=== PATIENT | male | born 1940 | race Caucasian/White ===

== ENCOUNTER 2019-06-08 02:15 | Inpatient (IN) | payer OTHER, SELFPAY ==
[2019-06-08] VITALS (19 sets, daily range): BP systolic 103–200; BP diastolic 61–138; PULSE 63–99; RESP 18–32; TEMP 36–36.8; O2SAT 86–100; BMI 26.4
--- NOTE | ~2019-06-08 | XR_ITS ---
XR chest 2V DATE: 06/08/2019 09:50 INDICATION: Cough, shortness of breath TECHNIQUE: PA and lateral views COMPARISON: 06/08/2019 portable upright AP chest FINDINGS: There are bilateral posterior basilar lower lobe infiltrates and/atelectasis and small pleu ral effusions. Normal heart size. Aortic calcification. There is resolution of the pulmonary vascular congestion and pulmonary interstitial edema noted on 06/08/2019 at 0228 hours. There is residual pulmonary vascular redistribution suggesting mild pulmonary venous hypertension as well as mild prominence of the fissur es suggesting possible residual subpleural edema. IMPRESSION: Dramatic improvement of pulmonary edema since earlier today at 0228 hours; pulmonary vasc ular redistribution, subpleural edema and small pleural effusions remain Bilateral posterior basilar lower lobe infiltrate and/atelectasis Reviewed, dictated and finalized at location B. IMPRESSION: Dramatic improvement of pulmonary edema since earlier today at 0228 hours; pulmonary vascular redistribution, subpleural edema and small pleural e ffusions remain Bilateral posterior basilar lower lobe infiltrate and/atelectasis
--- NOTE | ~2019-06-08 | XR_ITS ---
EXAMINATION: XR chest 1V portable EXAM DATE: 06/08/2019 02:28 INDICATION: Shortness of breath. TECHNIQUE: Portable AP frontal chest x-ray was obtained. Comparison is made to prior examination from 09/03/2010. FINDINGS: There is extensive bilateral perihilar distribution airspace disease, likely edema/ARDS and /or pneumonia. Please clinically correlate. Cardiomediastinal silhouette is normal. There is no pneum othorax suspected. There are no pleural effusions. There are bony degenerative changes. IMPRESSION: Extensive bilateral perihilar distribution airspace disease, could be edema/ARDS. Pneumon ia not excludable. Reviewed, dictated and finalized at location A. IMPRESSION: Extensive bilateral perihilar distribution airspace disease, could be edema/ARDS. Pneumonia not excludable.
--- NOTE | 2019-06-08 02:17 | ECG_ITS ---
Measurements Intervals [place] Rate: 96 P: 12 NH: 199 QRS: -4 QRSD: 102 T: 53 QT: 364 QTc: 461 Interpretive Statements SINUS RHYTHM POSSIBLE LEFT ATRIAL ENLARGEMENT BASELINE ARTIFACT- I, II, III, AVL, AVF BORDERLINE ECG Electronically Signed On 06-08-2019 7:09:16 CDT by Josue Colvin D.O.
[2019-06-08] MEDS: NITROGLYCERIN OINTMENT 1 INCH DOSE TRANSDERM (02:20)
--- NOTE | 2019-06-08 02:21 | ED.SOB ---
HPI - SOB/Dyspnea General Chief Complaint: Shortness of Breath/Dyspnea Stated Complaint: diff breathing Time Seen by Provider: 06/08/19 02:16 Source: patient, EMS and RN notes reviewed Mode of arrival: EMS Limitations: clinical condition History of Present Illness HPI Narrative: Pt is a 78 y/o female who presents to the ED with c/o sudden onset of SOB that began yesterday (06/07/19). Per EMS, pt was prescribed an abx for bronchitis. Pt?s PCP recommended the pt to stay at home and self quarantine to take precautions. Pt?s respiratory rate was 28 times per minute. EMS states they heard rhonchi, but denies breath sounds being diminished. Pt had a pulse ox of 84. Pt?s O2 saturation increased from 84% to 98% after being placed on 15 L of O2 via a non rebreather. EMS states the pt felt better after being placed on the non rebreather, but he is still struggling to take a deep breath. EMS states they were in the processes of putting the pt on a CPAP, but the pt was showing positive trends so EMS continued with the non rebreather. EMS states the pt's EKG was normal. EMS denies the pt having a hx of CHF. EMS states the pt's family has flu like sx. Pt states that he cannot lay fully back d/t his back muscles. Pt also reports diaphoresis and nausea, but denies a fever, chest pain, chest pressure, and vomiting. HPI is limited due to pt's clinical condition. Pt requests full code status. MD elicited complaint: shortness of breath Onset (ago): day(s) (1) Context: other (sick contact) Timing: constant Severity: severe Associated symptoms: nausea/vomiting and other (diaphoresis) Treatment prior to arrival: oxygen (15 L via non rebreather) Related Data Home Medications Medication Instructions Recorded Confirmed azithromycin 250 mg PO DAILY 06/08/19 cyclobenzaprine 10 mg PO BID PRN 06/08/19 dimenhydrinate 50 mg PO Q4-6H PRN 06/08/19 diphenhydramine HCl [Allergy 25 mg PO HS 06/08/19 (diphenhydramine)] dutasteride 0.5 mg PO DAILY 06/08/19 fludrocortisone 0.1 mg PO DAILY 03/18/20 latanoprost 1 drp OPHTHALMIC (EYE) HS 06/08/19 lorazepam 1 mg PO HS PRN 06/08/19 melatonin 10 mg PO HS 06/08/19 omeprazole 20 mg PO HS 06/08/19 oxybutynin chloride 15 mg PO DAILY 06/08/19 paroxetine HCl 20 mg PO DAILY 06/08/19 quetiapine 200 mg PO HS 06/08/19 sotalol 80 mg PO BID 06/08/19 triamcinolone acetonide 1 applic TOPICAL DAILY 06/08/19 Allergies Allergy/AdvReac Type Severity Reaction Status Date / Time celecoxib Allergy Mild Hives Verified 06/08/19 02:53 valdecoxib Allergy Mild Hives Verified 06/08/19 02:53 Barbiturates Allergy Unknown Hives Verified 06/08/19 02:53 Review of Systems Review of Systems: ROS unobtainable: other (limited due to pt's clinical condition) Constitutional: Constitutional: Denies fever(s) Cardiovascular: Cardiovascular: Denies chest pain, Reports diaphoresis and Denies other (chest pressure) Respiratory: Respiratory: Reports dyspnea Gastrointestinal: Gastrointestinal: Reports nausea and Denies vomiting [facility] Past Medical History Medical History (Updated 06/08/19 @ 04:15 by Simón Gilbert MD) A-fib Anxiety Arm fracture Arthritis DDD (degenerative disc disease) Depression Dilation of esophagus x3 Gallbladder disease GERD (gastroesophageal reflux disease) GI bleed Glaucoma Headache Mitral valve prolapse Parkinson disease Previous known suicide attempt 07/03/09 Rectal polyp Silverio-Checo syndrome Ulcer Surgical History Surgical History (Updated 06/08/19 @ 02:32 by Sonya Redmond) H/O cardiac radiofrequency ablation History of esophagogastroduodenoscopy (EGD) Hx of appendectomy Hx of cholecystectomy Hx of fusion of cervical spine Status post laparoscopic Austen fundoplication Family History Family History (Updated 06/08/19 @ 02:33 by Sonya Redmond) Father Colon cancer Social History Social History (Updated 06/08/19 @ 02:32 by Sonya Redmond) Smoking packs per day: 0.5 Smok
[2019-06-08] MEDS: ONDANSETRON INJ 4 MG/2 ML VIAL IV PUSH (02:25)
[2019-06-08] MEDS: FUROSEMIDE INJ 40 MG/4 ML VIAL 80 MG (02:27)
[2019-06-08 02:41] LABS: Alveolar/Arterial O2 Gradient 446.6 mmHg; Base Excess ABG -4.7 mEq/l (+/-2.0); Carboxyhemoglobin 0.6 % THb (0-2.0); Fractional Inspired Oxygen 100 %; Methemoglobin ABG 0.1 %THb (0-1.5); Oxygen Content ABG 21.7 %vol (16.0-22.0); Oxygen Saturation ABG 99.4 % (95.0-100.0); Oxyhemoglobin 98.1 % THb (90.0-100.0); PCO2 ABG 46.4 mmHg (35.0-45.0); Reduced Hemoglobin 1.2 %THb (0-5.0); Total Hemoglobin 15.4 g/dL (12.0-18.0); pH ABG 7.294 (7.350-7.450)
[2019-06-08 02:42] LABS: Device NON-INVASIVE VENT; Modified Allen's Test Pass; Site Drawn RIGHT RADIAL
[2019-06-08 02:44] LABS: Non-Invasive Expiratory Pressure 8 CMH2O; Non-Invasive Inspiratory Pressure 14 CMH2O; Non-Invasive Vent Rate 8 /MIN
[2019-06-08 03:21] LABS: Basophils Percent Auto 0.2 % (0.2-1.2); Eosinophils Absolute Auto 0.3 K/mm3 (0-0.3); Eosinophils Percent Auto 3.5 % (0-4.4); Hemoglobin 14.8 g/dL (14.0-18.0); Immature Granulocyte Absolute 0.02 K/mm3 (0.00-0.031); Immature Granulocyte Percent A 0.2 % (0-0.5); Lymphocytes Absolute Auto 1.14 K/mm3 (0.9-3.2); Lymphocytes Percent Auto 13.9 % (18.3-44.2); Mean Corpuscular HGB Conc 32.9 g/dl (32-36); Mean Corpuscular Hemoglobin 30.5 pg (26-34); Mean Corpuscular Volume 92.8 fl (80-100); Mean Platelet Volume 11.3 fl (7.4-10.4); Monocytes Absolute Auto 0.3 K/mm3 (0.1-0.6); Monocytes Percent Auto 3.6 % (2.6-8.5); Neutrophils Absolute Auto 6.5 K/mm3 (1.3-6.7); Neutrophils Percent Auto 78.6 % (45.5-73.1); Platelet Count Result 220 k/mm3 (150-375); Red Blood Count 4.85 M/mm3 (4.6-6.20); Red Cell Distribution Width 14.5 % (11.5-14.5); White Blood Count 8.2 K/mm3 (4.5-10.0)
--- NOTE | 2019-06-08 03:33 | PC.NURSE ---
Patient's blood pressure 103/71, Nitro paste removed from left chest.
[2019-06-08 03:37] LABS: Blood Urea Nitrogen 18 mg/dL (9-20); Calcium 8.6 mg/dL (8.4-10.2); Carbon Dioxide 27 mmol/L (22-30); Chloride 105 mmol/L (98-107); Estimated CRCL calculation 70 ml/min; Estimated Glomerular Filt Rate > 60; Glucose 168 mg/dL (75-110); Lactic Acid Reflex 1.1 mmol/L (0.7-2.1); Sodium 138 mmol/L (137-145)
[2019-06-08 03:49] LABS: NT Pro B Type Natriuretic Pept 2490 PG/ML (5-100)
[2019-06-08] MEDS: OSELTAMIVIR PHOSPHATE 75 MG CAPSULE PO ×2 (04:08→17:11)
--- NOTE | 2019-06-08 04:08 | PC.NURSE ---
Bipap removed from patient. patient placed on O2@4L/NC. SPO2 97%. Will cont to monitor.
--- NOTE | 2019-06-08 04:25 | PM.IMHP ---
H&P: HPI History of Present Illness Chief complaint: CHF EXACERBATION,ACUTE RESPIRATORY FAILURE Narrative: This is a pleasant 78-year-old male with known past medical history of atrial fibrillation status post ablations and mitral valve prolapse who presented to the hospital with a complaint of sudden onset of severe shortness of breath that began yesterday. Associated symptoms included nausea and diaphoresis. On arrival to the emergency room the patient was in acute respiratory failure and was found to be saturating 84% on room air. The patient was placed on BiPAP in the ER. Chest x-ray was obtained which demonstrated diffuse pulmonary edema. The patient himself denies any past medical history of congestive heart failure, COPD, or other forms of chronic lung disease. He denies any fever, chest pain, abdominal pain, sore throat, dysuria, hematuria, diarrhea, rectal bleeding, lower extremity swelling, pain, or redness. The patient was found to be acutely fluid overloaded with acute pulmonary edema and significantly elevated BNP. He also tested positive for influenza a tonight. He reports his has similar respiratory symptoms at home. The patient was treated with IV Lasix in the ER tonight and we been asked to admit him to the hospital for further care. He denies any other symptoms at this time. Review of Systems Review of Systems: All systems reviewed & are unremarkable except as noted in HPI and below PMFSH Past Medical History Medical History A-fib Anxiety Arm fracture Arthritis DDD (degenerative disc disease) Depression Dilation of esophagus x3 Gallbladder disease GERD (gastroesophageal reflux disease) GI bleed Glaucoma Headache Mitral valve prolapse Parkinson disease Previous known suicide attempt 07/03/09 Rectal polyp Silverio-Checo syndrome Ulcer Surgical History Surgical History H/O cardiac radiofrequency ablation History of esophagogastroduodenoscopy (EGD) Hx of appendectomy Hx of cholecystectomy Hx of fusion of cervical spine Status post laparoscopic Austen fundoplication Family History Family History Father Colon cancer Social History Social History Smoking packs per day: 0.5 Smoking cigarettes per day: 10.0 Years smoked: 5 Smoking pack-years: 2.50 Smoking status: Former smoker Tobacco type: cigarettes Second hand tobacco smoke exposure: No Smoking end date: 03/23/71 Alcohol intake: never Substance use: never Gender identity (if verbalized by the patient): Male Spiritual care concerns: No Agree to blood products: Yes Meds Home Medications and Allergies Home Medications Medication Instructions Recorded Confirmed Type azithromycin 250 mg PO DAILY 06/08/19 06/08/19 History cyclobenzaprine 10 mg PO BID PRN 06/08/19 06/08/19 History dimenhydrinate 50 mg PO Q4-6H PRN 06/08/19 06/08/19 History diphenhydramine HCl [Allergy 25 mg PO HS 06/08/19 06/08/19 History (diphenhydramine)] dutasteride 0.5 mg PO DAILY 06/08/19 06/08/19 History fludrocortisone 0.1 mg PO DAILY 06/08/19 06/08/19 History latanoprost 1 drp OPHTHALMIC (EYE) HS 06/08/19 06/08/19 History lorazepam 1 mg PO HS PRN 06/08/19 06/08/19 History melatonin 10 mg PO HS 06/08/19 06/08/19 History omeprazole 20 mg PO HS 06/08/19 06/08/19 History oxybutynin chloride 15 mg PO DAILY 06/08/19 06/08/19 History paroxetine HCl 20 mg PO DAILY 06/08/19 06/08/19 History quetiapine 200 mg PO HS 06/08/19 06/08/19 History sotalol 80 mg PO BID 06/08/19 06/08/19 History Allergies Allergy/AdvReac Type Severity Reaction Status Date / Time celecoxib Allergy Mild Hives Verified 06/08/19 02:53 valdecoxib Allergy Mild Hives Verified 06/08/19 02:53 Barbiturates Allergy Unknown Hives Verified 06/08/19 02:53 Vit
--- NOTE | 2019-06-08 04:31 | PC.NURSE ---
Patient report faxed to ICU, IMCU overflow.
--- NOTE | 2019-06-08 04:42 | ECHO_ITS ---
Patient Info Name: Rico Nelson Age: 78 years : 1940 Gender: Male Ht: 74 in Wt: 210 lbs BSA: 2.24 m2 HR: 67 bpm BP: 119 / 83 mmHg Heart Rhythm: Sinus Rhythm Technical Quality: Good Exam Date: 06/08/2019 7:43 AM Exam Location: [facility] Pulmonary Patient Status: Inpatient Admit Date: 06/08/2019 Staff Ordering Physician: Lauro Agrawal MD Manager Wind: Carter Jade RDCS, RT Attending Provider: Maite David PA-C Referring Physician: Nghia MARAVILLA; Exam Type: CA echo doppler color flow Study Info Indications I50.9 - Heart failure, unspecified Complete two-dimensional, color flow and Doppler transthoracic echocardiogram is performed. Summary 1. Left ventricular chamber dimension is mildly enlarged. 2. Left ventricular systolic function is moderately reduced, estimated at 35-40%. 3. There is mildly increased left ventricular wall thickness. 4. The left ventricular diastolic function is grade I diastolic dysfunction. 5. The anterior wall, anterolateral wall, and inferolateral wall are hypokinetic. 6. All other dupont appear normal. 7. Left atrial chamber dimension is mildly enlarged. 8. There is mild to moderate aortic valve regurgitation. 9. There is mild mitral valve regurgitation. 10. There is mild tricuspid valve regurgitation. 11. There is mild pulmonic regurgitation. 12. Pleural effusion is seen. Left Ventricle Left ventricular chamber dimension is mildly enlarged. Left ventricular systolic function is moderately reduced, estimated at 35-40%. There is mildly increased left ventricular wall thickness. The left ventricular diastolic function is grade I diastolic dysfunction. The anterior wall, anterolateral wall, and inferolateral wall are hypokinetic. All other dupont appear normal. Right Ventricle Right ventricular chamber dimension is normal. Right ventricular systolic function is normal. Left Atria Left atrial chamber dimension is mildly enlarged. Right Atria Right atrial chamber dimension is normal. Atrial Septum Intact interatrial septum visualized by color flow imaging. Aortic Valve The aortic valve is trileaflet. There is mild aortic valve sclerosis. There is no aortic valve stenosis. There is mild to moderate aortic valve regurgitation. Pulmonic Valve The pulmonic valve is normal. There is no pulmonic valve stenosis. There is mild pulmonic regurgitation. Mitral Valve The mitral valve has normal leaflets. There is no mitral valve stenosis. There is mild mitral valve regurgitation. Tricuspid Valve The tricuspid valve leaflets are normal. There is no significant tricuspid valve stenosis. There is mild tricuspid valve regurgitation. Other Findings Pleural effusion is seen. Pericardium/Pleural The pericardium appears normal. There is small pericardial effusion. Inferior Vena Cava Dilated inferior vena cava with >50% collapse upon inspiration consistent with elevated right atrial pressure, 10 mmHg. Aorta The aortic root size at the sinus of Valsalva is dilated. Left Ventricular Outflow Tract Name Value Normal LVOT 2D LVOT Diameter 2.3 cm LVOT Doppler
[2019-06-08 06:02] LABS: Alveolar/Arterial O2 Gradient 90.7 mmHg; Base Excess ABG 1.7 mEq/l (+/-2.0); Fractional Inspired Oxygen 36 %; HCO3 ABG 26.7 mEq/l (22.0-26.0); Oxygen Content ABG 20.2 %vol (16.0-22.0); Oxygen Saturation ABG 98.2 % (95.0-100.0); Oxyhemoglobin 97.1 % THb (90.0-100.0); PCO2 ABG 43.4 mmHg (35.0-45.0); PO2 ABG 115.6 mmHg (80.0-100.0); PO2 FiO2 Ratio Arterial Blood 3.21 %; Total Hemoglobin 14.7 g/dL (12.0-18.0); pH ABG 7.407 (7.350-7.450)
[2019-06-08 06:04] LABS: Device NASAL CANNULA; Modified Allen's Test Pass; Site Drawn RIGHT RADIAL
--- NOTE | 2019-06-08 06:08 | PC.NURSE ---
This patient, Rico Nelson, was admitted to Intensive Care Unit-11. Patient/family oriented to hospital policies and general routines including ID bracelet, bed and alarms, visiting hours, pain management, procedures, bathroom and other care routines, personal items, smoking policy, room service/diet, and visiting hours. Valuables list has been completed. Information on how to activate the Rapid Response Team has been discussed. Patient/Family are encouraged to report perceived risks to care and to ask questions if they do not understand what they are told or what they should do.
[2019-06-08 06:46] LABS: Magnesium 2.3 mg/dL (1.6-2.3)
[2019-06-08 07:01] LABS: INR 0.9; Prothrombin Time 12.1 Seconds (11.1-14.7)
[2019-06-08 07:03] LABS: Partial Thromboplastin Time 31.8 SECONDS (22.3-36.8)
[2019-06-08 07:07] LABS: Troponin I 0.055 ng/mL (0.000-0.034)
[2019-06-08 07:29] LABS: Hemoglobin A1C 5.5 % (<5.7)
[2019-06-08 07:57] LABS: Thyroid Stimulating Hormone Reflex 0.909 uIU/mL (0.465-4.68)
[2019-06-08] MEDS: FUROSEMIDE INJ 40 MG/4 ML VIAL IV PUSH (08:37)
[2019-06-08 10:13] LABS: Troponin I 0.049 ng/mL (0.000-0.034)
--- NOTE | 2019-06-08 11:09 | PM.IMPN ---
Progress Note: A&P Assessment and Plan (1) Acute respiratory failure: Qualifiers: Respiratory failure complication: hypoxia Qualified Code(s): J96.01 - Acute respiratory failure with hypoxia Code(s): J96.00 - Acute respiratory failure, unspecified whether with hypoxia or hypercapnia Status: Acute Assessment and Plan: ------much improved on new chest x-ray today, his lung exam is clear, and he no longer has shortness of breath. Will wean oxygen as tolerated. Okay to move out of IMU. Pulmonary edema likely secondary to influenza. Awaiting echo to assess for heart failure. Troponins trending down with no chest pain. Likely reactionary to acute heart failure/pulmonary edema (2) Acute exacerbation of CHF (congestive heart failure): Qualifiers: Heart failure type: unspecified Qualified Code(s): I50.9 - Heart failure, unspecified Code(s): I50.9 - Heart failure, unspecified Status: Acute Assessment and Plan: ------awaiting echo. Continue fluid restricted diet. Is and Os, Daily weights, Telemetry. Lasix changed to oral. TSH normal. Troponin elevated but trending down. See above (3) Influenza A: Code(s): J10.1 - Influenza due to other identified influenza virus with other respiratory manifestations Status: Acute Assessment and Plan: -----continue Tamiflu and symptomatic treatment. (4) Abnormal glucose: Code(s): R73.09 - Other abnormal glucose Status: Acute Assessment and Plan: -----A1c within normal limits. Likely acute phase reactant (5) Depression: Qualifiers: Depression Type: other depression Qualified Code(s): F32.89 - Other specified depressive episodes Code(s): F32.9 - Major depressive disorder, single episode, unspecified Status: Chronic Assessment and Plan: -----In good spirits today. Continue paxil when home meds verified . (6) GERD (gastroesophageal reflux disease): Qualifiers: Esophagitis presence: esophagitis presence not specified Qualified Code(s): K21.9 - Gastro-esophageal reflux disease without esophagitis Code(s): K21.9 - Gastro-esophageal reflux disease without esophagitis Status: Chronic Assessment and Plan: ------continue PPI therapy when home meds verified. (7) Glaucoma: Qualifiers: Glaucoma type: unspecified Laterality: unspecified laterality Qualified Code(s): H40.9 - Unspecified glaucoma Code(s): H40.9 - Unspecified glaucoma Status: Chronic Assessment and Plan: ------Continue Latanoprost eye drops. (8) A-fib: Qualifiers: Atrial fibrillation type: unspecified Qualified Code(s): I48.91 - Unspecified atrial fibrillation Code(s): I48.91 - Unspecified atrial fibrillation Status: Chronic Assessment and Plan: -----Hx of paroxysmal atrial fibrillation - Rate controlled and currently in sinus rhythm. Continue Sotalol PO when verified. Time Spent With Patient Time with patient: 25 - 35 minutes Subjective Date/time seen: 06/08/19 11:09 Interval history: Pt is a 78-year-old male who is being seen for influenza and flash pulmonary edema. Patient was seen today and states he feels much better. He is no longer short of breath but still is utilizing the oxygen. He says that he has gotten up and walked to the wheelchair without any shortness of breath there either. He does not usually use oxygen at home. He has had a little bit of nausea which is typical for him as well as constipation. He denies fevers, chills, chest pain, diarrhea or vomiting. When asked if he felt like his heart was racing this morning around 830 he said he has not had any heart palpitations or chest pain since being here. He says he can usually feel his heart racing has not since. He denies any activity during this time either. He is able to lay flat and has no
--- NOTE | 2019-06-08 14:00 | PC.NURSE ---
This patient, Rico Nelson, was received from ICU on 06/08/19 at 1400. Personal belongings list checked and signed. Patient/family oriented to unit policies and routines
--- NOTE | 2019-06-08 14:02 | PC.NURSE ---
This patient, Rico Nelson, was transferred to [facility] on 06/08/19 at 1355. Personal belongings sent with patient. Belongings list checked and signed with receiving . Report given to BRIE Elise. Appropriate documentation sent with patient.
[2019-06-08] MEDS: FUROSEMIDE 40 MG TABLET PO (17:11)
[2019-06-08] MEDS: SOTALOL HCL 80 MG TABLET PO (19:49)
[2019-06-08] MEDS: LATANOPROST 0.005% OP SOLN 2.5 ML BTL 1 DROP EACH EYE (19:50)
[2019-06-08] MEDS: PANTOPRAZOLE 40 MG TABLET PO (19:50)
[2019-06-08] MEDS: SENNOSIDES 8.6 MG TABLET PO (19:50)
[2019-06-08] MEDS: MELATONIN 5 MG TABLET 10 MG PO (19:50)
[2019-06-08] MEDS: QUEtiapine FUMARATE 100 MG TABLET 200 MG PO (19:50)
[2019-06-09] VITALS (9 sets, daily range): BP systolic 110–140; BP diastolic 71–81; PULSE 51–77; RESP 16–20; TEMP 36.3–36.6; O2SAT 96–98
[2019-06-09] MEDS: OSELTAMIVIR PHOSPHATE 75 MG CAPSULE PO ×2 (05:41→18:20)
[2019-06-09 06:01] LABS: Basophils Percent Auto 0.5 % (0.2-1.2); Eosinophils Absolute Auto 0.2 K/mm3 (0-0.3); Eosinophils Percent Auto 5.1 % (0-4.4); Hematocrit 38.3 % (42.0-52.0); Hemoglobin 12.5 g/dL (14.0-18.0); Immature Granulocyte Absolute 0.01 K/mm3 (0.00-0.031); Immature Granulocyte Percent A 0.2 % (0-0.5); Lymphocytes Absolute Auto 1.43 K/mm3 (0.9-3.2); Lymphocytes Percent Auto 32.9 % (18.3-44.2); Mean Corpuscular HGB Conc 32.6 g/dl (32-36); Mean Corpuscular Hemoglobin 30.1 pg (26-34); Mean Corpuscular Volume 92.3 fl (80-100); Mean Platelet Volume 11.2 fl (7.4-10.4); Monocytes Absolute Auto 0.5 K/mm3 (0.1-0.6); Monocytes Percent Auto 11.8 % (2.6-8.5); Neutrophils Absolute Auto 2.2 K/mm3 (1.3-6.7); Neutrophils Percent Auto 49.5 % (45.5-73.1); Platelet Count Result 189 k/mm3 (150-375); Red Blood Count 4.15 M/mm3 (4.6-6.20); Red Cell Distribution Width 14.6 % (11.5-14.5); White Blood Count 4.3 K/mm3 (4.5-10.0)
[2019-06-09 06:28] LABS: Blood Urea Nitrogen 32 mg/dL (9-20); Calcium 8.6 mg/dL (8.4-10.2); Carbon Dioxide 36 mmol/L (22-30); Chloride 99 mmol/L (98-107); Estimated CRCL calculation 58 ml/min; Estimated Glomerular Filt Rate > 60; Glucose 104 mg/dL (75-110); Potassium 3.1 mmol/L (3.4-5.0); Sodium 138 mmol/L (137-145)
[2019-06-09] MEDS: SOTALOL HCL 80 MG TABLET PO (08:18)
[2019-06-09] MEDS: FLUDROCORTISONE ACETATE 0.1 MG TABLET PO (08:18)
[2019-06-09] MEDS: FUROSEMIDE 40 MG TABLET PO (08:18)
[2019-06-09] MEDS: DUTASTERIDE 0.5 MG CAPSULE PO (08:18)
[2019-06-09] MEDS: PAROXETINE 20 MG TABLET PO (08:18)
--- NOTE | 2019-06-09 08:42 | ECG_ITS ---
Measurements Intervals [place] Rate: 76 P: 38 PA: 198 QRS: -2 QRSD: 99 T: 56 QT: 425 QTc: 479 Interpretive Statements SINUS RHYTHM ATRIAL PREMATURE COMPLEXES BASELINE ARTIFACT- II, III, AVF BORDERLINE ECG Electronically Signed On 06-09-2019 9:51:31 CDT by Josue Colvin D.O.
--- NOTE | 2019-06-09 14:20 | PM.IMPN ---
Progress Note: A&P Assessment and Plan (1) Acute respiratory failure: Qualifiers: Respiratory failure complication: hypoxia Qualified Code(s): J96.01 - Acute respiratory failure with hypoxia Code(s): J96.00 - Acute respiratory failure, unspecified whether with hypoxia or hypercapnia Status: Acute Assessment and Plan: ------much improved on new chest x-ray yesterday, his lung exam is clear, and he no longer has shortness of breath. Pulmonary edema likely secondary to influenza and CHF. Echo shows systolic dysfunction. Troponins trending down with no chest pain. Likely reactionary to acute heart failure/pulmonary edema (2) Acute exacerbation of CHF (congestive heart failure): Qualifiers: Heart failure type: systolic Qualified Code(s): I50.23 - Acute on chronic systolic (congestive) heart failure Code(s): I50.9 - Heart failure, unspecified Status: Acute Assessment and Plan: -----Echo shows systolic dysfunction. Pt unaware of this. I requested records and last echo showed normal EF. He says he sees [facility] but then today admits he hasn't seen them in awhile. I will consult them due to new onset heart failure and uncontrolled afib. Continue fluid restricted diet. Is and Os, Daily weights, Telemetry. Lasix changed to oral and will likely need some outpt. TSH normal. Troponin elevated but trending down. See above (3) Influenza A: Code(s): J10.1 - Influenza due to other identified influenza virus with other respiratory manifestations Status: Acute Assessment and Plan: -----continue tamiflu and supportive treatments. (4) Abnormal glucose: Code(s): R73.09 - Other abnormal glucose Status: Acute Assessment and Plan: -----A1c within normal limits. Likely acute phase reactant (5) Depression: Qualifiers: Depression Type: other depression Qualified Code(s): F32.89 - Other specified depressive episodes Code(s): F32.9 - Major depressive disorder, single episode, unspecified Status: Chronic Assessment and Plan: -----continue paxil (6) GERD (gastroesophageal reflux disease): Qualifiers: Esophagitis presence: esophagitis presence not specified Qualified Code(s): K21.9 - Gastro-esophageal reflux disease without esophagitis Code(s): K21.9 - Gastro-esophageal reflux disease without esophagitis Status: Chronic Assessment and Plan: ------continue PPI therapy when home meds verified. (7) Glaucoma: Qualifiers: Glaucoma type: unspecified Laterality: unspecified laterality Qualified Code(s): H40.9 - Unspecified glaucoma Code(s): H40.9 - Unspecified glaucoma Status: Chronic Assessment and Plan: ------Continue Latanoprost eye drops. (8) A-fib: Qualifiers: Atrial fibrillation type: unspecified Qualified Code(s): I48.91 - Unspecified atrial fibrillation Code(s): I48.91 - Unspecified atrial fibrillation Status: Chronic Assessment and Plan: -----Hx of paroxysmal atrial fibrillation. He had RVR yesterday morning and today. Currently in NSR. Continue Sotalol and await cardiologys recommendations Subjective Date/time seen: 06/09/19 14:20 Interval history: Pt is a 78-year-old male who is being seen for influenza and flash pulmonary edema. Patient was seen today and says he is no longer SOB. When asked if his heart was racing or had CP he said it always races in the morning like that . He said he had an ablation about 10-15 years ago at [facility] and a cath about 10 years ago. He is unsure if he has been diagnosed with CHF. We discussed daily weights and low sat diet. Pt denies nausea, vomiting, fevers, chills, constipation, diarrhea, chest pain, sob, or abdominal pain. Exam Narrative: Exam Narrative: General: Well developed well nourished patient resting co
[2019-06-09] MEDS: POTASSIUM CHLORIDE 20 MEQ TABLET 40 MEQ PO (14:58)
--- NOTE | 2019-06-09 15:52 | PM.CNCAR ---
Assessment and Plan Assessment and plan (1) Acute exacerbation of CHF (congestive heart failure): Qualifiers: Heart failure type: systolic Qualified Code(s): I50.23 - Acute on chronic systolic (congestive) heart failure Code(s): I50.9 - Heart failure, unspecified Status: Acute Assessment and Plan: this is systolic in etiology. Echocardiogram shows ejection fraction 35-40% with wall motion abnormalities. Certainly may be related to underlying coronary disease. He did have a cardiac catheterization in 2005 showing mild plaquing. At this point, I am going to initiate Entresto therapy 24/26 mg 1 tablet p.o. b.i.d. I am going to stop his sotalol given his heart failure. After some washout, starting him on low-dose carvedilol is prudent. He does have a positive troponin and a repeat troponin will be ordered. Potassium will also be replaced. (2) A-fib: Qualifiers: Atrial fibrillation type: unspecified Qualified Code(s): I48.91 - Unspecified atrial fibrillation Code(s): I48.91 - Unspecified atrial fibrillation Status: Chronic Assessment and Plan: Stop the sotalol. He is having frequent episodes of atrial fibrillation anyway and his QTC is 479 milliseconds at this point. Unfortunately amiodarone is likely a better choice given his presumed coronary disease and heart failure. He has a chads Vasc score of at least 4. Anticoagulation is warranted. Will initiate enoxaparin therapy 1 milligram/kilogram subcu q.12 hours for now Andfurther discussion with the patient regarding long-term anticoagulation. (3) Influenza A: Code(s): J10.1 - Influenza due to other identified influenza virus with other respiratory manifestations Status: Acute Assessment and Plan: supportive care (4) GERD (gastroesophageal reflux disease): Qualifiers: Esophagitis presence: esophagitis presence not specified Qualified Code(s): K21.9 - Gastro-esophageal reflux disease without esophagitis Code(s): K21.9 - Gastro-esophageal reflux disease without esophagitis Status: Chronic (5) Cardiomyopathy: Code(s): I42.9 - Cardiomyopathy, unspecified Status: Acute Assessment and Plan: new diagnosis. Probably ischemic. will need an ischemic evaluation We will decrease his furosemide 40 mg daily History of Present Illness History of Present Illness Consult date/time: 06/09/19 15:52 Requesting physician: Maite David PA-C Consult reason: atrial fibrillation and congestive heart failure Reason For Visit: CHF EXACERBATION,ACUTE RESPIRATORY FAILURE Narrative: Date of service 06/07/2019 History: Patient is a 78-year-old male who has a history of atrial fibrillation and formally saw Dr. Galarza but has not been seen in several years. He has been on sotalol. Reportedly has had ablation in the past. Patient presented yesterday with acute onset of shortness of breath and hypoxia. He was found to be in acute pulmonary edema with an elevated BNP and reportedly also tested positive for influenza a. Cardiology consultation was therefore requested. Patient has also been going in and out of atrial fibrillation with rapid ventricular response. Patient states that prior to this episode he had been doing and feeling okay except for he would have frequent episodes of palpitations. Palpitations would last for several minutes and occur several times per day and then spontaneously resolve. Otherwise he admits that he has not been having any chest pain, significant shortness of breath, syncope, presyncope, paroxysmal nocturnal dyspnea, orthopnea , edema. Review of Systems Review of Systems: All systems reviewed & are unremarkable except as noted in HPI and below Constitutional: Constitutional: Denies chills Eyes: Eyes: Denies blurry vision ENT: Denies tinnitus Cardiovascular: Cardiovascular: Reports palpitations Respiratory: Respiratory: Reports d
[2019-06-09 16:54] LABS: Troponin I 0.013 ng/mL (0.000-0.034)
[2019-06-09] MEDS: LATANOPROST 0.005% OP SOLN 2.5 ML BTL 1 DROP EACH EYE (20:12)
[2019-06-09] MEDS: PANTOPRAZOLE 40 MG TABLET PO (20:12)
[2019-06-09] MEDS: QUEtiapine FUMARATE 100 MG TABLET 200 MG PO (20:12)
[2019-06-09] MEDS: MELATONIN 5 MG TABLET 10 MG PO (20:12)
[2019-06-09] MEDS: ENOXAPARIN 100 MG/ML SYRINGE 95 MG SUB-Q (20:12)
[2019-06-09] MEDS: SACUBITRIL/VALSARTAN 24-26 MG TABLET 1 TAB PO (20:12)
[2019-06-09] MEDS: SENNOSIDES 8.6 MG TABLET PO (20:13)
[2019-06-10] VITALS (11 sets, daily range): BP systolic 109–148; BP diastolic 65–88; PULSE 63–150; RESP 18–20; TEMP 36.2–36.5; O2SAT 97–100
[2019-06-10 05:32] LABS: Blood Urea Nitrogen 27 mg/dL (9-20); Calcium 8.5 mg/dL (8.4-10.2); Carbon Dioxide 37 mmol/L (22-30); Chloride 99 mmol/L (98-107); Estimated CRCL calculation 102 ml/min; Estimated Glomerular Filt Rate > 60; Glucose 94 mg/dL (75-110); Potassium 3.5 mmol/L (3.4-5.0); Sodium 137 mmol/L (137-145)
[2019-06-10] MEDS: OSELTAMIVIR PHOSPHATE 75 MG CAPSULE PO ×2 (06:12→17:15)
[2019-06-10] MEDS: METOPROLOL TARTRATE INJ 5 MG/5 ML VIAL IV PUSH (06:14)
[2019-06-10] MEDS: DUTASTERIDE 0.5 MG CAPSULE PO (09:01)
[2019-06-10] MEDS: FLUDROCORTISONE ACETATE 0.1 MG TABLET PO (09:01)
[2019-06-10] MEDS: SACUBITRIL/VALSARTAN 24-26 MG TABLET 1 TAB PO ×2 (09:01→19:56)
[2019-06-10] MEDS: FUROSEMIDE 40 MG TABLET PO (09:01)
[2019-06-10] MEDS: PAROXETINE 20 MG TABLET PO (09:01)
[2019-06-10] MEDS: METOPROLOL TARTRATE 25 MG TABLET PO ×2 (09:02→19:56)
[2019-06-10] MEDS: ENOXAPARIN 100 MG/ML SYRINGE 95 MG SUB-Q ×2 (09:02→19:56)
--- NOTE | 2019-06-10 10:46 | PM.IMPN ---
Progress Note: A&P Assessment and Plan (1) A-fib: Qualifiers: Atrial fibrillation type: unspecified Qualified Code(s): I48.91 - Unspecified atrial fibrillation Code(s): I48.91 - Unspecified atrial fibrillation Status: Chronic Assessment and Plan: -----Hx of paroxysmal atrial fibrillation.He has been having intermittent RVR and cardiology is working on medication changes. According to the note, Dr. Calero is waiting wash out for carvidolol. They also mention starting amiodarone but unsure when that will be started. Await cardiologys recommendation. I am having CC roberts Yoon. (2) Acute respiratory failure: Qualifiers: Respiratory failure complication: hypoxia Qualified Code(s): J96.01 - Acute respiratory failure with hypoxia Code(s): J96.00 - Acute respiratory failure, unspecified whether with hypoxia or hypercapnia Status: Acute Assessment and Plan: ------resolved. Much improved on new chest x-ray yesterday, his lung exam is clear, and he no longer has shortness of breath. Pulmonary edema likely secondary to influenza and CHF. Echo shows systolic dysfunction. Troponins trending down with no chest pain. Likely reactionary to acute heart failure/pulmonary edema (3) Acute exacerbation of CHF (congestive heart failure): Qualifiers: Heart failure type: systolic Qualified Code(s): I50.23 - Acute on chronic systolic (congestive) heart failure Code(s): I50.9 - Heart failure, unspecified Status: Acute Assessment and Plan: -----Echo shows systolic dysfunction. Pt unaware of this. I requested records and last echo showed normal EF. Heart care group saw the patient and is adjusting his meds. He is being transition to amiodarone. Continue fluid restricted diet. Is and Os, Daily weights, Telemetry. Lasix changed to oral and will likely need some outpt. TSH normal. Last troponin normal. Ischemia workup planned for outpatient. See above (4) Influenza A: Code(s): J10.1 - Influenza due to other identified influenza virus with other respiratory manifestations Status: Acute Assessment and Plan: -----continue tamiflu and supportive treatments. (5) Abnormal glucose: Code(s): R73.09 - Other abnormal glucose Status: Acute Assessment and Plan: -----A1c within normal limits. Likely acute phase reactant (6) Depression: Qualifiers: Depression Type: other depression Qualified Code(s): F32.89 - Other specified depressive episodes Code(s): F32.9 - Major depressive disorder, single episode, unspecified Status: Chronic Assessment and Plan: -----continue paxil (7) GERD (gastroesophageal reflux disease): Qualifiers: Esophagitis presence: esophagitis presence not specified Qualified Code(s): K21.9 - Gastro-esophageal reflux disease without esophagitis Code(s): K21.9 - Gastro-esophageal reflux disease without esophagitis Status: Chronic Assessment and Plan: ------continue PPI therapy (8) Glaucoma: Qualifiers: Glaucoma type: unspecified Laterality: unspecified laterality Qualified Code(s): H40.9 - Unspecified glaucoma Code(s): H40.9 - Unspecified glaucoma Status: Chronic Assessment and Plan: ------Continue Latanoprost eye drops. Additional Plan Subjective Date/time seen: 06/10/19 10:46 Interval history: Pt is a 78-year-old male who is being seen for influenza and flash pulmonary edema. Patient was seen today and states he is doing just fine. He is not short of breath and feels okay. He does mention that when he woke up this morning he felt his heart racing but had no chest pain associated with this. He says this did not wake him up he just woke up on her own. Pt denies nausea, vomiting, fevers, chills, constipation, diarrhea, chest pain, sob, or abdominal pain.
--- NOTE | 2019-06-10 11:44 | PM.PNCARD ---
Progress Note: A&P Additional Plan Because of the decline in left ventricular systolic function as well as the recurrence of atrial fibrillation which was significantly symptomatic on sotalol we intend to start amiodarone at this time. Entresto and metoprolol have been started in last 24 hours as well. Anticipate at least another 24 or 48 hours in the hospital to ensure that we do not have a early recurrence of atrial fib before discharge. Time Spent With Patient Time with patient: 15 - 25 minutes Subjective Date/time seen: Date of service: 06/10/19 11:44 Interval history: Follow-up visit for 78-year-old gentleman with recurrence of atrial fibrillation, dyspnea, congestive heart failure. Currently in sinus rhythm Patient is comfortable at this time appears to be in no distress of any sort Long discussion with the patient about management options of his recurrence of atrial fibrillation. He has had ablated treatment in the past at [facility] and has been maintained on sotalol by his PCP. I have not seen this gentleman in quite a few years prior to this hospitalization. Exam Const: General: no acute distress Other: Tall thin white male no apparent distress HENMT: Mouth: Yes dry mucous membranes Eyes: Sclera: sclerae normal Pupils: Equal, round and reactive pupils present Neck: Neck: supple and no JVD Thyroid: thyroid normal Resp: Effort & Inspection: normal respiratory effort Auscultation: clear to auscultation bilaterally Cardio: Rate: regular rate Rhythm: regular rhythm GI: Auscultation: normal bowel sounds Skin: General skin exam: normal color Neuro: Cognition (Neuro): normal cognition Extrem: General: normal to inspection Objective Data Vital Signs Vital Signs: Vital Signs - 24 hr 06/09/19 12:00 06/09/19 14:00 06/09/19 16:00 Temperature 36.3 C L Pulse Rate 66 67 77 Respiratory Rate 16 Blood Pressure 128/73 Pulse Oximetry 98 06/09/19 20:00 06/09/19 22:00 06/10/19 00:00 Temperature 36.6 C Pulse Rate 70 70 70 Respiratory Rate 20 Blood Pressure 140/81 Pulse Oximetry 96 06/10/19 04:00 06/10/19 05:41 06/10/19 06:14 Temperature 36.2 C L Pulse Rate 63 71 150 H Respiratory Rate 20 Blood Pressure 148/80 H Pulse Oximetry 97 06/10/19 09:00 Temperature Pulse Rate 80 Respiratory Rate Blood Pressure 109/65 Pulse Oximetry Intake/Output Intake/Output: Intake & Output 06/07/19 06/08/19 06/09/19 06/10/19 23:59 23:59 23:59 23:59 Intake Total 930 1350 240 Output Total 2024 1649 350 Balance -1095 -300 -110 Meds/Results Medications: Active Medications Generic Name Dose Route Start Last Admin Trade Name Freq PRN Reason Stop Dose Admin Acetaminophen 650 mg 06/08/19 11:06 Tylenol Tablet PO Q4H PRN Mild Pain (1-5) Or Fever Hydrocodone Bitart/Acetaminophen 1 tab 06/08/19 11:06 [place] 5-325 Mg PO Q4H PRN Pain Rated 6-10 Calcium Carbonate 200 mg 06/09/19 16:34 Tums PO Q6H PRN Indigestion Dutasteride 0.5 mg 06/09/19 09:00 06/10/19 09:01 Avodart PO 0.5 mg DAILY ZHEN Administration Enoxaparin Sodium 95 mg 06/09/19 21:00 06/10/19 09:02 Lovenox SUB-Q 95 mg Q12HR ZHEN Administration Fludrocortisone Acetate 0.1 mg 06/09/19 09:00 06/10/19 09:01 Florinef PO 0.1 mg DAILY ZHEN Administration Furosemide 40 mg 06/10/19 09:00 06/10/19 09:01 Lasix Tablet PO 40 mg DAILY ZHEN Administration Latanoprost 1 drop 06/08/19 21:00 06/09/19 20:12 Xalatan EACH EYE 1 drop HS ZHEN Administration Lorazepam 1 mg 06/08/19 11:56 Ativan Tab PO HS PRN Anxiety Melatonin 10 mg 06/08/19 21:00 06/09/19 20:12 Melatonin PO 10 mg HS ZHEN Administration Metoprolol Tartrate 25 mg 06/10/19 08:00 06/10/19 09:02 Lopressor PO 25 mg Q12H ZHEN Administration Ondansetron HCl 4 mg 06/08/19 04:03 Zofran Inj IV PUSH Q4H PRN Nausea Os
[2019-06-10] MEDS: AMIODARONE HCL 200 MG TABLET 400 MG PO ×2 (14:38→19:55)
[2019-06-10] MEDS: LATANOPROST 0.005% OP SOLN 2.5 ML BTL 1 DROP EACH EYE (19:55)
[2019-06-10] MEDS: SENNOSIDES 8.6 MG TABLET PO (19:56)
[2019-06-10] MEDS: QUEtiapine FUMARATE 100 MG TABLET 200 MG PO (19:56)
[2019-06-10] MEDS: MELATONIN 5 MG TABLET 10 MG PO (19:56)
[2019-06-10] MEDS: PANTOPRAZOLE 40 MG TABLET PO (19:56)
[2019-06-11] VITALS (7 sets, daily range): BP systolic 110–117; BP diastolic 66–70; PULSE 61–73; RESP 19; TEMP 36.5; O2SAT 98
[2019-06-11 05:52] LABS: Hematocrit 41.8 % (42.0-52.0); Hemoglobin 13.8 g/dL (14.0-18.0); Mean Corpuscular Hemoglobin 29.9 pg (26-34); Mean Corpuscular Volume 90.5 fl (80-100); Mean Platelet Volume 10.4 fl (7.4-10.4); Platelet Count Result 217 k/mm3 (150-375); Red Blood Count 4.62 M/mm3 (4.6-6.20); White Blood Count 4.4 K/mm3 (4.5-10.0)
[2019-06-11 06:16] LABS: Blood Urea Nitrogen 23 mg/dL (9-20); Carbon Dioxide > 40 mmol/L (22-30); Chloride 95 mmol/L (98-107); Estimated CRCL calculation 78 ml/min; Estimated Glomerular Filt Rate > 60; Glucose 94 mg/dL (75-110); Potassium 3.7 mmol/L (3.4-5.0); Sodium 138 mmol/L (137-145)
[2019-06-11] MEDS: OSELTAMIVIR PHOSPHATE 75 MG CAPSULE PO (06:21)
--- NOTE | 2019-06-11 08:21 | PM.PNCARD ---
Progress Note: A&P Additional Plan 78-year-old gentleman with recurrent atrial fib/flutter status post flutter ablation in the remote past. 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 Patient is stable on the current regimen of amiodarone, Entresto and metoprolol. Also takes a moderate dose of metoprolol. today will switch the patient from Lovenox to Xarelto From the cardiac standpoint he is stable for discharge at this time I will see the patient in the office for follow-up in 1 month and the plan will be to gradually down titrate the amiodarone dosage to 200 mg daily(currently at 800 mg) Rico Galarza MD [facility] Subjective Date/time seen: Date of service: 06/11/19 08:21 Interval history: Follow-up visit for paroxysmal atrial flutter and left ventricular systolic dysfunction Patient feels well looks well and is asymptomatic this morning Exam Const: General: comfortable and no acute distress HENMT: Mouth: Yes moist mucous membranes Eyes: Sclera: sclerae normal Pupils: Equal, round and reactive pupils present Neck: Neck: supple and no JVD Thyroid: thyroid normal Resp: Effort & Inspection: normal respiratory effort Auscultation: clear to auscultation bilaterally Cardio: Rate: regular rate Rhythm: regular rhythm GI: Auscultation: normal bowel sounds Skin: General skin exam: normal color Neuro: Cognition (Neuro): normal cognition Extrem: General: normal to inspection Objective Data Vital Signs Vital Signs: Vital Signs - 24 hr 06/10/19 09:00 06/10/19 12:00 06/10/19 14:00 Temperature 36.5 C Pulse Rate 80 79 72 Respiratory Rate 18 Blood Pressure 109/65 144/83 H Pulse Oximetry 98 06/10/19 16:00 06/10/19 20:00 06/10/19 22:00 Temperature 36.2 C L Pulse Rate 72 76 75 Respiratory Rate 20 Blood Pressure 142/88 H Pulse Oximetry 100 06/11/19 00:00 06/11/19 04:00 06/11/19 06:00 Temperature 36.5 C Pulse Rate 73 65 61 Respiratory Rate 19 Blood Pressure 117/66 Pulse Oximetry 98 Intake/Output Intake/Output: Intake & Output 03/18/20 03/19/20 03/20/20 03/21/20 23:59 23:59 23:59 23:59 Intake Total 930 1350 480 50 Output Total 2024 1649 9586 393 Balance -8974 -863 -1123 -500 Meds/Results Medications: Active Medications Generic Name Dose Route Start Last Admin Trade Name Freq PRN Reason Stop Dose Admin Acetaminophen 650 mg 06/08/19 11:06 Tylenol Tablet PO Q4H PRN Mild Pain (1-5) Or Fever Hydrocodone Bitart/Acetaminophen 1 tab 06/08/19 11:06 [place] 5-325 Mg PO Q4H PRN Pain Rated 6-10 Amiodarone HCl 400 mg 06/10/19 14:10 06/10/19 19:55 Pacerone PO 400 mg Q12HR ZHEN Administration Calcium Carbonate 200 mg 06/09/19 16:34 Tums PO Q6H PRN Indigestion Dutasteride 0.5 mg 06/09/19 09:00 06/10/19 09:01 Avodart PO 0.5 mg DAILY ZHEN Administration Fludrocortisone Acetate 0.1 mg 06/09/19 09:00 06/10/19 09:01 Florinef PO 0.1 mg DAILY ZHEN Administration Furosemide 40 mg 06/10/19 09:00 06/10/19 09:01 Lasix Tablet PO 40 mg DAILY ZHEN Administration Latanoprost 1 drop 06/08/19 21:00 06/10/19 19:55 Xalatan EACH EYE 1 drop HS ZHEN Administration Lorazepam 1 mg 06/08/19 11:56 Ativan Tab PO HS PRN Anxiety Melatonin 10 mg 06/08/19 21:00 06/10/19 19:56 Melatonin PO 10 mg HS ZHEN Administration Metoprolol Tartrate 25 mg 06/10/19 08:00 06/10/19 19:56 Lopressor PO 25 mg Q12H ZHEN Administration Ondansetron HCl 4 mg 06/08/19 04:03 Zofran Inj IV PUSH Q4H PRN Nausea Oseltamivir Phosphate 75 mg 06/08/19 18:00 06/11/19 06:21 Tamiflu Capsule PO 06/12/19 18:01 75 mg Q12H ZHEN Administration Oxybutynin Chloride 15 mg 06/09/19 09:00 06/10/19 09:01 Ditropan Xl PO 15 mg DAILY ZHEN Administration Pantoprazole Sodium 40 mg 06/08/19 21:00 06/10/19 19:56 Protoni
[2019-06-11] MEDS: FUROSEMIDE 40 MG TABLET PO (08:58)
[2019-06-11] MEDS: AMIODARONE HCL 200 MG TABLET 400 MG PO (08:58)
[2019-06-11] MEDS: DUTASTERIDE 0.5 MG CAPSULE PO (08:58)
[2019-06-11] MEDS: SACUBITRIL/VALSARTAN 24-26 MG TABLET 1 TAB PO (08:58)
[2019-06-11] MEDS: FLUDROCORTISONE ACETATE 0.1 MG TABLET PO (08:59)
[2019-06-11] MEDS: PAROXETINE 20 MG TABLET PO (08:59)
[2019-06-11] MEDS: METOPROLOL TARTRATE 25 MG TABLET PO (08:59)
--- NOTE | 2019-06-11 08:59 | PM.DS ---
DS: Diagnosis Admitting Diagnosis Admitting Diagnosis: Acute respiratory failure with hypoxia Discharge Diagnosis (1) A-fib: Qualifiers: Atrial fibrillation type: unspecified Qualified Code(s): I48.91 - Unspecified atrial fibrillation Code(s): I48.91 - Unspecified atrial fibrillation Status: Chronic (2) Acute respiratory failure: Qualifiers: Respiratory failure complication: hypoxia Qualified Code(s): J96.01 - Acute respiratory failure with hypoxia Code(s): J96.00 - Acute respiratory failure, unspecified whether with hypoxia or hypercapnia Status: Acute (3) Acute exacerbation of CHF (congestive heart failure): Qualifiers: Heart failure type: systolic Qualified Code(s): I50.23 - Acute on chronic systolic (congestive) heart failure Code(s): I50.9 - Heart failure, unspecified Status: Acute (4) Influenza A: Code(s): J10.1 - Influenza due to other identified influenza virus with other respiratory manifestations Status: Acute (5) Abnormal glucose: Code(s): R73.09 - Other abnormal glucose Status: Acute (6) Depression: Qualifiers: Depression Type: other depression Qualified Code(s): F32.89 - Other specified depressive episodes Code(s): F32.9 - Major depressive disorder, single episode, unspecified Status: Chronic (7) GERD (gastroesophageal reflux disease): Qualifiers: Esophagitis presence: esophagitis presence not specified Qualified Code(s): K21.9 - Gastro-esophageal reflux disease without esophagitis Code(s): K21.9 - Gastro-esophageal reflux disease without esophagitis Status: Chronic (8) Glaucoma: Qualifiers: Glaucoma type: unspecified Laterality: unspecified laterality Qualified Code(s): H40.9 - Unspecified glaucoma Code(s): H40.9 - Unspecified glaucoma Status: Chronic DS: Summary Hospital Course Reason for hospitalization: Influenza, respiratory failure Hospital Course: Patient is a 78-year-old male who presented emergency room for flu-like symptoms and shortness of breath/hypoxia. Patient's vitals were temperature 97.9?, pulse 99, respiratory rate 28, blood pressure 200/138, pulse ox 86 on room air. Initial white blood cell count 8.2, hemoglobin 14.8, hematocrit 45.0, platelets 220. BMP within normal limits with exception of random glucose 168. EKG showed sinus rhythm and no ST change. Patient was positive for influenza A. Chest x-ray revealed significant pulmonary edema and possibly ARDS. His blood gas showed acidemia with a pH of 7 point 294, CO2 elevated and PO2 elevated as well. Bicarb normal. The patient was placed on BiPAP and improved significantly. He was admitted to hospitalist service and started on Tamiflu and diuretic therapy. The patient improved immensely with this treatment and was able to be off the BiPAP after the 1st day. He was then placed on oxygen which was able to be weaned down. He underwent an echocardiogram which showed systolic dysfunction EF 35-40%. This was reportedly new for the patient. The patient also had chronic atrial fibrillation and had episodes of AFib RVR throughout his stay. He states that that was pretty normal for him and that he usually feels his heart racing on a daily basis. Cardiology was consulted and the patient was educated about the importance of maintaining a normal rate. Cardiology adjusted his medications as shown below. The day of discharge the patient had no episodes of RVR and had no shortness of breath. He is to follow up with the [facility] in 1 month. He also needs a BMP Dr. Vu on Thursday to assess his renal and potassium levels. The patient was educated about the worrisome signs and symptoms come back to emergency room for and was discharged in stable condition. Status at Discharge Functional status at discharge: independent ambulation Overall status at discharge: [place]
== END 2019-06-11 11:39 | disposition home or self-care (01) | DRG 291 ==
LOC: ANHED 04:23 → ANHICU 04:28 → ANH2MED 06-09 09:31 → ANHICU 06-14 14:30 → ANH2MED 06-14 14:30
PROVIDERS: Internal Medicine Cardiovascular Disease; Physician Assistant; Admitting Provider Family Medicine; Emergency Provider Emergency Medicine; PCP Family Medicine Adolescent Medicine; Visit Provider Hospitalist
DX: I50.23 Acute on chronic systolic (congestive) heart failure (principal); J96.01 Acute respiratory failure with hypoxia; I42.9 Cardiomyopathy, unspecified; I48.20 Chronic atrial fibrillation, unspecified; G20 Parkinson's disease; J10.1 Influenza due to other identified influenza virus with other respiratory manifestations; I34.1 Nonrheumatic mitral (valve) prolapse; R73.09 Other abnormal glucose; F41.9 Anxiety disorder, unspecified; F32.89 Other specified depressive episodes; K21.9 Gastro-esophageal reflux disease without esophagitis; M19.90 Unspecified osteoarthritis, unspecified site; H40.9 Unspecified glaucoma; Z79.899 Other long term (current) drug therapy; Z87.891 Personal history of nicotine dependence; Z98.1 Arthrodesis status
CPT/HCPCS: 36415; 36600; 71045; 71046; 80048; 82375; 82805; 83036; 83050; 83605; 83735; 83880; 84443; 84484; 85025; 85027; 85610; 85730; 87804; 93005; 93306; 96374; 96375; 99285; A9270; J1650; J1940; J2405

== ENCOUNTER 2019-12-10 10:53 | Emergency (ER) | payer OTHER, SELFPAY ==
[2019-12-10 11:00] VITALS: BP 140/70; PULSE 80; RESP 18; TEMP 36.9; O2SAT 99
--- NOTE | 2019-12-10 11:26 | ED.LOWEXIN ---
HPI - Extremity Injury (Lower) General Chief Complaint: Extremity Injury, Lower Stated Complaint: toe pain Time Seen by Provider: 12/10/19 11:02 Source: patient Mode of arrival: ambulatory Limitations: no limitations History of Present Illness HPI Narrative: Patient is a 79-year-old male who presents to emergency department for evaluation of avulsing his right great toe toenail last night patient has history of fungus of the toenail toenail is avulsed notes minimal pain has a mental health social worker that he will follow-up with but would like the nail removed patient denies other complaints or concerns and is resting comfortably in the room upon arrival in no distress Related Data Home Medications Medication Instructions Recorded Confirmed cyclobenzaprine 10 mg PO BID PRN 06/08/19 06/08/19 dimenhydrinate 50 mg PO Q4-6H PRN 06/08/19 06/08/19 diphenhydramine HCl [Allergy 25 mg PO HS 06/08/19 06/08/19 (diphenhydramine)] dutasteride 0.5 mg PO DAILY 06/08/19 06/08/19 fludrocortisone 0.1 mg PO DAILY 06/08/19 06/08/19 latanoprost 1 drp OPHTHALMIC (EYE) HS 06/08/19 06/08/19 lorazepam 1 mg PO HS PRN 06/08/19 06/08/19 melatonin 10 mg PO HS 06/08/19 06/08/19 omeprazole 20 mg PO HS 06/08/19 06/08/19 oxybutynin chloride 15 mg PO DAILY 06/08/19 06/08/19 paroxetine HCl 20 mg PO DAILY 06/08/19 06/08/19 quetiapine 200 mg PO HS 06/08/19 06/08/19 Allergies Allergy/AdvReac Type Severity Reaction Status Date / Time celecoxib Allergy Mild Hives Verified 12/10/19 11:10 valdecoxib Allergy Mild Hives Verified 12/10/19 11:10 Barbiturates Allergy Unknown Hives Verified 12/10/19 11:10 Review of Systems Review of Systems: All systems reviewed & are unremarkable except as noted in HPI and below PMFSH Past Medical History Medical History A-fib Anxiety Arm fracture Arthritis Cardiomyopathy DDD (degenerative disc disease) Depression Dilation of esophagus x3 Gallbladder disease GERD (gastroesophageal reflux disease) GI bleed Glaucoma Headache Mitral valve prolapse Parkinson disease Previous known suicide attempt 07/03/09 Rectal polyp Silverio-Checo syndrome Ulcer Surgical History Surgical History H/O cardiac radiofrequency ablation History of esophagogastroduodenoscopy (EGD) Hx of appendectomy Hx of cholecystectomy Hx of fusion of cervical spine Status post laparoscopic [place] fundoplication Social History Social History Smoking packs per day: 0.5 Smoking cigarettes per day: 10.0 Years smoked: 5 Smoking pack-years: 2.50 Smoking status: Former smoker Tobacco type: cigarettes Second hand tobacco smoke exposure: No Smoking end date: 03/23/71 Alcohol intake: never Substance use: never Gender identity (if verbalized by the patient): Male Spiritual care concerns: No Agree to blood products: Yes Exam Narrative: Exam Narrative: GENERAL: Well-appearing, well-nourished, and in no acute distress. HEAD: Normocephalic, atraumatic. EYES: PERRLA and EOMI. ENT: Nares clear, no rhinorrhea or epistaxis. Mucous membranes moist. EXTREMITIES: Normal range of motion. No edema. SKIN: Warm, dry, no rash. Avulsed nail right great toe no erythema bruising or other deformities NEURO: No focal deficits. Alert and oriented x3. Neurovascularly intact PSYCH: Normal mood and affect. Course Course Emergency Course: Patient in the room in no distress aware of case findings treatment plan diagnosis Vital Signs Vital signs: Vital Signs Temperature 98.5 F 12/10/19 11:00 Pulse Rate 80 12/10/19 11:00 Respiratory Rate 18 12/10/19 11:00 Blood Pressure 140/70 12/10/19 11:00 Pulse Oximetry 99 12/10/19 11:00 Temperature 98.5 F 12/10/19 11:00 Pulse Rate 80 12/10/19 11:00 Respiratory Rate 18 12/10/19 11:00 Blood Pressure 140/70 12/10/19 11:00
== END 2019-12-10 11:40 | disposition home or self-care (01) ==
PROVIDERS: Emergency Provider Emergency Medicine; PCP Family Medicine Adolescent Medicine
DX: S91.201A Unspecified open wound of right great toe with damage to nail, initial encounter (principal); I48.91 Unspecified atrial fibrillation; M19.90 Unspecified osteoarthritis, unspecified site; F41.9 Anxiety disorder, unspecified; F32.9 Major depressive disorder, single episode, unspecified; K21.9 Gastro-esophageal reflux disease without esophagitis; H40.9 Unspecified glaucoma; I34.1 Nonrheumatic mitral (valve) prolapse; G20 Parkinson's disease; Z87.19 Personal history of other diseases of the digestive system; L51.1 Stevens-Johnson syndrome; Z87.891 Personal history of nicotine dependence
CPT/HCPCS: 11730; 99282

== ENCOUNTER 2020-04-05 10:44 | Observation (INO) | payer OTHER, SELFPAY ==
[2020-04-05] VITALS (21 sets, daily range): BP systolic 91–137; BP diastolic 68–98; PULSE 104–141; RESP 16–20; TEMP 36.1–36.8; O2SAT 95–98; BMI 28.5; BMI 28.6
--- NOTE | ~2020-04-05 | CT_ITS ---
EXAMINATION: CT chest wo con EXAM DATE: 04/05/2020 11:39 INDICATION: Abnormal chest x-ray. Lung nodule. TECHNIQUE: Spiral CT of the chest without contrast. Axial, coronal and sagittal images were reviewe d. Coronal maximum intensity pixel images of chest reviewed. The dose-length product (DLP) for this examination was 308.07 mGy-cm. The exposure was tailored according to patient size (auto mA exposur e control), and iterative reconstruction (ASIR) was used as additional dose reduction technique. The re is no prior study for comparison. FINDINGS: Moderate right-sided and small left-sided pleural effusions. There is a left-sided Bochdal ek hernia containing fat. Heart is normal in size. Scattered reticulonodular opacities which could be infectious or postinfectious. Bronchial wall thickening consistent with bronchitis. There is small s liding gastroesophageal hiatal hernia. There are no pleural or pericardial effusions. Tracheobronc hial tree is patent. There is trace pericardial effusion. There is no pneumothorax. Heart normal in size. There is mild coronary arterial calcification, arterial sclerosis. Upper abdomen is unre markable. There is thoracic spondylosis without osteoblastic or osteolytic lesions identified. Mi ld to moderate chronic appearing T12 compression fracture. There are cholecystectomy clips. IMPRESSION: 1. Basilar intralobular septal thickening, moderate right and small left pleural effusions. Consider CHF exacerbation. 2. Scattered reticulonodular opacities most likely infectious or postinfectious; consider 1-3 month follow-up CT. 3. Bronchial wall thickening, consistent with bronchitis. Reviewed, dictated and finalized at location B. [employer]ISTRIES DIRECTOR IMPRESSION: 1. Basilar intralobular septal thickening, moderate right and small left pleur al effusions. Consider CHF exacerbation. 2. Scattered reticulonodular opacities most likely infectious or postinfectiou s; consider 1-3 month follow-up CT. 3. Bronchial wall thickening, consistent with bronchitis.
--- NOTE | ~2020-04-05 | XR_ITS ---
EXAMINATION: XR chest 2V DATE: 04/05/2020 11:20 INDICATION: Shortness of breath. TECHNIQUE: Frontal and lateral views of the chest were obtained. COMPARISON: Chest 2 views 06/08/2019 FINDINGS: There is a diffuse interstitial pattern in the lungs, consistent with mild pulmonary edema. There is a 1 cm nodule at the junction of right mid and upper lung zones. No pleural effusion or pne umothorax. The heart size is normal. IMPRESSION: 1. 1 cm nodule at the junction of right mid and upper lung zones, which may be malignancy or granulom atous disease. Noncontrast chest CT is recommended. I called this result to Dr. Horton. 2. Mild pulmonary edema. Reviewed, dictated and finalized at location A. MS ADJUSTER SUPERVISOR IMPRESSION: 1. 1 cm nodule at the junction of right mid and upper lung zones, which may be malignancy or granulomatous disease. Noncontrast chest CT is recommended. I nathan led this result to Dr. Horton. 2. Mild pulmonary edema.
--- NOTE | ~2020-04-05 | XR_ITS ---
EXAMINATION: XR chest 1V portable DATE: 04/06/2020 12:29 INDICATION: Shortness of breath. TECHNIQUE: A single frontal view of the chest was obtained on 2 radiographs. COMPARISON: Chest 2 views 04/05/2020, chest CT 04/05/2020 FINDINGS: There is a diffuse interstitial pattern, consistent with mild pulmonary edema. No pleural e ffusion or pneumothorax. The heart size is normal. There is a prominent right paracardial fat pad. Li rgical clips in the right upper quadrant are likely from cholecystectomy. IMPRESSION: 1. Mild pulmonary edema. Reviewed, dictated and finalized at location A. ENGINEER IMPRESSION: 1. Mild pulmonary edema.
--- NOTE | 2020-04-05 11:02 | ECG_ITS ---
Measurements Intervals [place] Rate: 138 P: MT: 0 QRS: 9 QRSD: 119 T: 48 QT: 288 QTc: 438 Interpretive Statements ATRIAL FLUTTER/TACHYCARDIA WITH RAPID VENTRICULAR RESPONSE INTRAVENTRICULAR CONDUCTION DELAY ABNORMAL ECG Electronically Signed On 04-05-2020 11:17:48 SENIOR ACCOUNTING ASSOCIATE by Josue Colvin D.O.
[2020-04-05 12:16] LABS: Anion Gap 4 mmol/L (8-16); Blood Urea Nitrogen 27 mg/dL (9-20); Calcium 8.8 mg/dL (8.4-10.2); Carbon Dioxide 28 mmol/L (22-30); Chloride 106 mmol/L (98-107); Estimated CRCL calculation 66 ml/min; Estimated Glomerular Filt Rate > 60; Glucose 114 mg/dL (75-110); Potassium 4.4 mmol/L (3.4-5.0); Sodium 138 mmol/L (137-145)
[2020-04-05 12:19] LABS: Basophils Percent Auto 0.4 % (0.2-1.2); Eosinophils Absolute Auto 0.1 K/mm3 (0-0.3); Eosinophils Percent Auto 2.2 % (0-4.4); Hemoglobin 12.3 g/dL (14.0-18.0); Immature Granulocyte Absolute 0.01 K/mm3 (0.00-0.031); Immature Granulocyte Percent A 0.2 % (0-0.5); Lymphocytes Absolute Auto 0.86 K/mm3 (0.9-3.2); Lymphocytes Percent Auto 18.5 % (18.3-44.2); Mean Corpuscular HGB Conc 32.4 g/dl (32-36); Mean Corpuscular Hemoglobin 28.1 pg (26-34); Mean Corpuscular Volume 86.8 fl (80-100); Mean Platelet Volume 10.7 fl (7.4-10.4); Monocytes Absolute Auto 0.4 K/mm3 (0.1-0.6); Monocytes Percent Auto 7.7 % (2.6-8.5); Neutrophils Absolute Auto 3.3 K/mm3 (1.3-6.7); Platelet Count Result 264 k/mm3 (150-375); Red Blood Count 4.38 M/mm3 (4.6-6.20); Red Cell Distribution Width 15.6 % (11.5-14.5); White Blood Count 4.7 K/mm3 (4.5-10.0)
[2020-04-05 12:29] LABS: NT Pro B Type Natriuretic Pept 4410 PG/ML (5-100); Troponin I < 0.012 ng/mL (0.000-0.034)
--- NOTE | 2020-04-05 12:43 | ED.GENADULT ---
HPI - General Adult General Chief complaint: Shortness of Breath/Dyspnea Stated complaint: SOB, rapid HR Time Seen by Provider: 04/05/20 11:25 Source: patient Mode of arrival: ambulatory Limitations: no limitations History of Present Illness HPI narrative: 79 years old white male presented to the ED because of fast heartbeat for the last 7 days. Got worse last night associated with shortness of breath. Patient denies any fever, chills, nausea, vomiting, coughing, chest pain, COVID-19 infection or exposure to anybody known having COVID-19. Related Data Home Medications Medication Instructions Recorded Confirmed cyclobenzaprine 10 mg PO BID PRN 06/08/19 06/08/19 dimenhydrinate 50 mg PO Q4-6H PRN 06/08/19 06/08/19 diphenhydramine HCl [Allergy 25 mg PO HS 06/08/19 06/08/19 (diphenhydramine)] dutasteride 0.5 mg PO DAILY 06/08/19 06/08/19 fludrocortisone 0.1 mg PO DAILY 06/08/19 06/08/19 latanoprost 1 drp OPHTHALMIC (EYE) HS 06/08/19 06/08/19 lorazepam 1 mg PO HS PRN 06/08/19 06/08/19 melatonin 10 mg PO HS 06/08/19 06/08/19 omeprazole 20 mg PO HS 06/08/19 06/08/19 oxybutynin chloride 15 mg PO DAILY 06/08/19 06/08/19 paroxetine HCl 20 mg PO DAILY 06/08/19 06/08/19 quetiapine 200 mg PO HS 06/08/19 06/08/19 Allergies Allergy/AdvReac Type Severity Reaction Status Date / Time celecoxib Allergy Mild Hives Verified 04/05/20 11:49 valdecoxib Allergy Mild Hives Verified 04/05/20 11:49 Barbiturates Allergy Unknown Hives Verified 04/05/20 11:49 Review of Systems Review of Systems: Narrative: CONSTITUTIONAL: Denies fever, chills, or sweats. EYES: Denies visual changes, redness, or discharge. ENT: Denies rhinorrhea, congestion, sore throat, or otalgia. CARDIOVASCULAR: Denies chest pain, palpitations, or edema. RESPIRATORY: Denies cough or dyspnea. GASTROINTESTINAL: Denies abdominal pain, nausea, vomiting, or diarrhea. GENITOURINARY: Denies dysuria or hematuria. SKIN: Denies rash or itching. MUSCULOSKELETAL: Denies back pain, joint pain, or myalgia. NEUROLOGIC: Denies headache, numbness, or weakness. PSYCHIATRIC: Denies anxiety or depression. [facility] Past Medical History Medical History (Updated 04/05/20 @ 12:48 by Dl Horton MD) A-fib Anxiety Arm fracture Arthritis Cardiomyopathy DDD (degenerative disc disease) Depression Dilation of esophagus x3 Gallbladder disease GERD (gastroesophageal reflux disease) GI bleed Glaucoma Headache Mitral valve prolapse Parkinson disease Previous known suicide attempt 07/03/09 Rectal polyp Silverio-Checo syndrome Ulcer Surgical History Surgical History H/O cardiac radiofrequency ablation History of esophagogastroduodenoscopy (EGD) Hx of appendectomy Hx of cholecystectomy Hx of fusion of cervical spine Status post laparoscopic Austen fundoplication Family History Family History Father Colon cancer Social History Social History Smoking packs per day: 0.5 Smoking cigarettes per day: 10.0 Years smoked: 5 Smoking pack-years: 2.50 Smoking status: Former smoker Tobacco type: cigarettes Second hand tobacco smoke exposure: No Smoking end date: 03/23/71 Alcohol intake: never Substance use: never Gender identity (if verbalized by the patient): Male Spiritual care concerns: No Agree to blood products: Yes Exam Narrative: Exam Narrative: General appearance: Well-developed, well-nourished Skin: Normal color Head: Normocephalic, nontraumatic Eyes: Clear conjunctiva ENT: Oropharynx normal, ears normal, nose normal Neck: Supple, nontender Chest and respiratory: Airway patent, no respiratory distress, no accessory muscle use Heart: Tachycardia, irregular irregularity Abdomen: Soft, nontender, no organomegaly, quiet bowel sounds Vascular: Normal peripheral pulses, normal capillary refill. Musculoskele
[2020-04-05 12:47] LABS: Prothrombin Time 13.6 Seconds (11.1-14.7)
[2020-04-05] MEDS: dilTIAZem HCl INJ 25 MG/5 ML VIAL 10 MG IV PUSH (13:01)
--- NOTE | 2020-04-05 14:36 | ADMGEN ---
This patient, Rico Nelson Sr., was admitted to IMU Room 202-01. Patient/family oriented to hospital policies and general routines including ID bracelet, bed and alarms, visiting hours, pain management, procedures, bathroom and other care routines, personal items, smoking policy, room service/diet, and visiting hours. Information on how to activate the Rapid Response Team has been discussed. Patient/Family are encouraged to report perceived risks to care and to ask questions if they do not understand what they are told or what they should do.
--- NOTE | 2020-04-05 15:42 | PM.CNCAR ---
Assessment and Plan Assessment and plan (1) Atrial flutter with rapid ventricular response: Code(s): I48.92 - Unspecified atrial flutter Status: Acute Assessment and Plan: Symptomatic atrial flutter with rapid ventricular response. Patient was off all medications as he was in a donut hole and could not afford. However, approximately 7 days ago immediately became aware of a rapid heart rate with palpitations and began taking residual Eliquis 5 mg twice daily samples without missing a dose subsequently. Therefore, we may utilize antiarrhythmic therapy restarting amiodarone with IV bolus 150 mg x 1 over 10 minutes with protocol to follow. We discussed embolic stroke risk however patient had awareness of what was going on so he immediately began anticoagulation once his tachyarrhythmia recurred. -not surprisingly his tachyarrhythmia recurred approximately 2-3 months after discontinuation of amiodarone. -Continue Eliquis 5 mg twice daily. Plan to transition to oral amiodarone once heart rate controlled and or resumption of sinus rhythm. Resume Toprol XL 25 mg daily. Discontinue diltiazem drip infusion which we would prefer to avoid given history of cardiomyopathy. 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 EF 35-40% by echo May 2019. (3) Noncompliance with medication regimen: Code(s): Z91.14 - Patient's other noncompliance with medication regimen Status: Acute Assessment and Plan: Secondary to financial constraints only as the patient states. (4) CHF (congestive heart failure): Code(s): I50.9 - Heart failure, unspecified Status: Acute Assessment and Plan: Stable, fairly euvolemic at this time. Resume oral Lasix 40 mg daily and Entresto 24/26 mg q.12 hours. (5) Chronic anticoagulation: Code(s): Z79.01 - emt intermediate (current) use of anticoagulants Status: Acute Assessment and Plan: As above, patient resumed Eliquis 5 mg twice daily with samples at home as soon as tachyarrhythmia recurred. History of Present Illness History of Present Illness Consult date/time: Date of service: 04/05/20 15:42 Cardiology consultation at the request of Deborah Daly of the [facility] service for opinion regarding atrial flutter with rapid ventricular response. 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 He states he was unable to afford his medications as he found himself in very difficult financial position. He adds that he had been doing very well with no concerns, palpitation, shortness of breath or chest pain of any kind until approximately 7 days ago when he immediately became aware of rapid heart rate with palpitations. As he knew what was going on he had Eliquis 5 mg samples which he began to take twice daily immediately upon tachyarrhythmia initiation. He has been compliant with this without missing any doses since that time. At presentation he was noted be in atrial flutter with rapid ventricular response heart rate proximally 137-140bpm. 2-3 days ago he began to feel more short of breath denies abdominal fullness minimal edema noted. Denies significant change in his weight. Denies chest pain, dizziness, falls, bright red blood per rectum, melena, fevers, c
--- NOTE | 2020-04-05 15:43 | PM.IMHP ---
H&P: HPI History of Present Illness Date/Time: 04/05/20 15:43 Chief Complaint: Shortness of breath and palpitation Narrative: Rico Nelson Sr. is a 79 year old male Who has a history of atrial fibrillation /Atrial flutter and has had an ablation in the past. The patient tells me that he was in the donut hole with his insurance and stop taking his medications for last couple months. However the patient stated that her to have palpitations 7-10 days ago and started taking his Eliquis and metoprolol. He stated there were 3 medications that he was getting samples were from his physician. The patient stated that he is afebrile is not had any nausea vomiting or diarrhea. He has not had any exposure to covid 19 that he is aware of. The patient was also short of breath but feels better now. No complaints of chest pain. The patient stated the just felt a rapid heart rate. Patient's last admission here was June 08, 2019 when he was treated for exacerbation of congestive heart failure. Patient was here for approximately 4 days and discharge. it was noted by Cardiology to follow-up in 1 month. Patient was to gradually wean down her titrate the amiodarone dosage. Today the patient was noted to be in atrial flutter with rapid ventricular response. Initially the patient was started on Cardizem drip. However the patient also has congestive heart failure systolic As well as diastolic. Last May was his last echo and was noted that his EF was 35-40%. Cardiology has been consulted and has already seen the patient. Chest CT today was read as basilar interlobular septal thickening, moderate right and small left pleural effusions. Consider congestive heart failure exacerbation. Scattered reticular nodule opacities most likely infectious or post infectious consider 1-3 month follow-up CT bronchial wall thickening Consistent with bronchitis. H&H is 12.3 and 32.0. BNP 4410. Patient is being admitted at as observation on the date of service of 04/05/2020 Review of Systems Review of Systems: All systems reviewed & are unremarkable except as noted in HPI and below Constitutional: Constitutional: Reports as per HPI and Reports no additional constitutional complaints Eyes: Eyes: Reports as per HPI and Reports no additional eye complaints ENT: Reports system reviewed and no additional complaints, except as documented and Reports Normal hearing present Cardiovascular: Cardiovascular: Reports no additional cardiovascular complaints Respiratory: Respiratory: Reports no additional respiratory complaints and Reports no additional respiratory complaints Gastrointestinal: Gastrointestinal: Reports as per HPI and Reports no additional gastrointestinal complaints Musculoskeletal: Musculoskeletal: Reports no additional musculoskeletal complaints Integumentary/Breasts: Skin/Breast: Reports system reviewed and no additional complaints, except as docu and Reports as per HPI Neurologic: Reports system reviewed and no additional complaints, except as documented, Reports as per HPI and Reports Normal hearing present Psychiatric: Psychiatric: Reports no additional psychiatric complaints and Reports as per HPI Endocrine: Endocrine: Reports no additional endocrine complaints Hematologic/Lymphatic: Hematologic/Lymphatic: Reports no additional hematologic/lymphatic complaints Allergic/Immunologic: Allergic/Immunologic: Reports no additional allergic/immunologic complaints [facility] Past Medical History Medical History (Updated 04/05/20 @ 15:56 by Vj John MD) A-fib Anxiety Arm fracture Arthritis Cardiomyopathy DDD (degenerative disc disease) Depression Dilation of esophagus x3 Gallbladder disease GERD (gastroesophageal reflux disease) GI bleed Glaucoma Headache Mitral valve prolapse Parkinson disease Previous known suicide attempt 07/03/09 Rectal polyp Silverio-Checo syndrome Ulcer Surgical History Surgical History (Updated
[2020-04-05] MEDS: AMIODARONE 150 MG/D5W 100 ML 150 MG/100 ML BAG 600 MG IV CONT (16:46)
[2020-04-05] MEDS: AMIODARONE 360 MG/D5W 200 ML 360 MG/200 ML BAG 33.33 MG IV CONT (16:49)
[2020-04-05] MEDS: APIXABAN 5 MG TABLET PO (17:35)
[2020-04-05] MEDS: MELATONIN 5 MG TABLET 10 MG PO (21:06)
[2020-04-05] MEDS: LATANOPROST 0.005% OP SOLN 2.5 ML BTL 1 DROP EACH EYE (21:07)
[2020-04-05] MEDS: METOPROLOL TARTRATE 25 MG TABLET PO (21:07)
[2020-04-05] MEDS: diphenhydrAMINE HCl CAP 25 MG CAPSULE 50 MG PO (21:07)
[2020-04-05] MEDS: SACUBITRIL/VALSARTAN 24-26 MG TABLET 1 TAB PO (21:08)
[2020-04-05] MEDS: AMIODARONE 360 MG/D5W 200 ML 360 MG/200 ML BAG 16.67 MG IV CONT (22:27)
[2020-04-06] VITALS (21 sets, daily range): BP systolic 118–147; BP diastolic 83–100; PULSE 104–134; RESP 18–22; TEMP 36.3–37.4; O2SAT 90–98
[2020-04-06] MEDS: AMIODARONE 360 MG/D5W 200 ML 360 MG/200 ML BAG 16.67 MG IV CONT (03:41)
[2020-04-06 05:12] LABS: Basophils Percent Auto 0.5 % (0.2-1.2); Eosinophils Absolute Auto 0.2 K/mm3 (0-0.3); Eosinophils Percent Auto 2.6 % (0-4.4); Hematocrit 36.3 % (42.0-52.0); Hemoglobin 11.7 g/dL (14.0-18.0); Immature Granulocyte Absolute 0.01 K/mm3 (0.00-0.031); Immature Granulocyte Percent A 0.2 % (0-0.5); Lymphocytes Absolute Auto 1.15 K/mm3 (0.9-3.2); Lymphocytes Percent Auto 20.2 % (18.3-44.2); Mean Corpuscular HGB Conc 32.2 g/dl (32-36); Mean Corpuscular Hemoglobin 27.6 pg (26-34); Mean Corpuscular Volume 85.6 fl (80-100); Mean Platelet Volume 11.2 fl (7.4-10.4); Monocytes Absolute Auto 0.4 K/mm3 (0.1-0.6); Monocytes Percent Auto 7.7 % (2.6-8.5); Neutrophils Absolute Auto 3.9 K/mm3 (1.3-6.7); Neutrophils Percent Auto 68.8 % (45.5-73.1); Platelet Count Result 266 k/mm3 (150-375); Red Blood Count 4.24 M/mm3 (4.6-6.20); Red Cell Distribution Width 15.8 % (11.5-14.5); White Blood Count 5.7 K/mm3 (4.5-10.0)
[2020-04-06 05:34] LABS: Alanine Aminotransferase 89 U/L (4-50); Albumin Level 3.5 g/dL (3.5-5.1); Alkaline Phosphatase 126 U/L (38-126); Anion Gap 3 mmol/L (8-16); Aspartate Amino Transferase 42 U/L (17-59); Bilirubin,Total 0.5 mg/dL (0.2-1.3); Blood Urea Nitrogen 23 mg/dL (9-20); Calcium 8.5 mg/dL (8.4-10.2); Carbon Dioxide 28 mmol/L (22-30); Chloride 104 mmol/L (98-107); Estimated CRCL calculation 57 ml/min; Estimated Glomerular Filt Rate > 60; Glucose 105 mg/dL (75-110); Magnesium 2.2 mg/dL (1.6-2.3); Potassium 4.1 mmol/L (3.4-5.0); Sodium 135 mmol/L (137-145)
--- NOTE | 2020-04-06 07:24 | PC.NURSE ---
Late entry 04/06/20 0400: Per Ladin increased Amiodarone Drip to 1mg, pt in A-flutter with rate in 130s.
[2020-04-06] MEDS: FUROSEMIDE 40 MG TABLET PO (08:21)
[2020-04-06] MEDS: APIXABAN 5 MG TABLET PO ×2 (08:21→17:36)
[2020-04-06] MEDS: METOPROLOL TARTRATE 25 MG TABLET PO ×2 (08:21→21:26)
[2020-04-06] MEDS: SACUBITRIL/VALSARTAN 24-26 MG TABLET 1 TAB PO ×2 (08:21→21:25)
[2020-04-06] MEDS: DUTASTERIDE 0.5 MG CAPSULE PO (08:21)
--- NOTE | 2020-04-06 10:17 | PM.PNCARD ---
Progress Note: A&P Additional Plan 79-year-old man with: Established diagnosis of nonischemic cardiomyopathy. Patient unfortunately for financial reasons was off of his medication for couple of months and has lapsed back into AF and decompensated heart failure. He is now receiving amiodarone intravenously and interestingly for a few minutes in the middle in night he was back in sinus rhythm. This would seem to be a hopeful sign that as he we give him amiodarone he will stabilize and restoring to sinus rhythm. The remainder of his medical regimen has been resumed at this time as well. Since he did provide a reliable history of initiating anticoagulation as soon as he noticed he was tachycardic we felt comfortable and trying to provide rhythm control once again. We will continue the intravenous amiodarone for now and see him daily. Once again I would hope that the longer he is back on medication he will stabilize and restore sinus rhythm since there was several minutes of sinus rhythm in the middle of the night. Rico Galarza MD [facility] Subjective Date/time seen: Date of service: 04/06/20 10:17 Interval history: Follow-up visit in this 79-year-old man with: Nonischemic cardiomyopathy and history of atrial fibrillation/flutter who presented to the hospital with symptomatic shortness of breath some decompensated heart failure in the setting of self discontinuance of his medications for something like 2-3 months. This morning he feels better he is no longer significantly short of breath. Exam Const: General: comfortable and no acute distress HENMT: Mouth: Yes moist mucous membranes Eyes: Sclera: sclerae normal Pupils: Equal, round and reactive pupils present Neck: Neck: supple and no JVD Thyroid: thyroid normal Resp: Effort & Inspection: normal respiratory effort Other: Scant basilar crackles Cardio: Rate: tachycardic Rhythm: abnormal rhythm irregularly irregular GI: GI Palp: Yes Soft to palpation Auscultation: normal bowel sounds Skin: General skin exam: normal color Neuro: Cognition (Neuro): normal cognition Extrem: Other: No lower extremity edema Objective Data Vital Signs Vital Signs: Vital Signs - 24 hr 04/05/20 11:43 04/05/20 11:49 04/05/20 12:21 Temperature 36.3 C L Pulse Rate 137 H 138 H 138 H Respiratory Rate 18 17 Blood Pressure 137/98 H 136/98 H Pulse Oximetry 98 95 04/05/20 13:03 04/05/20 13:05 04/05/20 13:44 Temperature Pulse Rate 126 H 137 H 104 H Respiratory Rate 18 18 Blood Pressure 127/93 H 127/93 H 101/87 Pulse Oximetry 97 96 04/05/20 14:00 04/05/20 14:05 04/05/20 15:00 Temperature 36.4 C Pulse Rate 135 H 136 H Respiratory Rate 18 Blood Pressure 133/90 Pulse Oximetry 97 97 04/05/20 15:30 04/05/20 16:00 04/05/20 16:46 Temperature 36.8 C Pulse Rate 130 H 141 H 138 H Respiratory Rate 16 Blood Pressure 130/84 130/84 Pulse Oximetry 96 04/05/20 16:49 04/05/20 18:00 04/05/20 19:59 Temperature 36.8 C Pulse Rate 138 H 137 H 135 H Respiratory Rate 20 Blood Pressure 130/84 128/89 Pulse Oximetry 97 04/05/20 20:00 04/05/20 21:07 04/05/20 22:00 Temperature Pulse Rate 125 H 138 H 131 H Respiratory Rate Blood Pressure Pulse Oximetry 97 04/05/20 22:27 04/05/20 23:55 04/06/20 00:00 Temperature 36.1 C L Pulse Rate 131 H 130 H 129 H Respiratory Rate 18 Blood Pressure 128/90 91/68 L Pulse Oximetry 97 97 04/06/20 02:00 04/06/20 03:41 04/06/20 04:00 Temperature 36.3 C L Pulse Rate 127 H 126 H 120 H Respiratory Rate 18 Blood Pressure 131/89 131/89 Pulse Oximetry 98 04/06/20 06:00 04/06/20 08:00 04/06/20 08:21 Temperature 36.6 C Pulse Rate 120 H 117 H 113 H Respiratory Rate 22 H Blood Pressure 147/100 H Pulse Oximetry 98 Intake/Output Intake/Output: Intake & Output 04/03/20 04/04/20 04/05/20 04/06/20 23:59 23:59 23:59 23:59 Intake Total 1700 1340 Output Total 2350
[2020-04-06] MEDS: AMIODARONE 360 MG/D5W 200 ML 360 MG/200 ML BAG 33.33 MG IV CONT ×3 (10:55→23:44)
--- NOTE | 2020-04-06 12:00 | PM.IMPN ---
Progress Note: A&P Assessment and Plan (1) Atrial flutter with rapid ventricular response: Code(s): I48.92 - Unspecified atrial flutter Status: Acute Assessment and Plan: Cardiology was consulted Current an amiodarone drip uncontrolled Patient is noncompliant Continue anticoagulation (2) CHF (congestive heart failure): Code(s): I50.9 - Heart failure, unspecified Status: Acute Assessment and Plan: Acute on top of chronic most likely diastolic CHF exacerbation IV diuresis (3) Depression: Qualifiers: Depression Type: other depression Qualified Code(s): F32.89 - Other specified depressive episodes Code(s): F32.9 - Major depressive disorder, single episode, unspecified Status: Chronic Assessment and Plan: Monitor (4) Acute anemia: Code(s): D64.9 - Anemia, unspecified Status: Acute Assessment and Plan: H&H occult blood monitor no evidence of acute bleeding but patient on oral anticoagulation Transfuse if patient hemodynamically unstable or hemoglobin below 7 (5) Abnormal CT scan, chest: Code(s): R93.89 - Abnormal findings on diagnostic imaging of other specified body structures Status: Acute Assessment and Plan: Shows reticular nodular pattern concerning for infectious process versus pulmonary edema Also patient has lung nodule recommend follow-up CT scan in 3 months Start empiric antibiotics check for COVID-19 Subjective Date/time seen: 04/06/20 12:00 Interval history: Patient seen and examined Patient feels weak short of breath CT scan shows reticulonodular pattern Chest x-ray concerning for lung nodule Patient denies fever headache chest pain I am seeing the patient for shortness of breath Exam Const: Other: Alert Chest positive crackles Abdomen nontender nondistended CVS S1 + S2 Positive Lower extremity edema Objective Data Vital Signs Vital Signs: Vital Signs - 24 hr 04/05/20 12:21 04/05/20 13:03 04/05/20 13:05 Temperature Pulse Rate 138 H 126 H 137 H Respiratory Rate 17 18 Blood Pressure 136/98 H 127/93 H 127/93 H Pulse Oximetry 95 97 04/05/20 13:44 04/05/20 14:00 04/05/20 14:05 Temperature 97.6 F Pulse Rate 104 H 135 H 136 H Respiratory Rate 18 18 Blood Pressure 101/87 133/90 Pulse Oximetry 96 97 04/05/20 15:00 04/05/20 15:30 04/05/20 16:00 Temperature 98.2 F Pulse Rate 130 H 141 H Respiratory Rate 16 Blood Pressure 130/84 Pulse Oximetry 97 96 04/05/20 16:46 04/05/20 16:49 04/05/20 17:00 Temperature Pulse Rate 138 H 138 H 125 H Respiratory Rate Blood Pressure 130/84 130/84 Pulse Oximetry 04/05/20 18:00 04/05/20 19:59 04/05/20 20:00 Temperature 98.2 F Pulse Rate 137 H 135 H 125 H Respiratory Rate 20 Blood Pressure 128/89 Pulse Oximetry 97 97 04/05/20 21:07 04/05/20 22:00 04/05/20 22:27 Temperature Pulse Rate 138 H 131 H 131 H Respiratory Rate Blood Pressure 128/90 Pulse Oximetry 04/05/20 23:55 04/06/20 00:00 04/06/20 02:00 Temperature 97.0 F L Pulse Rate 130 H 129 H 127 H Respiratory Rate 18 Blood Pressure 91/68 L Pulse Oximetry 97 97 04/06/20 03:41 04/06/20 04:00 04/06/20 06:00 Temperature 97.4 F L Pulse Rate 126 H 120 H 120 H Respiratory Rate 18 Blood Pressure 131/89 131/89 Pulse Oximetry 98 04/06/20 08:00 04/06/20 08:21 04/06/20 09:51 Temperature 98 F Pulse Rate 117 H 113 H 113 H Respiratory Rate 22 H Blood Pressure 147/100 H Pulse Oximetry 98 04/06/20 10:00 04/06/20 10:55 Temperature Pulse Rate 110 H 113 H Respiratory Rate Blood Pressure Pulse Oximetry Intake/Output Intake/Output: Intake & Output 04/03/20 04/04/20 04/05/20 04/06/20 23:59 23:59 23:59 23:59 Intake Total 1800 1540 Output Total 2350 1725 Balance -550 -185 Meds/Results Medications: Active Medications Generic Name Dose Route Start Last Admin Trade Name F
[2020-04-06 12:44] LABS: Hematocrit 38.6 % (42.0-52.0); Hemoglobin 12.7 g/dL (14.0-18.0)
[2020-04-06 13:03] LABS: CRP 0.7 mg/dL (<1.0)
[2020-04-06] MEDS: FUROSEMIDE INJ 40 MG/4 ML VIAL IV PUSH (17:36)
[2020-04-06] MEDS: LATANOPROST 0.005% OP SOLN 2.5 ML BTL 1 DROP EACH EYE (21:25)
[2020-04-06] MEDS: diphenhydrAMINE HCl CAP 25 MG CAPSULE 50 MG PO (21:26)
[2020-04-06] MEDS: PANTOPRAZOLE 40 MG TABLET PO (21:26)
[2020-04-06] MEDS: MELATONIN 5 MG TABLET 10 MG PO (21:26)
[2020-04-06 22:42] LABS: SARS-CoV-2 RNA PCR Negative
[2020-04-06] MEDS: ONDANSETRON INJ 4 MG/2 ML VIAL IV PUSH (23:44)
[2020-04-07] VITALS (25 sets, daily range): BP systolic 100–118; BP diastolic 62–98; PULSE 60–130; RESP 16–20; TEMP 36.1–36.9; O2SAT 93–100
[2020-04-07] MEDS: AMIODARONE 360 MG/D5W 200 ML 360 MG/200 ML BAG 33.33 MG IV CONT ×2 (04:51→11:07)
[2020-04-07] MEDS: APIXABAN 5 MG TABLET PO ×2 (09:06→17:11)
[2020-04-07] MEDS: METOPROLOL TARTRATE 25 MG TABLET PO ×2 (09:07→20:09)
[2020-04-07] MEDS: DUTASTERIDE 0.5 MG CAPSULE PO (09:07)
[2020-04-07] MEDS: SACUBITRIL/VALSARTAN 24-26 MG TABLET 1 TAB PO ×2 (09:08→20:09)
[2020-04-07] MEDS: FUROSEMIDE INJ 40 MG/4 ML VIAL IV PUSH (09:13)
--- NOTE | 2020-04-07 11:53 | PM.PNCARD ---
Progress Note: A&P Assessment and Plan (1) Atrial flutter with rapid ventricular response: Code(s): I48.92 - Unspecified atrial flutter Status: Acute Assessment and Plan: Symptomatic atrial flutter with rapid ventricular response. Patient was off all medications as he was in a donut hole and could not afford. However, approximately 7 days ago immediately became aware of a rapid heart rate with palpitations and began taking residual Eliquis 5 mg twice daily samples without missing a dose subsequently. Therefore, we may utilize antiarrhythmic therapy restarting amiodarone with IV bolus 150 mg x 1 over 10 minutes with protocol to follow. We discussed embolic stroke risk however patient had awareness of what was going on so he immediately began anticoagulation once his tachyarrhythmia recurred. 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 EF 35-40% by echo May 2019. (3) Noncompliance with medication regimen: Code(s): Z91.14 - Patient's other noncompliance with medication regimen Status: Acute Assessment and Plan: Secondary to financial constraints only as the patient states. (4) CHF (congestive heart failure): Code(s): I50.9 - Heart failure, unspecified Status: Acute Assessment and Plan: Stable, fairly euvolemic at this time. Decrease IV furosemide to 40 mg once daily and Entresto 24/26 mg q.12 hours. (5) Chronic anticoagulation: Code(s): Z79.01 - longterm (current) use of anticoagulants Status: Acute Assessment and Plan: As above, patient resumed Eliquis 5 mg twice daily with samples at home as soon as tachyarrhythmia recurred. Subjective Date/time seen: 04/07/20 11:53 Interval history: Follow-up visit in this 79-year-old man with: Nonischemic cardiomyopathy and history of atrial fibrillation/flutter who presented to the hospital with symptomatic shortness of breath some decompensated heart failure in the setting of self discontinuance of his medications for something like 2-3 months. Date of service 04/07/2020: Recently converted back to sinus rhythm on amiodarone drip. No chest pain or shortness of breath. Review of Systems Review of Systems: All systems reviewed & are unremarkable except as noted in HPI and below Constitutional: Constitutional: Reports as per HPI, Reports no additional constitutional complaints and Reports fatigue Eyes: Eyes: Reports as per HPI and Reports no additional eye complaints ENT: Reports system reviewed and no additional complaints, except as documented and Reports as per HPI Cardiovascular: Cardiovascular: Reports as per HPI, Reports no additional cardiovascular complaints, Denies chest pain, Denies diaphoresis, Reports leg edema, Denies lightheadedness, Reports palpitations and Reports dyspnea on exertion Respiratory: Respiratory: Reports as per HPI, Reports no additional respiratory complaints, Denies cough, Denies hemoptysis, Reports dyspnea on exertion and Denies wheezing Gastrointestinal: Gastrointestinal: Reports as per HPI, Reports no additional gastrointestinal complaints, Denies abdominal pain, Denies melena, Denies bloating, Denies hematochezia, Denies nausea and Denies vomiting Genitourinary: Genitourinary: Reports no additional male genitourinary complaints, Reports as per HPI and Denies hematuria Musculoskeletal: Musculoskeletal: Reports no additional musculoskeletal complaints and Reports as per HPI Integumentary/Breasts: Skin/Breast: Reports system reviewed and no additional complaints, except as docu and Reports as per HPI Neurologic: Reports system reviewed and no additional complaints, except as documented and Reports as per HPI Psychiatric: Psychiatric: Reports no
--- NOTE | 2020-04-07 13:02 | PM.IMPN ---
Progress Note: A&P Assessment and Plan (1) Atrial flutter with rapid ventricular response: Code(s): I48.92 - Unspecified atrial flutter Status: Acute Assessment and Plan: Cardiology was consulted Current an amiodarone drip uncontrolled Patient is noncompliant Continue anticoagulation (2) CHF (congestive heart failure): Code(s): I50.9 - Heart failure, unspecified Status: Acute Assessment and Plan: Acute on top of chronic most likely systolic CHF exacerbation IV diuresis Ejection fraction 35% Most likely tachyarrhythmia induced cardiomyopathy per Cardiology Cardiology to evaluate regarding LifeVest (3) Depression: Qualifiers: Depression Type: other depression Qualified Code(s): F32.89 - Other specified depressive episodes Code(s): F32.9 - Major depressive disorder, single episode, unspecified Status: Chronic Assessment and Plan: Monitor (4) Acute anemia: Code(s): D64.9 - Anemia, unspecified Status: Acute Assessment and Plan: H&H occult blood monitor no evidence of acute bleeding but patient on oral anticoagulation Transfuse if patient hemodynamically unstable or hemoglobin below 7 (5) Abnormal CT scan, chest: Code(s): R93.89 - Abnormal findings on diagnostic imaging of other specified body structures Status: Acute Assessment and Plan: Probable pneumonia as CT scan Shows reticular nodular pattern concerning for infectious process versus pulmonary edema Also patient has lung nodule recommend follow-up CT scan in 3 months Start empiric antibiotics Subjective Date/time seen: 04/07/20 13:02 Interval history: Patient seen and examined Patient feels weak short of breath CT scan shows reticulonodular pattern Chest x-ray concerning for lung nodule AFib still uncontrolled patient is still on amiodarone drip Plan to transition to oral amiodarone by a.m. per cardiology Patient denies fever headache chest pain I am seeing the patient for shortness of breath Exam Const: Other: Alert Chest positive crackles Abdomen nontender nondistended CVS S1 + S2 Positive Lower extremity edema Objective Data Vital Signs Vital Signs: Vital Signs - 24 hr 04/06/20 14:00 04/06/20 16:00 04/06/20 16:56 Temperature 98.5 F Pulse Rate 123 H 120 H 118 H Respiratory Rate 20 Blood Pressure 136/95 H Pulse Oximetry 90 04/06/20 18:00 04/06/20 18:29 04/06/20 19:28 Temperature 98.4 F Pulse Rate 123 H 118 H 116 H Respiratory Rate 22 H Blood Pressure 118/83 Pulse Oximetry 94 04/06/20 20:00 04/06/20 21:26 04/06/20 22:00 Temperature Pulse Rate 116 H 134 H 128 H Respiratory Rate Blood Pressure Pulse Oximetry 94 04/06/20 23:44 04/07/20 00:00 04/07/20 02:00 Temperature 96.9 F L Pulse Rate 126 H 126 H 128 H Respiratory Rate 20 Blood Pressure 107/74 Pulse Oximetry 93 04/07/20 04:00 04/07/20 04:51 04/07/20 06:00 Temperature 97.3 F L Pulse Rate 118 H 130 H 125 H Respiratory Rate 20 Blood Pressure 118/82 Pulse Oximetry 95 04/07/20 08:00 04/07/20 08:18 04/07/20 09:07 Temperature 98.4 F Pulse Rate 117 H 105 H 115 H Respiratory Rate 20 Blood Pressure 107/80 Pulse Oximetry 95 95 04/07/20 10:00 04/07/20 11:06 04/07/20 11:07 Temperature Pulse Rate 64 62 62 Respiratory Rate Blood Pressure Pulse Oximetry 04/07/20 11:35 04/07/20 12:00 Temperature 97.3 F L Pulse Rate 60 60 Respiratory Rate 16 Blood Pressure 100/64 Pulse Oximetry 95 Intake/Output Intake/Output: Intake & Output 04/04/20 04/05/20 04/06/20 04/07/20 23:59 23:59 23:59 23:59 Intake Total 1800 2280 3260 Output Total 4894 8509 7159 [facility] [phone] Meds/Results Medications: Active Medications Generic Name Dose Route Start Last Admin Trade Name Freq PRN Reason Stop Dose Admin Acetaminophen 500 mg 04/06/20 17:17 Acetaminophen 500 Mg Tablet PO
[2020-04-07 13:25] LABS: Basophils Percent Auto 0.3 % (0.2-1.2); Eosinophils Absolute Auto 0.1 K/mm3 (0-0.3); Eosinophils Percent Auto 0.8 % (0-4.4); Hematocrit 39.8 % (42.0-52.0); Hemoglobin 12.9 g/dL (14.0-18.0); Immature Granulocyte Absolute 0.02 K/mm3 (0.00-0.031); Immature Granulocyte Percent A 0.3 % (0-0.5); Lymphocytes Absolute Auto 0.84 K/mm3 (0.9-3.2); Lymphocytes Percent Auto 13.5 % (18.3-44.2); Mean Corpuscular HGB Conc 32.4 g/dl (32-36); Mean Corpuscular Volume 86.5 fl (80-100); Mean Platelet Volume 10.6 fl (7.4-10.4); Monocytes Absolute Auto 0.4 K/mm3 (0.1-0.6); Monocytes Percent Auto 5.9 % (2.6-8.5); Neutrophils Absolute Auto 4.9 K/mm3 (1.3-6.7); Neutrophils Percent Auto 79.2 % (45.5-73.1); Platelet Count Result 280 k/mm3 (150-375); Red Cell Distribution Width 15.8 % (11.5-14.5); White Blood Count 6.2 K/mm3 (4.5-10.0)
[2020-04-07 13:44] LABS: Alanine Aminotransferase 64 U/L (4-50); Albumin Level 3.8 g/dL (3.5-5.1); Alkaline Phosphatase 116 U/L (38-126); Anion Gap 6 mmol/L (8-16); Aspartate Amino Transferase 26 U/L (17-59); Bilirubin,Total 0.6 mg/dL (0.2-1.3); Blood Urea Nitrogen 21 mg/dL (9-20); Calcium 8.8 mg/dL (8.4-10.2); Carbon Dioxide 33 mmol/L (22-30); Chloride 96 mmol/L (98-107); Estimated CRCL calculation 45 ml/min; Estimated Glomerular Filt Rate 49; Glucose 145 mg/dL (75-110); Magnesium 2.1 mg/dL (1.6-2.3); Potassium 3.6 mmol/L (3.4-5.0); Sodium 135 mmol/L (137-145)
[2020-04-07] MEDS: AMIODARONE 360 MG/D5W 200 ML 360 MG/200 ML BAG 16.67 MG IV CONT (19:29)
[2020-04-07] MEDS: PANTOPRAZOLE 40 MG TABLET PO (20:09)
[2020-04-07] MEDS: LATANOPROST 0.005% OP SOLN 2.5 ML BTL 1 DROP EACH EYE (20:09)
[2020-04-08] VITALS (20 sets, daily range): BP systolic 102–119; BP diastolic 58–74; PULSE 58–126; RESP 16–18; TEMP 35.8–36.4; O2SAT 94–97
[2020-04-08] MEDS: MELATONIN 5 MG TABLET 10 MG PO ×2 (00:28→20:53)
[2020-04-08] MEDS: diphenhydrAMINE HCl CAP 25 MG CAPSULE 50 MG PO ×2 (00:28→20:53)
[2020-04-08] MEDS: AMIODARONE 360 MG/D5W 200 ML 360 MG/200 ML BAG 16.67 MG IV CONT (06:41)
[2020-04-08] MEDS: METOPROLOL TARTRATE 25 MG TABLET PO ×2 (08:18→20:54)
[2020-04-08] MEDS: APIXABAN 5 MG TABLET PO ×2 (08:18→16:27)
[2020-04-08] MEDS: DUTASTERIDE 0.5 MG CAPSULE PO (08:18)
[2020-04-08] MEDS: SACUBITRIL/VALSARTAN 24-26 MG TABLET 1 TAB PO ×2 (08:19→20:53)
[2020-04-08] MEDS: FUROSEMIDE INJ 40 MG/4 ML VIAL IV PUSH (08:27)
--- NOTE | 2020-04-08 10:44 | PM.PNCARD ---
Progress Note: A&P Assessment and Plan (1) Atrial flutter with rapid ventricular response: Code(s): I48.92 - Unspecified atrial flutter Status: Acute Assessment and Plan: Symptomatic atrial flutter with rapid ventricular response. Patient was off all medications as he was in a donut hole and could not afford. However, approximately 7 days ago immediately became aware of a rapid heart rate with palpitations and began taking residual Eliquis 5 mg twice daily samples without missing a dose subsequently. Therefore, we may utilize antiarrhythmic therapy restarting amiodarone with IV bolus 150 mg x 1 over 10 minutes with protocol to follow. We discussed embolic stroke risk however patient had awareness of what was going on so he immediately began anticoagulation once his tachyarrhythmia recurred. DC IV amiodarone. Oral amiodarone 200 mg p.o. b.i.d. for now. 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 EF 35-40% by echo May 2019. (3) Noncompliance with medication regimen: Code(s): Z91.14 - Patient's other noncompliance with medication regimen Status: Acute Assessment and Plan: Secondary to financial constraints only as the patient states. (4) CHF (congestive heart failure): Code(s): I50.9 - Heart failure, unspecified Status: Acute Assessment and Plan: Stable, fairly euvolemic at this time. Agree with stopping IV furosemide. Resume oral furosemide 40 mg daily. And Entresto 24/26 mg q.12 hours. 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 Subjective Date/time seen: 04/08/20 10:44 Interval history: Follow-up visit in this 79-year-old man with: Nonischemic cardiomyopathy and history of atrial fibrillation/flutter who presented to the hospital with symptomatic shortness of breath some decompensated heart failure in the setting of self discontinuance of his medications for something like 2-3 months. Date of service 04/08/2020: In and out of flutter. Had been in sinus rhythm until early this morning and now has an flutter with variable conduction. Feels fine though in denies any chest pain or shortness of breath Review of Systems Review of Systems: All systems reviewed & are unremarkable except as noted in HPI and below Constitutional: Constitutional: Reports as per HPI, Reports no additional constitutional complaints and Reports fatigue Eyes: Eyes: Reports as per HPI and Reports no additional eye complaints ENT: Reports system reviewed and no additional complaints, except as documented and Reports as per HPI Cardiovascular: Cardiovascular: Reports as per HPI, Reports no additional cardiovascular complaints, Denies chest pain, Denies diaphoresis, Reports leg edema, Denies lightheadedness, Reports palpitations and Reports dyspnea on exertion Respiratory: Respiratory: Reports as per HPI, Reports no additional respiratory complaints, Denies cough, Denies hemoptysis, Reports dyspnea on exertion and Denies wheezing Gastrointestinal: Gastrointestinal: Reports as per HPI, Reports no additional gastrointestinal complaints, Denies abdominal pain, Denies melena, Denies bloating, Denies hematochezia, Denies nausea and Denies vomiting Genitourinary: Genitourinary: Reports no additional male genitourinary complaints, Reports as per HPI and Denies hematuria Musculoskeletal: Musculoskeletal: Reports no additional musculoskeletal complaints and Reports as per HPI Integumentary/Breasts: Skin/Breast: Reports system reviewed and no additional complaints, except as docu and Reports as pe
[2020-04-08] MEDS: AMIODARONE HCL 200 MG TABLET PO ×2 (11:29→16:24)
--- NOTE | 2020-04-08 13:05 | PC.NURSE ---
Received from [facility] at 1305.
--- NOTE | 2020-04-08 13:05 | PM.IMPN ---
Progress Note: A&P Assessment and Plan (1) Atrial flutter with rapid ventricular response: Code(s): I48.92 - Unspecified atrial flutter Status: Acute Assessment and Plan: Transition from IV to PO amio 04/08 To med tele 04/08 Continue anticoagulation with Eliquis Home when amio loading complete and creatinine improves near baseline (2) CHF (congestive heart failure): Code(s): I50.9 - Heart failure, unspecified Status: Acute Assessment and Plan: Stop IV furosemide due to increased creatinine (3) Depression: Qualifiers: Depression Type: other depression Qualified Code(s): F32.89 - Other specified depressive episodes Code(s): F32.9 - Major depressive disorder, single episode, unspecified Status: Chronic Assessment and Plan: Seems euthymic, but a bit anxious today (4) Acute anemia: Code(s): D64.9 - Anemia, unspecified Status: Acute Assessment and Plan: H&H occult blood monitor no evidence of acute bleeding with patient on oral anticoagulation (5) Abnormal CT scan, chest: Code(s): R93.89 - Abnormal findings on diagnostic imaging of other specified body structures Status: Acute Assessment and Plan: Shows reticular nodular pattern concerning for infectious process versus pulmonary edema Also patient has lung nodule recommend follow-up CT scan in 3 months COVID-19 negative D/c empiric ceftriaxone (Day 3) Subjective Date/time seen: 04/08/20 13:05 Interval history: Hx nonischemic cardiomyopathy and history of atrial fibrillation/flutter who presented to the hospital with symptomatic shortness of breath some decompensated heart failure in the setting of discontinued medications due to financial reasons 12/2019. 04/08: Feels good. [place] to take his meds regularly after discharge. Review of Systems Review of Systems: All systems reviewed & are unremarkable except as noted in HPI and below Exam Narrative: Exam Narrative: HEENT: PERRL, sclerae nonicteric, pharyngeal mucosa pink and intact NECK: No JVD CHEST: Clear to auscultation. Normal effort. HEART: NL S1/S2, irregular, 2/6 SOFT APICAL SYSTOLIC MURMUR ABDOMEN: BS+, soft, nontender, no mass, no bruits EXTREMITIES: No cyanosis, edema, or clubbing NEUROLOGIC: CN intact and symmetric to inspection. MUSCULOSKELETAL: Tone and strength symmetric. PSYCH: Alert. Oriented to person, place, and time. Objective Data Vital Signs Vital Signs: Vital Signs - 24 hr 04/07/20 14:00 04/07/20 15:11 04/07/20 16:00 Temperature Pulse Rate 60 60 66 Respiratory Rate Blood Pressure Pulse Oximetry 04/07/20 16:22 04/07/20 18:00 04/07/20 19:04 Temperature 97.8 F Pulse Rate 66 70 66 Respiratory Rate 20 Blood Pressure 114/98 H Pulse Oximetry 100 04/07/20 19:29 04/07/20 19:36 04/07/20 20:00 Temperature 97.2 F L Pulse Rate 66 65 119 H Respiratory Rate 16 Blood Pressure 100/62 Pulse Oximetry 94 04/07/20 20:09 04/07/20 22:00 04/07/20 23:38 Temperature 97.4 F L Pulse Rate 105 H 105 H 102 H Respiratory Rate 18 Blood Pressure 107/72 Pulse Oximetry 95 04/08/20 00:04 04/08/20 02:00 04/08/20 03:50 Temperature 96.9 F L Pulse Rate 74 58 L 112 H Respiratory Rate 16 Blood Pressure 102/58 L Pulse Oximetry 94 04/08/20 04:00 04/08/20 05:50 04/08/20 06:00 Temperature Pulse Rate 105 H 75 116 H Respiratory Rate Blood Pressure Pulse Oximetry 04/08/20 06:41 04/08/20 08:00 04/08/20 08:18 Temperature 96.5 F L Pulse Rate 103 H 116 H 71 Respiratory Rate 16 Blood Pressure 109/74 Pulse Oximetry 97 04/08/20 10:00 04/08/20 11:29 04/08/20 11:32 Temperature 97.6 F Pulse Rate 103 H 104 H 108 H Respiratory Rate 18 Blood Pressure 107/73 Pulse Oximetry 95 04/08/20 12:00 Temperature Pulse Rate 116 H Respiratory Rate Blood Pressure Pulse Oximetry Intake/Output Intake/Outp
--- NOTE | 2020-04-08 13:06 | PC.NURSE ---
This patient, Rico Nelson ., was transferred to [[id number] ] on 04/08/20 at 1300. Personal belongings sent with patient. Report given to [Katy ]. Appropriate documentation sent with patient.
[2020-04-08 13:37] LABS: Basophils Percent Auto 0.6 % (0.2-1.2); Eosinophils Absolute Auto 0.1 K/mm3 (0-0.3); Eosinophils Percent Auto 1.9 % (0-4.4); Hemoglobin 13.1 g/dL (14.0-18.0); Immature Granulocyte Absolute 0.02 K/mm3 (0.00-0.031); Immature Granulocyte Percent A 0.3 % (0-0.5); Lymphocytes Percent Auto 13.8 % (18.3-44.2); Mean Corpuscular HGB Conc 32.8 g/dl (32-36); Mean Corpuscular Hemoglobin 28.2 pg (26-34); Mean Corpuscular Volume 86.2 fl (80-100); Mean Platelet Volume 10.3 fl (7.4-10.4); Monocytes Absolute Auto 0.4 K/mm3 (0.1-0.6); Monocytes Percent Auto 5.6 % (2.6-8.5); Neutrophils Absolute Auto 5.7 K/mm3 (1.3-6.7); Neutrophils Percent Auto 77.8 % (45.5-73.1); Platelet Count Result 273 k/mm3 (150-375); Red Blood Count 4.64 M/mm3 (4.6-6.20); Red Cell Distribution Width 15.6 % (11.5-14.5); White Blood Count 7.3 K/mm3 (4.5-10.0)
[2020-04-08 13:50] LABS: Alanine Aminotransferase 51 U/L (4-50); Albumin Level 3.8 g/dL (3.5-5.1); Alkaline Phosphatase 111 U/L (38-126); Anion Gap 6 mmol/L (8-16); Aspartate Amino Transferase 23 U/L (17-59); Bilirubin,Total 0.5 mg/dL (0.2-1.3); Blood Urea Nitrogen 21 mg/dL (9-20); Calcium 8.8 mg/dL (8.4-10.2); Carbon Dioxide 34 mmol/L (22-30); Chloride 97 mmol/L (98-107); Estimated CRCL calculation 49 ml/min; Estimated Glomerular Filt Rate 53; Glucose 157 mg/dL (75-110); Potassium 3.2 mmol/L (3.4-5.0); Sodium 137 mmol/L (137-145)
[2020-04-08] MEDS: POTASSIUM CHLORIDE 20 MEQ TABLET 40 MEQ PO (16:23)
[2020-04-08] MEDS: PANTOPRAZOLE 40 MG TABLET PO (20:53)
[2020-04-08] MEDS: SENNOSIDES 8.6 MG TABLET PO (20:53)
[2020-04-08] MEDS: LATANOPROST 0.005% OP SOLN 2.5 ML BTL 1 DROP EACH EYE (20:54)
[2020-04-08] MEDS: ACETAMINOPHEN 500 MG TABLET PO (22:34)
[2020-04-09] VITALS (7 sets, daily range): BP systolic 109–124; BP diastolic 61–68; PULSE 88–115; RESP 16–18; TEMP 36.4–36.9; O2SAT 96–98
[2020-04-09 07:36] LABS: Basophils Percent Auto 0.8 % (0.2-1.2); Eosinophils Absolute Auto 0.2 K/mm3 (0-0.3); Eosinophils Percent Auto 4.6 % (0-4.4); Hematocrit 39.6 % (42.0-52.0); Hemoglobin 12.8 g/dL (14.0-18.0); Immature Granulocyte Absolute 0.01 K/mm3 (0.00-0.031); Immature Granulocyte Percent A 0.2 % (0-0.5); Lymphocytes Absolute Auto 1.11 K/mm3 (0.9-3.2); Lymphocytes Percent Auto 21.1 % (18.3-44.2); Mean Corpuscular HGB Conc 32.3 g/dl (32-36); Mean Corpuscular Hemoglobin 27.5 pg (26-34); Mean Corpuscular Volume 85.2 fl (80-100); Mean Platelet Volume 10.2 fl (7.4-10.4); Monocytes Absolute Auto 0.4 K/mm3 (0.1-0.6); Monocytes Percent Auto 8.2 % (2.6-8.5); Neutrophils Absolute Auto 3.4 K/mm3 (1.3-6.7); Neutrophils Percent Auto 65.1 % (45.5-73.1); Platelet Count Result 270 k/mm3 (150-375); Red Blood Count 4.65 M/mm3 (4.6-6.20); Red Cell Distribution Width 15.5 % (11.5-14.5); White Blood Count 5.3 K/mm3 (4.5-10.0)
[2020-04-09 07:49] LABS: Alanine Aminotransferase 43 U/L (4-50); Albumin Level 3.6 g/dL (3.5-5.1); Alkaline Phosphatase 104 U/L (38-126); Anion Gap 3 mmol/L (8-16); Aspartate Amino Transferase 20 U/L (17-59); Blood Urea Nitrogen 19 mg/dL (9-20); Calcium 8.7 mg/dL (8.4-10.2); Carbon Dioxide 33 mmol/L (22-30); Chloride 100 mmol/L (98-107); Estimated CRCL calculation 53 ml/min; Estimated Glomerular Filt Rate 59; Glucose 129 mg/dL (75-110); Sodium 136 mmol/L (137-145)
[2020-04-09] MEDS: ACETAMINOPHEN 500 MG TABLET PO (07:53)
[2020-04-09] MEDS: SACUBITRIL/VALSARTAN 24-26 MG TABLET 1 TAB PO (07:58)
[2020-04-09] MEDS: AMIODARONE HCL 200 MG TABLET PO (07:58)
[2020-04-09] MEDS: METOPROLOL TARTRATE 25 MG TABLET PO (07:58)
[2020-04-09] MEDS: APIXABAN 5 MG TABLET PO (07:58)
[2020-04-09] MEDS: DUTASTERIDE 0.5 MG CAPSULE PO (07:59)
--- NOTE | 2020-04-09 10:42 | PM.PNCARD ---
Progress Note: A&P Additional Plan This is a 79-year-old man with: Nonischemic cardiomyopathy presenting with decompensated heart failure doing much better after re-initiation of his medical regimen. The patient appears to be clinically stable enough for discharge at this time. He still alternating between sinus rhythm and atrial flutter. It is hoped that as he continues to reload with amiodarone the propensity for atrial flutter will diminish over time. He should be discharged on 400 mg per day which is his current dosage with an eye towards reducing him back to 200 mg per day as I see him in the outpatient setting for follow-up. He needs to be compliant with his medication and he also needs to be compliant with follow-up visits as it had been over 2 years since of seeing this man in the office in follow-up. I will have my office contact him for appropriate follow-up after discharge. Rico Galarza MD [facility] Subjective Date/time seen: Date of service: 04/09/20 10:42 Interval history: 79-year-old gentleman with a history of nonischemic cardiomyopathy and atrial flutter came in with decompensated heart failure because of self discontinuance of all of his heart failure medical regimen for financial reasons. Today the patient feels well he is asymptomatic and has no complaints to report. Exam Const: General: comfortable and no acute distress HENMT: Mouth: Yes moist mucous membranes Eyes: Sclera: sclerae normal Pupils: Equal, round and reactive pupils present Neck: Neck: supple and no JVD Other: No carotid bruits are evident Resp: Effort & Inspection: normal respiratory effort Auscultation: clear to auscultation bilaterally Cardio: Rhythm: abnormal rhythm irregularly irregular GI: GI Palp: Yes Soft to palpation Auscultation: normal bowel sounds Skin: General skin exam: normal color Neuro: Cognition (Neuro): normal cognition Extrem: General: normal to inspection Objective Data Vital Signs Vital Signs: Vital Signs - 24 hr 04/08/20 11:29 04/08/20 11:32 04/08/20 12:00 Temperature 36.4 C Pulse Rate 104 H 108 H 116 H Respiratory Rate 18 Blood Pressure 107/73 Pulse Oximetry 95 04/08/20 13:20 04/08/20 13:40 04/08/20 14:00 Temperature 36.4 C L Pulse Rate 116 H 109 H Respiratory Rate 18 18 Blood Pressure 103/69 Pulse Oximetry 96 97 04/08/20 16:24 04/08/20 20:00 04/08/20 20:54 Temperature Pulse Rate 117 H 111 H 126 H Respiratory Rate Blood Pressure Pulse Oximetry 04/08/20 22:14 04/09/20 00:00 04/09/20 04:00 Temperature 36.4 C Pulse Rate 92 99 115 H Respiratory Rate 18 Blood Pressure 119/66 Pulse Oximetry 95 04/09/20 06:39 04/09/20 07:58 Temperature 36.4 C L Pulse Rate 88 88 Respiratory Rate 16 Blood Pressure 124/68 Pulse Oximetry 96 Intake/Output Intake/Output: Intake & Output 04/06/20 04/07/20 04/08/20 04/09/20 23:59 23:59 23:59 23:59 Intake Total 2280 5026 2951 540 Output Total 5575 5375 5750 Balance -3295 -349 -2799 540 Meds/Results Medications: Active Medications Generic Name Dose Route Start Last Admin Trade Name Ronalq PRN Reason Stop Dose Admin Acetaminophen 500 mg 04/06/20 17:17 04/09/20 07:53 Acetaminophen 500 Mg Tablet PO 500 mg Q6H PRN Administration Mild Pain (1-3) or Fever Amiodarone HCl 200 mg 04/08/20 10:56 04/09/20 07:58 Amiodarone Hcl 200 Mg Tablet PO 200 mg BID ZHEN Administration Apixaban 5 mg 04/05/20 17:00 04/09/20 07:58 Apixaban 5 Mg Tablet PO 5 mg BID ZHEN Administration Cyclobenzaprine HCl 10 mg 04/05/20 16:24 Cyclobenzaprine Hcl 10 Mg Tablet PO BID PRN Muscle Pain Diphenhydramine HCl 50 mg 04/05/20 21:00 04/08/20 20:53 Diphenhydramine Hcl Cap 25 Mg Capsule PO 50 mg HS ZHEN Administration Dutasteride 0.5 mg 04/06/20 09:00 04/09/20 07:59 Dutasteride 0.5 Mg Capsule PO 0.5 mg DAILY ZHEN Administration Latanoprost
--- NOTE | 2020-04-09 12:42 | PM.DS ---
DS: Admitting Diagnosis Admitting Diagnosis Admitting Diagnosis: Short of breath DS: Discharge Diagnosis Discharge Diagnosis (1) Atrial flutter with rapid ventricular response: Code(s): I48.92 - Unspecified atrial flutter Status: Acute (2) CHF (congestive heart failure): Code(s): I50.9 - Heart failure, unspecified Status: Acute (3) Depression: Qualifiers: Depression Type: other depression Qualified Code(s): F32.89 - Other specified depressive episodes Code(s): F32.9 - Major depressive disorder, single episode, unspecified Status: Chronic (4) Acute anemia: Code(s): D64.9 - Anemia, unspecified Status: Acute (5) Abnormal CT scan, chest: Code(s): R93.89 - Abnormal findings on diagnostic imaging of other specified body structures Status: Acute DS: Summary Hospital Course Reason for hospitalization: 79 year old male with a history of atrial fibrillation and CHF here for SOB. He was in the [facility] with his insurance and stopped taking his medications for last couple months for this reason. The patient started that have palpitations 7-10 days prior to admission and resumed taking his Eliquis and metoprolol. Hospital Course: Patient was tachycardic on admission. EKG showing atrial fibrillation with RVR. Chest x-ray showed pulmonary edema with possible pulmonary nodule. BNP 4400, Trop negative. TSH normal. CTA of the chest showing basilar intralobular septal thickening, moderate right and small left pleural effusions consistent with CHF. He also had scattered reticulonodular opacities most likely infectious or postinfectious - repeat CT recommended in 1-3 months. Bronchial wall thickening noted as well. COVID-19 negative. CRP normal. WBC normal. He was treated with emperic Rocephin for 3 days. Cardiology was consulted. After discussion with the patient, amiodarone was started. Patient was transitioned to oral amiodarone. He was continued on Eliquis. He is to IV Lasix. His creatinine climbed to slightly so this was stopped. He has mild anemia noted but no evidence of acute blood loss. Creatinine improved. HR improved and he is in/out AFib Patient feels well today. He has been up walking to the bathroom. No dyspnea exertion. Patient is clear for discharge. Status at Discharge Cognitive/behavioral status at discharge: Patient is stable for discharge Time Spent with Patient Time attestation: Total time spent providing and/or coordinating discharge services:35 minutes Time spent: Greater than 30 minutes Exam Narrative: Exam Narrative: AF 97.5 124/68 114 16 96% ra Gen - NARD Chest - CTA bilaterally, nml RR CV -irregularly irregular. S1-S2. Telemetry showing atrial fibrillation Abd - Soft, NT/ND, Positive BS Ext - No pedal edema Neuro - Alert and oriented. Nonfocal exam. Psych - Nml mood and affect Skin - Warm and dry DS: Data Data Completed and Pending Labs on day of discharge: Labs from last 24 hours 04/09/20 04/09/20 04/08/20 07:31 07:31 13:28 WBC 5.3 RBC 4.65 Hgb 12.8 L Hct 39.6 L MCV 85.2 MCH 27.5 MCHC 32.3 RDW 15.5 H Plt Count 270 MPV 10.2 Immature Gran % (Auto) 0.2 Neut % (Auto) 65.1 Lymph % (Auto) 21.1 [place] % (Auto) 8.2 Eos % (Auto) 4.6 H Baso % (Auto) 0.8 Lymph # (Auto) 1.11 [place] # (Auto) 0.4 Eos # (Auto) 0.2 Baso # (Auto) 0.0 Abs Immat Gran (auto) 0.01 Absolute Neuts (auto) 3.4 Absolute Nucleated RBC 0.0 Nucleated RBC % 0.0 Sodium 136 L 137 Potassium 4.0 3.2 L Chloride 100 97 L Carbon Dioxide 33 H 34 H Anion Gap 3 L 6 L BUN 19 21 H Creatinine 1.20 1.30 Estim Creat Clear Calc 53 49 Estimated GFR 59 53 L Glucose 129 H 157 H Calcium 8.7 8.8 Total Bilirubin 1.0 0.5 AST 20 23 ALT 43 51 H Alkaline Phosphatase 104 111 Total Protein 7.0 7.0 Albumin 3.6 3.8 04/08/20
== END 2020-04-09 15:02 | disposition home or self-care (01) ==
LOC: ANHED 12:00 → ANHIMU 14:00 → ANH2MED 04-08 13:18
PROVIDERS: Internal Medicine; Nurse Practitioner; Admitting Provider Internal Medicine; Emergency Provider Emergency Medicine; PCP Family Medicine Adolescent Medicine; Visit Provider Internal Medicine
DX: I48.92 Unspecified atrial flutter (principal); I42.9 Cardiomyopathy, unspecified; I50.9 Heart failure, unspecified; R06.02 Shortness of breath; Z91.120 Patient's intentional underdosing of medication regimen due to financial hardship; I08.3 Combined rheumatic disorders of mitral, aortic and tricuspid valves; D64.9 Anemia, unspecified; F41.8 Other specified anxiety disorders; K21.9 Gastro-esophageal reflux disease without esophagitis; R91.1 Solitary pulmonary nodule; R91.8 Other nonspecific abnormal finding of lung field; G20 Parkinson's disease; H40.9 Unspecified glaucoma; Z98.1 Arthrodesis status; Z87.891 Personal history of nicotine dependence; Z79.01 Long term (current) use of anticoagulants; Z91.5 Personal history of self-harm
CPT/HCPCS: 36415; 71045; 71046; 71250; 80048; 80053; 83735; 83880; 84443; 84484; 85014; 85018; 85025; 85610; 85730; 86140; 87040; 93005; 96365; 96366; 96367; 96368; 96375; 96376; 99285; A9270; C9803; G0378; J0282; J0696; J1940; J2405; U0003; U0005

== ENCOUNTER → 2020-05-12 06:03 | Outpatient (CLI) | payer OTHER, SELFPAY ==
[2020-05-12 19:10] LABS: SARS-CoV-2 RNA PCR Negative
== END ==
PROVIDERS: PCP Family Medicine Adolescent Medicine; Visit Provider Specialist
DX: Z01.812 Encounter for preprocedural laboratory examination (principal); Z20.822 Contact with and (suspected) exposure to COVID-19
CPT/HCPCS: C9803; U0003; U0005

== ENCOUNTER 2020-05-16 00:58 | Day surgery (SDC) | payer OTHER, SELFPAY ==
[2020-05-15 17:14] VITALS: BMI 27.5
[2020-05-16] VITALS (7 sets, daily range): BP systolic 103–123; BP diastolic 71–83; PULSE 62–109; RESP 14–19; TEMP 36.6; O2SAT 97–100
--- NOTE | 2020-05-16 08:12 | ECG_ITS ---
Measurements Intervals [place] Rate: 106 P: NV: 0 QRS: -7 QRSD: 106 T: 73 QT: 393 QTc: 523 Interpretive Statements ATRIAL FLUTTER/TACHYCARDIA WITH RAPID VENTRICULAR RESPONSE BORDERLINE ST-T WAVE ABNORMALITY- LAT/HIGH LAT LEADS BASELINE ARTIFACT- II, III, AVF ABNORMAL ECG Electronically Signed On 05-16-2020 8:19:20 VIRTUAL REALITY SPECIALIST by Josue Colvin D.O.
[2020-05-16 08:45] LABS: Anion Gap 7 mmol/L (8-16); Blood Urea Nitrogen 38 mg/dL (9-20); Calcium 8.2 mg/dL (8.4-10.2); Carbon Dioxide 33 mmol/L (22-30); Chloride 99 mmol/L (98-107); Estimated CRCL calculation 40 ml/min; Estimated Glomerular Filt Rate 42; Glucose 100 mg/dL (75-110); Magnesium 2.1 mg/dL (1.6-2.3); Potassium 3.2 mmol/L (3.4-5.0); Sodium 139 mmol/L (137-145)
--- NOTE | 2020-05-16 10:23 | ECG_ITS ---
Measurements Intervals [place] Rate: 61 P: 81 SD: 250 QRS: -19 QRSD: 102 T: 43 QT: 471 QTc: 476 Interpretive Statements SINUS RHYTHM WITH FIRST DEGREE AV BLOCK VOLTAGE CRITERIA FOR LVH INFERIOR INFARCT, AGE INDETERMINATE BASELINE ARTIFACT- II, III, AVF ABNORMAL ECG Electronically Signed On 05-16-2020 11:33:46 TIMBER MANAGEMENT SPECIALIST by Josue Colvin D.O.
--- NOTE | 2020-05-16 15:41 | SUR.PHASEII ---
1200-PT GIVEN D/C ORDERS AND INSTRUCTIONS. QUESTIONS ANSWERED AND VERBALIZED UNDERSTANDING. AOX4. PIV REMOVED INTACT. TAKEN VIA WHEELCHAIR TO WAITING VEHICLE. NO DISTRESS NOTED OR VERBALIZED AT TIME OF DEPARTURE.
--- NOTE | 2020-06-07 16:47 | WPDCARDPROC ---
Cardiac Cath Procedure Note Date of procedure:: 05/16/20 Performing physician:: Rico Galarza MD Indication:: Persistent atrial flutter Brief clinical history:: this 79-year-old man with a history of atrial arrhythmias and cardiomyopathy with congestive heart failure. He was recently seen in the hospital with a decompensation of CHF and had not been compliant with medication for a long time. His heart failure was compensated medically but he persists in atrial flutter. An attempt to restore sinus rhythm has been recommended. He has been systemically anticoagulated with apixaban. Procedure Procedure performed:: DC cardioversion Sedation/Medication given:: IV propofol Estimated blood loss:: no blood loss Procedure note:: patient was brought to the cardiac catheterization lab holding area in the postabsorptive state IV access was placed and defibrillator patches were placed in the AP position. He was sedated with propofol after which she was cardioverted with 200 joules x1 attempt restoring normal sinus rhythm. Findings:: As above Conclusion:: successful uncomplicated DC cardioversion terminating atrial flutter at restoring sinus rhythm using 200 joules x1 shock. Rico Galarza MD [facility]
== END 2020-05-16 11:28 | disposition home or self-care (01) ==
PROVIDERS: PCP Family Medicine Adolescent Medicine; Visit Provider Specialist
PROC: 5A2204Z Restoration of Cardiac Rhythm, Single (ICD-10-PCS; principal; 2020-05-16 10:00)
DX: I48.0 Paroxysmal atrial fibrillation (principal); I48.92 Unspecified atrial flutter; I42.0 Dilated cardiomyopathy; Z79.01 Long term (current) use of anticoagulants; M79.621 Pain in right upper arm
CPT/HCPCS: 36415; 80048; 83735; 92960; 93005; C9803; J2704; J3480; J7040; U0003; U0005

== ENCOUNTER → 2020-05-17 08:03 | Outpatient (CLI) | payer OTHER, SELFPAY ==
[2020-05-17 20:38] LABS: SARS-CoV-2 RNA PCR Positive
== END ==
PROVIDERS: PCP Family Medicine Adolescent Medicine; Visit Provider Family Medicine Adolescent Medicine
DX: U07.1 COVID-19 (principal)
CPT/HCPCS: C9803; U0003; U0005

== ENCOUNTER 2020-07-30 19:41 | Inpatient (IN) | payer OTHER, SELFPAY ==
[2020-07-30] VITALS (9 sets, daily range): BP systolic 106–134; BP diastolic 87–105; PULSE 132–135; RESP 20–22; TEMP 36.4; O2SAT 96–100
--- NOTE | ~2020-07-30 | US_ITS ---
EXAMINATION: US abdomen limited DATE: 07/31/2020 09:39 INDICATION: Elevated liver enzymes TECHNIQUE: Multiple grayscale and Doppler ultrasound images of the abdomen were obtained. COMPARISON: None FINDINGS: The visualized portion of the pancreatic body appears normal. The pancreatic head and tail are obscur ed. The visualized proximal inferior vena cava is normal. Liver has normal echogenicity and contour, with a smooth surface. No liver lesion identified. No intrahepatic biliary duct dilation suspected. P ortal venous flow was seen in the hepatopetal, normal direction and has normal Doppler waveform. Smal l right pleural effusion at the posterior sulcus. Visualized portion of the right kidney appears norm al with normal contour and echogenicity and no hydronephrosis. Gallbladder is not visualized consiste nt with reported cholecystectomy. Common bile duct measures 5 mm in maximal diameter which is normal. IMPRESSION: 1. Status post cholecystectomy. Normal liver with no intra or extrahepatic biliary ductal dilation. 2. Small right pleural effusion. Reviewed, dictated and finalized at location A. IMPRESSION: 1. Status post cholecystectomy. Normal liver with no intra or extrahepatic bili kathleen ductal dilation. 2. Small right pleural effusion.
--- NOTE | ~2020-07-30 | XR_ITS ---
EXAMINATION: XR chest 2V EXAM DATE: 07/30/2020 20:28 INDICATION: Shortness of breath. TECHNIQUE: Frontal and lateral projections of the chest obtained and reviewed. Comparison is made to prior examination from 04/06/2020. FINDINGS: The lungs are hyperinflated which can be seen with chronic obstructive pulmonary disease (a clinical diagnosis of functional impairment), but is not diagnostic of it. Mild cardiomegaly. No con fluent consolidation, pneumothorax or pleural effusion suspected. There are mild bony degenerative ch anges. IMPRESSION: 1. Hyperinflation. 2. Mild cardiomegaly. Reviewed, dictated and finalized at location A.
--- NOTE | 2020-07-30 20:17 | ECG_ITS ---
Measurements Intervals [place] Rate: 133 P: 98 VT: 192 QRS: -1 QRSD: 96 T: 70 QT: 367 QTc: 547 Interpretive Statements SINUS FLUTTER/TACHYCARDIA WITH RAPID VENTRICULAR RESPONSE CONSIDER INFERIOR INFARCT, AGE INDETERMINATE BORDERLINE ST-T WAVE ABNORMALITY- HIGH LATERAL LEADS BASELINE ARTIFACT- I, II, AVR, AVF, V1 ABNORMAL ECG Electronically Signed On 07-31-2020 7:01:32 CDT by Josue Colvin D.O.
[2020-07-30 21:05] LABS: Basophils Percent Auto 0.6 % (0.2-1.2); Eosinophils Percent Auto 0.6 % (0-4.4); Hematocrit 39.3 % (42.0-52.0); Hemoglobin 12.5 g/dL (14.0-18.0); Immature Granulocyte Absolute 0.02 K/mm3 (0.00-0.031); Immature Granulocyte Percent A 0.3 % (0-0.5); Lymphocytes Absolute Auto 1.07 K/mm3 (0.9-3.2); Lymphocytes Percent Auto 16.5 % (18.3-44.2); Mean Corpuscular HGB Conc 31.8 g/dl (32-36); Mean Corpuscular Hemoglobin 27.8 pg (26-34); Mean Corpuscular Volume 87.3 fl (80-100); Mean Platelet Volume 10.7 fl (7.4-10.4); Monocytes Absolute Auto 0.5 K/mm3 (0.1-0.6); Neutrophils Absolute Auto 4.8 K/mm3 (1.3-6.7); Platelet Count Result 292 k/mm3 (150-375); Red Cell Distribution Width 20.6 % (11.5-14.5); White Blood Count 6.5 K/mm3 (4.5-10.0)
--- NOTE | 2020-07-30 21:11 | ED.SOB ---
HPI - SOB/Dyspnea General Chief Complaint: Shortness of Breath/Dyspnea Stated Complaint: shortness of breath Time Seen by Provider: 07/30/20 21:11 Source: patient Mode of arrival: ambulatory Limitations: no limitations History of Present Illness HPI Narrative: Patient is a 79-year-old male with history of paroxysmal tachydysrhythmia, history of atrial flutter, anticoagulated on apixaban, congestive heart failure, who presents for evaluation of shortness of breath. Patient states he had been generally weak, dizzy with shortness of breath over the past 6 days while he was without some of his medications. Patient states he currently feels much improved laying in the hospital bed. He is denying current shortness of breath, chest pain. He reports mild, dry cough. He denies sore throat, rhinorrhea, loss of sense of taste or smell. He states he had Covid 2 to 3 months ago, and has been vaccinated since that time. He denies any leg swelling or calf pain. He denies fever or chills. Patient's heart rate is noted to be in the 130s, patient states this is quite typical for him. Patient was recently admitted for acute decompensated congestive heart failure due to medication non compliance. Related Data Home Medications Medication Instructions Recorded Confirmed cyclobenzaprine 10 mg PO BID PRN 06/08/19 05/15/20 diphenhydramine HCl [Allergy 50 mg PO HS 06/08/19 05/15/20 (diphenhydramine)] dutasteride 0.5 mg PO DAILY 06/08/19 04/05/20 fludrocortisone 0.1 mg PO DAILY 06/08/19 05/15/20 latanoprost 1 drp OPHTHALMIC (EYE) HS 06/08/19 05/15/20 omeprazole 20 mg PO HS 06/08/19 05/15/20 Allergies Allergy/AdvReac Type Severity Reaction Status Date / Time celecoxib Allergy Mild Hives Verified 04/05/20 11:49 valdecoxib Allergy Mild Hives Verified 04/05/20 11:49 Barbiturates Allergy Unknown Hives Verified 04/05/20 11:49 Review of Systems Review of Systems: Narrative: CONSTITUTIONAL: Denies fever, chills, or sweats. EYES: Denies visual changes, redness, or discharge. ENT: Denies rhinorrhea, congestion, sore throat, or otalgia. CARDIOVASCULAR: Denies chest pain, denies palpitations, or edema. RESPIRATORY: Reports cough and dyspnea GASTROINTESTINAL: Denies abdominal pain, nausea, vomiting, or diarrhea. GENITOURINARY: Denies dysuria or hematuria. SKIN: Denies rash or itching. MUSCULOSKELETAL: Denies back pain, joint pain, or myalgia. NEUROLOGIC: Denies headache, numbness, reports earlier weakness, denies focal weakness or numbness PMFSH Past Medical History Medical History A-fib Anxiety Arm fracture Arthritis Cardiomyopathy DDD (degenerative disc disease) Depression Dilation of esophagus x3 Gallbladder disease GERD (gastroesophageal reflux disease) GI bleed Glaucoma Headache Mitral valve prolapse Parkinson disease Previous known suicide attempt 07/03/09 Rectal polyp Silverio-Checo syndrome Ulcer Surgical History Surgical History H/O cardiac radiofrequency ablation History of esophagogastroduodenoscopy (EGD) History of rectal polypectomy Hx of appendectomy Hx of cholecystectomy Hx of fusion of cervical spine x2 Status post laparoscopic Austen fundoplication Family History Family History Father Colon cancer Mother Mental disorder Social History Social History Social History: the patient lives with his in his sister. The nephew was living with them but is now on alcohol rehab. The patient desires to have his is the durable power claim attorney for healthcare. The patient desires to be a full code. The patient has 3 children. Denies any alcohol or illicit drug use. The patient used to work for the [employer] but is now retired. Patient smoked briefly for approximately 5 years. At least a obrien
[2020-07-30 21:17] LABS: Anion Gap 9 mmol/L (8-16); Blood Urea Nitrogen 34 mg/dL (9-20); Calcium 8.7 mg/dL (8.4-10.2); Carbon Dioxide 27 mmol/L (22-30); Chloride 104 mmol/L (98-107); Estimated CRCL calculation 38 ml/min; Estimated Glomerular Filt Rate 39; Glucose 94 mg/dL (75-110); Potassium 4.2 mmol/L (3.4-5.0); Sodium 140 mmol/L (137-145)
[2020-07-30] MEDS: SODIUM CHLORIDE 0.9% IV 500 ML 999 ML IV CONT (21:35)
[2020-07-30 21:38] LABS: Alveolar/Arterial O2 Gradient 23.8 mmHg; Base Excess ABG -3.7 mEq/l (+/-2.0); Carboxyhemoglobin 0.5 % THb (0-2.0); Fractional Inspired Oxygen 21 %; Methemoglobin ABG 0.3 %THb (0-1.5); Oxygen Content ABG 16.7 %vol (16.0-22.0); Oxygen Saturation ABG 97.5 % (95.0-100.0); Oxyhemoglobin 95.7 % THb (90.0-100.0); PCO2 ABG 27.7 mmHg (35.0-45.0); PO2 ABG 92.8 mmHg (80.0-100.0); PO2 FiO2 Ratio Arterial Blood 4.42 %; Reduced Hemoglobin 3.5 %THb (0-5.0); Total Hemoglobin 12.3 g/dL (12.0-18.0); pH ABG 7.454 (7.350-7.450)
[2020-07-30 21:39] LABS: Device ROOM AIR; Modified Allen's Test Pass; Site Drawn RIGHT RADIAL
[2020-07-30 21:40] LABS: Basophils Percent Auto 0.5 % (0.2-1.2); Eosinophils Percent Auto 0.5 % (0-4.4); Hematocrit 40.1 % (42.0-52.0); Hemoglobin 12.8 g/dL (14.0-18.0); Immature Granulocyte Absolute 0.03 K/mm3 (0.00-0.031); Immature Granulocyte Percent A 0.5 % (0-0.5); Lymphocytes Absolute Auto 1.07 K/mm3 (0.9-3.2); Lymphocytes Percent Auto 16.9 % (18.3-44.2); Mean Corpuscular HGB Conc 31.9 g/dl (32-36); Mean Corpuscular Hemoglobin 27.7 pg (26-34); Mean Corpuscular Volume 86.8 fl (80-100); Mean Platelet Volume 10.6 fl (7.4-10.4); Monocytes Absolute Auto 0.5 K/mm3 (0.1-0.6); Monocytes Percent Auto 7.9 % (2.6-8.5); Neutrophils Absolute Auto 4.7 K/mm3 (1.3-6.7); Neutrophils Percent Auto 73.7 % (45.5-73.1); Platelet Count Result 313 k/mm3 (150-375); Red Blood Count 4.62 M/mm3 (4.6-6.20); Red Cell Distribution Width 20.6 % (11.5-14.5); White Blood Count 6.3 K/mm3 (4.5-10.0)
[2020-07-30 21:50] LABS: INR 1.6; Lactic Acid Reflex 1.3 mmol/L (0.7-2.1); Prothrombin Time 19.3 Seconds (11.1-14.7)
[2020-07-30 21:51] LABS: Alanine Aminotransferase 112 U/L (4-50); Albumin Level 4.5 g/dL (3.5-5.1); Alkaline Phosphatase 213 U/L (38-126); Anion Gap 12 mmol/L (8-16); Aspartate Amino Transferase 107 U/L (17-59); Bilirubin,Total 0.9 mg/dL (0.2-1.3); Blood Urea Nitrogen 33 mg/dL (9-20); Calcium 9.3 mg/dL (8.4-10.2); Carbon Dioxide 25 mmol/L (22-30); Chloride 104 mmol/L (98-107); Estimated CRCL calculation 36 ml/min; Estimated Glomerular Filt Rate 37; Glucose 98 mg/dL (75-110); Partial Thromboplastin Time 43.2 SECONDS (22.3-36.8); Potassium 4.2 mmol/L (3.4-5.0); Sodium 141 mmol/L (137-145)
[2020-07-30 22:03] LABS: NT Pro B Type Natriuretic Pept 20300 pg/mL (5-100); Troponin I < 0.012 ng/mL (0.000-0.034)
[2020-07-30] MEDS: ADENOSINE IV SOLN 6 MG/2 ML VIAL IV PUSH (23:42)
[2020-07-30] MEDS: SODIUM CHLORIDE 0.9% IV 250 ML 200 ML (23:42)
[2020-07-31] VITALS (20 sets, daily range): BP systolic 107–124; BP diastolic 83–103; PULSE 60–135; RESP 18–20; TEMP 36.1–37; O2SAT 96–100; BMI 27.6
[2020-07-31] MEDS: AMIODARONE 150 MG/D5W 100 ML 150 MG/100 ML BAG 600 MG IV CONT (00:10)
[2020-07-31] MEDS: AMIODARONE 360 MG/D5W 200 ML 360 MG/200 ML BAG 33.33 MG IV CONT (00:22)
--- NOTE | 2020-07-31 01:20 | PC.NURSE ---
This patient, Rico Nelson Sr., was admitted to IMU Room 204-01 on 07/31/20 at 0120. Patient/family oriented to hospital policies and general routines including ID bracelet, bed and alarms, visiting hours, pain management, procedures, bathroom and other care routines, personal items, smoking policy, room service/diet, and visiting hours. Information on how to activate the Rapid Response Team has been discussed. Patient/Family are encouraged to report perceived risks to care and to ask questions if they do not understand what they are told or what they should do.
--- NOTE | 2020-07-31 03:02 | PM.IMHP ---
H&P: HPI History of Present Illness Date/Time: 07/31/20 03:02 Chief Complaint: shortness of breath Narrative: Patient is a 79-year-old male with history of paroxysmal tachydysrhythmia, history of atrial flutter, anticoagulated on apixaban, congestive heart failure, who presents for evaluation of shortness of breath. Patient states he had been generally weak, dizzy with shortness of breath over the past 6 days. he reports he has been out of some of his medications. He denies any leg swelling or calf pain. He denies fever or chills. In the ED, he was noted to be in 130s sinus tachycardia. Upon consultation with cardiology, adenosine was given and noted to have some flutter waves. he was then started on amiodarone gtt. he is gettign admitted for further treatment. Review of Systems Review of Systems: Narrative: - CONSTITUTIONAL: Denies weight loss, fever and chills. - HEENT: Denies changes in vision and hearing - RESPIRATORY: rpeorts sob but no cough. - CV: Denies palpitations and CP. - GI: Denies abdominal pain, nausea, vomiting and diarrhea. - : Denies dysuria and urinary frequency. - MSK: Denies myalgia and joint pain. - SKIN: Denies rash and pruritus. - NEUROLOGICAL: Denies headache and syncope. - PSYCHIATRIC: Denies recent changes in mood. Denies anxiety and depression. All systems reviewed & are unremarkable except as noted in HPI and below Constitutional: Constitutional: Reports fatigue and Reports weakness Neurologic: Reports weakness Endocrine: Endocrine: Reports fatigue [facility] Past Medical History Medical History A-fib Anxiety Arm fracture Arthritis Cardiomyopathy DDD (degenerative disc disease) Depression Dilation of esophagus x3 Gallbladder disease GERD (gastroesophageal reflux disease) GI bleed Glaucoma Headache Mitral valve prolapse Parkinson disease Previous known suicide attempt 07/03/09 Rectal polyp Silverio-Checo syndrome Ulcer Surgical History Surgical History H/O cardiac radiofrequency ablation History of esophagogastroduodenoscopy (EGD) History of rectal polypectomy Hx of appendectomy Hx of cholecystectomy Hx of fusion of cervical spine x2 Status post laparoscopic Austen fundoplication Family History Family History Father Colon cancer Mother Mental disorder Social History Social History Social History: the patient lives with his in his sister. The nephew was living with them but is now on alcohol rehab. The patient desires to have his is the durable power military source operations specialist for healthcare. The patient desires to be a full code. The patient has 3 children. Denies any alcohol or illicit drug use. The patient used to work for the [employer] but is now retired. Patient smoked briefly for approximately 5 years. At least a half pack a cigarettes a day. He quit smoking in 1971. Smoking packs per day: 0.5 Smoking cigarettes per day: 10.0 Years smoked: 5 Smoking pack-years: 2.50 Smoking status: Former smoker Tobacco type: cigarettes Second hand tobacco smoke exposure: No Smoking end date: 03/23/71 Alcohol intake: never Substance use: never Gender identity (if verbalized by the patient): Male Spiritual care concerns: No Agree to blood products: Yes Meds Home Medications and Allergies Home Medications Medication Instructions Recorded Confirmed Type cyclobenzaprine 10 mg PO BID PRN 06/08/19 07/31/20 History diphenhydramine HCl [Allergy 50 mg PO HS 06/08/19 07/31/20 History (diphenhydramine)] fludrocortisone 0.1 mg PO DAILY 06/08/19 07/31/20 History omeprazole 20 mg PO HS 06/08/19 07/31/20 History metoprolol tartrate 25 mg PO Q12H #30 tablet 06/11/19 07/31/20 Rx Eliquis 5 mg PO BID #60 tablet 04/09/20
--- NOTE | 2020-07-31 04:14 | PC.NURSE ---
This patient, Rico Nelson , was transferred to [ ICU room 10] on 07/31/20 at 0410 for suicide precautions. Personal belongings sent with patient. Report given to [Joaquina Steinberg]. Appropriate documentation sent with patient.
--- NOTE | 2020-07-31 04:22 | PC.NURSE ---
Report faxed to this nurse from the IMU department at 0340 a.m.
--- NOTE | 2020-07-31 04:23 | PC.NURSE ---
CHITRA Lui called at 0349 to initiate report to this nurse. Report was given and all patient care questions answered. Patient to transfer to ICU bed 6.
--- NOTE | 2020-07-31 04:24 | PC.NURSE ---
Addendum entered by Joaquina Morse RN 07/31/20 04:28: This patient arrived to the ICU department at 0421 a.m., from IMU room 204. Patient was transported by wheelchair. Patient admitted into ICU room, 6. All belonging brought with patient and secured in locked cabinets. Safety precautions initiated and review of room and policies discussed. This nurse to resume further care of patient Original Note: This patient arrived to the ICU department at 0421 a.m., from IMU room 204. Patient was transported by wheelchair. Patient admitted into ICU room, 7. All belonging brought with patient and secured in locked cabinets. Safety precautions initiated and review of room and policies discussed. This nurse to resume further care of patient.
--- NOTE | 2020-07-31 04:29 | PC.NURSE ---
This patient arrived to the ICU department at 0421 a.m., from IMU room 204. Patient was transported by wheelchair. Patient admitted into ICU room, 6. All belonging brought with patient and secured in locked cabinets. Safety precautions initiated and review of room and policies discussed. This nurse to resume further care of patient
[2020-07-31] MEDS: AMIODARONE 360 MG/D5W 200 ML 360 MG/200 ML BAG 16.67 MG IV CONT ×2 (05:25→15:50)
[2020-07-31] MEDS: APIXABAN 5 MG TABLET PO ×2 (08:24→15:50)
[2020-07-31] MEDS: FUROSEMIDE 40 MG TABLET PO (08:24)
[2020-07-31] MEDS: FLUDROCORTISONE ACETATE 0.1 MG TABLET PO (08:24)
[2020-07-31] MEDS: METOPROLOL TARTRATE 25 MG TABLET PO ×2 (08:24→20:16)
[2020-07-31] MEDS: SACUBITRIL/VALSARTAN 24-26 MG TABLET 1 TAB PO ×2 (08:24→20:17)
--- NOTE | 2020-07-31 10:56 | PM.CNCAR ---
Assessment and Plan Assessment and plan (1) Atrial flutter with rapid ventricular response: Code(s): I48.92 - Unspecified atrial flutter Status: Acute Assessment and Plan: 79-year-old male with CHF with reduced ejection fraction, cardiomyopathy ? nonischemic ( LVEF 35-40% from 06/08/2019 echo); history of atrial flutter /atrial fibrillation (status post DC cardioversion on 05/16/2020), CKD, depression and suicidal attempt. patient admitted to the hospital with shortness of breath, found to be in atrial flutter with RVR. He has been noncompliant with medications lately. - Continue IV amiodarone for now. - Resume metoprolol tartrate. - Anticoagulation with apixaban - Outpatient evaluation and consider referral to electrophysiology to check patient's candidacy for radiofrequency ablation for atrial flutter. (2) CHF (congestive heart failure): Code(s): I50.9 - Heart failure, unspecified Status: Acute Assessment and Plan: acute on chronic CHF with reduced ejection fraction, precipitated by atrial flutter with RVR. Diuresis with oral furosemide; resume metoprolol, and low-dose sacubitril /valsartan. If patient's blood pressure is low, may hold Entresto. (3) Noncompliance with medication regimen: Code(s): Z91.14 - Patient's other noncompliance with medication regimen Status: Acute Assessment and Plan: Spoke with patient about importance of medication compliance and outpatient follow-up. Need to address his underlying psychological state. Recommend psychiatric evaluation. (4) Depression: Qualifiers: Depression Type: other depression Qualified Code(s): F32.89 - Other specified depressive episodes Code(s): F32.9 - Major depressive disorder, single episode, unspecified Status: Chronic Assessment and Plan: Patient has depression with apparent suicidal ideation/thoughts. Management as per primary team. Consider psychiatric evaluation. History of Present Illness History of Present Illness Consult date/time: 07/31/20 10:56 Date of consult: 07/31/2020 Reason for consult: CHF, atrial flutter Requesting physician:MD Charles Chief complaint: Shortness of breath HPI: 79-year-old male with CHF with reduced ejection fraction, cardiomyopathy ? nonischemic ( LVEF 35-40% from 06/08/2019 echo); history of atrial flutter /atrial fibrillation (status post DC cardioversion on 05/16/2020), CKD, depression and suicidal attempt. Patient presented to [facility] on 07/30/2020 with complaints of shortness of breath. He was cardioverted earlier this year for recurrent atrial flutter, and was supposed to be on amiodarone for rhythm control, and on apixaban for anticoagulation. Patient states that he has not been compliant with his medications for last few days. He states that he left his house due to some argument with his sister. Started getting short of breath 3-4 days ago, associated with generalized weakness. Apparently, patient also had suicidal attempt recently, although he denied during the evaluation today. He denies chest pain, has occasional palpitations, denies dizziness or loss of consciousness. In the emergency room, he was found to be in atrial flutter with RVR. He was initiated on IV amiodarone , and admitted to ICU with suicide watch. On telemetry, at the time of evaluation, his heart rate was in 130s. EKG on my personal evaluation showed atrial flutter with RVR, ventricular rate 133 beats per minute, Old inferior infarct. Chest x-ray showed hyperinflation with mild cardiomegaly. Reason For Visit: CHF exacerbation, a flutter with rvr Review of Systems Review of Systems: Narrative: General: positive for fatigue Psychological: Positive for depression Ophthalmic: negative for loss of vision ENT: Negative for epistaxis, headaches Allergy and immunology: Negative for hives, nasal congestion Hematologic and lymphatic: Negative for overt bl
--- NOTE | 2020-07-31 17:04 | PM.IMPN ---
Progress Note: A&P Assessment and Plan (1) Atrial flutter with rapid ventricular response: Code(s): I48.92 - Unspecified atrial flutter Status: Acute Assessment and Plan: 07/31/20 17:04Patient is 79-year-old male with history of nonischemic cardiomyopathy with ejection fraction of 35-40%, chronic kidney disease, atrial fibrillation, psychiatric history and suicidal ideation patient presented emergency depart with complaint of shortness of breath he was found to have atrial flutter with RVR patient is noncompliant with his oral medication, was placed on amiodarone 0.5mg drip, and patient is anticoagulated with Eliquis, patient seen by his olive brine tester patient remains RVR plan is to start the patient on metoprolol once clinically stable olive brine tester recommending patient will benefit seening bus and trolley inspecting dispatcher for ablation, currently patient states is feeling much better compared to when he arrived he denies any chest pain shortness of breath palpitation fever or chills., patient with nonischemic cardiomyopathy patient is on Entersto will continue as tolerated, once clinically stable will have a PT OT evaluate the patient and further recommendation to follow. (2) Acute dyspnea: Code(s): R06.00 - Dyspnea, unspecified Status: Acute Assessment and Plan: Most likely secondary to acute on chronic systolic congestive heart failure patient is being diuresed will continue to monitor (3) Elevated brain natriuretic peptide (BNP) level: Code(s): R79.89 - Other specified abnormal findings of blood chemistry Status: Acute (4) Abnormal CT scan, chest: Code(s): R93.89 - Abnormal findings on diagnostic imaging of other specified body structures Status: Acute Assessment and Plan: Scattered reticulonodular opacities most likely infectious or postinfectious; consider 1-3 month follow-up CT. (5) Chronic anticoagulation: Code(s): Z79.01 - residential (current) use of anticoagulants Status: Acute Assessment and Plan: Patient on anticoagulation with Eliquis for atrial fibrillation (6) CHF (congestive heart failure): Code(s): I50.9 - Heart failure, unspecified Status: Acute Assessment and Plan: Most likely secondary to acute on chronic systolic congestive heart failure patient is being diuresed will continue to monitor (7) Noncompliance with medication regimen: Code(s): Z91.14 - Patient's other noncompliance with medication regimen Status: Acute Assessment and Plan: Sustainability Communicator a consuld patient to be compliant with his regimen (8) Cardiomyopathy: Code(s): I42.9 - Cardiomyopathy, unspecified Status: Acute Assessment and Plan: Patient with a nonischemic cardiomyopathy (9) A-fib: Qualifiers: Atrial fibrillation type: unspecified Qualified Code(s): I48.91 - Unspecified atrial fibrillation Code(s): I48.91 - Unspecified atrial fibrillation Status: Chronic Assessment and Plan: Plan is above (10) Depression: Qualifiers: Depression Type: other depression Qualified Code(s): F32.89 - Other specified depressive episodes Code(s): F32.9 - Major depressive disorder, single episode, unspecified Status: Chronic Assessment and Plan: Will continue home regimen (11) GERD (gastroesophageal reflux disease): Qualifiers: Esophagitis presence: esophagitis presence not specified Qualified Code(s): K21.9 - Gastro-esophageal reflux disease without esophagitis Code(s): K21.9 - Gastro-esophageal reflux disease without esophagitis Status: Chronic Assessment and Plan: Will continue PPI Additional Plan # Atrial fibrillation/flutter with RVR: inital presentation with svt, with adnosine noted he is back on afib/flutter with rvr. upon consultation with cardiology,s tarted on amiodarone gtt. alrady on apixaban fully anticoagulated. he has very sym
[2020-07-31] MEDS: diphenhydrAMINE HCl CAP 25 MG CAPSULE 50 MG PO (20:15)
[2020-07-31] MEDS: MELATONIN 5 MG TABLET 10 MG PO (20:16)
[2020-07-31] MEDS: PANTOPRAZOLE SOD SESQUIHYDRATE 20 MG TAB PO (20:17)
[2020-08-01] VITALS (16 sets, daily range): BP systolic 103–126; BP diastolic 71–99; PULSE 128–134; RESP 17–19; TEMP 36.4–36.8; O2SAT 93–100
[2020-08-01] MEDS: AMIODARONE 360 MG/D5W 200 ML 360 MG/200 ML BAG 16.67 MG IV CONT ×2 (02:22→14:28)
[2020-08-01 05:13] LABS: Alanine Aminotransferase 99 U/L (4-50); Albumin Level 3.5 g/dL (3.5-5.1); Alkaline Phosphatase 155 U/L (38-126); Anion Gap 3 mmol/L (8-16); Aspartate Amino Transferase 66 U/L (17-59); Bilirubin,Total 0.7 mg/dL (0.2-1.3); Blood Urea Nitrogen 33 mg/dL (9-20); Calcium 8.5 mg/dL (8.4-10.2); Carbon Dioxide 31 mmol/L (22-30); Chloride 104 mmol/L (98-107); Estimated CRCL calculation 40 ml/min; Estimated Glomerular Filt Rate 42; Glucose 87 mg/dL (75-110); Potassium 3.8 mmol/L (3.4-5.0); Sodium 138 mmol/L (137-145)
[2020-08-01] MEDS: FLUDROCORTISONE ACETATE 0.1 MG TABLET PO (08:21)
[2020-08-01] MEDS: METOPROLOL TARTRATE 25 MG TABLET PO ×2 (08:21→20:34)
[2020-08-01] MEDS: FUROSEMIDE 40 MG TABLET PO (08:21)
[2020-08-01] MEDS: SACUBITRIL/VALSARTAN 24-26 MG TABLET 1 TAB PO ×2 (08:21→20:33)
[2020-08-01] MEDS: APIXABAN 5 MG TABLET PO ×2 (08:21→16:43)
--- NOTE | 2020-08-01 11:53 | PM.PNCARD ---
Progress Note: A&P Additional Plan Significant nonischemic cardiomyopathy patient is on affective medical treatment unfortunately is back in the hospital with a recurrence of his atrial flutter a short time after being cardioverted. Ideally he would be seen by electrophysiology at this time consider ablating his atrial flutter obviously this is not available here at [facility]. I would recommend therefore attempting another electrical cardioversion tomorrow in hopes of restoring sinus rhythm. Because of this early recurrence I would recommend having him see an rn otolaryngology as soon as possible after discharge to consider ablation of this arrhythmia. This might also avoid the need for chronic amiodarone exposure. IV amiodarone will be continued today as well as systemic anticoagulation with apixaban. Rico Galarza MD [facility] Subjective Date/time seen: Date of service:08/01/20 11:53 Interval history: Follow-up visit in this 79-year-old man with: Nonischemic cardiomyopathy and atrial flutter with RVR. Patient was admitted to hospital yesterday experiencing some increasing shortness of breath. There was some question about whether he was taking his medication compliantly. Because of family reasons he left the home where his medication was located so it sounds like for at least 2 or 3 days he was without his medication. He feels better today than he did on admission he does not appear to be significantly short of breath and is eating his lunch in watching television. Patient was cardioverted out of atrial flutter back in May and obviously this early recurrence is disappointing. It may or may not have anything to do with being off of amiodarone for a short amount of time. He is now receiving amiodarone intravenously. No other complaints Exam Const: General: comfortable and no acute distress Other: Tall white male no distress HENMT: Mouth: Yes moist mucous membranes Eyes: Sclera: sclerae normal Pupils: Equal, round and reactive pupils present Neck: Neck: supple and no JVD Thyroid: thyroid normal Resp: Effort & Inspection: normal respiratory effort Auscultation: clear to auscultation bilaterally Cardio: Rate: tachycardic Other: Regular tachycardic rhythm heart rate 130 GI: GI Palp: Yes Soft to palpation Auscultation: normal bowel sounds Skin: General skin exam: normal color Neuro: Cognition (Neuro): normal cognition Extrem: General: normal to inspection Objective Data Vital Signs Vital Signs: Vital Signs - 24 hr 07/31/20 12:00 07/31/20 13:55 07/31/20 15:50 Temperature 36.9 C Pulse Rate 129 H 131 H 132 H Respiratory Rate 18 Blood Pressure 108/94 H 107/88 Pulse Oximetry 96 07/31/20 16:00 07/31/20 18:00 07/31/20 20:00 Temperature 36.9 C 36.1 C L Pulse Rate 132 H 131 H 127 H Respiratory Rate 18 19 Blood Pressure 120/83 115/87 Pulse Oximetry 96 98 07/31/20 20:16 07/31/20 22:00 08/01/20 00:00 Temperature 36.6 C Pulse Rate 133 H 134 H 131 H Respiratory Rate 17 Blood Pressure 126/88 Pulse Oximetry 100 08/01/20 02:00 08/01/20 02:22 08/01/20 04:00 Temperature 36.8 C Pulse Rate 129 H 130 H 129 H Respiratory Rate 19 Blood Pressure 117/94 H 124/99 H Pulse Oximetry 97 08/01/20 06:00 08/01/20 07:59 08/01/20 08:00 Temperature 36.4 C L Pulse Rate 128 H 129 H Respiratory Rate 18 Blood Pressure 115/92 H Pulse Oximetry 97 98 08/01/20 10:00 Temperature Pulse Rate 128 H Respiratory Rate Blood Pressure Pulse Oximetry Intake/Output Intake/Output: Intake & Output 07/29/20 07/30/20 07/31/20 08/01/20 23:59 23:59 23:59 23:59 Intake Total 600 2050 897 Output Total 1400 525 Balance 600 650 372 Meds/Results Medications: Active Medications Generic Name Dose Route Start Last Admin Trade Name Freq PRN Reason Stop Dose Admin Apixaban 5 mg 07/31/20 09:00 08/01/20 08:21 Apixaban 5 Mg Tablet PO 5 mg BID ZHEN Admin
--- NOTE | 2020-08-01 14:15 | PM.IMPN ---
Progress Note: A&P Assessment and Plan (1) Atrial flutter with rapid ventricular response: Code(s): I48.92 - Unspecified atrial flutter Status: Acute Assessment and Plan: 08/01/20 14:15 07/31Patient is 79-year-old male with history of nonischemic cardiomyopathy with ejection fraction of 35-40%, chronic kidney disease, atrial fibrillation, psychiatric history and suicidal ideation patient presented emergency depart with complaint of shortness of breath he was found to have atrial flutter with RVR patient is noncompliant with his oral medication, was placed on amiodarone 0.5mg drip, and patient is anticoagulated with Eliquis, patient seen by his roof assembler patient remains RVR plan is to start the patient on metoprolol once clinically stable roof assembler recommending patient will benefit seening collision center manager for ablation, currently patient states is feeling much better compared to when he arrived he denies any chest pain shortness of breath palpitation fever or chills., patient with nonischemic cardiomyopathy patient is on Entersto will continue as tolerated, once clinically stable will have a PT OT evaluate the patient and further recommendation to follow. 08/01 Patient with significant cardiomyopathy still remains in atrial fibrillation while on amiodarone drip he was recently cardioverted is seen by Packing House Supervisor recommending the patient will benefit with a cardioversion again and soon after that patient should see collision center manager for abalation. Cardioversion is scheduled for tomorrow will continue to monitor the patient, patient states is feeling much better compared to when he arrived, he denies any chest shortness of breath palpitation fever or chills. (2) Acute dyspnea: Code(s): R06.00 - Dyspnea, unspecified Status: Acute Assessment and Plan: Most likely secondary to acute on chronic systolic congestive heart failure patient is being diuresed will continue to monitor (3) Elevated brain natriuretic peptide (BNP) level: Code(s): R79.89 - Other specified abnormal findings of blood chemistry Status: Acute (4) Abnormal CT scan, chest: Code(s): R93.89 - Abnormal findings on diagnostic imaging of other specified body structures Status: Acute Assessment and Plan: Scattered reticulonodular opacities most likely infectious or postinfectious; consider 1-3 month follow-up CT. (5) Chronic anticoagulation: Code(s): Z79.01 - ferry terminal agent (current) use of anticoagulants Status: Acute Assessment and Plan: Patient on anticoagulation with Eliquis for atrial fibrillation (6) CHF (congestive heart failure): Code(s): I50.9 - Heart failure, unspecified Status: Acute Assessment and Plan: Most likely secondary to acute on chronic systolic congestive heart failure patient is being diuresed will continue to monitor (7) Noncompliance with medication regimen: Code(s): Z91.14 - Patient's other noncompliance with medication regimen Status: Acute Assessment and Plan: Packing House Supervisor a consuld patient to be compliant with his regimen (8) Cardiomyopathy: Code(s): I42.9 - Cardiomyopathy, unspecified Status: Acute Assessment and Plan: Patient with a nonischemic cardiomyopathy (9) A-fib: Qualifiers: Atrial fibrillation type: unspecified Qualified Code(s): I48.91 - Unspecified atrial fibrillation Code(s): I48.91 - Unspecified atrial fibrillation Status: Chronic Assessment and Plan: Plan is above (10) Depression: Qualifiers: Depression Type: other depression Qualified Code(s): F32.89 - Other specified depressive episodes Code(s): F32.9 - Major depressive disorder, single episode, unspecified Status: Chronic Assessment and Plan: Will continue home regimen (11) GERD (gastroesophageal reflux disease): Qualifiers: Esophagitis presence
[2020-08-01] MEDS: polyethylene glycoL 3350 17 GM POWD.PACK PO (16:43)
[2020-08-01] MEDS: PANTOPRAZOLE SOD SESQUIHYDRATE 20 MG TAB PO (20:33)
[2020-08-01] MEDS: MELATONIN 5 MG TABLET 10 MG PO (20:33)
[2020-08-01] MEDS: diphenhydrAMINE HCl CAP 25 MG CAPSULE 50 MG PO (20:34)
[2020-08-01] MEDS: DOCUSATE SODIUM 100 MG CAPSULE PO (20:34)
[2020-08-02] VITALS (18 sets, daily range): BP systolic 96–123; BP diastolic 72–98; PULSE 76–133; RESP 13–24; TEMP 36.1–36.8; O2SAT 91–99
[2020-08-02] MEDS: AMIODARONE 360 MG/D5W 200 ML 360 MG/200 ML BAG 16.67 MG IV CONT (02:28)
[2020-08-02 05:16] LABS: Alanine Aminotransferase 88 U/L (4-50); Albumin Level 3.5 g/dL (3.5-5.1); Alkaline Phosphatase 134 U/L (38-126); Anion Gap 4 mmol/L (8-16); Aspartate Amino Transferase 49 U/L (17-59); Bilirubin,Total 0.5 mg/dL (0.2-1.3); Blood Urea Nitrogen 33 mg/dL (9-20); Calcium 8.4 mg/dL (8.4-10.2); Carbon Dioxide 33 mmol/L (22-30); Chloride 102 mmol/L (98-107); Estimated CRCL calculation 53 ml/min; Estimated Glomerular Filt Rate 59; Glucose 98 mg/dL (75-110); Potassium 3.5 mmol/L (3.4-5.0); Sodium 139 mmol/L (137-145)
[2020-08-02] MEDS: POTASSIUM CHLORIDE 20 MEQ TABLET 40 MEQ PO (08:05)
[2020-08-02] MEDS: FLUDROCORTISONE ACETATE 0.1 MG TABLET PO (08:06)
[2020-08-02] MEDS: APIXABAN 5 MG TABLET PO ×2 (08:06→19:09)
[2020-08-02] MEDS: FUROSEMIDE 40 MG TABLET PO (08:06)
[2020-08-02] MEDS: SACUBITRIL/VALSARTAN 24-26 MG TABLET 1 TAB PO ×2 (08:06→20:31)
[2020-08-02] MEDS: DOCUSATE SODIUM 100 MG CAPSULE PO ×2 (08:06→20:31)
[2020-08-02] MEDS: METOPROLOL TARTRATE 25 MG TABLET PO ×2 (08:06→20:31)
[2020-08-02 09:06] LABS: Magnesium 2.4 mg/dL (1.6-2.3)
--- NOTE | 2020-08-02 09:24 | WPDMODSED ---
Moderate Sedation Note-Pt Data Patient Data Diagnosis: Atrial flutter Present Complaint: Atrial flutter Procedure to be performed/Plan: Electrical cardioversion, moderate sedation Allergies Allergy/AdvReac Type Severity Reaction Status Date / Time celecoxib Allergy Mild Hives Verified 04/05/20 11:49 valdecoxib Allergy Mild Hives Verified 04/05/20 11:49 Barbiturates Allergy Unknown Hives Verified 04/05/20 11:49 Home Medications Medication Instructions Recorded Confirmed Type cyclobenzaprine 10 mg PO BID PRN 06/08/19 07/31/20 History diphenhydramine HCl [Allergy 50 mg PO HS 06/08/19 07/31/20 History (diphenhydramine)] fludrocortisone 0.1 mg PO DAILY 06/08/19 07/31/20 History omeprazole 20 mg PO HS 06/08/19 07/31/20 History metoprolol tartrate 25 mg PO Q12H #30 tablet 06/11/19 07/31/20 Rx Eliquis 5 mg PO BID #60 tablet 04/09/20 07/31/20 Rx Entresto 1 tab PO Q12HR #60 tablet 04/09/20 07/31/20 Rx amiodarone [Pacerone] 200 mg PO BID #60 tablet 04/09/20 07/31/20 Rx furosemide 40 mg PO DAILY #30 tablet 04/09/20 07/31/20 Rx lorazepam 2 mg PO Q8H PRN #20 tablet 04/09/20 07/31/20 Rx melatonin 10 mg PO HS #60 tablet 04/09/20 07/31/20 Rx Current Medications: Active Medications Apixaban (Apixaban 5 Mg Tablet) 5 mg PO BID [facility] Last Admin: 08/02/20 08:06 Dose: 5 mg Documented by: Cyclobenzaprine HCl (Cyclobenzaprine Hcl 10 Mg Tablet) 10 mg PO BID PRN PRN Reason: Muscle Pain Diphenhydramine HCl (Diphenhydramine Hcl Cap 25 Mg Capsule) 50 mg PO HS [facility] Last Admin: 08/01/20 20:34 Dose: 50 mg Documented by: Docusate Sodium (Docusate Sodium 100 Mg Capsule) 100 mg PO Q12HR [facility] Last Admin: 08/02/20 08:06 Dose: 100 mg Documented by: Fludrocortisone Acetate (Fludrocortisone Acetate 0.1 Mg Tablet) 0.1 mg PO DAILY@0800 [facility] Last Admin: 08/02/20 08:06 Dose: 0.1 mg Documented by: Furosemide (Furosemide 40 Mg Tablet) 40 mg PO DAILY [facility] Last Admin: 08/02/20 08:06 Dose: 40 mg Documented by: Amiodarone HCl/Dextrose (Nexterone 360 Mg/D5w 200 Ml) 360 mg in 200 mls @ 16.667 mls/hr IV CONT .Q12H [facility] Last Infusion: 08/02/20 05:49 Dose: 0.5 mg/min, 16.67 mls/hr Documented by: Lorazepam (Lorazepam (*Crx) 1 Mg Tablet) 1 - 2 mg PO Q8H PRN PRN Reason: Anxiety Melatonin (Melatonin 5 Mg Tablet) 10 mg PO [facility] Last Admin: 08/01/20 20:33 Dose: 10 mg Documented by: Metoprolol Tartrate (Metoprolol Tartrate 25 Mg Tablet) 25 mg PO Q12HR [facility] Last Admin: 08/02/20 08:06 Dose: 25 mg Documented by: Pantoprazole Sodium (Pantoprazole Sod Sesquihydrate 20 Mg Tab) 20 mg PO [facility] Stop: 08/30/20 21:01 Last Admin: 08/01/20 20:33 Dose: 20 mg Documented by: Potassium Chloride (Potassium Chloride 20 Meq Tablet) 40 meq PO ONCE ONE Stop: 08/02/20 09:24 Sacubitril/Valsartan (Sacubitril/Valsartan 24-26 Mg Tablet) 1 tab PO Q12HR [facility] Last Admin: 08/02/20 08:06 Dose: 1 tab Documented by: Sedation/Anesthesia: No previous sedation/anesthesia problems (including family history). [facility] Past Medical History Medical History A-fib Anxiety Arm fracture Arthritis Cardiomyopathy DDD (degenerative disc disease) Depression Dilation of esophagus x3 Gallbladder disease GERD (gastroesophageal reflux disease) GI bleed Glaucoma Headache Mitral valve prolapse Parkinson disease Previous known suicide attempt 07/03/09 Rectal polyp Silverio-Checo syndrome Ulcer Surgical History Surgical History H/O cardiac radiofrequency ablation History of esophagogastroduodenoscopy (EGD) History of rectal polypectomy Hx of appendectomy Hx of cholecystectomy Hx of fusion of cervical spine x2 Status post laparoscopic [place] fundoplication Family History Family History Father Colon cancer Mother Mental disorder Social History Social History (Reviewed 08/02/20 @ 09:24 by Jordin
[2020-08-02] MEDS: MIDAZOLAM HCL (*CRX) 2 MG/2 ML VIAL 4 MG (09:38)
[2020-08-02] MEDS: fentaNYL CITRATE INJ (*CRX) 100 MCG/2 ML VIAL (09:38)
--- NOTE | 2020-08-02 09:41 | P.PCNCVR_ITS ---
Cardioversion Cardioversion Date of procedure: 08/02/20 Procedure: 1. Elective cardioversion 2. Moderate sedation Pre-op diagnosis: Atrial flutter Post-op diagnosis: same Indications: Atrial flutter Description of procedure: After discussing risks, benefits alternatives of procedure patient agreeable via verbal and written informed consent. Risks discussed included , adverse reaction to anesthesia, shocking into more problematic heart rhythm, stroke, skin irritation or burn. Patient was already in the ICU and telemetry monitoring, serial blood pressure assessments and pulse oxygenation was already established. After time-out was taken and after the previously placed anterior/posterior defibrillator pads were placed. Sedation was started. Complications: None Blood loss: None Procedure start time 9:30 a.m. Procedure stop time 9:41 a.m. Medications were administered patient was monitored by Zan Givens RN Sedation: A total 4 mg Versed and 100 mcg fentanyl given in divided dosages Findings: Atrial flutter was confirmed and after adequate sedation, 125 joules of synchronized biphasic energy was used to restore sinus rhythm from atrial flutter. He did have some frequent PVCs and short run of idioventricular rhythm soon after cardioversion which spontaneously resolved. Conclusion: 1. Successful gnosticism of sinus rhythm using 125 joules of synchronized biphasic energy 2. Moderate sedation
--- NOTE | 2020-08-02 09:43 | PC.NURSE ---
Bedside cardioversion performed by Dr. Calero. 50 mcg fentanyl and 2 mg versed given at 0930, 25 mcg fentanyl at 1 mg versed at 0934 and 0938. Cardioverted at 0940 with 125 Joules successfully to NSR.
[2020-08-02] MEDS: AMIODARONE HCL 200 MG TABLET PO ×2 (12:53→19:09)
--- NOTE | 2020-08-02 15:31 | PM.IMPN ---
Progress Note: A&P Assessment and Plan (1) Atrial flutter with rapid ventricular response: Code(s): I48.92 - Unspecified atrial flutter Status: Acute Assessment and Plan: 08/02/20 15:31 07/31Patient is 79-year-old male with history of nonischemic cardiomyopathy with ejection fraction of 35-40%, chronic kidney disease, atrial fibrillation, psychiatric history and suicidal ideation patient presented emergency depart with complaint of shortness of breath he was found to have atrial flutter with RVR patient is noncompliant with his oral medication, was placed on amiodarone 0.5mg drip, and patient is anticoagulated with Eliquis, patient seen by his automotive collision repair instructor patient remains RVR plan is to start the patient on metoprolol once clinically stable automotive collision repair instructor recommending patient will benefit seening apprenticeship representative for ablation, currently patient states is feeling much better compared to when he arrived he denies any chest pain shortness of breath palpitation fever or chills., patient with nonischemic cardiomyopathy patient is on Entersto will continue as tolerated, once clinically stable will have a PT OT evaluate the patient and further recommendation to follow. 08/01 Patient with significant cardiomyopathy still remains in atrial fibrillation while on amiodarone drip he was recently cardioverted is seen by Host/Hostess recommending the patient will benefit with a cardioversion again and soon after that patient should see apprenticeship representative for abalation. Cardioversion is scheduled for tomorrow will continue to monitor the patient, patient states is feeling much better compared to when he arrived, he denies any chest shortness of breath palpitation fever or chills. 08/02 patient with persistent atrial fibrillation on amiodarone drip did not convert sinus rhythm, today patient was taken to the cardiac laborer/key man and had a cardioversion which was successful and currently patient is in sinus rhythm, is feeling much better not a short of breath and denies any dizziness, amiodarone drip is off, is on amiodarone 200 mg b.i.d. p.o., metoprolol tartrate 25 mg b.i.d. rate is controlled clinically stable, patient also has history of psychiatry illness suicidal ideation and homeless will consult crisis team for further evaluation and child care center administrator further recommendation. (2) Acute dyspnea: Code(s): R06.00 - Dyspnea, unspecified Status: Acute Assessment and Plan: Most likely secondary to acute on chronic systolic congestive heart failure patient is being diuresed will continue to monitor (3) Elevated brain natriuretic peptide (BNP) level: Code(s): R79.89 - Other specified abnormal findings of blood chemistry Status: Acute (4) Abnormal CT scan, chest: Code(s): R93.89 - Abnormal findings on diagnostic imaging of other specified body structures Status: Acute Assessment and Plan: Scattered reticulonodular opacities most likely infectious or postinfectious; consider 1-3 month follow-up CT. (5) Chronic anticoagulation: Code(s): Z79.01 - termite treater (current) use of anticoagulants Status: Acute Assessment and Plan: Patient on anticoagulation with Eliquis for atrial fibrillation (6) CHF (congestive heart failure): Code(s): I50.9 - Heart failure, unspecified Status: Acute Assessment and Plan: Most likely secondary to acute on chronic systolic congestive heart failure patient is being diuresed will continue to monitor (7) Noncompliance with medication regimen: Code(s): Z91.14 - Patient's other noncompliance with medication regimen Status: Acute Assessment and Plan: Host/Hostess a consuld patient to be compliant with his regimen (8) Cardiomyopathy: Code(s): I42.9 - Cardiomyopathy, unspecified Status: Acute Assessment and Plan: Patient with a nonischemic cardiomyopathy (9) A-fib: Qualifiers: Atrial fibri
--- NOTE | 2020-08-02 17:50 | PC.NURSE ---
Received phone call from patient's son Shashi Nelson, phone number [phone]. Limited update given.
[2020-08-02 19:24] LABS: SARS-CoV-2 RNA PCR Negative
[2020-08-02] MEDS: diphenhydrAMINE HCl CAP 25 MG CAPSULE 50 MG PO (20:31)
[2020-08-02] MEDS: PANTOPRAZOLE SOD SESQUIHYDRATE 20 MG TAB PO (20:32)
[2020-08-02] MEDS: MELATONIN 5 MG TABLET 10 MG PO (20:33)
[2020-08-03] VITALS (14 sets, daily range): BP systolic 102–117; BP diastolic 68–89; PULSE 72–91; RESP 20–28; TEMP 36.4–37.3; O2SAT 92–97
[2020-08-03] MEDS: LORazepam (*CRX) 1 MG TABLET PO (00:12)
--- NOTE | 2020-08-03 01:24 | PC.NURSE ---
0012 called to room for c/o difficulty breathing. Upon assessment patient taking slow deep breaths and appears to be anxious. I think I need some oxygen or something. Repositioned self for comfort. Oxygen 1L/NC applied - SaO2 95% Patient remains anxious - Ativan 1mg po administered. 0126 patient quietly resting with eyes closed. no s/so of distress at this time. SaO2 92%
[2020-08-03 05:42] LABS: Alanine Aminotransferase 90 U/L (4-50); Albumin Level 3.6 g/dL (3.5-5.1); Alkaline Phosphatase 141 U/L (38-126); Anion Gap 5 mmol/L (8-16); Aspartate Amino Transferase 59 U/L (17-59); Bilirubin,Total 0.7 mg/dL (0.2-1.3); Blood Urea Nitrogen 31 mg/dL (9-20); Calcium 8.7 mg/dL (8.4-10.2); Carbon Dioxide 31 mmol/L (22-30); Chloride 103 mmol/L (98-107); Estimated CRCL calculation 49 ml/min; Estimated Glomerular Filt Rate 53; Glucose 109 mg/dL (75-110); Potassium 4.2 mmol/L (3.4-5.0); Sodium 139 mmol/L (137-145)
[2020-08-03] MEDS: FUROSEMIDE 40 MG TABLET PO (08:50)
[2020-08-03] MEDS: FLUDROCORTISONE ACETATE 0.1 MG TABLET PO (08:50)
[2020-08-03] MEDS: APIXABAN 5 MG TABLET PO ×2 (08:50→17:00)
[2020-08-03] MEDS: DOCUSATE SODIUM 100 MG CAPSULE PO ×2 (08:50→19:51)
[2020-08-03] MEDS: METOPROLOL TARTRATE 25 MG TABLET PO ×2 (08:50→19:50)
[2020-08-03] MEDS: AMIODARONE HCL 200 MG TABLET PO ×2 (08:50→17:00)
[2020-08-03] MEDS: SACUBITRIL/VALSARTAN 24-26 MG TABLET 1 TAB PO ×2 (08:51→19:50)
--- NOTE | 2020-08-03 11:43 | PM.PNCARD ---
Progress Note: A&P Assessment and Plan (1) Atrial flutter with rapid ventricular response: Code(s): I48.92 - Unspecified atrial flutter Status: Acute Assessment and Plan: 79-year-old male with CHF with reduced ejection fraction, cardiomyopathy ? nonischemic ( LVEF 35-40% from 06/08/2019 echo); history of atrial flutter /atrial fibrillation (status post DC cardioversion on 05/16/2020), CKD, depression and suicidal attempt. patient admitted to the hospital with shortness of breath, found to be in atrial flutter with RVR. He has been noncompliant with medications lately. Still in sinus rhythm status post cardioversion yesterday. Continue amiodarone, metoprolol, Eliquis. Outpatient referral to electrophysiology for ablation. Cardiac status is stable (2) CHF (congestive heart failure): Code(s): I50.9 - Heart failure, unspecified Status: Acute Assessment and Plan: acute on chronic CHF with reduced ejection fraction, precipitated by atrial flutter with RVR. Diuresis with oral furosemide; resume metoprolol, and low-dose sacubitril /valsartan. If patient's blood pressure is low, may hold Entresto. (3) Noncompliance with medication regimen: Code(s): Z91.14 - Patient's other noncompliance with medication regimen Status: Acute Assessment and Plan: Spoke with patient about importance of medication compliance and outpatient follow-up. Need to address his underlying psychological state. Recommend psychiatric evaluation. (4) Depression: Qualifiers: Depression Type: other depression Qualified Code(s): F32.89 - Other specified depressive episodes Code(s): F32.9 - Major depressive disorder, single episode, unspecified Status: Chronic Assessment and Plan: Patient has depression with apparent suicidal ideation/thoughts. Management as per primary team. Consider psychiatric evaluation. Subjective Date/time seen: 08/03/20 11:43 Interval history: Follow-up visit in this 79-year-old man with: Nonischemic cardiomyopathy and atrial flutter with RVR. Patient was admitted to hospital yesterday experiencing some increasing shortness of breath. There was some question about whether he was taking his medication compliantly. Because of family reasons he left the home where his medication was located so it sounds like for at least 2 or 3 days he was without his medication. He feels better today than he did on admission he does not appear to be significantly short of breath and is eating his lunch in watching television. Patient was cardioverted out of atrial flutter back in May and obviously this early recurrence is disappointing. It may or may not have anything to do with being off of amiodarone for a short amount of time. He is now receiving amiodarone intravenously. No other complaints Review of Systems Constitutional: Constitutional: Denies weakness Eyes: Eyes: Denies blurry vision ENT: Reports Normal hearing present Cardiovascular: Cardiovascular: Denies chest pain Respiratory: Respiratory: Denies dyspnea Gastrointestinal: Gastrointestinal: Denies abdominal pain Genitourinary: Genitourinary: Denies dysuria Musculoskeletal: Musculoskeletal: Denies neck pain Integumentary/Breasts: Skin/Breast: Denies dry skin Neurologic: Denies headache(s) Psychiatric: Psychiatric: Denies anxiety and Reports depression Endocrine: Endocrine: Denies change in body appearance Hematologic/Lymphatic: Hematologic/Lymphatic: Denies easy bleeding Allergic/Immunologic: Allergic/Immunologic: Denies GI upset with certain foods Exam Narrative: Exam Narrative: PHYSICAL EXAMINATION: GENERAL: Alert, oriented, no acute distress MENTAL STATUS: anxious EYES: Extraocular movements intact, no pallor EARS: External ears appear normal, hearing grossly normal NOSE: Normal and patent, no discharge MOUTH: Mucous membranes moist, tongue normal NECK: Supple, no JVD C
--- NOTE | 2020-08-03 14:36 | PM.IMPN ---
Progress Note: A&P Assessment and Plan (1) Atrial flutter with rapid ventricular response: Code(s): I48.92 - Unspecified atrial flutter Status: Acute Assessment and Plan: 08/03/20 14:36 07/31Patient is 79-year-old male with history of nonischemic cardiomyopathy with ejection fraction of 35-40%, chronic kidney disease, atrial fibrillation, psychiatric history and suicidal ideation patient presented emergency depart with complaint of shortness of breath he was found to have atrial flutter with RVR patient is noncompliant with his oral medication, was placed on amiodarone 0.5mg drip, and patient is anticoagulated with Eliquis, patient seen by his insurance professional patient remains RVR plan is to start the patient on metoprolol once clinically stable insurance professional recommending patient will benefit seening regasification plant operator for ablation, currently patient states is feeling much better compared to when he arrived he denies any chest pain shortness of breath palpitation fever or chills., patient with nonischemic cardiomyopathy patient is on Entersto will continue as tolerated, once clinically stable will have a PT OT evaluate the patient and further recommendation to follow. 08/01 Patient with significant cardiomyopathy still remains in atrial fibrillation while on amiodarone drip he was recently cardioverted is seen by Director Online Marketing recommending the patient will benefit with a cardioversion again and soon after that patient should see regasification plant operator for abalation. Cardioversion is scheduled for tomorrow will continue to monitor the patient, patient states is feeling much better compared to when he arrived, he denies any chest shortness of breath palpitation fever or chills. 08/02 patient with persistent atrial fibrillation on amiodarone drip did not convert sinus rhythm, today patient was taken to the cardiac labourers and had a cardioversion which was successful and currently patient is in sinus rhythm, is feeling much better not a short of breath and denies any dizziness, amiodarone drip is off, is on amiodarone 200 mg b.i.d. p.o., metoprolol tartrate 25 mg b.i.d. rate is controlled clinically stable, patient also has history of psychiatry illness suicidal ideation and homeless will consult crisis team for further evaluation and residential care officer further recommendation. 08/03 s/p successful cardioversion on 08/02 and patient remains in sinus rhythm on amiodarone 200 mg b.i.d. and metoprolol tartrate 25 mg b.i.d., patient states is feeling much better denies any chest pain shortness of breath palpitation fever, patient with history depression and suicidal ideation being evaluated by crisis team and further recommendation to follow (2) Acute dyspnea: Code(s): R06.00 - Dyspnea, unspecified Status: Acute Assessment and Plan: Most likely secondary to acute on chronic systolic congestive heart failure patient is being diuresed will continue to monitor (3) Elevated brain natriuretic peptide (BNP) level: Code(s): R79.89 - Other specified abnormal findings of blood chemistry Status: Acute (4) Abnormal CT scan, chest: Code(s): R93.89 - Abnormal findings on diagnostic imaging of other specified body structures Status: Acute Assessment and Plan: Scattered reticulonodular opacities most likely infectious or postinfectious; consider 1-3 month follow-up CT. (5) Chronic anticoagulation: Code(s): Z79.01 - intermediate card tender (current) use of anticoagulants Status: Acute Assessment and Plan: Patient on anticoagulation with Eliquis for atrial fibrillation (6) CHF (congestive heart failure): Code(s): I50.9 - Heart failure, unspecified Status: Acute Assessment and Plan: Most likely secondary to acute on chronic systolic congestive heart failure patient is being diuresed will continue to monitor (7) Noncompliance with medication regimen: Code(s): Z91.14 - Patient's other nonc
[2020-08-03] MEDS: MELATONIN 5 MG TABLET 10 MG PO (19:49)
[2020-08-03] MEDS: diphenhydrAMINE HCl CAP 25 MG CAPSULE 50 MG PO (19:50)
[2020-08-03] MEDS: PANTOPRAZOLE SOD SESQUIHYDRATE 20 MG TAB PO (19:51)
[2020-08-04] VITALS (11 sets, daily range): BP systolic 94–112; BP diastolic 64–83; PULSE 64–85; RESP 16–22; TEMP 36.5–36.8; O2SAT 93–100
[2020-08-04 06:55] LABS: Alanine Aminotransferase 58 U/L (4-50); Albumin Level 3.2 g/dL (3.5-5.1); Alkaline Phosphatase 98 U/L (38-126); Anion Gap 4 mmol/L (8-16); Aspartate Amino Transferase 37 U/L (17-59); Bilirubin,Total 1.2 mg/dL (0.2-1.3); Blood Urea Nitrogen 31 mg/dL (9-20); Calcium 8.4 mg/dL (8.4-10.2); Carbon Dioxide 28 mmol/L (22-30); Chloride 106 mmol/L (98-107); Estimated CRCL calculation 63 ml/min; Estimated Glomerular Filt Rate > 60; Glucose 133 mg/dL (75-110); Potassium 3.9 mmol/L (3.4-5.0); Sodium 138 mmol/L (137-145)
[2020-08-04] MEDS: SACUBITRIL/VALSARTAN 24-26 MG TABLET 1 TAB PO (08:01)
[2020-08-04] MEDS: APIXABAN 5 MG TABLET PO (08:01)
[2020-08-04] MEDS: METOPROLOL TARTRATE 25 MG TABLET PO (08:01)
[2020-08-04] MEDS: FUROSEMIDE 40 MG TABLET PO (08:01)
[2020-08-04] MEDS: DOCUSATE SODIUM 100 MG CAPSULE PO (08:01)
[2020-08-04] MEDS: AMIODARONE HCL 200 MG TABLET PO (08:02)
[2020-08-04] MEDS: FLUDROCORTISONE ACETATE 0.1 MG TABLET PO (08:02)
--- NOTE | 2020-08-04 14:26 | PM.DS ---
DS: Admitting Diagnosis Admitting Diagnosis Admitting Diagnosis: Chief Complaint: shortness of breath DS: Discharge Diagnosis Discharge Diagnosis (1) Atrial flutter with rapid ventricular response: Code(s): I48.92 - Unspecified atrial flutter Status: Acute Assessment and Plan: 08/03/20 14:36 07/31Patient is 79-year-old male with history of nonischemic cardiomyopathy with ejection fraction of 35-40%, chronic kidney disease, atrial fibrillation, psychiatric history and suicidal ideation patient presented emergency depart with complaint of shortness of breath he was found to have atrial flutter with RVR patient is noncompliant with his oral medication, was placed on amiodarone 0.5mg drip, and patient is anticoagulated with Eliquis, patient seen by his media/instructional designer patient remains RVR plan is to start the patient on metoprolol once clinically stable media/instructional designer recommending patient will benefit seening hospital liaison for ablation, currently patient states is feeling much better compared to when he arrived he denies any chest pain shortness of breath palpitation fever or chills., patient with nonischemic cardiomyopathy patient is on Entersto will continue as tolerated, once clinically stable will have a PT OT evaluate the patient and further recommendation to follow. 08/01 Patient with significant cardiomyopathy still remains in atrial fibrillation while on amiodarone drip he was recently cardioverted is seen by Inspector Multifocal Lens recommending the patient will benefit with a cardioversion again and soon after that patient should see hospital liaison for abalation. Cardioversion is scheduled for tomorrow will continue to monitor the patient, patient states is feeling much better compared to when he arrived, he denies any chest shortness of breath palpitation fever or chills. 08/02 patient with persistent atrial fibrillation on amiodarone drip did not convert sinus rhythm, today patient was taken to the cardiac aquatic laborer and had a cardioversion which was successful and currently patient is in sinus rhythm, is feeling much better not a short of breath and denies any dizziness, amiodarone drip is off, is on amiodarone 200 mg b.i.d. p.o., metoprolol tartrate 25 mg b.i.d. rate is controlled clinically stable, patient also has history of psychiatry illness suicidal ideation and homeless will consult crisis team for further evaluation and memory care director further recommendation. 08/03 s/p successful cardioversion on 08/02 and patient remains in sinus rhythm on amiodarone 200 mg b.i.d. and metoprolol tartrate 25 mg b.i.d., patient states is feeling much better denies any chest pain shortness of breath palpitation fever, patient with history depression and suicidal ideation being evaluated by crisis team and further recommendation to follow (2) Acute dyspnea: Code(s): R06.00 - Dyspnea, unspecified Status: Acute Assessment and Plan: Most likely secondary to acute on chronic systolic congestive heart failure patient is being diuresed will continue to monitor (3) Elevated brain natriuretic peptide (BNP) level: Code(s): R79.89 - Other specified abnormal findings of blood chemistry Status: Acute (4) Abnormal CT scan, chest: Code(s): R93.89 - Abnormal findings on diagnostic imaging of other specified body structures Status: Acute Assessment and Plan: Scattered reticulonodular opacities most likely infectious or postinfectious; consider 1-3 month follow-up CT. (5) Chronic anticoagulation: Code(s): Z79.01 - terminal superintendent (current) use of anticoagulants Status: Acute Assessment and Plan: Patient on anticoagulation with Eliquis for atrial fibrillation (6) CHF (congestive heart failure): Code(s): I50.9 - Heart failure, unspecified Status: Acute Assessment and Plan: Most likely secondary to acute on chronic systolic congestive heart failure patient is being diuresed will
--- NOTE | 2020-08-04 14:27 | PM.PNCARD ---
Progress Note: A&P Assessment and Plan (1) Atrial flutter with rapid ventricular response: Code(s): I48.92 - Unspecified atrial flutter Status: Acute Assessment and Plan: 79-year-old male with CHF with reduced ejection fraction, cardiomyopathy ? nonischemic ( LVEF 35-40% from 06/08/2019 echo); history of atrial flutter /atrial fibrillation (status post DC cardioversion on 05/16/2020), CKD, depression and suicidal attempt. patient admitted to the hospital with shortness of breath, found to be in atrial flutter with RVR. He has been noncompliant with medications lately. Still in sinus rhythm status post cardioversion 08/02/2020. Continue amiodarone, metoprolol, Eliquis. Outpatient referral to electrophysiology for ablation. Cardiac status is stable, OK for discharge. Samples of Eliquis and Entresto provided for 4 weeks; may need to switch to warfarin as OPT. Left msg w/ office to schedule a FU OV. (2) CHF (congestive heart failure): Code(s): I50.9 - Heart failure, unspecified Status: Acute Assessment and Plan: acute on chronic CHF with reduced ejection fraction, precipitated by atrial flutter with RVR. Diuresis with oral furosemide; resume metoprolol, and low-dose sacubitril /valsartan. Volume overload has resolved. (3) Noncompliance with medication regimen: Code(s): Z91.14 - Patient's other noncompliance with medication regimen Status: Acute Assessment and Plan: Spoke with patient about importance of medication compliance and outpatient follow-up. Need to address his underlying psychological state. Recommend psychiatric evaluation. (4) Depression: Qualifiers: Depression Type: other depression Qualified Code(s): F32.89 - Other specified depressive episodes Code(s): F32.9 - Major depressive disorder, single episode, unspecified Status: Chronic Assessment and Plan: Patient has depression with apparent suicidal ideation/thoughts. Management as per primary team. Subjective Date/time seen: 08/04/20 14:27 Interval history: Follow-up visit in this 79-year-old man with: Nonischemic cardiomyopathy admitted with atrial flutter with RVR. He was in CHF. He had a problematic social situation and had been without his medicines for a few days. Patient was cardioverted out of atrial flutter back in May and obviously this early recurrence is disappointing. Cardioverted 08/02/2020. Date of service: 08/04/2020: Patient is doing well, eager for discharge. He maintained sinus rhythm. He finds the Eliquis and Entresto very expensive and has requested samples. Review of Systems Constitutional: Constitutional: Denies fatigue ENT: Denies epistaxis Cardiovascular: Cardiovascular: Denies chest pain, Denies pedal edema and Denies palpitations Respiratory: Respiratory: Denies dyspnea Gastrointestinal: Gastrointestinal: Denies abdominal pain Psychiatric: Psychiatric: Reports no additional psychiatric complaints Comments: Dealing with his depression better Exam Narrative: Exam Narrative: Somewhat hyper older male, fidgeting, unable to keep his feet still, alert and friendly Const: General: no acute distress HENMT: General nose exam: no epistaxis Eyes: EOM: EOMs intact bilaterally Neck: Neck: supple Resp: Effort & Inspection: normal respiratory effort Auscultation: clear to auscultation bilaterally Cardio: Rate: regular rate Rhythm: regular rhythm GI: Inspection: non-distended GI Palp: Yes Soft to palpation Skin: General skin exam: no rashes or lesions noted Neuro: Cognition (Neuro): normal cognition Speech: normal speech Extrem: General: no edema Psych: Mental Status: mental status grossly normal Objective Data Vital Signs Vital Signs: Vital Signs - 24 hr 08/03/20 16:00 08/03/20 17:00 08/03/20 18:00 Temperature 97.9 F Pulse Rate 78 75 72 Respiratory Rate 23 H Blood Pressure 108/84 Pulse Oximetry 95
== END 2020-08-04 11:26 | disposition home or self-care (01) | DRG 309 ==
LOC: ANHED 07-31 00:45 → ANHIMU 07-31 01:02 → ANHICU 07-31 04:34
PROVIDERS: Family Medicine; Admitting Provider Internal Medicine; Emergency Provider Emergency Medicine; PCP Family Medicine Adolescent Medicine; Visit Provider Family Medicine
DX: I48.92 Unspecified atrial flutter (principal); N17.9 Acute kidney failure, unspecified; I50.22 Chronic systolic (congestive) heart failure; I42.8 Other cardiomyopathies; I48.20 Chronic atrial fibrillation, unspecified; K21.9 Gastro-esophageal reflux disease without esophagitis; F41.8 Other specified anxiety disorders; M19.90 Unspecified osteoarthritis, unspecified site; H40.9 Unspecified glaucoma; G20 Parkinson's disease; Z91.14 Patient's other noncompliance with medication regimen; Z79.01 Long term (current) use of anticoagulants; Z98.1 Arthrodesis status; Z90.49 Acquired absence of other specified parts of digestive tract; Z87.891 Personal history of nicotine dependence
CPT/HCPCS: 36415; 36600; 71046; 76705; 80048; 80053; 82375; 82805; 83050; 83605; 83735; 83880; 84484; 85025; 85610; 85730; 87040; 93005; 96361; 96365; 96366; 96367; 96375; 99285; A9270; C9803; G0378; J0131; J0153; J0282; J2250; J3010; J7040; J7050; U0003; U0005

== ENCOUNTER 2020-08-04 16:44 | Observation (INO) | payer OTHER, SELFPAY ==
[2020-08-04] VITALS (21 sets, daily range): BP systolic 116–137; BP diastolic 79–95; PULSE 71–130; RESP 16–32; TEMP 36.3–36.7; O2SAT 81–100; BMI 27.4
--- NOTE | 2020-08-04 17:32 | ECG_ITS ---
Measurements Intervals [place] Rate: 116 P: UT: 0 QRS: 3 QRSD: 101 T: 25 QT: 377 QTc: 524 Interpretive Statements ATRIAL FIBRILLATION WITH RAPID VENTRICULAR RESPONSE DELAYED PRECORDIAL R/S TRANSITION BORDERLINE ST-T WAVE ABNORMALITY- HIGH LATERAL LEADS BASELINE ARTIFACT- I, II, AVR, AVL, AVF, V1-V3 ABNORMAL ECG Electronically Signed On 08-04-2020 20:00:53 CDT by Josue Colvin D.O.
--- NOTE | 2020-08-04 18:16 | PC.NURSE ---
Pharmacy to send medication up to the ED
[2020-08-04 18:22] LABS: Basophils Percent Auto 0.5 % (0.2-1.2); Eosinophils Absolute Auto 0.2 K/mm3 (0-0.3); Eosinophils Percent Auto 2.5 % (0-4.4); Hematocrit 36.9 % (42.0-52.0); Hemoglobin 11.7 g/dL (14.0-18.0); Immature Granulocyte Absolute 0.03 K/mm3 (0.00-0.031); Immature Granulocyte Percent A 0.5 % (0-0.5); Lymphocytes Absolute Auto 0.98 K/mm3 (0.9-3.2); Lymphocytes Percent Auto 15.4 % (18.3-44.2); Mean Corpuscular HGB Conc 31.7 g/dl (32-36); Mean Corpuscular Hemoglobin 27.5 pg (26-34); Mean Corpuscular Volume 86.6 fl (80-100); Monocytes Absolute Auto 0.5 K/mm3 (0.1-0.6); Monocytes Percent Auto 8.3 % (2.6-8.5); Neutrophils Absolute Auto 4.7 K/mm3 (1.3-6.7); Neutrophils Percent Auto 72.8 % (45.5-73.1); Platelet Count Result 306 k/mm3 (150-375); Red Blood Count 4.26 M/mm3 (4.6-6.20); Red Cell Distribution Width 19.8 % (11.5-14.5); White Blood Count 6.4 K/mm3 (4.5-10.0)
[2020-08-04 18:23] LABS: Anion Gap 4 mmol/L (8-16); Blood Urea Nitrogen 32 mg/dL (9-20); Calcium 8.6 mg/dL (8.4-10.2); Carbon Dioxide 32 mmol/L (22-30); Chloride 102 mmol/L (98-107); Estimated CRCL calculation 54 ml/min; Estimated Glomerular Filt Rate > 60; Glucose 97 mg/dL (75-110); Potassium 3.6 mmol/L (3.4-5.0); Sodium 138 mmol/L (137-145)
[2020-08-04 18:35] LABS: Troponin I < 0.012 ng/mL (0.000-0.034)
[2020-08-04] MEDS: AMIODARONE HCL 200 MG TABLET PO (18:44)
--- NOTE | 2020-08-04 20:01 | ED.SOB ---
HPI - SOB/Dyspnea General Chief Complaint: Shortness of Breath/Dyspnea Stated Complaint: SOB just discharge from hospital Time Seen by Provider: 08/04/20 17:19 Source: patient Mode of arrival: ambulatory Limitations: no limitations History of Present Illness HPI Narrative: 79-year-old male He was just discharged from the hospital basically minutes ago He has been admitted for A. fib with RVR and had a successful electrical cardioversion a day and a half ago By the time he walked to his van he had become very short of breath once again From the van he called his er registrar and was instructed to report to the ER At triage she is noted to be in rapid A. fib once again and to have a low O2 sat of 88 to 90% He is not complaining of any lightheadedness or chest pain and once at rest his dyspnea has markedly improved Related Data Home Medications Medication Instructions Recorded Confirmed cyclobenzaprine 10 mg PO BID PRN 06/08/19 07/31/20 diphenhydramine HCl [Allergy 50 mg PO HS 06/08/19 07/31/20 (diphenhydramine)] fludrocortisone 0.1 mg PO DAILY 06/08/19 07/31/20 omeprazole 20 mg PO HS 06/08/19 07/31/20 Allergies Allergy/AdvReac Type Severity Reaction Status Date / Time celecoxib Allergy Mild Hives Verified 04/05/20 11:49 valdecoxib Allergy Mild Hives Verified 04/05/20 11:49 Barbiturates Allergy Unknown Hives Verified 04/05/20 11:49 Review of Systems Review of Systems: All systems reviewed & are unremarkable except as noted in HPI and below Constitutional: Constitutional: Reports no additional constitutional complaints, Denies chills, Denies fever(s) and Denies headache(s) Eyes: Eyes: Reports no additional eye complaints and Denies change in vision ENT: Denies headache(s) and Denies sore throat Cardiovascular: Cardiovascular: Denies chest pain, Reports rapid heart rate and Denies dyspnea Respiratory: Respiratory: Denies cough and Reports dyspnea Gastrointestinal: Gastrointestinal: Denies abdominal pain, Denies diarrhea and Denies vomiting Genitourinary: Genitourinary: Denies dysuria and Denies urinary frequency Musculoskeletal: Musculoskeletal: Denies deformity, Denies arthralgias, Denies joint swelling and Denies numbness Integumentary/Breasts: Skin/Breast: Denies rash and Denies wounds Neurologic: Denies headache(s), Denies focal weakness and Denies numbness Psychiatric: Psychiatric: Reports no additional psychiatric complaints Endocrine: Endocrine: Reports no additional endocrine complaints Hematologic/Lymphatic: Hematologic/Lymphatic: Reports no additional hematologic/lymphatic complaints Allergic/Immunologic: Allergic/Immunologic: Reports no additional allergic/immunologic complaints PMFSH Past Medical History Medical History A-fib Anxiety Arm fracture Arthritis Cardiomyopathy DDD (degenerative disc disease) Depression Dilation of esophagus x3 Gallbladder disease GERD (gastroesophageal reflux disease) GI bleed Glaucoma Headache Mitral valve prolapse Parkinson disease Previous known suicide attempt 07/03/09 Rectal polyp Silverio-Checo syndrome Ulcer Surgical History Surgical History H/O cardiac radiofrequency ablation History of esophagogastroduodenoscopy (EGD) History of rectal polypectomy Hx of appendectomy Hx of cholecystectomy Hx of fusion of cervical spine x2 Status post laparoscopic [place] fundoplication Family History Family History Father Colon cancer Mother Mental disorder Social History Social History Social History: the patient lives with his in his sister. The nephew was living with them but is now on alcohol rehab. The patient desires to have his is the durable power dental patient coordinator for healthcare. The patient desires to be a fu
[2020-08-04] MEDS: METOPROLOL TARTRATE INJ 5 MG/5 ML VIAL IV PUSH (20:05)
--- NOTE | 2020-08-04 20:16 | PC.NURSE ---
Report to Lily ROD FINISHER. Pt converted to NSR @ 71 after PRN lopressor dose administered. Per ED MD Mccoy, no new EKG needed before transport upstairs.
--- NOTE | 2020-08-04 21:02 | ADMGEN ---
This patient, Rico Nelson Sr., was admitted to Intensive Care Unit-6 at 2021. Patient/family oriented to hospital policies and general routines including ID bracelet, bed and alarms, visiting hours, pain management, procedures, bathroom and other care routines, personal items, smoking policy, room service/diet, and visiting hours. Information on how to activate the Rapid Response Team has been discussed. Patient/Family are encouraged to report perceived risks to care and to ask questions if they do not understand what they are told or what they should do.
[2020-08-04] MEDS: diphenhydrAMINE HCl CAP 25 MG CAPSULE 50 MG PO (22:40)
[2020-08-04] MEDS: MELATONIN 5 MG TABLET 10 MG PO (22:40)
[2020-08-04] MEDS: METOPROLOL TARTRATE 25 MG TABLET PO (22:41)
[2020-08-04] MEDS: PANTOPRAZOLE SOD SESQUIHYDRATE 20 MG TAB PO (22:41)
[2020-08-04] MEDS: SACUBITRIL/VALSARTAN 24-26 MG TABLET 1 TAB PO (22:41)
[2020-08-04] MEDS: APIXABAN 5 MG TABLET PO (22:42)
[2020-08-05] VITALS (15 sets, daily range): BP systolic 100–128; BP diastolic 65–99; PULSE 57–121; RESP 16–24; TEMP 36.3–36.8; O2SAT 95–100
[2020-08-05] MEDS: METOPROLOL TARTRATE 50 MG TAB PO ×2 (09:30→21:02)
[2020-08-05] MEDS: APIXABAN 5 MG TABLET PO ×2 (09:31→16:18)
[2020-08-05] MEDS: FLUDROCORTISONE ACETATE 0.1 MG TABLET PO (09:32)
[2020-08-05] MEDS: AMIODARONE HCL 200 MG TABLET 400 MG PO ×2 (09:32→16:18)
[2020-08-05] MEDS: FUROSEMIDE 40 MG TABLET PO (09:33)
[2020-08-05] MEDS: SACUBITRIL/VALSARTAN 24-26 MG TABLET 1 TAB PO (09:33)
--- NOTE | 2020-08-05 09:35 | PM.CNCAR ---
Assessment and Plan Assessment and plan (1) Paroxysmal atrial fibrillation: Code(s): I48.0 - Paroxysmal atrial fibrillation Status: Acute Assessment and Plan: Patient had a cardioversion for atrial flutter on 08/02/2020 and now returns with atrial fibrillation, RVR. Because of his paroxysmal am hopeful that with more amiodarone (increased from 200 mg b.i.d. to 400 mg b.i.d.) he will maintain sinus rhythm more. In the meantime I increased his metoprolol dose from 25-50 mg b.i.d. to control the AFib rate when he has atrial fibrillation. Recommend keeping the patient for another day, ambulating, to make sure we have good control of his atrial arrhythmias. Possible discharge on Thursday. If the arrhythmias are still very difficult to control we will consider an EP consult. The dosages of his amiodarone and possibly is metoprolol may need to be decreased at a later date. (2) Paroxysmal atrial flutter: Code(s): I48.92 - Unspecified atrial flutter Status: Acute Assessment and Plan: History of paroxysmal atrial flutter, status post cardioversion 08/02/2020. (3) Chronic anticoagulation: Code(s): Z79.01 - rat exterminator (current) use of anticoagulants Status: Acute Assessment and Plan: Tolerating Eliquis although it is expensive for him and he relies on samples from our office. Unfortunately with his social situation he may not be able to comply well with warfarin at least at this time. (4) CHF (congestive heart failure): Code(s): I50.9 - Heart failure, unspecified Status: Acute Assessment and Plan: Chronic systolic CHF, euvolemic. Continue with Entresto (relies on samples from our office), furosemide, metoprolol. (5) Cardiomyopathy: Code(s): I42.9 - Cardiomyopathy, unspecified Status: Acute Assessment and Plan: EF 35-40% in 06/2019. Will repeat echo as an outpatient at a later date. (6) Poor social situation: Code(s): Z65.9 - Problem related to unspecified psychosocial circumstances Status: Acute Assessment and Plan: Difficult social situation, recent suicide attempt, financial difficulties. Patient says he is not depressed and seems to be getting a bit better handle on his problems. Will go back to living at the hotel until his house is cleaned up. He is happy his sister's out of the picture now but again his is still ill in an ICU. History of Present Illness History of Present Illness Consult date/time: 08/05/20 09:35 Reason For Visit: af w /rvr Narrative: 79-year-old male Whom we were asked to see at the request of the hospitalists for our advice and opinion regarding his recurrent paroxysmal atrial flutter and fibrillation and shortness of breath. He has a history of atrial fibrillation and flutter (status post DC cardioversion on 05/16/2020 and 08/02/2020), CHF, cardiomyopathy ? nonischemic ( LVEF 35-40% from 06/08/2019 echo); history of some type of arrhythmia ablation about 10 years ago, CKD, depression and suicidal attempt recently. Patient was admitted to the hospital 07/30/2020 with shortness of breath, found to be in atrial flutter with RVR and CHF. He has been noncompliant with medications lately because of a very bad social situation; he had to be moved out of his house and is living in a hotel. His amiodarone, Eliquis and metoprolol were resumed and he was diuresed. He underwent cardioversion on 08/02/2020. He remained in sinus rhythm and was discharged on 08/04/2020. However shortly after discharge he called me while he was still in the hospital lobby saying he got very short of breath walking to his van. I recommended he return to the emergency room where was found to be in atrial fibrillation this time, ZEBR, ra
[2020-08-05 10:38] LABS: Anion Gap 1 mmol/L (8-16); Blood Urea Nitrogen 25 mg/dL (9-20); Calcium 8.4 mg/dL (8.4-10.2); Carbon Dioxide 35 mmol/L (22-30); Chloride 102 mmol/L (98-107); Estimated CRCL calculation 63 ml/min; Estimated Glomerular Filt Rate > 60; Glucose 77 mg/dL (75-110); Magnesium 2.3 mg/dL (1.6-2.3); Potassium 3.5 mmol/L (3.4-5.0); Sodium 138 mmol/L (137-145)
--- NOTE | 2020-08-05 14:11 | PM.IMHP ---
H&P: HPI History of Present Illness Date/Time: 08/05/20 14:11 Patient is 79 y/o s/p successful cardioversion on 08/02 and patient remains in sinus rhythm on amiodarone 200 mg b.i.d. and metoprolol tartrate 25 mg b.i.d., patient stated he was feeling much better denied any chest pain shortness of breath palpitation fever, patient with history depression and suicidal ideation was evaluated by crisis team and patient was safe to return home, and patient was discharged however while in the corridor at the entrance patient developed shortness of breath and was taken back to emergency depart and patient was found to have a atrial fibrillation with RVR and Cardiology was consulted recommended to give Lopressor 5 mg IV q 1h PRN and readmit the patient, today patient was seen by maintenance helper increased amiodarone to 400 mg b.i.d. from 200 mg b.i.d. and increased metoprolol tartrate 50 mg bid. from 25mg b.i.d. patient is in and out of sinus rhythm, anticoagulated with Eliquis, will continue monitor will have a PT OT evaluate the patient and reassess the patient tomorrow and further recommendation to follow. Chief Complaint: Atrial fibrillation with RVR Review of Systems Review of Systems: All systems reviewed & are unremarkable except as noted in HPI and below PMFSH Past Medical History Medical History (Updated 08/05/20 @ 09:52 by Lexie Park MD) A-fib Anxiety Arm fracture Arthritis Cardiomyopathy DDD (degenerative disc disease) Depression Dilation of esophagus x3 Gallbladder disease GERD (gastroesophageal reflux disease) GI bleed Glaucoma Headache Mitral valve prolapse Parkinson disease Paroxysmal atrial fibrillation Paroxysmal atrial flutter Previous known suicide attempt 07/03/09 Rectal polyp Silverio-Checo syndrome Ulcer Surgical History Surgical History H/O cardiac radiofrequency ablation History of esophagogastroduodenoscopy (EGD) History of rectal polypectomy Hx of appendectomy Hx of cholecystectomy Hx of fusion of cervical spine x2 Status post laparoscopic Austen fundoplication Family History Family History Father Colon cancer Mother Mental disorder Social History Social History (Updated 08/05/20 @ 09:49 by Lexie Park MD) Social History: the patient lives with his , and in the past with his sister. The nephew was living with them but is now on alcohol rehab. The patient desires to have his is the durable power health care attorney for healthcare. The patient desires to be a full code. The patient has 3 children. Denies any alcohol or illicit drug use. The patient used to work for the [employer] but is now retired. Patient smoked briefly for approximately 5 years. At least a half pack a cigarettes a day. He quit smoking in 1971. Smoking packs per day: 0.5 Smoking cigarettes per day: 10.0 Years smoked: 5 Smoking pack-years: 2.50 Smoking status: Former smoker Tobacco type: cigarettes Second hand tobacco smoke exposure: No Smoking end date: 03/23/71 Alcohol intake: former Substance use: never Substance use type: unknown Gender identity (if verbalized by the patient): Male Spiritual care concerns: No Agree to blood products: Yes Meds Home Medications and Allergies Home Medications Medication Instructions Recorded Confirmed Type cyclobenzaprine 10 mg PO BID PRN 06/08/19 08/04/20 History diphenhydramine HCl [Allergy 50 mg PO HS 06/08/19 08/04/20 History (diphenhydramine)] fludrocortisone 0.1 mg PO DAILY 06/08/19 08/04/20 History omeprazole 20 mg PO HS 06/08/19 08/04/20 History metoprolol tartrate 25 mg PO Q12H #30 tablet 06/11/19 08/04/20 Rx Entresto 1 tab PO Q12HR #60 tablet 04/09/20 08/04/20 Rx amiodarone [Pacerone] 200 mg PO BID #60 tablet 04/09/20 08/04/20 Rx furosemide 40 mg PO DAILY #30 tablet 04/09/20 08/04/20 Rx lorazepam 2 m
[2020-08-05] MEDS: ASPIRIN 81 MG CHEWABLE TABLET PO (16:17)
[2020-08-05] MEDS: diphenhydrAMINE HCl CAP 25 MG CAPSULE 50 MG PO (21:02)
[2020-08-05] MEDS: MELATONIN 5 MG TABLET 10 MG PO (21:03)
[2020-08-05] MEDS: PANTOPRAZOLE 40 MG TABLET PO (21:05)
[2020-08-06] VITALS: BP 133/100; PULSE 68; PULSE 69; RESP 22; O2SAT 98
[2020-08-06] MEDS: SACUBITRIL/VALSARTAN 24-26 MG TABLET 1 TAB PO ×2 (00:02→10:10)
[2020-08-06 04:00] VITALS: BP 99/68; PULSE 58; RESP 19; TEMP 36.4; O2SAT 98
[2020-08-06 08:00] VITALS: BP 117/77; PULSE 61; PULSE 64; RESP 20; TEMP 36.7; O2SAT 100
[2020-08-06 10:09] VITALS: PULSE 68
[2020-08-06] MEDS: APIXABAN 5 MG TABLET PO (10:09)
[2020-08-06] MEDS: AMIODARONE HCL 200 MG TABLET 400 MG PO (10:09)
[2020-08-06] MEDS: FUROSEMIDE 40 MG TABLET PO (10:09)
[2020-08-06 10:10] VITALS: PULSE 70
[2020-08-06] MEDS: ASPIRIN 81 MG CHEWABLE TABLET PO (10:10)
[2020-08-06] MEDS: METOPROLOL TARTRATE 50 MG TAB PO (10:10)
[2020-08-06] MEDS: FLUDROCORTISONE ACETATE 0.1 MG TABLET PO (10:11)
--- NOTE | 2020-08-06 11:08 | PM.PNCARD ---
Progress Note: A&P Assessment and Plan (1) Paroxysmal atrial fibrillation: Code(s): I48.0 - Paroxysmal atrial fibrillation Status: Acute Assessment and Plan: Patient had a cardioversion for atrial flutter on 08/02/2020 and now returns with atrial fibrillation, RVR. Because of his paroxysmal am hopeful that with more amiodarone (increased from 200 mg b.i.d. to 400 mg b.i.d.) he will maintain sinus rhythm more. In the meantime I increased his metoprolol dose from 25-50 mg b.i.d. to control the AFib rate when he has atrial fibrillation. Brief paroxysmal atrial fibrillation maintaining sinus rhythm generally. tolerating medications. Continue Eliquis 5 mg b.i.d., Entresto, amiodarone 400 mg b.i.d., metoprolol tartrate 50 mg twice daily. follow-up with Dr. Galarza as scheduled as an outpatient within 2 weeks. Disposition per hospitalist service. (2) Paroxysmal atrial flutter: Code(s): I48.92 - Unspecified atrial flutter Status: Acute Assessment and Plan: History of paroxysmal atrial flutter, status post cardioversion 08/02/2020. (3) Chronic anticoagulation: Code(s): Z79.01 - skilled nursing (current) use of anticoagulants Status: Acute Assessment and Plan: Tolerating Eliquis although it is expensive for him and he relies on samples from our office. Unfortunately with his social situation he may not be able to comply well with warfarin at least at this time. (4) CHF (congestive heart failure): Code(s): I50.9 - Heart failure, unspecified Status: Acute Assessment and Plan: Chronic systolic CHF, euvolemic. Continue with Entresto (relies on samples from our office), furosemide, metoprolol. (5) Cardiomyopathy: Code(s): I42.9 - Cardiomyopathy, unspecified Status: Acute Assessment and Plan: EF 35-40% in 06/2019. Will repeat echo as an outpatient at a later date. (6) Poor social situation: Code(s): Z65.9 - Problem related to unspecified psychosocial circumstances Status: Acute Assessment and Plan: Difficult social situation, recent suicide attempt, financial difficulties. Patient says he is not depressed and seems to be getting a bit better handle on his problems. Will go back to living at the hotel until his house is cleaned up. He is happy his sister's out of the picture now but again his is still ill in an ICU. Subjective Date/time seen: Date of service:08/06/20 11:08 79-year-old male Whom we were asked to see at the request of the hospitalists for our advice and opinion regarding his recurrent paroxysmal atrial flutter and fibrillation and shortness of breath. He has a history of atrial fibrillation and flutter (status post DC cardioversion on 05/16/2020 and 08/02/2020), CHF, cardiomyopathy ? nonischemic ( LVEF 35-40% from 06/08/2019 echo); history of some type of arrhythmia ablation about 10 years ago, CKD, depression and suicidal attempt recently. Follow-up for atrial fibrillation and atrial flutter with RVR feels fine. No significant palpitations. He had 1 hour of atrial fibrillation last night in a few minutes early this morning. Asymptomatic. Heart rate 110s to 120s at that time. Maintaining sinus rhythm at this time. Denies dizziness, lightheadedness and feels much better overall. No chest pain or shortness of breath. Patient states he is hoping to be discharged home today. Review of Systems Review of Systems: All systems reviewed & are unremarkable except as noted in HPI and below Constitutional: Constitutional: Reports as per HPI and Denies fatigue Eyes: Eyes: Reports as per HPI and Reports no additional eye complaints ENT: Reports system reviewed and no additional complaints, except as documented and Reports as per HPI [facility]
[2020-08-06 12:00] VITALS: PULSE 64; PULSE 73; RESP 20; O2SAT 100
--- NOTE | 2020-08-06 12:58 | PM.DS ---
DS: Admitting Diagnosis Admitting Diagnosis Admitting Diagnosis: Atrial fibrillation with RVR DS: Discharge Diagnosis Discharge Diagnosis (1) Poor social situation: Code(s): Z65.9 - Problem related to unspecified psychosocial circumstances Status: Acute Assessment and Plan: Patient clinically stable was seen by the crisis team and safe to return home (2) Paroxysmal atrial fibrillation: Code(s): I48.0 - Paroxysmal atrial fibrillation Status: Acute Assessment and Plan: 08/05/20 14:11 Patient is 79 y/o s/p successful cardioversion on 08/02 and patient remains in sinus rhythm on amiodarone 200 mg b.i.d. and metoprolol tartrate 25 mg b.i.d., patient stated he was feeling much better denied any chest pain shortness of breath palpitation fever, patient with history depression and suicidal ideation was evaluated by crisis team and patient was safe to return home, and patient was discharged however while in the corridor at the entrance patient developed shortness of breath and was taken back to emergency depart and patient was found to have a atrial fibrillation with RVR and Cardiology was consulted recommended to give Lopressor 5 mg IV q 1h PRN and readmit the patient, today patient was seen by human resource advisor increased amiodarone to 400 mg b.i.d. from 200 mg b.i.d. and increased metoprolol tartrate 50 mg bid. from 25mg b.i.d. patient is in and out of sinus rhythm, anticoagulated with Eliquis, will continue monitor will have a PT OT evaluate the patient and reassess the patient tomorrow and further recommendation to follow. DS: Summary Hospital Course Reason for hospitalization: Patient is 79 y/o s/p successful cardioversion on 08/02 and patient remains in sinus rhythm on amiodarone 200 mg b.i.d. and metoprolol tartrate 25 mg b.i.d., patient stated he was feeling much better denied any chest pain shortness of breath palpitation fever, patient with history depression and suicidal ideation was evaluated by crisis team and patient was safe to return home, and patient was discharged however while in the corridor at the entrance patient developed shortness of breath and was taken back to emergency depart and patient was found to have a atrial fibrillation with RVR and Cardiology was consulted recommended to give Lopressor 5 mg IV q 1h PRN and readmit the patient, today patient was seen by human resource advisor increased amiodarone to 400 mg b.i.d. from 200 mg b.i.d. and increased metoprolol tartrate 50 mg bid. from 25mg b.i.d. patient is in and out of sinus rhythm, anticoagulated with Eliquis, will continue monitor will have a PT OT evaluate the patient and reassess the patient tomorrow and further recommendation to follow. Hospital Course: Patient is 79 y/o s/p successful cardioversion on 08/02 and patient remains in sinus rhythm on amiodarone 200 mg b.i.d. and metoprolol tartrate 25 mg b.i.d., patient stated he was feeling much better denied any chest pain shortness of breath palpitation fever, patient with history depression and suicidal ideation was evaluated by crisis team and patient was safe to return home, and patient was discharged however while in the corridor at the entrance patient developed shortness of breath and was taken back to emergency depart and patient was found to have a atrial fibrillation with RVR and Cardiology was consulted recommended to give Lopressor 5 mg IV q 1h PRN and readmit the patient, today patient was seen by human resource advisor increased amiodarone to 400 mg b.i.d. from 200 mg b.i.d. and increased metoprolol tartrate 50 mg bid. from 25mg b.i.d. patient is in and out of sinus rhythm, anticoagulated with Eliquis, will continue monitor will have a PT OT evaluate the patient and reassess the patient tomorrow and further recommendation to follow. 08/06 patient was seen by Cardiology amiodarone was increased to 400 mg b.i.d. from 200 mg b.i.d. and increased metoprolol 50 mg b.i.d. from 25 mg b.i.d. patient remains clinically
--- NOTE | 2020-08-06 15:26 | PC.NURSE ---
Patient left floor with hospital staff via wheelchair. Patient oriented x4, no complaints of chest pain or shortness of breath. IV removed.
== END 2020-08-06 15:03 | disposition home or self-care (01) ==
LOC: ANHED 17:51 → ANHICU 18:33
PROVIDERS: Admitting Provider Family Medicine; Emergency Provider Emergency Medicine; PCP Family Medicine Adolescent Medicine; Visit Provider Family Medicine
DX: I48.0 Paroxysmal atrial fibrillation (principal); I48.92 Unspecified atrial flutter; I50.9 Heart failure, unspecified; I42.9 Cardiomyopathy, unspecified; R06.02 Shortness of breath; Z87.891 Personal history of nicotine dependence; Z79.01 Long term (current) use of anticoagulants
CPT/HCPCS: 36415; 80048; 83735; 84484; 85025; 93005; 96374; 99285; A9270; G0378

== ENCOUNTER 2020-09-15 08:46 | Emergency (ER) | payer OTHER, SELFPAY ==
[2020-09-15] VITALS (20 sets, daily range): BP systolic 106–135; BP diastolic 83–109; PULSE 89–122; RESP 13–41; TEMP 36.6; O2SAT 95–100
--- NOTE | ~2020-09-15 | XR_ITS ---
XR chest 1V portable 09/15/2020 09:04 Indication: Weakness. Dyspnea. Procedure: AP portable chest Comparison: Comparison to multiple prior studies sequentially, with oldest reviewed study dated 06/07. Findings: Cardiomegaly with mild interstitial edema. No pleural effusion or pneumothorax. No acute os seous abnormality. Impression: 1: Cardiomegaly with interstitial edema. Reviewed, dictated and finalized at location A. Impression: 1: Cardiomegaly with interstitial edema.
--- NOTE | 2020-09-15 08:47 | ED.CHESTPAIN ---
HPI - Chest Pain General Chief Complaint: Shortness of Breath/Dyspnea Stated Complaint: STEMI Time Seen by Provider: 09/15/20 08:47 Source: patient and EMS Mode of arrival: EMS Limitations: no limitations History of Present Illness HPI narrative: Patient is a 79-year-old male with a history of atrial flutter, congestive heart failure, cardiomyopathy, status post multiple cardioversions, who presents for evaluation of shortness of breath. Patient states he has been short of breath over the past 24 to 48 hours. Patient states that he is chronically short of breath due to his heart rhythm, states he is scheduled to see his domestic cleaner on Thursday. Patient has been compliant with his medications. He is taking Eliquis for his anticoagulation. Denies any missed doses. Denies any nausea, vomiting or recent illnesses. Patient was placed on amiodarone and metoprolol increased with his last admission but unfortunately his atrial fibrillation was quite paroxysmal and per chart review, they are considering an electrophysiology consult. Related Data Home Medications Medication Instructions Recorded Confirmed cyclobenzaprine 10 mg PO BID PRN 06/08/19 08/04/20 diphenhydramine HCl [Allergy 50 mg PO HS 06/08/19 08/04/20 (diphenhydramine)] fludrocortisone 0.1 mg PO DAILY 06/08/19 08/04/20 omeprazole 20 mg PO HS 06/08/19 08/04/20 Allergies Allergy/AdvReac Type Severity Reaction Status Date / Time celecoxib Allergy Mild Hives Verified 04/05/20 11:49 valdecoxib Allergy Mild Hives Verified 04/05/20 11:49 Barbiturates Allergy Unknown Hives Verified 04/05/20 11:49 Review of Systems Review of Systems: Narrative: CONSTITUTIONAL: Denies fever, chills, or sweats. EYES: Denies visual changes, redness, or discharge. ENT: Denies rhinorrhea, congestion, sore throat, or otalgia. CARDIOVASCULAR: Denies chest pain, palpitations, or edema. RESPIRATORY: Reports shortness of breath GASTROINTESTINAL: Denies abdominal pain, nausea, vomiting, or diarrhea. GENITOURINARY: Denies dysuria or hematuria. SKIN: Denies rash or itching. MUSCULOSKELETAL: Denies back pain, joint pain, or myalgia. NEUROLOGIC: Denies headache, numbness, or weakness. [facility] Past Medical History Medical History A-fib Anxiety Arm fracture Arthritis Cardiomyopathy DDD (degenerative disc disease) Depression Dilation of esophagus x3 Gallbladder disease GERD (gastroesophageal reflux disease) GI bleed Glaucoma Headache Mitral valve prolapse Parkinson disease Paroxysmal atrial fibrillation Paroxysmal atrial flutter Previous known suicide attempt 07/03/09 Rectal polyp Silverio-Checo syndrome Ulcer Surgical History Surgical History H/O cardiac radiofrequency ablation History of esophagogastroduodenoscopy (EGD) History of rectal polypectomy Hx of appendectomy Hx of cholecystectomy Hx of fusion of cervical spine x2 Status post laparoscopic Austen fundoplication Family History Family History Father Colon cancer Mother Mental disorder Social History Social History Social History: the patient lives with his , and in the past with his sister. The nephew was living with them but is now on alcohol rehab. The patient desires to have his is the durable power divorce attorney for healthcare. The patient desires to be a full code. The patient has 3 children. Denies any alcohol or illicit drug use. The patient used to work for the [employer] but is now retired. Patient smoked briefly for approximately 5 years. At least a half pack a cigarettes a day. He quit smoking in 1971. Smoking packs per day: 0.5 Smoking cigarettes per day: 10.0 Years smoked: 5 Smoking pack-years: 2.50 Smoking status: Former smoker Tobacco type: cigarettes [place]
[2020-09-15 09:37] LABS: Basophils Percent Auto 0.4 % (0.2-1.2); Eosinophils Absolute Auto 0.1 K/mm3 (0-0.3); Eosinophils Percent Auto 1.8 % (0-4.4); Hematocrit 36.7 % (42.0-52.0); Hemoglobin 11.5 g/dL (14.0-18.0); Immature Granulocyte Absolute 0.02 K/mm3 (0.00-0.031); Immature Granulocyte Percent A 0.3 % (0-0.5); Lymphocytes Absolute Auto 1.16 K/mm3 (0.9-3.2); Lymphocytes Percent Auto 17.1 % (18.3-44.2); Mean Corpuscular HGB Conc 31.3 g/dl (32-36); Mean Corpuscular Hemoglobin 27.4 pg (26-34); Mean Corpuscular Volume 87.6 fl (80-100); Mean Platelet Volume 11.2 fl (7.4-10.4); Monocytes Absolute Auto 0.7 K/mm3 (0.1-0.6); Monocytes Percent Auto 10.3 % (2.6-8.5); Neutrophils Absolute Auto 4.8 K/mm3 (1.3-6.7); Neutrophils Percent Auto 70.1 % (45.5-73.1); Platelet Count Result 220 k/mm3 (150-375); Red Blood Count 4.19 M/mm3 (4.6-6.20); Red Cell Distribution Width 17.4 % (11.5-14.5); White Blood Count 6.8 K/mm3 (4.5-10.0)
[2020-09-15 09:46] LABS: Lactic Acid Reflex 1.3 mmol/L (0.7-2.1)
[2020-09-15 09:50] LABS: INR 2.1; Prothrombin Time 24.3 Seconds (11.1-14.7)
[2020-09-15 09:52] LABS: Partial Thromboplastin Time 45.8 SECONDS (22.3-36.8)
[2020-09-15 09:56] LABS: NT Pro B Type Natriuretic Pept 20300 pg/mL (5-100)
[2020-09-15] MEDS: PROPOFOL IV EMULSION 200 MG/20 ML VIAL 20 MG IV PUSH (10:48)
--- NOTE | 2020-09-15 10:53 | PC.NURSE ---
Pt requiring cardioversion. EDP Charles at bedside. 20mg propofol given by EDP at 1048 with additional 20mg given at 1050. Synchronized cardioversion performed at 1051 at 200J. Pt tolerated well. See VS flowsheet
--- NOTE | 2020-09-15 10:55 | ECG_ITS ---
Measurements Intervals [place] Rate: 99 P: DC: 0 QRS: -7 QRSD: 110 T: 19 QT: 370 QTc: 475 Interpretive Statements ATRIAL FLUTTER/TACHYCARDIA CONSIDER INFERIOR INFARCT, AGE INDETERMINATE NONSPECIFIC T-WAVE ABNORMALITY- ANTEROLATERAL LEADS BASELINE ARTIFACT- I, III, V5-V6 ABNORMAL ECG Electronically Signed On 09-15-2020 19:22:49 CDT by Josue Colvin D.O.
--- NOTE | 2020-09-15 10:56 | ECG_ITS ---
Measurements Intervals [place] Rate: 121 P: ME: 0 QRS: 28 QRSD: 114 T: -17 QT: 412 QTc: 585 Interpretive Statements ATRIAL FLUTTER/TACHYCARDIA WITH RAPID VENTRICULAR RESPONSE LOW QRS VOLTAGE IN LIMB LEADS INCOMPLETE LEFT BUNDLE BRANCH BLOCK BORDERLINE ST-T WAVE ABNORMALITY- ANTEROLAT/INF LEADS BASELINE ARTIFACT- II, III, AVL, AVF, V6 ABNORMAL ECG Electronically Signed On 09-15-2020 19:18:57 CDT by Josue Colvin D.O.
[2020-09-15 11:01] LABS: Alanine Aminotransferase 213 U/L (4-50); Alkaline Phosphatase 154 U/L (38-126); Anion Gap 11 mmol/L (8-16); Aspartate Amino Transferase 227 U/L (17-59); Blood Urea Nitrogen 24 mg/dL (9-20); Carbon Dioxide 25 mmol/L (22-30); Chloride 102 mmol/L (98-107); Cholesterol 132 mg/dL (0-200); Estimated CRCL calculation 57 ml/min; Estimated Glomerular Filt Rate > 60; Glucose 92 mg/dL (75-110); HDL Direct 40 mg/dL; Potassium 3.3 mmol/L (3.4-5.0); Sodium 138 mmol/L (137-145); Triglycerides 67 mg/dL (<150)
[2020-09-15 11:12] LABS: LDL Cholesterol Direct 70 mg/dL
[2020-09-15 11:15] LABS: Troponin I < 0.012 ng/mL (0.000-0.034)
--- NOTE | 2020-09-15 12:17 | PC.NURSE ---
Pt requested Nomi rock, and Pastor Perez, notified of transferred.
[2020-09-15 13:12] LABS: Troponin I < 0.012 ng/mL (0.000-0.034)
[2020-09-15 15:16] LABS: Troponin I < 0.012 ng/mL (0.000-0.034)
== END 2020-09-15 19:15 | disposition short-term general hospital (02) ==
PROVIDERS: Emergency Provider Emergency Medicine; PCP Family Medicine Adolescent Medicine
DX: I48.91 Unspecified atrial fibrillation (principal); I50.9 Heart failure, unspecified; Q89.9 Congenital malformation, unspecified; F41.9 Anxiety disorder, unspecified; M19.90 Unspecified osteoarthritis, unspecified site; F32.9 Major depressive disorder, single episode, unspecified; K21.9 Gastro-esophageal reflux disease without esophagitis; G20 Parkinson's disease
CPT/HCPCS: 36415; 71045; 80053; 80061; 83605; 83880; 84484; 85025; 85610; 85730; 86850; 86900; 86901; 87040; 92960; 93005; 96374; 99285; J2704

== ENCOUNTER 2020-10-17 08:30 | Outpatient (RCR) | payer OTHER, SELFPAY ==
[2020-10-12 11:48] VITALS: BP 142/70; PULSE 107; RESP 20; O2SAT 98
--- NOTE | 2020-10-12 11:52 | PCCPR ---
Orientation to Rehab [place] has h/o of a few suicide attempts. Last was a couple of months back attempting to hang him self. States he does not see a wing commander or psychiatrist and is no longer on medication. He does take several things for sleep, lorazepam, melatonin, diphenhydramine and cyclobenzaprine. He did express some financial difficulty when his medications ran out also for his CHF he was in the 'Donut hole and stopped taking his medication. States resulted in another trip to the hospital.
== END 2020-10-24 10:55 | disposition home or self-care (01) ==
LOC: ANHCPREHAB 08:30
PROVIDERS: PCP Family Medicine Adolescent Medicine; Visit Provider Specialist
DX: I50.89 Other heart failure (principal)
CPT/HCPCS: 93798

== ENCOUNTER 2020-12-10 20:35 | Inpatient (IN) | payer OTHER, SELFPAY ==
[2020-12-10] VITALS (8 sets, daily range): BP systolic 88–109; BP diastolic 68–92; PULSE 105–140; RESP 14–18; TEMP 36.1; O2SAT 99–100
--- NOTE | ~2020-12-10 | XR_ITS ---
EXAMINATION: XR chest 1V portable DATE: 12/10/2020 21:25 INDICATION: Weakness TECHNIQUE: frontal view of the chest was obtained. COMPARISON: Chest radiograph dated 09/15/[address] dated 04/05/2020 FINDINGS: The lungs are clear with no focal airspace opacities, pulmonary edema, pleural effusion or pneumothor ax. Borderline heart size accounting for AP technique. Chronic T12 compression fracture. Moderate nicole ateral glenohumeral osteoarthritis. IMPRESSION: 1. No acute cardiopulmonary disease. Reviewed, dictated and finalized at location A.
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
--- NOTE | ~2020-12-10 | US_ITS ---
EXAMINATION: US renal BI DATE: 12/12/2020 10:58 INDICATION: Acute kidney injury. TECHNIQUE: Multiple ultrasound grayscale images of the kidneys were obtained. COMPARISON: Chest CT 04/05/2020 FINDINGS: The right kidney measures 9.1 x 4.9 x 4.1 cm. The left kidney measures 10.9 x 4.7 x 5.0 cm. The kidne ys demonstrate normal parenchymal echogenicity. There is no hydronephrosis. The bladder is not well d istended. IMPRESSION: 1. Normal kidneys. No hydronephrosis. Reviewed, dictated and finalized at location A.
--- NOTE | 2020-12-10 21:00 | ECG_ITS ---
Measurements Intervals [place] Rate: 140 P: [place]: 0 QRS: -5 QRSD: 107 T: 101 QT: 357 QTc: 545 Interpretive Statements ATRIAL FLUTTER/TACHYCARDIA WITH RAPID VENTRICULAR RESPONSE VENTRICULAR PREMATURE COMPLEX CONSIDER INFERIOR INFARCT, AGE INDETERMINATE BORDERLINE ST-T WAVE ABNORMALITY- ANTEROLAT/HIGH LAT LEADS BASELINE ARTIFACT- I, III, AVL ABNORMAL ECG Electronically Signed On 12-11-2020 6:47:27 CDT by Josue Colvin D.O.
[2020-12-10 21:32] LABS: Basophils Percent Auto 0.1 % (0.2-1.2); Eosinophils Percent Auto 0.4 % (0-4.4); Hematocrit 35.8 % (42.0-52.0); Hemoglobin 11.8 g/dL (14.0-18.0); Immature Granulocyte Absolute 0.03 K/mm3 (0.00-0.031); Immature Granulocyte Percent A 0.4 % (0-0.5); Lymphocytes Absolute Auto 1.33 K/mm3 (0.9-3.2); Lymphocytes Percent Auto 18.1 % (18.3-44.2); Mean Corpuscular Hemoglobin 28.2 pg (26-34); Mean Corpuscular Volume 85.4 fl (80-100); Mean Platelet Volume 10.6 fl (7.4-10.4); Monocytes Absolute Auto 0.6 K/mm3 (0.1-0.6); Monocytes Percent Auto 7.8 % (2.6-8.5); Neutrophils Absolute Auto 5.4 K/mm3 (1.3-6.7); Neutrophils Percent Auto 73.2 % (45.5-73.1); Platelet Count Result 234 k/mm3 (150-375); Red Blood Count 4.19 M/mm3 (4.6-6.20); Red Cell Distribution Width 20.2 % (11.5-14.5); White Blood Count 7.3 K/mm3 (4.5-10.0)
[2020-12-10 21:41] LABS: INR 1.2; Prothrombin Time 15.3 Seconds (11.1-14.7)
[2020-12-10 21:41] LABS: Alanine Aminotransferase 35 U/L (4-50); Alkaline Phosphatase 81 U/L (38-126); Anion Gap 9 mmol/L (8-16); Aspartate Amino Transferase 42 U/L (17-59); Blood Urea Nitrogen 48 mg/dL (9-20); Calcium 8.6 mg/dL (8.4-10.2); Carbon Dioxide 29 mmol/L (22-30); Chloride 96 mmol/L (98-107); Estimated CRCL calculation 37 ml/min; Estimated Glomerular Filt Rate 39; Glucose 106 mg/dL (65-110); Potassium 4.7 mmol/L (3.4-5.0); Sodium 134 mmol/L (137-145)
[2020-12-10] MEDS: dilTIAZem HCl INJ 25 MG/5 ML VIAL 20 MG IV PUSH ×2 (21:41→23:34)
[2020-12-10 21:42] LABS: Partial Thromboplastin Time 34.2 SECONDS (22.3-36.8)
[2020-12-10] MEDS: SODIUM CHLORIDE 0.9% IV 1,000 ML 999 ML IV CONT ×2 (21:42→22:40)
[2020-12-10 21:51] LABS: Lactic Acid Reflex 1.3 mmol/L (0.7-2.1)
[2020-12-10 21:53] LABS: Troponin I < 0.012 ng/mL (0.000-0.034)
[2020-12-10 22:13] LABS: Lipase 27 U/L (23-300); Magnesium 3.3 mg/dL (1.6-2.3)
[2020-12-10 22:41] LABS: NT Pro B Type Natriuretic Pept 11000 pg/mL (5-100)
--- NOTE | 2020-12-10 23:22 | ED.GENADULT ---
HPI - General Adult General Chief complaint: Dizziness Stated complaint: fall Time Seen by Provider: 12/10/20 20:59 History of Present Illness HPI narrative: Patient is a 80-year-old gentleman who presents the emergency department with chief complaint of generalized weakness frequent falls and dizziness. The patient states he feels lightheaded reports he has had a lot of loose stool after he has been a protein drink the patient states that his heart rate has been fast for the last several weeks and noticed that his heart rates been in the 140s. The patient reports he has history of atrial flutter and reports that he is on a blood thinner. Patient states symptoms are not improved by anything nor they worsened by anything. The patient denies direct chest pain with this symptoms. Related Data Home Medications Medication Instructions Recorded Confirmed fludrocortisone 0.1 mg PO DAILY 06/08/19 08/04/20 omeprazole 20 mg PO HS 06/08/19 10/17/20 carvedilol 3.125 mg PO BID 10/17/20 10/17/20 metoprolol tartrate 25 mg PO BID 10/17/20 10/17/20 Allergies Allergy/AdvReac Type Severity Reaction Status Date / Time celecoxib Allergy Mild Hives Verified 09/15/20 14:32 valdecoxib Allergy Mild Hives Verified 09/15/20 14:32 Barbiturates Allergy Unknown Hives Verified 09/15/20 14:32 Review of Systems Review of Systems: A 10 system review of systems was completed on the patient and is negative except for what is stated in the HPI. Nursing and ancillary documentation was reviewed. [facility] Past Medical History Medical History A-fib Anxiety Arm fracture Arthritis Cardiomyopathy DDD (degenerative disc disease) Depression Dilation of esophagus x3 Gallbladder disease GERD (gastroesophageal reflux disease) GI bleed Glaucoma Headache Mitral valve prolapse Parkinson disease Paroxysmal atrial fibrillation Paroxysmal atrial flutter Previous known suicide attempt 07/03/09 Rectal polyp Silverio-Checo syndrome Ulcer Surgical History Surgical History H/O cardiac radiofrequency ablation History of esophagogastroduodenoscopy (EGD) History of rectal polypectomy Hx of appendectomy Hx of cholecystectomy Hx of fusion of cervical spine x2 Status post laparoscopic Austen fundoplication Family History Family History Father Colon cancer Mother Mental disorder Sibling Mental disorder Social History Social History Social History: the patient lives with his , and in the past with his sister. The nephew was living with them but is now on alcohol rehab. The patient desires to have his is the durable power employment attorney for healthcare. The patient desires to be a full code. The patient has 3 children. Denies any alcohol or illicit drug use. The patient used to work for the [employer] but is now retired. Patient smoked briefly for approximately 5 years. At least a half pack a cigarettes a day. He quit smoking in 1971. Smoking packs per day: 0.5 Smoking cigarettes per day: 10.0 Years smoked: 5 Smoking pack-years: 2.50 Smoking status: Former smoker Tobacco type: cigarettes Second hand tobacco smoke exposure: No Smoking end date: 03/23/1966 Alcohol intake: former Substance use: never Substance use type: unknown Gender identity (if verbalized by the patient): Male Spiritual care concerns: No Agree to blood products: Yes Exam Narrative: GENERAL: Well-appearing, well-nourished, and in no acute distress. HEAD: Normocephalic, atraumatic. EYES: PERRLA and EOMI. ENT: Nares clear, no rhinorrhea or epistaxis. Dry membranes moist. NECK: Supple. CHEST: Clear to auscultation. No respiratory distress. HEART: Tachycardic rate and rhythm. No murmur heard.
[2020-12-11] VITALS (18 sets, daily range): BP systolic 88–140; BP diastolic 60–90; PULSE 97–147; RESP 14–20; TEMP 36.3–36.8; O2SAT 97–99; BMI 25.4
[2020-12-11] MEDS: SODIUM CHLORIDE 0.9% IV 1,000 ML 125 ML IV CONT (02:37)
--- NOTE | 2020-12-11 03:06 | PC.NURSE ---
This patient, Rico Nelson Sr., was admitted to IMU Room 213-01 on 12/11/20 0230. Patient/family oriented to hospital policies and general routines including ID bracelet, bed and alarms, visiting hours, pain management, procedures, bathroom and other care routines, personal items, smoking policy, room service/diet, and visiting hours. Information on how to activate the Rapid Response Team has been discussed. Patient/Family are encouraged to report perceived risks to care and to ask questions if they do not understand what they are told or what they should do.
[2020-12-11 03:47] LABS: Troponin I < 0.012 ng/mL (0.000-0.034)
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
[2020-12-11] MEDS: predniSONE 10 MG TABLET BY MOUTH (09:10)
[2020-12-11] MEDS: SACUBITRIL/VALSARTAN 24-26 MG TABLET 1 TAB PO ×2 (09:10→20:00)
[2020-12-11] MEDS: TERBINAFINE HCL 250 MG TABLET PO (09:10)
[2020-12-11] MEDS: ASPIRIN 81 MG CHEWABLE TABLET PO (09:11)
[2020-12-11] MEDS: FLUDROCORTISONE ACETATE 0.1 MG TABLET PO (09:11)
[2020-12-11] MEDS: APIXABAN 5 MG TABLET PO ×2 (09:11→20:00)
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
[2020-12-11] MEDS: AMIODARONE 360 MG/D5W 200 ML 360 MG/200 ML BAG 16.67 MG IV CONT (13:03)
--- NOTE | 2020-12-11 15:28 | PM.IMPN ---
Progress Note: A&P Assessment and Plan (1) Atrial flutter with rapid ventricular response: Code(s): I48.92 - Unspecified atrial flutter Status: Acute Assessment and Plan: Patient is hypotensive on Cardizem drip. Switched to amiodarone; we will continue low dose metoprolol. (2) Elevated brain natriuretic peptide (BNP) level: Code(s): R79.89 - Other specified abnormal findings of blood chemistry Status: Acute Assessment and Plan: Patient does not appear fluid overloaded. He is hypotensive with elevated BUN creatinine. (3) GERD (gastroesophageal reflux disease): Qualifiers: Esophagitis presence: esophagitis presence not specified Qualified Code(s): K21.9 - Gastro-esophageal reflux disease without esophagitis Code(s): K21.9 - Gastro-esophageal reflux disease without esophagitis Status: Chronic Assessment and Plan: Continue PPI (4) Falls frequently: Code(s): R29.6 - Repeated falls Status: Acute Assessment and Plan: PT OT (5) Hypotension: Code(s): I95.9 - Hypotension, unspecified Status: Acute Assessment and Plan: PAtient reports baseline systlic BPs in the low 100 range. He is clearly hypotensive with enrico BP 90/68. Current BP 92/71 (6) Acute kidney injury: Code(s): N17.9 - Acute kidney failure, unspecified Status: Acute Assessment and Plan: Likely prerenal versus ATN in the setting of hypotension, afib with RVR. Sen UA, urine lytes, ultrasound. Bladder scan to rule out obstruction. Avoid nephrotoxins. Renally dose emdications. Daily in and out. Monitor for fluid overload. Subjective Date/time seen: 12/11/20 11:00 This is a 80-year gentleman with CHF, Aflutter, GERD admitted for weakness, lightheadedness, recurrent falls. On admission he is tachycardic in the 140s. He is depressed and recently . Review of Systems Constitutional: Constitutional: Denies chills, Denies fatigue, Denies fever(s) and Reports weakness Eyes: Eyes: Denies change in vision ENT: Denies dysphagia, Denies vertigo, Denies dizziness, Denies nasal congestion, Denies nasal discharge, Denies nasal obstruction and Denies odynophagia Cardiovascular: Cardiovascular: Denies chest pain at rest, Denies irregular heart rhythm, Denies claudication, Reports lightheadedness, Denies radiating jaw, neck or arm pain, Denies palpitations, Denies dyspnea, Denies dyspnea on exertion and Denies orthopnea Respiratory: Respiratory: Denies cough, Denies dyspnea and Denies dyspnea on exertion Gastrointestinal: Gastrointestinal: Denies abdominal pain, Denies dysphagia, Reports diarrhea, Denies nausea, Denies odynophagia and Denies vomiting Genitourinary: Genitourinary: Reports no additional male genitourinary complaints Musculoskeletal: Musculoskeletal: Reports no additional musculoskeletal complaints Integumentary/Breasts: Skin/Breast: Reports system reviewed and no additional complaints, except as docu Neurologic: Reports system reviewed and no additional complaints, except as documented, Denies vertigo, Denies dizziness and Reports weakness Psychiatric: Psychiatric: Reports no additional psychiatric complaints Endocrine: Endocrine: Reports no additional endocrine complaints, Denies fatigue and Denies palpitations Hematologic/Lymphatic: Hematologic/Lymphatic: Reports no additional hematologic/lymphatic complaints Allergic/Immunologic: Allergic/Immunologic: Reports no additional allergic/immunologic complaints Exam Narrative: Laying in bed. Const: General: comfortable, no acute distress, well developed, alert, awake and ill appearing chronically Nutritional Appearance: thin Orientation/consciousness: patient oriented x3 HENMT: Head: normal to inspection, normocephalic and atraumatic Ears: hearing grossly normal bilaterally General nose exam: Normal external nose present Face and sinus: normal facial exam Teeth and gingiva: edentulous
[2020-12-11 18:32] LABS: Creatinine Urine 121.8 mg/dL; Urea Random Urine 1136 MG/DL
[2020-12-11 18:36] LABS: Potassium Urine Random 59.5 meq/L; Sodium Urine Random 8 meq/L
[2020-12-11] MEDS: PANTOPRAZOLE 40 MG TABLET PO (20:00)
[2020-12-11] MEDS: METOPROLOL TARTRATE 12.5 MG TABLET PO (20:00)
[2020-12-12] VITALS (26 sets, daily range): BP systolic 91–143; BP diastolic 55–87; PULSE 64–153; RESP 13–22; TEMP 35.6–36.7; O2SAT 94–100
[2020-12-12] MEDS: AMIODARONE 360 MG/D5W 200 ML 360 MG/200 ML BAG 16.67 MG IV CONT ×2 (00:30→21:23)
[2020-12-12] MEDS: MELATONIN 5 MG TABLET 10 MG PO (00:31)
[2020-12-12 05:24] LABS: Hematocrit 40.4 % (42.0-52.0); Hemoglobin 13.3 g/dL (14.0-18.0); Mean Corpuscular HGB Conc 32.9 g/dl (32-36); Mean Corpuscular Hemoglobin 28.7 pg (26-34); Mean Corpuscular Volume 87.1 fl (80-100); Mean Platelet Volume 10.9 fl (7.4-10.4); Platelet Count Result 242 k/mm3 (150-375); Red Blood Count 4.64 M/mm3 (4.6-6.20); Red Cell Distribution Width 20.5 % (11.5-14.5); White Blood Count 12.3 K/mm3 (4.5-10.0)
[2020-12-12 05:57] LABS: Anion Gap 8 mmol/L (8-16); Blood Urea Nitrogen 30 mg/dL (9-20); Calcium 8.7 mg/dL (8.4-10.2); Carbon Dioxide 26 mmol/L (22-30); Chloride 98 mmol/L (98-107); Estimated CRCL calculation 52 ml/min; Estimated Glomerular Filt Rate 58; Glucose 96 mg/dL (65-110); Potassium 4.4 mmol/L (3.4-5.0); Sodium 132 mmol/L (137-145)
--- NOTE | 2020-12-12 08:22 | PM.IMPN ---
Progress Note: A&P Assessment and Plan (1) Atrial flutter with rapid ventricular response: Code(s): I48.92 - Unspecified atrial flutter Status: Acute Assessment and Plan: Patient has recurrent atrial fibrillation/flutter, and history of DC cardioversion most recently on 08/02/2020. He recalls being treated with ablation. Currently patient is hypotensive; cardizem drip was stopped. He has decreased left ventricular function with EF reported 35-40% on his echocardiogram from 06/08/2019. Patient was started on amiodarone drip on 12/11/2020. We will continue low-dose metoprolol tartrate 12.5 mg with holding parameters. Given hypotension, entresto ( sacubitril/valsartan) is on hold. Patient has been on chronic anticoagulation with apixaban that we have continued. However, he has a recent history of recurrent falls and has complaints of generalized weakness. Continue daily PT OT. Per cardiology, his candidacy for chronic anticoagulation will need to be readdressed after PT OT evaluation. - in the past. Recommend outpatient electrophysiology evaluation for rhythm management. -continue to monitor on telemetry (2) Elevated brain natriuretic peptide (BNP) level: Code(s): R79.89 - Other specified abnormal findings of blood chemistry Status: Acute Assessment and Plan: Patient does not appear to be fluid overloaded. He is hypotensive with elevated BUN creatinine. clinical monitoring (3) GERD (gastroesophageal reflux disease): Qualifiers: Esophagitis presence: esophagitis presence not specified Qualified Code(s): K21.9 - Gastro-esophageal reflux disease without esophagitis Code(s): K21.9 - Gastro-esophageal reflux disease without esophagitis Status: Chronic Assessment and Plan: Continue PPI (4) Falls frequently: Code(s): R29.6 - Repeated falls Status: Acute Assessment and Plan: PT OT evaluation adn treatment. Maintain fall precautions. (5) Hypotension: Code(s): I95.9 - Hypotension, unspecified Status: Acute Assessment and Plan: PAtient reports baseline systlic BPs in the low 100 range. He is clearly hypotensive with enrico BP 90/68. Current BP improved at 143/85. If this trend persists, we will resume entresto later. (6) Acute kidney injury: Code(s): N17.9 - Acute kidney failure, unspecified Status: Acute Assessment and Plan: Recovering acute kidney injury. DUTCH was likely prerenal versus ATN in the setting of hypotension, afib with RVR, heart failure. FENa 0.1%. Bladder scan to rule out obstruction. Avoid nephrotoxins. Renally dose medications. Daily in and out. Monitor for fluid overload. Subjective Date/time seen: 12/12/20 08:22 This is a 80 year-old gentleman with a past medical history paroxysmal versus persistent atrial fibrillation and flutter (status post DC cardioversion on 05/16/2020 and 08/02/2020), CHF with reduced ejection fraction ?nonischemic ( LVEF 35-40% from 06/08/2019 echo); history of ? arrhythmia ablation about 10 years ago, CKD, depression and suicidal attempt recently. Patient presented to the hospital with generalized weakness, frequent falls. He was found to be in atrial flutter with RVR, and has been on IV diltiazem without significant improvement in the heart rates. Review of Systems Constitutional: Constitutional: Denies chills, Denies fatigue, Denies fever(s) and Reports weakness Eyes: Eyes: Denies change in vision ENT: Denies dysphagia, Denies vertigo, Denies dizziness, Denies nasal congestion, Denies nasal discharge, Denies nasal obstruction and Denies odynophagia Cardiovascular: Cardiovascular: Denies chest pain at rest, Denies irregular heart rhythm, Denies claudication, Reports lightheadedness, Denies radiating jaw, neck or arm pain, Denies palpitations, Denies dyspnea, Denies dyspnea on exertion and Denies orthopnea Respiratory: Respiratory: Denies cough, Denies dyspnea and Denies dyspnea on
[2020-12-12] MEDS: APIXABAN 5 MG TABLET PO ×2 (08:36→20:24)
[2020-12-12] MEDS: FLUDROCORTISONE ACETATE 0.1 MG TABLET PO (08:36)
[2020-12-12] MEDS: METOPROLOL TARTRATE 12.5 MG TABLET PO (08:37)
[2020-12-12] MEDS: TERBINAFINE HCL 250 MG TABLET PO (08:37)
[2020-12-12] MEDS: ASPIRIN 81 MG CHEWABLE TABLET PO (08:37)
[2020-12-12] MEDS: predniSONE 10 MG TABLET BY MOUTH (08:38)
[2020-12-12] MEDS: SACUBITRIL/VALSARTAN 24-26 MG TABLET 1 TAB PO (08:38)
[2020-12-12] MEDS: AMIODARONE 150 MG/D5W 100 ML 150 MG/100 ML BAG 600 MG IV CONT (10:40)
[2020-12-12] MEDS: AMIODARONE 360 MG/D5W 200 ML 360 MG/200 ML BAG 33.33 MG IV CONT (10:40)
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
--- NOTE | 2020-12-12 11:09 | ECG_ITS ---
Measurements Intervals [place] Rate: 127 P: ID: 0 QRS: 6 QRSD: 102 T: 95 QT: 289 QTc: 420 Interpretive Statements ATRIAL FLUTTER/TACHYCARDIA WITH RAPID VENTRICULAR RESPONSE NONSPECIFIC ST & T-WAVE ABNORMALITY- LAT/HIGH LAT LEADS ABNORMAL ECG Electronically Signed On 12-12-2020 12:36:49 CDT by Josue Colvin D.O.
[2020-12-12] MEDS: SODIUM CHLORIDE 0.9% IV 250 ML 999 ML IV CONT (11:26)
--- NOTE | 2020-12-12 14:19 | PCPTNOTE ---
PT eval was attempted today but RN denied eval due to pt high HR and low BP. Will try again at a later time/date.
[2020-12-12] MEDS: METOPROLOL TARTRATE 25 MG TABLET PO ×2 (15:06→21:28)
[2020-12-12 15:27] LABS: Add Urine Microscopic? YES; Appearance Urine Clear (Clear); Bilirubin Urine Negative (Negative); Blood Urine Negative (Negative); Color Urine Yellow (Yellow); Glucose Urine UA Negative (Negative); Ketones Urine Negative (Negative); Leukocyte Esterase Ur Negative LEU/UL (Negative); Mucus Urine Rare /lpf; Nitrate Urine Negative (Negative); Protein Urine 1+ mg/dL (Negative); RBC Urine 0-2 /hpf (0-2); Specific Grav Ur 1.018 (1.001-1.035); Urobilinogen Urine Negative mg/dL (<2.0); WBC Urine 0-3 /hpf
--- NOTE | 2020-12-12 16:02 | PC.NURSE ---
On 12/12/20, the student, Sarina [employer], provided care and completed [facility] documentation on this patient. I have reviewed the student's documentation and agree with the findings.
[2020-12-12] MEDS: PANTOPRAZOLE 40 MG TABLET PO (20:24)
[2020-12-13] VITALS (24 sets, daily range): BP systolic 89–116; BP diastolic 50–88; PULSE 66–138; RESP 18–21; TEMP 36.2–37.6; O2SAT 90–100
[2020-12-13 05:35] LABS: Hematocrit 34.9 % (42.0-52.0); Hemoglobin 11.4 g/dL (14.0-18.0); Mean Corpuscular HGB Conc 32.7 g/dl (32-36); Mean Corpuscular Hemoglobin 27.9 pg (26-34); Mean Corpuscular Volume 85.5 fl (80-100); Mean Platelet Volume 10.6 fl (7.4-10.4); Platelet Count Result 205 k/mm3 (150-375); Red Blood Count 4.08 M/mm3 (4.6-6.20); Red Cell Distribution Width 20.3 % (11.5-14.5); White Blood Count 9.1 K/mm3 (4.5-10.0)
[2020-12-13] MEDS: METOPROLOL TARTRATE 25 MG TABLET PO ×2 (05:36→20:37)
[2020-12-13] MEDS: AMIODARONE 360 MG/D5W 200 ML 360 MG/200 ML BAG 16.67 MG IV CONT (08:18)
--- NOTE | 2020-12-13 08:38 | PM.PNCARD ---
Progress Note: A&P Assessment and Plan (1) Atrial flutter with rapid ventricular response: Code(s): I48.92 - Unspecified atrial flutter Status: Acute Assessment and Plan: 80-year-old male with paroxysmal versus persistent atrial fibrillation and flutter (status post DC cardioversion on 05/16/2020 and 08/02/2020), CHF with reduced ejection fraction ?nonischemic ( LVEF 35-40% from 06/08/2019 echo); history of ? arrhythmia ablation about 10 years ago, CKD, depression and suicidal attempt recently. Patient presented to the hospital with generalized weakness, frequent falls. He was found to be in atrial flutter with RVR, and has been on IV diltiazem without significant improvement in the heart rates. -Due to persistent atrial flutter with rapid ventricular response at an unacceptable HR and inability to safely uptitrate therapy due to relative hypotension, patient will be best served with Elective electrical cardioversion to restore sinus rhythm with Anesthesiology assistance due to risk for unacceptable hypertension with conscious/moderate sedation. Continue IV amiodarone and systemic anticoagulation. Patient in agreement to proceed with cardioversion this morning with Anesthesiology assistance. Greatly appreciate their willingness to facilitate. No indication for GENTRY as he has not missed a single dose of anticoagulation for >4 weeks. -risks, benefits, alternatives explained including but not limited to hypotension, failed cardioversion, bradycardia, respiratory distress/compromise and or . He agrees to proceed with elective cardioversion. Further recommendations to follow. -CT head without acute intracranial process, no bleed. -Recommend outpatient electrophysiology evaluation for rhythm management. If not able to be safely cardioverted transfer to outside facility for EP consultation and ablation options may be necessary. -Telemetry (2) Hypotension: Code(s): I95.9 - Hypotension, unspecified Status: Acute Assessment and Plan: As above, intermittent relative hypotension has limited medical therapy and uptitration. Entresto remains on hold as a result. Did not tolerate increase in amiodarone or bolus due to hypotension. (3) Cardiomyopathy: Code(s): I42.9 - Cardiomyopathy, unspecified Status: Acute Assessment and Plan: History of moderate LV dysfunction presumed nonischemic. Supportive medical therapy as tolerated. (4) CHF (congestive heart failure): Code(s): I50.9 - Heart failure, unspecified Status: Acute Assessment and Plan: Reasonably compensated at this time despite persistent atrial flutter. Monitor volume status very closely. (5) Falls frequently: Code(s): R29.6 - Repeated falls Status: Acute Assessment and Plan: PT OT evaluation. Candidacy for chronic anticoagulation to be determined. Subjective Date/time seen: Date of service: 12/13/20 08:38 Follow-up for atrial flutter with rapid ventricular response Patient feels okay this a.m.. Denies dizziness or lightheadedness. Palpitations persist. Patient is worried about his blood pressure going low once again. Feels fatigued no chest pain. No fevers or chills. NPO for anticipated cardioversion. Review of Systems Review of Systems: All systems reviewed & are unremarkable except as noted in HPI and below Constitutional: Constitutional: Reports as per HPI, Reports no additional constitutional complaints and Reports fatigue Eyes: Eyes: Reports as per HPI and Reports no additional eye complaints ENT: Reports system reviewed and no additional complaints, except as documented and Reports as per HPI Cardiovascular: Cardiovascular: Reports as per HPI, Reports no additional cardiovascular complaints, Denies chest pain, Denies diaphoresis, Denies pedal edema, Denies leg edema, Denies lightheadedness, Reports palpitations, Denies dyspnea and Reports dyspnea on exertion Respiratory:
[2020-12-13] MEDS: FLUDROCORTISONE ACETATE 0.1 MG TABLET PO (08:44)
[2020-12-13] MEDS: APIXABAN 5 MG TABLET PO ×2 (08:44→20:37)
[2020-12-13] MEDS: ASPIRIN 81 MG CHEWABLE TABLET PO (08:44)
[2020-12-13] MEDS: TERBINAFINE HCL 250 MG TABLET PO (08:45)
--- NOTE | 2020-12-13 10:39 | PM.IMPN ---
Progress Note: A&P Assessment and Plan (1) Atrial flutter with rapid ventricular response: Code(s): I48.92 - Unspecified atrial flutter Status: Acute Assessment and Plan: Patient has recurrent atrial fibrillation/flutter, and history of DC cardioversion most recently on 08/02/2020. He recalls being treated with ablation. Currently patient is hypotensive. He is scheduled for DC cardioversion as his management has been challenging due to persistent hypotension. He has decreased left ventricular function with EF reported 35-40% on his echocardiogram from 06/08/2019. Patient was started on amiodarone drip on 12/11/2020. We will continue low-dose metoprolol tartrate 12.5 mg with holding parameters. Given hypotension, entresto ( sacubitril/valsartan) is on hold. Patient has been on chronic anticoagulation with apixaban that we have continued. However, he has a recent history of recurrent falls and has complaints of generalized weakness. Continue daily PT OT. Per cardiology, his candidacy for chronic anticoagulation will need to be readdressed after PT OT evaluation. Recommend outpatient electrophysiology evaluation for rhythm management. Continue to monitor on telemetry (2) Elevated brain natriuretic peptide (BNP) level: Code(s): R79.89 - Other specified abnormal findings of blood chemistry Status: Acute Assessment and Plan: Patient does not appear to be fluid overloaded. He is hypotensive with elevated BUN creatinine. Creatinine is now recovering back to baseline. Clinical monitoring (3) GERD (gastroesophageal reflux disease): Qualifiers: Esophagitis presence: esophagitis presence not specified Qualified Code(s): K21.9 - Gastro-esophageal reflux disease without esophagitis Code(s): K21.9 - Gastro-esophageal reflux disease without esophagitis Status: Chronic Assessment and Plan: Continue PPI (4) Falls frequently: Code(s): R29.6 - Repeated falls Status: Acute Assessment and Plan: PT OT evaluation adn treatment. Maintain fall precautions. (5) Hypotension: Code(s): I95.9 - Hypotension, unspecified Status: Acute Assessment and Plan: Persitent hypotension. currently on amiodarone drip. Scheduled for DC cardioversion. . (6) Acute kidney injury: Code(s): N17.9 - Acute kidney failure, unspecified Status: Acute Assessment and Plan: Recovering acute kidney injury. DUTCH was likely prerenal versus ATN in the setting of hypotension, afib with RVR, heart failure. FENa 0.1%. Bladder scan to rule out obstruction. Avoid nephrotoxins. Renally dose medications. Daily in and out. Monitor for fluid overload. Subjective Date/time seen: 12/13/20 10:39 Review of Systems Constitutional: Constitutional: Denies chills, Denies fatigue, Denies fever(s) and Reports weakness Eyes: Eyes: Denies change in vision ENT: Denies dysphagia, Denies vertigo, Denies dizziness, Denies nasal congestion, Denies nasal discharge, Denies nasal obstruction and Denies odynophagia Cardiovascular: Cardiovascular: Denies chest pain at rest, Denies irregular heart rhythm, Denies claudication, Reports lightheadedness, Denies radiating jaw, neck or arm pain, Denies palpitations, Denies dyspnea, Denies dyspnea on exertion and Denies orthopnea Respiratory: Respiratory: Denies cough, Denies dyspnea and Denies dyspnea on exertion Gastrointestinal: Gastrointestinal: Denies abdominal pain, Denies dysphagia, Reports diarrhea, Denies nausea, Denies odynophagia and Denies vomiting Genitourinary: Genitourinary: Reports no additional male genitourinary complaints Musculoskeletal: Musculoskeletal: Reports no additional musculoskeletal complaints Integumentary/Breasts: Skin/Breast: Reports system reviewed and no additional complaints, except as docu Neurologic: Reports system reviewed and no additional complaints, except as documented, Denies vertigo, Denies dizziness and Repo
--- NOTE | 2020-12-13 10:55 | WPDANESEPPF ---
Anes - Initial Pre Proc Eval Procedure: Operation Date: 12/13/20 10:00 Proposed Procedures p Electrical Cardioversion - Vj John MD Operation Date: 12/13/20 10:00 Proposed Procedures p Electrical Cardioversion - Vj John MD Date/Time: 12/13/20 10:55 Surgeon: Chel Santana MD Pre Op Diagnosis: A Fib RVR,Elevated Troponin Patient Data Age: 80 Gender: M Height: 1.88 m Weight: 90 kg Last Vital Signs Temp 99.7 F H 12/13/20 08:00 Pulse 138 H 12/13/20 08:00 Resp 20 12/13/20 08:00 BP 99/76 L 12/13/20 08:00 Pulse Ox 98 12/13/20 08:00 Allergies Allergy/AdvReac Type Severity Reaction Status Date / Time celecoxib Allergy Mild Hives Verified 12/11/20 03:00 valdecoxib Allergy Mild Hives Verified 12/11/20 03:00 Barbiturates Allergy Unknown Hives Verified 12/11/20 03:00 Home Medications Medication Instructions Recorded Confirmed Type omeprazole 20 mg PO HS 06/08/19 12/11/20 History furosemide 40 mg PO DAILY #30 tablet 04/09/20 12/11/20 Rx lorazepam 2 mg PO Q8H PRN #20 tablet 04/09/20 12/11/20 Rx apixaban [Eliquis] 5 mg PO BID #60 tablet 08/06/20 12/11/20 Rx aspirin [Children's Aspirin] 81 mg PO DAILY@0800 #30 tablet 08/06/20 12/11/20 Rx carvedilol 3.125 mg PO BID 10/17/20 12/11/20 History metoprolol tartrate 25 mg PO Q12H 10/17/20 12/11/20 History fludrocortisone 0.1 mg PO DAILY 12/11/20 12/11/20 History melatonin 10 mg PO HS PRN 12/11/20 12/11/20 History prednisone See Rx Instructions .ROUTE .COMPLEX 12/11/20 12/11/20 History sacubitril-valsartan [Entresto] 1 tablet PO Q12H 12/11/20 12/11/20 History terbinafine HCl 250 mg PO DAILY 12/11/20 12/11/20 History Laboratory Tests 12/12/20 12/13/20 14:43 05:18 WBC 9.1 K/mm3 K/mm3 (4.5-10.0) RBC 4.08 M/mm3 L M/mm3 (4.6-6.20) Hgb 11.4 g/dL L g/dL (14.0-18.0) Hct 34.9 % L % (42.0-52.0) MCV 85.5 fl fl (80-100) MCH 27.9 pg pg (26-34) MCHC 32.7 g/dl g/dl (32-36) RDW 20.3 % H % (11.5-14.5) Plt Count 205 k/mm3 k/mm3 (150-375) MPV 10.6 fl H fl (7.4-10.4) Urine Color Yellow (Yellow) Urine Appearance Clear (Clear) Urine pH 6.0 (5.0-9.0) Ur Specific [place] 1.018 (1.001-1.035) Urine Protein 1+ mg/dL H mg/dL (Negative) Urine Glucose (UA) Negative mg/dL mg/dL (Negative) Urine Ketones Negative mg/dL mg/dL (Negative) Ur Blood (Man) Negative (Negative) Urine Nitrate Negative (Negative) Urine Bilirubin Negative (Negative) Urine Urobilinogen Negative mg/dL mg/dL (<2.0) Leukocyte Esterase Rfl Negative DAYANA/UL DAYANA/UL (Negative) Urine RBC 0-2 /hpf /hpf (0-2) Urine WBC 0-3 /hpf /hpf Urine Mucus Rare /lpf /lpf Patient hx anesthesia problems: none Family hx anesthesia problems: none Results Review: All pre-operative results and documents have been reviewed as part of the pre-operative evaluation. [facility] Past Medical History Medical History A-fib Anxiety Arm fracture Arthritis Cardiomyopathy DDD (degenerative disc disease) Depression Dilation of esophagus x3 Gallbladder disease GERD (gastroesophageal reflux disease) GI bleed Glaucoma Headache Mitral valve prolapse Parkinson disease Paroxysmal atrial fibrillation Paroxysmal atrial flutter Previous known suicide attempt 07/03/09 Rectal polyp Silverio-Checo syndrome Ulcer Surgical History Surgical History H/O cardiac radiofrequency ablation History of esophagogastroduodenoscopy (EGD) History of rectal polypectomy Hx of appendectomy Hx of cholecystectomy Hx of fusion of cervical spine x2 Status post laparoscopic Austen fundoplication Family History Family History Father Colon cancer Mother Mental dis
--- NOTE | 2020-12-13 11:15 | ECG_ITS ---
Measurements Intervals [place] Rate: 82 P: -14 [place]: 208 QRS: 19 QRSD: 101 T: 92 QT: 410 QTc: 480 Interpretive Statements SINUS RHYTHM WITH FIRST DEGREE AV BLOCK T WAVE ABNORMALITY IN ANTERIOR LEADS- CONSIDER ISCHEMIA BASELINE WANDER- V1 ABNORMAL ECG Electronically Signed On 12-14-2020 6:43:10 CDT by Josue Colvin D.O.
--- NOTE | 2020-12-13 13:33 | WPDCARDVER ---
Cardioversion Cardioversion Date of procedure: 12/13/20 Procedure: Elective electrical cardioversion Pre-op diagnosis: atrial flutter with rapid ventricular response Post-op diagnosis: same Indications: atrial flutter with rapid ventricular response Description of procedure: Brief history present illness: Patient is a pleasant 80-year-old male with a history of cardiomyopathy, persistent, recurrent atrial flutter with rapid ventricular response refractory to medications including amiodarone with intermittent hypotension limiting effective uptitration of medical therapy referred for elective electrical cardioversion in attempt to restore sinus rhythm. Patient was adamant he had not missed a single dose of his systemic anticoagulation for at least 4 weeks. Procedure in detail: After verbal and written informed consent was obtained the patient risks, benefits, and alternatives explained in detail the patient agreed to proceed with the plan of care as outlined above. Patient was evaluated at bedside in the Endoscopy procedure room. On examination, neck was supple with normal range of motion, no restrictions to opening of the oral cavity, jaw angle and posterior hypopharynx was clear. Lungs were clear to auscultation. Patient was placed at a 30 to 45 degree angle in a supine position. Patient was monitored throughout the study with telemetry, oxygen saturation, end-tidal CO2 monitoring, blood pressure, heart rate, and respirations and managed by Anesthesiology.. Anterior and posterior defibrillator pads placed in the appropriate positions. After confirmation of adequate sedation electrical cardioversion was carried out without complication. Patient tolerated the procedure well without difficulty. Sedation: Moderate Sedation/Anesthesia administration: Patient denied previous intolerance or complications with anesthesia/sedation. Anesthesia managed and delivered by Anesthesiology. Please see Anesthesiology documentation for details and protocols. I was present for the entirety of this procedure. Findings: Elective electrical cardioversion: After confirmation of adequate sedation and persistence of atrial flutter with rapid ventricular response, 200 joules synched biphasic energy x1 was delivered with immediate rastafari of sinus rhythm. Twelve lead EKG was obtained postprocedure confirming sinus rhythm. Complications: None Conclusion: successful rastafari of sinus rhythm after 200 joule synched biphasic energy x1 Transition to po Amiodarone. Continue systemic anticoagulation without interruption unless otherwise advised particularly for the next 30 days post cardioversion.
[2020-12-13] MEDS: AMIODARONE HCL 200 MG TABLET 400 MG PO ×2 (15:01→20:35)
--- NOTE | 2020-12-13 15:30 | PC.NURSE ---
On 12/13/20, the student, [Paco Hirsch ], provided care and completed [facility] documentation on this patient. I have reviewed the student's documentation and agree with the findings.
[2020-12-13] MEDS: PANTOPRAZOLE 40 MG TABLET PO (20:34)
[2020-12-14] VITALS (18 sets, daily range): BP systolic 91–124; BP diastolic 57–84; PULSE 96–122; RESP 16–22; TEMP 36.1–37.3; O2SAT 90–100
--- NOTE | 2020-12-14 00:02 | ECG_ITS ---
Measurements Intervals [place] Rate: 112 P: [place]: 0 QRS: 3 QRSD: 105 T: 93 QT: 356 QTc: 486 Interpretive Statements ATRIAL FIBRILLATION WITH RAPID VENTRICULAR RESPONSE LOW QRS VOLTAGE IN LIMB LEADS BORDERLINE ST-T WAVE ABNORMALITY- LAT/HIGH LAT LEADS ABNORMAL ECG Electronically Signed On 12-14-2020 6:42:37 CDT by Josue Colvin D.O.
[2020-12-14] MEDS: LORazepam (*CRX) 1 MG TABLET PO (03:43)
[2020-12-14 05:10] LABS: Hematocrit 33.4 % (42.0-52.0); Hemoglobin 11.1 g/dL (14.0-18.0); Mean Corpuscular HGB Conc 33.2 g/dl (32-36); Mean Corpuscular Hemoglobin 28.8 pg (26-34); Mean Corpuscular Volume 86.5 fl (80-100); Mean Platelet Volume 11.4 fl (7.4-10.4); Platelet Count Result 184 k/mm3 (150-375); Red Blood Count 3.86 M/mm3 (4.6-6.20); White Blood Count 7.2 K/mm3 (4.5-10.0)
[2020-12-14 05:17] LABS: Anion Gap 4 mmol/L (8-16); Blood Urea Nitrogen 26 mg/dL (9-20); Calcium 8.1 mg/dL (8.4-10.2); Carbon Dioxide 25 mmol/L (22-30); Chloride 98 mmol/L (98-107); Estimated CRCL calculation 48 ml/min; Estimated Glomerular Filt Rate 53; Glucose 111 mg/dL (65-110); Potassium 3.9 mmol/L (3.4-5.0); Sodium 127 mmol/L (137-145)
[2020-12-14] MEDS: TERBINAFINE HCL 250 MG TABLET PO (09:43)
[2020-12-14] MEDS: APIXABAN 5 MG TABLET PO ×2 (09:43→21:00)
[2020-12-14] MEDS: FLUDROCORTISONE ACETATE 0.1 MG TABLET PO (09:44)
[2020-12-14] MEDS: ASPIRIN 81 MG CHEWABLE TABLET PO (09:44)
[2020-12-14] MEDS: METOPROLOL TARTRATE 25 MG TABLET PO (09:44)
[2020-12-14] MEDS: AMIODARONE HCL 200 MG TABLET 400 MG PO (09:44)
--- NOTE | 2020-12-14 10:25 | PM.IMPN ---
Progress Note: A&P Assessment and Plan (1) Atrial flutter with rapid ventricular response: Code(s): I48.92 - Unspecified atrial flutter Status: Acute Assessment and Plan: Patient underwent successful DC cardioversion. Patient in normal sinus rythm. BP has improved. Recommend outpatient electrophysiology evaluation for rhythm management. Continue to monitor on telemetry (2) Elevated brain natriuretic peptide (BNP) level: Code(s): R79.89 - Other specified abnormal findings of blood chemistry Status: Acute Assessment and Plan: Patient does not appear to be fluid overloaded. He was hypotensive with elevated BUN creatinine. BUN/Creatinine are now recovering back to baseline. Clinical monitoring (3) GERD (gastroesophageal reflux disease): Qualifiers: Esophagitis presence: esophagitis presence not specified Qualified Code(s): K21.9 - Gastro-esophageal reflux disease without esophagitis Code(s): K21.9 - Gastro-esophageal reflux disease without esophagitis Status: Chronic Assessment and Plan: Continue PPI (4) Falls frequently: Code(s): R29.6 - Repeated falls Status: Acute Assessment and Plan: PT OT evaluation and treatment. Maintain fall precautions. (5) Hypotension: Code(s): I95.9 - Hypotension, unspecified Status: Acute Assessment and Plan: Resolved. Resume entresto when cleared by cardiology. (6) Acute kidney injury: Code(s): N17.9 - Acute kidney failure, unspecified Status: Acute Assessment and Plan: Recovering acute kidney injury. DUTCH was likely prerenal versus ATN in the setting of hypotension, afib with RVR, heart failure. FENa 0.1%. Bladder scan to rule out obstruction. Avoid nephrotoxins. Renally dose medications. Daily in and out. Monitor for fluid overload. (7) Hyponatremia: Code(s): E87.1 - Hypo-osmolality and hyponatremia Status: Acute Assessment and Plan: Likely multifactorial in the setting of hypotension, and due to appropriate ADH release. Likely to improve with free water diuresis as BP has improve, removing the stimulus for ADH release. Subjective Date/time seen: 12/14/20 08:25 S: Patient is sleepy and comfortable. No distress. Review of Systems Constitutional: Constitutional: Denies chills, Denies fatigue, Denies fever(s) and Reports weakness Eyes: Eyes: Denies change in vision ENT: Denies dysphagia, Denies vertigo, Denies dizziness, Denies nasal congestion, Denies nasal discharge, Denies nasal obstruction and Denies odynophagia Cardiovascular: Cardiovascular: Denies chest pain at rest, Denies irregular heart rhythm, Denies claudication, Reports lightheadedness, Denies radiating jaw, neck or arm pain, Denies palpitations, Denies dyspnea, Denies dyspnea on exertion and Denies orthopnea Respiratory: Respiratory: Denies cough, Denies dyspnea and Denies dyspnea on exertion Gastrointestinal: Gastrointestinal: Denies abdominal pain, Denies dysphagia, Reports diarrhea, Denies nausea, Denies odynophagia and Denies vomiting Genitourinary: Genitourinary: Reports no additional male genitourinary complaints Musculoskeletal: Musculoskeletal: Reports no additional musculoskeletal complaints Integumentary/Breasts: Skin/Breast: Reports system reviewed and no additional complaints, except as docu Neurologic: Reports system reviewed and no additional complaints, except as documented, Denies vertigo, Denies dizziness and Reports weakness Psychiatric: Psychiatric: Reports no additional psychiatric complaints Endocrine: Endocrine: Reports no additional endocrine complaints, Denies fatigue and Denies palpitations Hematologic/Lymphatic: Hematologic/Lymphatic: Reports no additional hematologic/lymphatic complaints Allergic/Immunologic: Allergic/Immunologic: Reports no additional allergic/immunologic complaints Exam Narrative: Laying in bed. Const: General: comfortable, no acu
--- NOTE | 2020-12-14 11:30 | PCPTNOTE ---
On 12/14/20, the student, Tj WOLFE, provided care and completed [facility] documentation on this patient. I have reviewed the student's documentation and agree with the findings.
--- NOTE | 2020-12-14 13:18 | PM.PNCARD ---
Progress Note: A&P Additional Plan Today I am going to reduce his amiodarone to 400 mg daily. I will switch his beta-morro to Toprol-XL 50 mg per day. I also will resume his Entresto which has been on hold since admission. Systemic anticoagulation will be continued for now. We will coordinate a after discharge an appointment with his hybrid car mechanic again at [place] to render an opinion as to whether anything else can be done for his arrhythmias or should we simply except chronic AF and provide rate control. Rico Galarza MD [facility] Subjective Date/time seen: Date of service: 12/14/20 13:18 Interval history: Follow-up visit in this 80-year-old man with: Long history of atrial arrhythmias and LV systolic dysfunction. The patient has had a number of cardioversions as well as 3 ablation procedures I believe 2 for AFib in 1 for a flutter at [place] in the previous treatment of this. This admission he was back in atrial flutter with RVR. He has been loaded with amiodarone and yesterday converted to sinus rhythm electrically for the 3rd or 4th time by Dr. John. At about 11:00 p.m. last night he converted back to a flutter. Some of the telemetry strips look like AFib but the 12 lead ECG is more consistent with atrial flutter. Heart rate is about 100-110 any appears to be asymptomatic with this and hemodynamically stable. Long discussion with the patient in the room today about the potential if not likelihood that he will simply be in chronic atrial fib/flutter given all the effort that is been expended. It would probably be a good idea to get an opinion from his hybrid car mechanic as to whether he can or should undergo another ablation procedure. There is nothing else we can do about this arrhythmia here at [facility]. Exam Narrative: PHYSICAL EXAMINATION: GENERAL: Alert, oriented, no acute distress, minor abrasions over forehead and scrapes on forearms. MENTAL STATUS: affect appropriate to mood EYES: Extraocular movements intact, no pallor EARS: External ears appear normal, hearing grossly normal NOSE: Normal and patent, no discharge MOUTH: Mucous membranes moist, poor dentition NECK: Supple, no JVD CHEST: Good respiratory effort, clear to auscultation HEART: Tachycardic, regularly irregular rhythm ABDOMEN: Soft, nontender NEUROLOGICAL: Alert, oriented, normal speech, no gross motor deficits MUSCULOSKELETAL: No major deformity, no amputation EXTREMITIES: No pedal edema, no clubbing, no cyanosis SKIN: no rash on the exposed area, bruising right side of the front head PSYCHIATRIC: Normal mood, appropriate affect at present Objective Data Vital Signs Vital Signs: Vital Signs - 24 hr 12/13/20 13:51 12/13/20 14:00 12/13/20 15:01 Temperature 36.9 C Pulse Rate 84 86 89 Pulse Rate [At Rest After Therapy Session] Pulse Rate [At Rest Prior to Therapy Session] Pulse Rate [With Activity During Therapy Session] Respiratory Rate 20 Blood Pressure 95/65 L Pulse Oximetry 100 12/13/20 16:00 12/13/20 16:01 12/13/20 18:00 Temperature 36.2 C L Pulse Rate 90 99 91 Pulse Rate [At Rest After Therapy Session] Pulse Rate [At Rest Prior to Therapy Session] Pulse Rate [With Activity During Therapy Session] Respiratory Rate 20 Blood Pressure 96/65 L Pulse Oximetry 100 92 12/13/20 19:42 12/13/20 20:00 12/13/20 20:35 Temperature 36.5 C Pulse Rate 91 90 91 Pulse Rate [At Rest After Therapy Session] Pulse Rate [At Rest Prior to Therapy Session] Pulse Rate [With Activity During Therapy Session] Respiratory Rate 18 Blood Pressure 103/85 Pulse Oximetry 90 100 12/13/20 20:37 12/13/20 22:00 12/13/20 23:46 Temperature 36.9 C Pulse Rate 91 84 111 H Pulse Rate [At Rest After Therapy Session] Pulse Rate [At Rest Prior to Therapy Session] Pulse Rate [With Activity During Therapy Session] Respiratory Rate 18 Blood Pressure 95/71 L Pulse Oximetr
--- NOTE | 2020-12-14 13:48 | WPDANESPN ---
Anes - Prog Note Post-Op Date/Time: 12/14/20 13:48 Cardiovascular status: normal Respiratory status: normal Airway patency: baseline Mental status: baseline Post-Op hydration status: normal Vital Signs: Last Vital Signs Temp 36.2 C L 12/14/20 08:00 Pulse 119 H 12/14/20 10:37 Resp 20 12/14/20 08:00 BP 116/84 12/14/20 08:00 Pulse Ox 90 12/14/20 08:00 Pain Score (VAS): no coplaints I/O: Intake & Output 12/13/20 12/14/20 12/14/20 23:59 07:59 15:59 Intake Total 134 500 240 Output Total 300 300 200 Balance -166 200 40 Laboratory Tests 12/14/20 04:43 12/14/20 04:43 12/14/20 12/14/20 04:43 04:43 WBC 7.2 RBC 3.86 L Hgb 11.1 L Hct 33.4 L MCV 86.5 MCH 28.8 MCHC 33.2 RDW 20.0 H Plt Count 184 MPV 11.4 H Sodium 127 L Potassium 3.9 Chloride 98 Carbon Dioxide 25 Anion Gap 4 L BUN 26 H Creatinine 1.30 Estim Creat Clear Calc 48 Estimated GFR 53 L Glucose 111 H Calcium 8.1 L Post-procedural complaints: none Patient Feedback: Patient satisfied with anesthetic care.
[2020-12-14] MEDS: PANTOPRAZOLE 40 MG TABLET PO (21:00)
[2020-12-14] MEDS: SACUBITRIL/VALSARTAN 24-26 MG TABLET 1 TAB PO (21:45)
[2020-12-15] VITALS (21 sets, daily range): BP systolic 87–115; BP diastolic 57–90; PULSE 94–119; RESP 16–22; TEMP 35.6–36.5; O2SAT 97–100
[2020-12-15] MEDS: LORazepam (*CRX) 1 MG TABLET PO (01:25)
[2020-12-15] MEDS: MELATONIN 5 MG TABLET 10 MG PO (01:26)
[2020-12-15 06:17] LABS: Hematocrit 36.2 % (42.0-52.0); Mean Corpuscular HGB Conc 33.1 g/dl (32-36); Mean Corpuscular Hemoglobin 28.8 pg (26-34); Mean Platelet Volume 11.3 fl (7.4-10.4); Platelet Count Result 202 k/mm3 (150-375); Red Blood Count 4.16 M/mm3 (4.6-6.20); Red Cell Distribution Width 20.3 % (11.5-14.5); White Blood Count 8.9 K/mm3 (4.5-10.0)
[2020-12-15 06:30] LABS: Anion Gap 5 mmol/L (8-16); Blood Urea Nitrogen 35 mg/dL (9-20); Calcium 8.5 mg/dL (8.4-10.2); Carbon Dioxide 29 mmol/L (22-30); Chloride 97 mmol/L (98-107); Estimated CRCL calculation 45 ml/min; Estimated Glomerular Filt Rate 49; Glucose 89 mg/dL (65-110); Potassium 4.2 mmol/L (3.4-5.0); Sodium 131 mmol/L (137-145)
--- NOTE | 2020-12-15 07:47 | PM.IMPN ---
Progress Note: A&P Assessment and Plan (1) Atrial flutter with rapid ventricular response: Code(s): I48.92 - Unspecified atrial flutter Status: Acute Assessment and Plan: Patient underwent successful DC cardioversion, was in sinus rytm. On 12/13/2020 around 11PM patient reconverted to atrial flutter. Recommend outpatient electrophysiology evaluation for rhythm management. Continue to monitor on telemetry. Rate controlled on metoprolol and amiodarone. (2) Elevated brain natriuretic peptide (BNP) level: Code(s): R79.89 - Other specified abnormal findings of blood chemistry Status: Acute Assessment and Plan: Patient does not appear to be fluid overloaded. Clinical monitoring (3) GERD (gastroesophageal reflux disease): Qualifiers: Esophagitis presence: esophagitis presence not specified Qualified Code(s): K21.9 - Gastro-esophageal reflux disease without esophagitis Code(s): K21.9 - Gastro-esophageal reflux disease without esophagitis Status: Chronic Assessment and Plan: Continue PPI (4) Falls frequently: Code(s): R29.6 - Repeated falls Status: Acute Assessment and Plan: PT OT evaluation and treatment. Maintain fall precautions. (5) Hypotension: Code(s): I95.9 - Hypotension, unspecified Status: Acute Assessment and Plan: Resolved. Entresto was resumed. (6) Acute kidney injury: Code(s): N17.9 - Acute kidney failure, unspecified Status: Acute Assessment and Plan: Recovered acute kidney injury. DUTCH was likely prerenal versus ATN in the setting of hypotension, afib with RVR, heart failure. FENa 0.1%. Bladder scan to rule out obstruction. Avoid nephrotoxins. Renally dose medications. Daily in and out. Monitor for fluid overload. Mild increase of creatinine coincides with reintroduction of entresto and is to be expected. (7) Hyponatremia: Code(s): E87.1 - Hypo-osmolality and hyponatremia Status: Acute Assessment and Plan: Likely multifactorial in the setting of hypotension, and due to appropriate ADH release. Likely to improve with free water diuresis as BP has improve, removing the stimulus for ADH release. Subjective Date/time seen: 12/15/20 07:47 Interval history: Follow-up visit in this 80-year-old man with: Patient has converted to atrial flutter at 11:00 p.m. on 12/13/2020. He remains rate controlled in the 100-110 bpm range and asymptomatic. Entresto was restarted with expected increase in creatinine. This does not represent acute kidney injury but decreased intraglomerular pressure which is favorable to the kidney chcf. S: Patient is sittingin chair comfortably eating his breakfast. Review of Systems Constitutional: Constitutional: Denies chills, Denies fatigue, Denies fever(s) and Reports weakness Eyes: Eyes: Denies change in vision ENT: Denies dysphagia, Denies vertigo, Denies dizziness, Denies nasal congestion, Denies nasal discharge, Denies nasal obstruction and Denies odynophagia Cardiovascular: Cardiovascular: Denies chest pain at rest, Denies irregular heart rhythm, Denies claudication, Reports lightheadedness, Denies radiating jaw, neck or arm pain, Denies palpitations, Denies dyspnea, Denies dyspnea on exertion and Denies orthopnea Respiratory: Respiratory: Denies cough, Denies dyspnea and Denies dyspnea on exertion Gastrointestinal: Gastrointestinal: Denies abdominal pain, Denies dysphagia, Reports diarrhea, Denies nausea, Denies odynophagia and Denies vomiting Genitourinary: Genitourinary: Reports no additional male genitourinary complaints Musculoskeletal: Musculoskeletal: Reports no additional musculoskeletal complaints Integumentary/Breasts: Skin/Breast: Reports system reviewed and no additional complaints, except as docu Neurologic: Reports system reviewed and no additional complaints, except as documented, Denies vertigo, Denies dizziness and Reports weak
[2020-12-15] MEDS: FLUDROCORTISONE ACETATE 0.1 MG TABLET PO (09:41)
[2020-12-15] MEDS: METOPROLOL SUCCINATE EXT REL 50 MG TABCR PO (09:41)
[2020-12-15] MEDS: AMIODARONE HCL 200 MG TABLET 400 MG PO (09:41)
[2020-12-15] MEDS: APIXABAN 5 MG TABLET PO ×2 (09:41→20:17)
[2020-12-15] MEDS: TERBINAFINE HCL 250 MG TABLET PO (09:41)
[2020-12-15] MEDS: ASPIRIN 81 MG CHEWABLE TABLET PO (09:42)
[2020-12-15] MEDS: SACUBITRIL/VALSARTAN 24-26 MG TABLET 1 TAB PO ×2 (10:12→20:58)
--- NOTE | 2020-12-15 11:31 | PM.PNCARD ---
Progress Note: A&P Assessment and Plan (1) Atrial flutter with rapid ventricular response: Code(s): I48.92 - Unspecified atrial flutter Status: Acute Assessment and Plan: 80-year-old male with paroxysmal versus persistent atrial fibrillation and flutter (status post DC cardioversion on 05/16/2020 and 08/02/2020), CHF with reduced ejection fraction ?nonischemic ( LVEF 35-40% from 06/08/2019 echo); history of ? arrhythmia ablation about 10 years ago, CKD, depression and suicidal attempt recently. Patient presented to the hospital with generalized weakness, frequent falls. He was found to be in atrial flutter with RVR, and has been on IV diltiazem without significant improvement in the heart rates. Likely needs an AV naif ablation with pacemaker implantation (2) Hypotension: Code(s): I95.9 - Hypotension, unspecified Status: Acute Assessment and Plan: As above, intermittent relative hypotension has limited medical therapy and uptitration. Tolerating med (3) Cardiomyopathy: Code(s): I42.9 - Cardiomyopathy, unspecified Status: Acute Assessment and Plan: History of moderate LV dysfunction presumed nonischemic. Supportive medical therapy as tolerated. (4) CHF (congestive heart failure): Code(s): I50.9 - Heart failure, unspecified Status: Acute Assessment and Plan: Reasonably compensated at this time despite persistent atrial flutter. Monitor volume status very closely. Furosemide 40 mg p.o. daily to be started (5) Falls frequently: Code(s): R29.6 - Repeated falls Status: Acute Assessment and Plan: PT OT evaluation. On Yoon Subjective Date/time seen: 12/15/20 11:31 Interval history: Follow-up visit in this 80-year-old man with: Long history of atrial arrhythmias and LV systolic dysfunction. The patient has had a number of cardioversions as well as 3 ablation procedures I believe 2 for AFib in 1 for a flutter at [place] in the previous treatment of this. This admission he was back in atrial flutter with RVR. He has been loaded with amiodarone and yesterday converted to sinus rhythm electrically for the 3rd or 4th time by Dr. John. Date of service 12/15/2020: Remains in atrial fibrillation. But feels better. No chest pain, shortness of breath. Review of Systems Review of Systems: All systems reviewed & are unremarkable except as noted in HPI and below Constitutional: Constitutional: Reports as per HPI, Reports no additional constitutional complaints and Reports fatigue Eyes: Eyes: Reports as per HPI and Reports no additional eye complaints ENT: Reports system reviewed and no additional complaints, except as documented and Reports as per HPI Cardiovascular: Cardiovascular: Reports as per HPI, Reports no additional cardiovascular complaints, Denies chest pain, Denies diaphoresis, Denies pedal edema, Denies leg edema, Denies lightheadedness, Reports palpitations, Denies dyspnea and Reports dyspnea on exertion Respiratory: Respiratory: Reports as per HPI, Reports no additional respiratory complaints, Denies hemoptysis, Denies dyspnea and Reports dyspnea on exertion Gastrointestinal: Gastrointestinal: Reports as per HPI, Reports no additional gastrointestinal complaints and Reports melena Genitourinary: Genitourinary: Reports no additional male genitourinary complaints and Reports as per HPI Musculoskeletal: Musculoskeletal: Reports no additional musculoskeletal complaints and Reports as per HPI Integumentary/Breasts: Skin/Breast: Reports system reviewed and no additional complaints, except as docu, Reports as per HPI, Reports unusual bruising and Reports wounds Neurologic: Reports system reviewed and no additional complaints, except as documented and Reports as per HPI Psychiatric: Psychiatric: Reports no additional psychiatric complaints and Reports as per HPI Endocrine: Endocrine: Reports no additional endocrine comp
[2020-12-15] MEDS: FUROSEMIDE 40 MG TABLET PO (12:21)
[2020-12-15] MEDS: PANTOPRAZOLE 40 MG TABLET PO (20:17)
[2020-12-15] MEDS: ARTIFICIAL TEARS OPHTH SOLN 15 ML BOTTLE 1 DROP EACH EYE (21:31)
[2020-12-16] VITALS (8 sets, daily range): BP systolic 100–123; BP diastolic 65–79; PULSE 90–115; RESP 16–20; TEMP 36–36.5; O2SAT 97–98
[2020-12-16] MEDS: MELATONIN 5 MG TABLET 10 MG PO (01:16)
[2020-12-16] MEDS: LORazepam (*CRX) 1 MG TABLET PO (01:16)
[2020-12-16 04:32] LABS: Hematocrit 35.8 % (42.0-52.0); Hemoglobin 12.3 g/dL (14.0-18.0); Mean Corpuscular HGB Conc 34.4 g/dl (32-36); Mean Corpuscular Hemoglobin 28.5 pg (26-34); Mean Corpuscular Volume 82.9 fl (80-100); Mean Platelet Volume 10.6 fl (7.4-10.4); Platelet Count Result 238 k/mm3 (150-375); Red Blood Count 4.32 M/mm3 (4.6-6.20); Red Cell Distribution Width 19.4 % (11.5-14.5)
[2020-12-16 04:42] LABS: Anion Gap 7 mmol/L (8-16); Blood Urea Nitrogen 36 mg/dL (9-20); Calcium 8.5 mg/dL (8.4-10.2); Carbon Dioxide 26 mmol/L (22-30); Chloride 99 mmol/L (98-107); Estimated CRCL calculation 48 ml/min; Estimated Glomerular Filt Rate 53; Glucose 93 mg/dL (65-110); Potassium 3.9 mmol/L (3.4-5.0); Sodium 132 mmol/L (137-145)
[2020-12-16] MEDS: TERBINAFINE HCL 250 MG TABLET PO (09:02)
[2020-12-16] MEDS: SACUBITRIL/VALSARTAN 24-26 MG TABLET 1 TAB PO (09:03)
[2020-12-16] MEDS: FUROSEMIDE 40 MG TABLET PO (09:03)
[2020-12-16] MEDS: APIXABAN 5 MG TABLET PO (09:03)
[2020-12-16] MEDS: FLUDROCORTISONE ACETATE 0.1 MG TABLET PO (09:03)
[2020-12-16] MEDS: AMIODARONE HCL 200 MG TABLET 400 MG PO (09:03)
[2020-12-16] MEDS: METOPROLOL SUCCINATE EXT REL 50 MG TABCR PO (09:03)
[2020-12-16] MEDS: ASPIRIN 81 MG CHEWABLE TABLET PO (09:03)
--- NOTE | 2020-12-16 10:05 | PM.PNCARD ---
Progress Note: A&P Assessment and Plan (1) Atrial flutter with rapid ventricular response: Code(s): I48.92 - Unspecified atrial flutter Status: Acute Assessment and Plan: 80-year-old male with paroxysmal versus persistent atrial fibrillation and flutter (status post DC cardioversion on 05/16/2020 and 08/02/2020), CHF with reduced ejection fraction ?nonischemic ( LVEF 35-40% from 06/08/2019 echo); history of ? arrhythmia ablation about 10 years ago, CKD, depression and suicidal attempt recently. Patient presented to the hospital with generalized weakness, frequent falls. He was found to be in atrial flutter with RVR, and has been on IV diltiazem without significant improvement in the heart rates. Likely needs an AV naif ablation with pacemaker implantation (2) Hypotension: Code(s): I95.9 - Hypotension, unspecified Status: Acute Assessment and Plan: As above, intermittent relative hypotension has limited medical therapy and uptitration. Tolerating med (3) Cardiomyopathy: Code(s): I42.9 - Cardiomyopathy, unspecified Status: Acute Assessment and Plan: History of moderate LV dysfunction presumed nonischemic. Supportive medical therapy as tolerated. (4) CHF (congestive heart failure): Code(s): I50.9 - Heart failure, unspecified Status: Acute Assessment and Plan: Reasonably compensated at this time despite persistent atrial flutter. Monitor volume status very closely. Furosemide 40 mg p.o. daily (5) Falls frequently: Code(s): R29.6 - Repeated falls Status: Acute Assessment and Plan: PT OT evaluation. On Yoon Acevedo for discharge from my perspective Subjective Date/time seen: 12/16/20 10:05 Interval history: Follow-up visit in this 80-year-old man with: Long history of atrial arrhythmias and LV systolic dysfunction. The patient has had a number of cardioversions as well as 3 ablation procedures I believe 2 for AFib in 1 for a flutter at [place] in the previous treatment of this. This admission he was back in atrial flutter with RVR. He has been loaded with amiodarone and yesterday converted to sinus rhythm electrically for the 3rd or 4th time by Dr. John. Date of service 12/15/2020: Remains in atrial fibrillation. But feels better. No chest pain, shortness of breath. Date of service 12/16/2020: Heart rate is reasonably controlled in the low 100s. No chest pain or shortness of breath. Anxious to go home. Blood pressure is soft but stable Review of Systems Review of Systems: All systems reviewed & are unremarkable except as noted in HPI and below Constitutional: Constitutional: Reports as per HPI, Reports no additional constitutional complaints and Reports fatigue Eyes: Eyes: Reports as per HPI and Reports no additional eye complaints ENT: Reports system reviewed and no additional complaints, except as documented and Reports as per HPI Cardiovascular: Cardiovascular: Reports as per HPI, Reports no additional cardiovascular complaints, Denies chest pain, Denies diaphoresis, Denies pedal edema, Denies leg edema, Denies lightheadedness, Reports palpitations, Denies dyspnea and Reports dyspnea on exertion Respiratory: Respiratory: Reports as per HPI, Reports no additional respiratory complaints, Denies hemoptysis, Denies dyspnea and Reports dyspnea on exertion Gastrointestinal: Gastrointestinal: Reports as per HPI, Reports no additional gastrointestinal complaints and Reports melena Genitourinary: Genitourinary: Reports no additional male genitourinary complaints and Reports as per HPI Musculoskeletal: Musculoskeletal: Reports no additional musculoskeletal complaints and Reports as per HPI Integumentary/Breasts: Skin/Breast: Reports system reviewed and no additional complaints, except as docu, Reports as per HPI, Reports unusual bruising and Reports wounds Neurologic: Reports system reviewed and no additional compl
--- NOTE | 2021-01-05 20:17 | PM.DS ---
DS: Admitting Diagnosis Discharge Date 12/16/20 DS: Discharge Diagnosis Discharge Diagnosis (1) Atrial flutter with rapid ventricular response: Code(s): I48.92 - Unspecified atrial flutter Status: Acute (2) GERD (gastroesophageal reflux disease): Qualifiers: Esophagitis presence: esophagitis presence not specified Qualified Code(s): K21.9 - Gastro-esophageal reflux disease without esophagitis Code(s): K21.9 - Gastro-esophageal reflux disease without esophagitis Status: Chronic Assessment and Plan: Continue PPI (3) Acute anemia: Code(s): D64.9 - Anemia, unspecified Status: Acute (4) Acute kidney injury: Code(s): N17.9 - Acute kidney failure, unspecified Status: Acute Assessment and Plan: Recovered acute kidney injury. DUTCH was likely prerenal versus ATN in the setting of hypotension, afib with RVR, heart failure. FENa 0.1%. Bladder scan to rule out obstruction. Avoid nephrotoxins. Renally dose medications. Daily in and out. Monitor for fluid overload. Mild increase of creatinine coincides with reintroduction of entresto and is to be expected. (5) Hyponatremia: Code(s): E87.1 - Hypo-osmolality and hyponatremia Status: Acute Assessment and Plan: Likely multifactorial in the setting of hypotension, and due to appropriate ADH release. Likely to improve with free water diuresis as BP has improve, removing the stimulus for ADH release. (6) Elevated brain natriuretic peptide (BNP) level: Code(s): R79.89 - Other specified abnormal findings of blood chemistry Status: Acute Assessment and Plan: Patient does not appear to be fluid overloaded. Clinical monitoring (7) Falls frequently: Code(s): R29.6 - Repeated falls Status: Acute Assessment and Plan: PT OT evaluation and treatment. Maintain fall precautions. (8) Hypotension: Code(s): I95.9 - Hypotension, unspecified Status: Acute Assessment and Plan: Resolved. Entresto was resumed. DS: Summary Hospital Course Reason for hospitalization: Generalized weakness REcurrent dfalls Tachycardia, Hospital Course: THIS IS A 80-YEAR-OLD MALE WITH PAST MEDICAL HISTORY SIGNIFICANT FOR CONGESTIVE HEART FAILURE, A FLUTTER AFIB, ANTICOAGULATED RATE CONTROLLED, GERD. PATIENT PRESENTED TO THE EMERGENCY ROOM DUE TO GENERALIZED WEAKNESS ,LIGHTHEADEDNESS, HAS BEEN FALLING ,HOWEVER HE DENIES ANY SYNCOPE, NEAR-SYNCOPE, CHEST PAIN ,HE HAS BEEN HAVING LIQUID STOOLS AND HE ATTRIBUTES THESE TO DRINKING A PROTEIN SHAKE. HE DENIES ANY FEVERS, ANY RIGORS, ANY CHILLS, ANY COUGH, ANY SPUTUM PRODUCTION ,ANY PND OR ORTHOPNEA OR LEG SWELLING OR LOSS OF CONSCIOUSNESS. PRELIMINARY WORKUP WAS SIGNIFICANT FOR A BNP OF 11,000, HE WAS ALSO FOUND TO HAVE A HEART RATE IN THE 140S TO 150 AND HE WAS A.FIB/ FLUTTER. HE BECAME TEARFUL WHEN HE STATED THAT HIS RECENTLY AND HE HAD BEEN LIVING IN BAD CONDITIONS WITH FAMILY MEMBERS THAT HAD THE HOUSE BEEN MADE A MESS. Time Spent with Patient Time attestation: Total time spent providing and/or coordinating discharge services: Exam Narrative: Laying in bed. Const: General: comfortable, no acute distress, well developed, alert, awake and ill appearing chronically Nutritional Appearance: thin Orientation/consciousness: patient oriented x3 HENMT: Head: normal to inspection, normocephalic and atraumatic Ears: hearing grossly normal bilaterally General nose exam: Normal external nose present Face and sinus: normal facial exam Teeth and gingiva: edentulous Eyes: General: appearance normal, both eyes and all related structures Alignment and Position: alignment normal Sclera: sclerae normal Pupils: Equal, round and reactive pupils present EOM: EOMs intact bilaterally Neck: Neck: normal visual inspection, full ROM, no lymphadenopathy, supple and no JVD Thyroid: thyroid normal Lymphatic: no lymphadenopathy noted Resp
--- NOTE | 2021-01-08 13:34 | PM.DS ---
DS: Admitting Diagnosis Discharge Date 12/16/20 Admitting Diagnosis Atrial fibrillation with rapid ventricular response Hypotension Acute kidney injury. DS: Discharge Diagnosis Discharge Diagnosis (1) Atrial flutter with rapid ventricular response: Code(s): I48.92 - Unspecified atrial flutter Status: Acute (2) DUTCH (acute kidney injury): Code(s): N17.9 - Acute kidney failure, unspecified Status: Acute (3) GERD (gastroesophageal reflux disease): Qualifiers: Esophagitis presence: esophagitis presence not specified Qualified Code(s): K21.9 - Gastro-esophageal reflux disease without esophagitis Code(s): K21.9 - Gastro-esophageal reflux disease without esophagitis Status: Chronic Assessment and Plan: Continue PPI (4) Acute anemia: Code(s): D64.9 - Anemia, unspecified Status: Acute (5) Hyponatremia: Code(s): E87.1 - Hypo-osmolality and hyponatremia Status: Acute Assessment and Plan: Likely multifactorial in the setting of hypotension, and due to appropriate ADH release. Likely to improve with free water diuresis as BP has improve, removing the stimulus for ADH release. (6) Elevated brain natriuretic peptide (BNP) level: Code(s): R79.89 - Other specified abnormal findings of blood chemistry Status: Acute Assessment and Plan: Patient does not appear to be fluid overloaded. Clinical monitoring (7) Falls frequently: Code(s): R29.6 - Repeated falls Status: Acute Assessment and Plan: PT OT evaluation and treatment. Maintain fall precautions. (8) Hypotension: Code(s): I95.9 - Hypotension, unspecified Status: Acute Assessment and Plan: Resolved. Entresto was resumed. DS: Summary Hospital Course Reason for hospitalization: Lightheadedness. Hospital Course: This is a 80-year old gentleman with a past medical history including but not limited to congestive heart failure, atrial fibrillation with rapid ventricular response, atrial flutter, current rate- controlled and on chronic anticoagulation with Eliquis. The patient originally presented to the emergency room on 12/11/2019 with symptoms of generalized weakness recurring falls lightheadedness PND joint at the time of his evaluation in the emergency department he denied any syncopal episode, near syncope, chest pain. He also endorsed having liquid stool which he attributed to protein shakes. There was no nausea or vomiting. He denies any fevers chills rigors. There was no cough, sputum production, shortness of breath, orthopnea or paroxysmal nocturnal dyspnea . THere is no lower extremity edema. There is no fever, rigors, or chills. He denies any shortness of breath as difficulty breathing while lying down or paroxysmal nocturnal dyspnea. In the emergency department initial vital signs are stable with a temperature of 36?1, a respiratory rate 14-16, pressure 91/71-109/92, saturation of 99-100%. The patient's has recently and he became tearful during the initial encounter. He has been living at home with family members who were not supportive of his situation. On initial EKG, he was found to be in atrial flutter with RVR, and was started on IV diltiazem without significant improvement in the heart rates. On the day of admission, his CBC showed a WBC of 7.3, hemoglobin of 11.8, hematocrit of 35.8, and a platelet count of 234. His BMP showed a sodium of 134 potassium 4.7 chloride 96 bicarbonate 29 BUN 48 creatinine 1.7 glucose 106 calcium 8 point His troponin was normal at was less than 0.012. Liver function tests showed a total bilirubin of 1.0, AST of 42, ALT 35, alkaline phos of these 81, and albumin of 4.0. He was hypotensive on admission, this was made worse with diltiazem; due to low blood pressure and LV dysfunction, diltiazem was stopped and he was initiated on IV amiodarone. Low-dose metoprolol tartrate 12.5 mg was added with holding p
== END 2020-12-16 13:05 | disposition home health service (06) | DRG 309 ==
LOC: ANHED 23:25 → ANHIMU 12-11 03:33
PROVIDERS: Internal Medicine Cardiovascular Disease; Admitting Provider Internal Medicine; Emergency Provider Emergency Medicine; PCP Family Medicine Adolescent Medicine; Visit Provider Internal Medicine
PROC: 5A2204Z Restoration of Cardiac Rhythm, Single (ICD-10-PCS; principal; 2020-12-13 10:00)
DX: I48.92 Unspecified atrial flutter (principal); L51.1 Stevens-Johnson syndrome; N17.9 Acute kidney failure, unspecified; E87.1 Hypo-osmolality and hyponatremia; I48.20 Chronic atrial fibrillation, unspecified; I95.9 Hypotension, unspecified; I42.9 Cardiomyopathy, unspecified; I50.9 Heart failure, unspecified; K21.9 Gastro-esophageal reflux disease without esophagitis; F41.9 Anxiety disorder, unspecified; M19.90 Unspecified osteoarthritis, unspecified site; G20 Parkinson's disease; H40.9 Unspecified glaucoma; R29.6 Repeated falls; Z90.49 Acquired absence of other specified parts of digestive tract; Z98.1 Arthrodesis status; Z87.891 Personal history of nicotine dependence
CPT/HCPCS: 36415; 70450; 71045; 76775; 80048; 80053; 81001; 82570; 83605; 83690; 83735; 83880; 84133; 84300; 84484; 84540; 85025; 85027; 85610; 85730; 92960; 93005; 96361; 96365; 96366; 96367; 97110; 97116; 97161; 97165; 97535; 99285; A9270; G0378; J0282; J2001; J2704; J7030; J7050; J7512

== ENCOUNTER 2020-12-23 16:37 | Emergency (ER) | payer OTHER, SELFPAY ==
[2020-12-23] VITALS (14 sets, daily range): BP systolic 122–135; BP diastolic 72–78; PULSE 45–52; RESP 14–30; TEMP 36.9; O2SAT 97–100
--- NOTE | ~2020-12-23 | XR_ITS ---
EXAMINATION: XR chest 1V portable INDICATION: Lower limb swelling TECHNIQUE: Portable AP chest at 1906 hours COMPARISON: 12/10/2020 FINDINGS: Cardiomegaly is noted. There are minimal opacities of the lung bases. No pleural effusion o r pneumothorax is identified. 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 IMPRESSION: 1. Minimal bibasilar airspace opacities, consistent with atelectasis versus pneumonia. 2. Cardiomegaly. Reviewed, dictated and finalized at location A. IMPRESSION: 1. Minimal bibasilar airspace opacities, consistent with atelectasis versus pne umonia. 2. Cardiomegaly.
--- NOTE | 2020-12-23 16:49 | ECG_ITS ---
Measurements Intervals [place] Rate: 49 P: 40 ME: 151 QRS: -12 QRSD: 110 T: -44 QT: 528 QTc: 480 Interpretive Statements SINUS BRADYCARDIA NONSPECIFIC T-WAVE ABNORMALITY- ANT/LAT LEADS PROLONGED QT INTERVAL BASELINE WANDER- I, II, AVR, AVL, AVF, V1-V2 ABNORMAL ECG Electronically Signed On 12-23-2020 20:02:13 CDT by Josue Colvin D.O.
--- NOTE | 2020-12-23 17:11 | ED.GENADULT ---
HPI - General Adult General Stated complaint: weakness Time Seen by Provider: 12/23/20 16:40 History of Present Illness HPI narrative: 80 year old male with history of afib with RVR complaining of increasing fatigue, and inability to ambulate due to fatigue and BLE edema. No chest pain, no palpitations, no fever, no cough, no nausea, no vomiting, tolerating meals without difficulty. Fatigue improves with rest and leg swelling improves with elevation somewhat per patient. Fatigue and leg swelling worsen with exertion. No increased shortness of breath. Symptoms started after hospital discharge. No dysuria, no hematuria. No flank pain. Does complain of decreased urine output. complaint: can't move around as well as usual, B leg swelling Onset (ago): week(s) (1 since hospital discharge) Related Data Home Medications Medication Instructions Recorded Confirmed omeprazole 20 mg PO HS 06/08/19 12/11/20 Entresto 1 tablet PO Q12H 12/11/20 12/11/20 fludrocortisone 0.1 mg PO DAILY 12/11/20 12/11/20 melatonin 10 mg PO HS PRN 12/11/20 12/11/20 terbinafine HCl 250 mg PO DAILY 12/11/20 12/11/20 Allergies Allergy/AdvReac Type Severity Reaction Status Date / Time celecoxib Allergy Mild Hives Verified 12/23/20 16:48 valdecoxib Allergy Mild Hives Verified 12/23/20 16:48 Barbiturates Allergy Unknown Hives Verified 12/23/20 16:48 Review of Systems Review of Systems: CONSTITUTIONAL: no fever, no weight loss, no confusion EYES: no vision changes, no eye pain ENT: no rhinorrhea, no sore throat, no difficulty swallowing CARDIOVASCULAR: no chest pain, positive for leg edema, no palpitations RESPIRATORY: no cough, positive for shortness of breath, no hemoptysis GASTROINTESTINAL: no abdominal pain, no nausea, no vomiting, no diarrhea GENITOURINARY: no flank pain, no dysuria, no hematuria, does complain of decreased urine output SKIN: no rash, no jaundice MUSCULOSKELETAL: no back pain, no trauma. NEUROLOGIC: No headache, no dizziness, no focal weakness PSYCHIATRIC: No hallucinations, no suicidal ideation PMFSH Past Medical History Medical History A-fib Anxiety Arm fracture Arthritis Cardiomyopathy DDD (degenerative disc disease) Depression Dilation of esophagus x3 Gallbladder disease GERD (gastroesophageal reflux disease) GI bleed Glaucoma Headache Mitral valve prolapse Parkinson disease Paroxysmal atrial fibrillation Paroxysmal atrial flutter Previous known suicide attempt 07/03/09 Rectal polyp Silverio-Checo syndrome Ulcer Surgical History Surgical History H/O cardiac radiofrequency ablation History of esophagogastroduodenoscopy (EGD) History of rectal polypectomy Hx of appendectomy Hx of cholecystectomy Hx of fusion of cervical spine x2 Status post laparoscopic Austen fundoplication Family History Family History Father Colon cancer Mother Mental disorder Sibling Mental disorder Social History Social History Social History: the patient lives with his , and in the past with his sister. The nephew was living with them but is now on alcohol rehab. The patient desires to have his is the durable power state attorney for healthcare. The patient desires to be a full code. The patient has 3 children. Denies any alcohol or illicit drug use. The patient used to work for the [employer] but is now retired. Patient smoked briefly for approximately 5 years. At least a half pack a cigarettes a day. He quit smoking in 1971. Smoking packs per day: 0.5 Smoking cigarettes per day: 10.0 Years smoked: 5 Smoking pack-years: 2.50 Smoking status: Former smoker Tobacco type: cigarettes Second hand tobacco smoke exposure: No Smoking end date: 03/23/1966 Alcohol intake: never Substan
[2020-12-23 17:40] LABS: Basophils Percent Auto 0.1 % (0.2-1.2); Hematocrit 33.5 % (42.0-52.0); Immature Granulocyte Absolute 0.02 K/mm3 (0.00-0.031); Immature Granulocyte Percent A 0.3 % (0-0.5); Lymphocytes Absolute Auto 0.83 K/mm3 (0.9-3.2); Lymphocytes Percent Auto 10.4 % (18.3-44.2); Mean Corpuscular HGB Conc 32.8 g/dl (32-36); Mean Corpuscular Hemoglobin 28.4 pg (26-34); Mean Corpuscular Volume 86.3 fl (80-100); Mean Platelet Volume 11.9 fl (7.4-10.4); Monocytes Absolute Auto 0.6 K/mm3 (0.1-0.6); Neutrophils Absolute Auto 6.5 K/mm3 (1.3-6.7); Neutrophils Percent Auto 81.2 % (45.5-73.1); Platelet Count Result 286 k/mm3 (150-375); Red Blood Count 3.88 M/mm3 (4.6-6.20); Red Cell Distribution Width 20.1 % (11.5-14.5)
[2020-12-23 17:48] LABS: INR 2.1; Prothrombin Time 23.4 Seconds (11.1-14.7)
[2020-12-23 17:49] LABS: Partial Thromboplastin Time 41.1 SECONDS (22.3-36.8)
[2020-12-23 18:46] LABS: Alanine Aminotransferase 82 U/L (4-50); Albumin Level 4.2 g/dL (3.5-5.1); Alkaline Phosphatase 111 U/L (38-126); Anion Gap 10 mmol/L (8-16); Aspartate Amino Transferase 54 U/L (17-59); Bilirubin,Total 1.8 mg/dL (0.2-1.3); Blood Urea Nitrogen 54 mg/dL (9-20); Calcium 8.7 mg/dL (8.4-10.2); Carbon Dioxide 27 mmol/L (22-30); Chloride 99 mmol/L (98-107); Estimated CRCL calculation 37 ml/min; Estimated Glomerular Filt Rate 39; Glucose 97 mg/dL (65-110); Magnesium 2.6 mg/dL (1.6-2.3); Potassium 4.7 mmol/L (3.4-5.0); Sodium 136 mmol/L (137-145)
[2020-12-23 18:57] LABS: NT Pro B Type Natriuretic Pept 11200 pg/mL (5-100); Troponin I < 0.012 ng/mL (0.000-0.034)
== END 2020-12-23 21:28 | disposition home or self-care (01) ==
PROVIDERS: Emergency Provider Emergency Medicine; PCP Family Medicine Adolescent Medicine
DX: R00.1 Bradycardia, unspecified (principal); G20 Parkinson's disease; I48.0 Paroxysmal atrial fibrillation; I48.92 Unspecified atrial flutter; I42.9 Cardiomyopathy, unspecified; I34.1 Nonrheumatic mitral (valve) prolapse; H40.9 Unspecified glaucoma; K21.9 Gastro-esophageal reflux disease without esophagitis; M19.90 Unspecified osteoarthritis, unspecified site; L51.1 Stevens-Johnson syndrome; Z87.19 Personal history of other diseases of the digestive system; Z98.1 Arthrodesis status; Z79.01 Long term (current) use of anticoagulants
CPT/HCPCS: 36415; 71045; 80053; 83735; 83880; 84484; 85025; 85610; 85730; 93005; 99284

== ENCOUNTER 2020-12-25 22:11 | Observation (INO) | payer OTHER, SELFPAY ==
--- NOTE | ~2020-12-25 | CT_ITS ---
EXAMINATION: CT brain wo con EXAM DATE: 12/25/2020 23:41 INDICATION: Altered mental status. TECHNIQUE: Spiral CT of the head was performed without contrast. Axial, coronal and sagittal images were reviewed. The dose-length product (DLP) for this examination was 605.33 mGy-cm. The exposure w as tailored according to patient size, and iterative reconstruction (ASIR) was used as additional dos e reduction technique. Comparison is made to prior examination from 12/12/2020. FINDINGS: There is no acute intraparenchymal hemorrhage. No evidence of intraparenchymal brain mass lesion. No evidence of acute infarction. 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 There is no mass effect o r midline shift. The ventricles are normal in size. There are no extra-axial collections. There ar e no acute calvarial fractures. The orbits are unremarkable. Soft tissue is unremarkable. There is mild to moderate left frontal sinus mucoperiosteal thickening. IMPRESSION: 1. No acute intracranial findings. 2. 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 Reviewed, dictated and finalized at location G.
--- NOTE | ~2020-12-25 | XR_ITS ---
EXAMINATION: XR chest 1V portable EXAM DATE: 12/25/2020 22:57 INDICATION: Mult Falls Slow Heart Rate Today Hx A Fib, Cardiomyopathy . TECHNIQUE: Portable AP frontal chest x-ray was obtained. Comparison is made to prior examination from 12/23/2020. FINDINGS: There is persistent cardiomegaly. There has been interval development of diffuse indistinct reticulation and patchy interspersed opacities, edema and/or pneumonia. Please clinically correlate. There may be developing small pleural effusions as well. There is no pneumothorax suspected. Bilater al shoulder primary osteoarthritis. IMPRESSION: 1. Developing bilateral edema and/or pneumonia. 2. Cardiomegaly. Reviewed, dictated and finalized at location G.
[2020-12-25 22:25] VITALS: BP 96/59; PULSE 56; RESP 20; TEMP 35.9; O2SAT 92
[2020-12-25] MEDS: SODIUM CHLORIDE 0.9% IV 1,000 ML 999 ML IV CONT (23:07)
--- NOTE | 2020-12-25 23:07 | PC.NURSE ---
Called Lab at [id number] spoke with Katherine. Agreed to run lactic acid reflex and CBCD on extra tubes sent down
[2020-12-25 23:14] LABS: Hematocrit 30.8 % (42.0-52.0); Hemoglobin 10.2 g/dL (14.0-18.0); Immature Granulocyte Absolute 0.02 K/mm3 (0.00-0.031); Immature Granulocyte Percent A 0.4 % (0-0.5); Lymphocytes Absolute Auto 0.28 K/mm3 (0.9-3.2); Lymphocytes Percent Auto 5.6 % (18.3-44.2); Mean Corpuscular HGB Conc 33.1 g/dl (32-36); Mean Corpuscular Hemoglobin 28.7 pg (26-34); Mean Corpuscular Volume 86.5 fl (80-100); Mean Platelet Volume 10.6 fl (7.4-10.4); Monocytes Absolute Auto 0.2 K/mm3 (0.1-0.6); Neutrophils Absolute Auto 4.5 K/mm3 (1.3-6.7); Platelet Count Result 201 k/mm3 (150-375); Red Blood Count 3.56 M/mm3 (4.6-6.20); Red Cell Distribution Width 19.5 % (11.5-14.5)
[2020-12-25 23:21] LABS: INR 1.9; Prothrombin Time 21.1 Seconds (11.1-14.7)
[2020-12-25 23:22] LABS: Partial Thromboplastin Time 41.7 SECONDS (22.3-36.8)
[2020-12-25 23:26] LABS: Alanine Aminotransferase 71 U/L (4-50); Albumin Level 3.6 g/dL (3.5-5.1); Alkaline Phosphatase 105 U/L (38-126); Anion Gap 6 mmol/L (8-16); Aspartate Amino Transferase 50 U/L (17-59); Bilirubin,Total 1.2 mg/dL (0.2-1.3); Blood Urea Nitrogen 63 mg/dL (9-20); Calcium 8.2 mg/dL (8.4-10.2); Carbon Dioxide 26 mmol/L (22-30); Chloride 101 mmol/L (98-107); Estimated CRCL calculation 32 ml/min; Estimated Glomerular Filt Rate 32; Glucose 118 mg/dL (65-110); Lipase 17 U/L (23-300); Potassium 4.3 mmol/L (3.4-5.0); Sodium 133 mmol/L (137-145)
[2020-12-25 23:27] LABS: Lactic Acid Reflex 0.8 mmol/L (0.7-2.1)
[2020-12-25 23:36] LABS: Troponin I < 0.012 ng/mL (0.000-0.034)
[2020-12-26] VITALS (14 sets, daily range): BP systolic 94–107; BP diastolic 45–63; PULSE 43–100; RESP 16–18; TEMP 35.7–36.4; O2SAT 92–100; BMI 26.8
--- NOTE | 2020-12-26 01:22 | ED.WEAKNESS ---
HPI - Weakness General Chief complaint: Arrhythmia/Palpitations Stated complaint: increase weakness glf x 3 today Time Seen by Provider: 12/25/20 22:25 Source: patient and EMS Mode of arrival: EMS Limitations: no limitations History of Present Illness HPI Narrative: 80-year-old male who lives alone brought in by EMS for falling off his bed prior to arrival not being able to get up due to weakness. Patient was seen yesterday for symptomatic bradycardia his dose of amiodarone was decreased but patient arrives with bradycardia with a rate of 52 regular on arrival. Patient also complains of bilateral lower extremity edema and diarrhea which is orange. No dark tarry stools, no bright red blood per rectum. No vomiting, no abdominal pain. No fever no cough. Of note patient has placement at either an assisted living or [place] [facility] situation beginning on December 31 due to inability to care for self but currently lives alone and states he has no one who can stay with him. MD Complaint: generalized weakness, lack of energy and difficulty walking Duration: constant and progressively worsening Location: LLE and RLE Severity: severe Exacerbating factors: exertion Context: new medication and recent illness Associated symptoms: loss of appetite Related Data Home Medications Medication Instructions Recorded Confirmed omeprazole 20 mg PO HS 06/08/19 12/26/20 fludrocortisone 0.1 mg PO DAILY 12/11/20 12/26/20 melatonin 10 mg PO HS PRN 12/11/20 12/26/20 terbinafine HCl 250 mg PO DAILY 12/11/20 12/26/20 furosemide 40 mg PO BID 12/26/20 12/26/20 lorazepam 2 mg PO Q8H PRN 12/26/20 12/26/20 potassium chloride 20 meq PO DAILY 12/26/20 12/26/20 prednisone 10 mg PO DAILY 12/26/20 12/26/20 Allergies Allergy/AdvReac Type Severity Reaction Status Date / Time celecoxib Allergy Mild Hives Verified 12/23/20 16:48 valdecoxib Allergy Mild Hives Verified 12/23/20 16:48 Barbiturates Allergy Unknown Hives Verified 12/23/20 16:48 Review of Systems Review of Systems: CONSTITUTIONAL: no fever, no weight loss EYES: no vision changes, no eye pain ENT: no rhinorrhea, no sore throat, no difficulty swallowing CARDIOVASCULAR: no chest pain, Bilateral leg edema, complains of palpitations RESPIRATORY: no cough, no shortness of breath, no hemoptysis GASTROINTESTINAL: no abdominal pain, no nausea, no vomiting, positive for diarrhea GENITOURINARY: no dysuria, no hematuria SKIN: no rash, no jaundice MUSCULOSKELETAL: no back pain, no trauma. NEUROLOGIC: No headache, no dizziness, no focal weakness PSYCHIATRIC: No hallucinations, no suicidal ideation PMFSH Past Medical History Medical History A-fib Anxiety Arm fracture Arthritis Cardiomyopathy DDD (degenerative disc disease) Depression Dilation of esophagus x3 Gallbladder disease GERD (gastroesophageal reflux disease) GI bleed Glaucoma Headache Mitral valve prolapse Parkinson disease Paroxysmal atrial fibrillation Paroxysmal atrial flutter Previous known suicide attempt 07/03/09 Rectal polyp Silverio-Checo syndrome Ulcer Surgical History Surgical History H/O cardiac radiofrequency ablation History of esophagogastroduodenoscopy (EGD) History of rectal polypectomy Hx of appendectomy Hx of cholecystectomy Hx of fusion of cervical spine x2 Status post laparoscopic Austen fundoplication Family History Family History Father Colon cancer Mother Mental disorder Sibling Mental disorder Social History Social History Social History: the patient lives with his , and in the past with his sister. The nephew was living with them but is now on alcohol rehab. The patient desires to have his is the durable power divorce attorney for healthcare. The patient desires to be a full code. The p
[2020-12-26 03:59] LABS: Troponin I < 0.012 ng/mL (0.000-0.034)
--- NOTE | 2020-12-26 05:25 | PM.IMHP ---
H&P: HPI History of Present Illness Date/Time: 12/26/20 05:25 Chief Complaint: Weakness Narrative: 80-year-old male who lives alone recently discharged from the hospital brought in by EMS with generalized weakness. He states he sat down after he went to the bathroom or so and was not able to get up due to generalized weakness. He then called his family member. He subsequently called EMS who brought him to the ER for evaluation. He was also seen yesterday in the ER due to similar issue. He was noted to have bradycardia in 40s and upon discussion with Cardiology the amiodarone dose was decreased to 200 mg daily. He states that he has been having diarrhea with frequent stools over the past day or so. No blood in the stool or dark tarry stool. He denies any abdominal pain nausea vomiting. He reports his breathing is at his baseline but his legs have been swollen much more in spite of taking Lasix on a regular basis. He denies any fever chills or cough. Of note patient has placement at either an assisted living or detention situation beginning on December 31 due to inability to care for self but currently lives alone and states he has no one who can stay with him from here. Is admitted for further evaluation and management under observation status. Review of Systems Review of Systems: - CONSTITUTIONAL: Denies weight loss, fever and chills. - HEENT: Denies changes in vision and hearing - RESPIRATORY: Reports chronic SOB and cough. - CV: Denies palpitations and CP. - GI: Denies abdominal pain, nausea, vomiting and reports diarrhea. - : Denies dysuria and urinary frequency. - MSK: Denies myalgia and joint pain. - SKIN: Denies rash and pruritus. - NEUROLOGICAL: Denies headache and syncope. Reports generalized weakness - PSYCHIATRIC: Denies recent changes in mood. Denies anxiety and depression. All systems reviewed & are unremarkable except as noted in HPI and below Constitutional: Constitutional: Reports fatigue and Reports weakness Neurologic: Reports weakness Endocrine: Endocrine: Reports fatigue PMFSH Past Medical History Medical History A-fib Anxiety Arm fracture Arthritis Cardiomyopathy DDD (degenerative disc disease) Depression Dilation of esophagus x3 Gallbladder disease GERD (gastroesophageal reflux disease) GI bleed Glaucoma Headache Mitral valve prolapse Parkinson disease Paroxysmal atrial fibrillation Paroxysmal atrial flutter Previous known suicide attempt 07/03/09 Rectal polyp Silverio-Checo syndrome Ulcer Surgical History Surgical History H/O cardiac radiofrequency ablation History of esophagogastroduodenoscopy (EGD) History of rectal polypectomy Hx of appendectomy Hx of cholecystectomy Hx of fusion of cervical spine x2 Status post laparoscopic Austen fundoplication Family History Family History Father Colon cancer Mother Mental disorder Sibling Mental disorder Social History Social History Social History: the patient lives with his , and in the past with his sister. The nephew was living with them but is now on alcohol rehab. The patient desires to have his is the durable power compliance attorney for healthcare. The patient desires to be a full code. The patient has 3 children. Denies any alcohol or illicit drug use. The patient used to work for the [employer] but is now retired. Patient smoked briefly for approximately 5 years. At least a half pack a cigarettes a day. He quit smoking in 1971. Smoking packs per day: 0.5 Smoking cigarettes per day: 10.0 Years smoked: 5 Smoking pack-years: 2.50 Smoking status: Former smoker Second hand tobacco smoke exposure: No Alcohol intake: never Substance use: never Substance use
[2020-12-26 07:03] LABS: Troponin I < 0.012 ng/mL (0.000-0.034)
--- NOTE | 2020-12-26 07:08 | PM.IMPN ---
Progress Note: A&P Additional Plan START OF DOCTOR JUVENTINO?S PROGRESS NOTE Subjective: At the present time patient sources no complaints. He denies fever, nausea, rigors, vomiting, cough, wheeze, abdominal pain, chest pain, dyspnea, lightheadedness, dizziness. Upon further questioning he indicates that he has been having ongoing diarrhea. I have explained to the patient his current medical condition plan of care and I have answered all his questions Objective: General: -Alert -No acute distress -No dyspnea -No tachypnea Heart: -iRegular rate -iRegular rhythm -No murmurs -No gallops -No rubs Lungs: -No wheeze -No rhonchi -No rales Abdomen: -Normal bowel sounds in all four quadrants -No rebound -No guarding -No tenderness Extremities: -2/4 pulse in all four extremities -No clubbing -No cyanosis -4+ by pedal pitting edema Additional Details / Additional Findings / Exceptions / Miscellaneous: Pertinent Laboratory Results / Pertinent Radiology Results / Pertinent Diagnostic Results / Pertinent Vital Signs: Sodium 1 her 3 3, hemoglobin 10.2, heart rate 48, creatinine 2 Assessment / Plan: Acute renal insufficiency, secondary to diarrhea. Monitor creatinine level intermittently. IV normal saline 75 mL/hour while closely monitoring his respiratory status given his history of CHF Diarrhea. Stool studies pending. IV normal saline 75 mL/hour Query pneumonia. Patient asymptomatic. Observation at this time Paroxysmal atrial fibrillation, status post cardiac ablation. Amiodarone 400 mg p.o. daily plus Eliquis 5 mg p.o. b.i.d. plus metoprolol XL 50 mg p.o. daily. If patient remains bradycardic I may consider discontinuing metoprolol XL Anxiety Arthritis Degenerative disc disease Depression GERD. Protonix 40 mg p.o. q.h.s. Glaucoma Parkinson's disease Smoker. Patient will be counseled regarding smoking cessation Query adrenal insufficiency. Patient is uncertain of this diagnosis. Fludrocortisone 0.1 mg p.o. daily plus prednisone 10 mg p.o. daily CHF, ejection fraction 35-40%. Metoprolol XL 50 mg p.o. daily Anemia. Monitor hemoglobin level intermittently. Check serum ferritin, iron panel, fecal occult blood Hyponatremia, chronic, intermittent. Will monitor sodium levels intermittently. IV nor sounds any 5 mL/hour DVT prophylaxis. Eliquis 5 mg p.o. b.i.d. Disposition: Anticipate discharge in 48 hours END OF DOCTOR JUVENTINO?S PROGRESS NOTE Subjective Date/time seen: 12/26/20 07:08 Objective Data Vital Signs Vital Signs: Vital Signs - 24 hr 12/25/20 22:25 12/26/20 00:54 12/26/20 01:54 Temperature 96.6 F L Pulse Rate 56 L 54 L 55 L Respiratory Rate 20 16 18 Blood Pressure 96/59 L 105/63 107/60 Pulse Oximetry 92 100 99 12/26/20 02:10 12/26/20 04:00 12/26/20 05:22 Temperature 97.4 F L 97.6 F Pulse Rate 48 L 43 L 48 L Respiratory Rate 16 18 Blood Pressure 106/56 L 101/54 L Pulse Oximetry 100 99 Intake/Output Intake/Output: Intake & Output 12/23/20 12/24/20 12/25/20 12/26/20 23:59 23:59 23:59 23:59 Intake Total 900 Balance 900 Meds/Results Medications: Active Medications Generic Name Dose Route Start Last Admin Trade Name Freq PRN Reason Stop Dose Admin Amiodarone HCl 200 mg 12/26/20 08:00 Amiodarone Hcl 200 Mg Tablet PO DAILY@0800 [facility] Apixaban 5 mg 12/26/20 09:00 Apixaban 5 Mg Tablet PO Q12HR [facility] Artificial Tears 1 drop 12/26/20 05:43 Artificial Tears Ophth Soln 15 Ml Bottle EACH EYE QID PRN Dry Eye(S) Fludrocortisone Acetate 0.1 mg 12/26/20 08:00 Fludrocortisone Acetate 0.1 Mg Tablet PO DAILY@0800 [facility] Sodium Chloride 1,000 mls @ 75 mls/hr 12/26/20 07:05 Normal Saline Iv IV CONT .[id number] ZHEN Lorazepam 1 - 2 mg 12/26/20 05:43 Lorazepam (*Crx) 1 Mg Tablet PO Q8H PRN Sedation Melatonin 10 mg 12/26/20 05:43
[2020-12-26 08:19] LABS: Iron 24 ug/dL (49-181)
[2020-12-26 08:28] LABS: Percent Iron Saturation 7 % (20-50)
[2020-12-26] MEDS: APIXABAN 5 MG TABLET PO ×2 (09:14→21:03)
[2020-12-26] MEDS: FLUDROCORTISONE ACETATE 0.1 MG TABLET PO (09:14)
[2020-12-26] MEDS: AMIODARONE HCL 200 MG TABLET PO (09:14)
[2020-12-26] MEDS: TERBINAFINE HCL 250 MG TABLET PO (09:29)
[2020-12-26] MEDS: predniSONE 10 MG TABLET PO (09:29)
[2020-12-26] MEDS: METOPROLOL SUCCINATE EXT REL 50 MG TABCR PO (09:29)
[2020-12-26] MEDS: SODIUM CHLORIDE 0.9% IV 1,000 ML 75 ML IV CONT ×2 (09:30→21:07)
--- NOTE | 2020-12-26 11:53 | PM.CNCAR ---
Assessment and Plan Assessment and plan (1) Paroxysmal atrial fibrillation: Code(s): I48.0 - Paroxysmal atrial fibrillation Status: Acute Assessment and Plan: Remains in sinus rhythm. On anticoagulation. Will temporarily hold metoprolol and amiodarone completely. 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 Will actually give him a dose of furosemide 40 mg IV x1 History of Present Illness History of Present Illness Consult date/time: 12/26/20 11:53 Requesting physician: Yang Murphy MD Consult reason: Other (Bradycardia) Reason For Visit: Symptomatic Bradycardia, Falls, Inability to Care Narrative: Date of service 12/26/2020: Reason consultation: Bradycardia Consulting physician:Dr. Murphy 80-year-old male who lives alone recently discharged from the hospital brought in by EMS with generalized weakness. He was not able to get up after going to the bathroom. Also had some diarrhea and orange colored stool. Heart rates have been in the 40s since admission. Recently his amiodarone was decreased to 200 mg p.o. daily. He denies any syncope or presyncope but has had increased lower extremity swelling also. He was noted to have acute renal failure with creatinine currently at 2.0. No chest pain, shortness of breath, paroxysmal nocturnal dyspnea, orthopnea. He has had frequent hospitalizations recently. He has had a history of multiple atrial arrhythmias including atrial fibrillation and flutter. He has undergone ablation in the past and was recently admitted for tachy arrhythmia status post cardioversion and then put on amiodarone. He reverted back into atrial fibrillation shortly after his cardioversion but as an outpatient, was noted recently to be back in sinus rhythm. Review of Systems Review of Systems: All systems reviewed & are unremarkable except as noted in HPI and below Constitutional: Constitutional: Reports weakness Eyes: Eyes: Denies blurry vision ENT: Reports Normal hearing present Cardiovascular: Cardiovascular: Denies chest pain Respiratory: Respiratory: Denies dyspnea Gastrointestinal: Gastrointestinal: Denies abdominal pain and Reports diarrhea Genitourinary: Genitourinary: Denies dysuria Musculoskeletal: Musculoskeletal: Denies back pain and Denies neck pain Integumentary/Breasts: Skin/Breast: Denies dry skin Neurologic: Denies headache(s) Psychiatric: Psychiatric: Denies anxiety and Denies confusion Endocrine: Endocrine: Denies fatigue Hematologic/Lymphatic: Hematologic/Lymphatic: Denies easy bleeding Allergic/Immunologic: Allergic/Immunologic: Denies GI upset with certain foods PMFSH Past Medical History Medical History A-fib Anxiety Arm fracture Arthritis Cardiomyopathy DDD (degenerative disc disease) Depression Dilation of esophagus x3 Gallbladder disease GERD (gastroesophageal reflux disease) GI bleed Glaucoma Headache Mitral valve prolapse Parkinson disease Paroxysmal atrial fibrillation Paroxysmal atrial flutter Previous known suicide attempt 07/03/09 Rectal polyp Silverio-Checo syndrome Ulcer Surgical History Surgical History H/O cardiac radiofrequency a
[2020-12-26] MEDS: FUROSEMIDE INJ 40 MG/4 ML VIAL IV PUSH (17:21)
[2020-12-26] MEDS: FERROUS SULFATE 324 MG TABLET PO (17:21)
[2020-12-26 19:25] LABS: Add Urine Microscopic? NO; Appearance Urine Clear (Clear); Bilirubin Urine Negative (Negative); Blood Urine Negative (Negative); Color Urine Colorless (Yellow); Glucose Urine UA Negative (Negative); Ketones Urine Negative (Negative); Leukocyte Esterase Ur Negative LEU/UL (Negative); Nitrate Urine Negative (Negative); Protein Urine Negative (Negative); Specific Grav Ur 1.005 (1.001-1.035); Urobilinogen Urine Negative mg/dL (<2.0)
[2020-12-26] MEDS: PANTOPRAZOLE 40 MG TABLET PO (21:04)
[2020-12-27] VITALS (10 sets, daily range): BP systolic 105–128; BP diastolic 62–72; PULSE 50–78; RESP 16–18; TEMP 36.1–36.6; O2SAT 99–100
[2020-12-27 01:52] LABS: IFOB Positive Control Positive; Immunochemical Fecal Occult Bl Negative (N)
[2020-12-27 06:39] LABS: Hemoglobin 9.7 g/dL (14.0-18.0)
--- NOTE | 2020-12-27 06:52 | PM.IMPN ---
Progress Note: A&P Additional Plan START OF DOCTOR JUVENTINO?S PROGRESS NOTE Subjective: The patient indicates that overnight he had a restless night. Aside from this he endorses no complaints. He denies fever, rigors, nausea, vomiting, cough, wheeze, abdominal pain, chest pain, dyspnea. I have explained to the patient his current medical condition plan of care and answered all questions Objective: General: -Alert -No acute distress -No dyspnea -No tachypnea Heart: -iRegular rate -iRegular rhythm -No murmurs -No gallops -No rubs Lungs: -No wheeze -No rhonchi -trace bibasilar rales Abdomen: -Normal bowel sounds in all four quadrants -No rebound -No guarding -No tenderness Extremities: -2/4 pulse in all four extremities -No clubbing -No cyanosis -4+ by pedal pitting edema Additional Details / Additional Findings / Exceptions / Miscellaneous: Pertinent Laboratory Results / Pertinent Radiology Results / Pertinent Diagnostic Results / Pertinent Vital Signs: Heart rate 54. Morning labs pending Assessment / Plan: Acute renal insufficiency, secondary to diarrhea. Monitor creatinine level intermittently. Albumin 50 g IV q.8 hours Diarrhea. Stool studies pending. Query pneumonia. Patient asymptomatic. Observation at this time Paroxysmal atrial fibrillation, status post cardiac ablation. Eliquis 5 mg p.o. b.i.d.. If patient remains bradycardic I may consider discontinuing metoprolol XL Anxiety Arthritis Degenerative disc disease Depression GERD. Protonix 40 mg p.o. q.h.s. Glaucoma Parkinson's disease Smoker. Patient will be counseled regarding smoking cessation Query adrenal insufficiency. Patient is uncertain of this diagnosis. Fludrocortisone 0.1 mg p.o. daily plus prednisone 10 mg p.o. daily CHF, ejection fraction 35-40%. Iron deficiency Anemia. Monitor hemoglobin level intermittently. Ferrous sulfate 325 mg p.o. b.i.d. plus vitamin-C 500 mg p.o. daily Hyponatremia, chronic, intermittent. Will monitor sodium levels intermittently. DVT prophylaxis. Eliquis 5 mg p.o. b.i.d. Disposition: The patient will be a candidate for discharge once his creatinine returns to his baseline/is near his baseline s END OF DOCTOR JUVENTINO?S PROGRESS NOTE Subjective Date/time seen: 12/27/20 06:52 Objective Data Vital Signs Vital Signs: Vital Signs - 24 hr 12/26/20 09:14 12/26/20 09:15 12/26/20 09:29 Temperature Pulse Rate 52 L 46 L 52 L Pulse Rate [With Activity During Therapy Session] Respiratory Rate Blood Pressure Pulse Oximetry 12/26/20 10:33 12/26/20 12:00 12/26/20 14:00 Temperature 96.2 F L Pulse Rate 55 L 100 Pulse Rate [With Activity During Therapy Session] 51 L Respiratory Rate 18 Blood Pressure 94/45 L Pulse Oximetry 92 12/26/20 16:00 12/26/20 20:00 12/26/20 22:00 Temperature 96.7 F L Pulse Rate 46 L 48 L 48 L Pulse Rate [With Activity During Therapy Session] Respiratory Rate 16 Blood Pressure 103/58 L Pulse Oximetry 100 12/27/20 00:00 12/27/20 00:06 12/27/20 04:00 Temperature Pulse Rate 55 L 55 L 50 L Pulse Rate [With Activity During Therapy Session] Respiratory Rate 16 Blood Pressure Pulse Oximetry 99 12/27/20 06:00 Temperature 96.9 F L Pulse Rate 54 L Pulse Rate [With Activity During Therapy Session] Respiratory Rate 18 Blood Pressure 118/63 Pulse Oximetry 99 Intake/Output Intake/Output: Intake & Output 12/24/20 12/25/20 12/26/20 12/27/20 23:59 23:59 23:59 23:59 Intake Total 2620 1100 Output Total 200 1600 Balance 2420 -500 Meds/Results Medications: Active Medications Generic Name Dose Route Start Last Admin Trade Name Allan PRN Reason Stop Dose Admin Amiodarone HCl 200 mg 12/26/20 08:00 12/26/20 09:14 Amiodarone Hcl 200 Mg Tablet PO 200 mg DAILY@0800 ZHEN Administration Apixaban 5 mg 12/26/20 09:00 12/26/20 21:03
[2020-12-27 06:55] LABS: Anion Gap 4 mmol/L (8-16); Blood Urea Nitrogen 46 mg/dL (9-20); Calcium 7.6 mg/dL (8.4-10.2); Carbon Dioxide 31 mmol/L (22-30); Chloride 100 mmol/L (98-107); Estimated CRCL calculation 39 ml/min; Estimated Glomerular Filt Rate 42; Glucose 83 mg/dL (65-110); Potassium 3.2 mmol/L (3.4-5.0); Sodium 135 mmol/L (137-145)
[2020-12-27] MEDS: ASCORBIC ACID 500 MG TABLET PO (08:40)
[2020-12-27] MEDS: FLUDROCORTISONE ACETATE 0.1 MG TABLET PO (08:40)
[2020-12-27] MEDS: predniSONE 10 MG TABLET PO (08:40)
[2020-12-27] MEDS: TERBINAFINE HCL 250 MG TABLET PO (08:40)
[2020-12-27] MEDS: FERROUS SULFATE 324 MG TABLET PO ×2 (08:41→16:59)
[2020-12-27] MEDS: APIXABAN 5 MG TABLET PO ×2 (08:41→20:22)
--- NOTE | 2020-12-27 09:33 | PM.PNCARD ---
Progress Note: A&P Assessment and Plan (1) Paroxysmal atrial fibrillation: Code(s): I48.0 - Paroxysmal atrial fibrillation Status: Acute Assessment and Plan: Remains in sinus rhythm. On anticoagulation. Will temporarily hold metoprolol and amiodarone completely. (2) Paroxysmal atrial flutter: Code(s): I48.92 - Unspecified atrial flutter Status: Acute Assessment and Plan: Remains in sinus rhythm (3) Bradycardia: Code(s): R00.1 - Bradycardia, unspecified Status: Acute Assessment and Plan: Holding metoprolol and amiodarone. No significant pauses or bradycardia noted on telemetry overnight. Patient mildly bradycardic in the mid 50s. Occasional PVCs. Continue to hold metoprolol and amiodarone for now. 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 BUN/Cr 46/1.6 (63/2.0). Will give one time dose of lasix 40mg IV now as he is still volume overloaded K+ 3.2 this a.m. - will give 40 mEq KCL now Repeat BMP in p.m. Subjective Date/time seen: 12/27/20 09:33 Cardiology follow up for bradycardia Date of service 12/27/2020: Says he feels wonderful today. His swelling is better and he says he is urinating a lot. No complaints today. Review of Systems Review of Systems: All systems reviewed & are unremarkable except as noted in HPI and below Constitutional: Constitutional: Denies fatigue, Denies headache(s) and Reports weakness Eyes: Eyes: Denies blurry vision ENT: Reports Normal hearing present, Denies headache(s) and Denies neck pain Cardiovascular: Cardiovascular: Denies chest pain and Denies dyspnea Respiratory: Respiratory: Denies dyspnea Gastrointestinal: Gastrointestinal: Denies abdominal pain and Reports diarrhea Genitourinary: Genitourinary: Denies dysuria Musculoskeletal: Musculoskeletal: Denies back pain and Denies neck pain Integumentary/Breasts: Skin/Breast: Denies dry skin Neurologic: Reports Normal hearing present, Denies confusion, Denies headache(s) and Reports weakness Psychiatric: Psychiatric: Denies anxiety and Denies confusion Endocrine: Endocrine: Denies fatigue Hematologic/Lymphatic: Hematologic/Lymphatic: Denies easy bleeding Allergic/Immunologic: Allergic/Immunologic: Denies GI upset with certain foods Exam Const: General: comfortable and no acute distress; No confusion Orientation/consciousness: No confusion HENMT: General nose exam: Normal nares present Eyes: Sclera: sclerae normal Neck: Neck: no JVD Resp: Auscultation: diminished lung sounds Cardio: Rate: bradycardic Rhythm: regular rhythm Heart sounds: Murmur heart sound present GI: Auscultation: normal bowel sounds Skin: General skin exam: normal color Neuro: General: No confusion Cranial nerves: Yes Normal hearing present Cognition (Neuro): normal cognition Speech: normal speech Extrem: General: edema (2+ bilateral lower extremity edema) Psych: Mental Status: mental status grossly normal Objective Data Vital Signs Vital Signs: Vital Signs - 24 hr 12/26/20 10:33 12/26/20 12:00 12/26/20 14:00 Temperature 35.7 C L Pulse Rate 55 L 100 Pulse Rate [With Activity During Therapy Session] 51 L Respiratory Rate 18 Blood Pressure 94/45 L Pulse Oximetry 92 12/26/20 16:00 12/26/20 20:00 12/26/20 22:00 Temperature 35.9 C L Pulse Rate 46 L 48 L 48 L Pulse Rate [With Activity During Therapy Session] Respiratory Rate 16 Blood Pressure 103/58 L Pulse Oximetry 100 12/27/20 00:00 12/27/20 00:06 12/27/20 04:00 Temperature Pulse Rate 55 L 55 L 50 L Pulse Rate [With Activity During Therapy Session]
[2020-12-27] MEDS: POTASSIUM CHLORIDE 20 MEQ TABLET 40 MEQ PO ×2 (12:39→14:34)
[2020-12-27] MEDS: FUROSEMIDE INJ 40 MG/4 ML VIAL IV PUSH (12:40)
[2020-12-27] MEDS: ALBUMIN HUMAN 25% 25 GM/100 ML 200 ML IVPB ×2 (14:37→22:37)
[2020-12-27 17:51] LABS: Anion Gap 7 mmol/L (8-16); Blood Urea Nitrogen 42 mg/dL (9-20); Calcium 7.9 mg/dL (8.4-10.2); Carbon Dioxide 32 mmol/L (22-30); Chloride 96 mmol/L (98-107); Estimated CRCL calculation 45 ml/min; Estimated Glomerular Filt Rate 49; Glucose 100 mg/dL (65-110); Potassium 3.8 mmol/L (3.4-5.0); Sodium 135 mmol/L (137-145)
[2020-12-27] MEDS: PANTOPRAZOLE 40 MG TABLET PO (20:22)
[2020-12-27] MEDS: LORazepam (*CRX) 1 MG TABLET PO (22:28)
[2020-12-27] MEDS: MELATONIN 5 MG TABLET 10 MG PO (22:39)
[2020-12-28] VITALS: PULSE 57
[2020-12-28 00:53] VITALS: PULSE 77; O2SAT 99
[2020-12-28 04:00] VITALS: PULSE 53
[2020-12-28 06:00] VITALS: BP 122/70; PULSE 54; RESP 18; TEMP 37; O2SAT 98
[2020-12-28] MEDS: ALBUMIN HUMAN 25% 25 GM/100 ML 200 ML IVPB (06:31)
--- NOTE | 2020-12-28 06:51 | PM.IMPN ---
Progress Note: A&P Additional Plan START OF DOCTOR JAUREGUI?S PROGRESS NOTE Subjective: The patient endorses no complaints at this time. He denies fever, rigors, nausea, vomiting, cough, wheeze, abdominal pain, chest pain, dyspnea, or any other constitutional complaints. I have explained to the patient his current medical condition plan of care and answered all his questions Objective: General: -Alert -No acute distress -No dyspnea -No tachypnea Heart: -iRegular rate -iRegular rhythm -No murmurs -No gallops -No rubs Lungs: -No wheeze -No rhonchi -trace bibasilar rales Abdomen: -Normal bowel sounds in all four quadrants -No rebound -No guarding -No tenderness Extremities: -2/4 pulse in all four extremities -No clubbing -No cyanosis -1+ to 2+ by pedal pitting edema Additional Details / Additional Findings / Exceptions / Miscellaneous: Pertinent Laboratory Results / Pertinent Radiology Results / Pertinent Diagnostic Results / Pertinent Vital Signs: Heart rate 54, morning labs pending Assessment / Plan: Acute renal insufficiency, secondary to diarrhea. Monitor creatinine level intermittently. Albumin 50 g IV q.8 hours Diarrhea. Stool studies pending. Query pneumonia. Patient asymptomatic. Observation at this time Paroxysmal atrial fibrillation, status post cardiac ablation. Eliquis 5 mg p.o. b.i.d.. If patient remains bradycardic I may consider discontinuing metoprolol XL Anxiety Arthritis Degenerative disc disease Depression GERD. Protonix 40 mg p.o. q.h.s. Glaucoma Parkinson's disease Smoker. Patient will be counseled regarding smoking cessation Query adrenal insufficiency. Patient is uncertain of this diagnosis. Fludrocortisone 0.1 mg p.o. daily plus prednisone 10 mg p.o. daily CHF, ejection fraction 35-40%. Iron deficiency Anemia. Monitor hemoglobin level intermittently. Ferrous sulfate 325 mg p.o. b.i.d. plus vitamin-C 500 mg p.o. daily Hyponatremia, chronic, intermittent. Will monitor sodium levels intermittently. Hypokalemia. Monitor potassium levels intermittently and supplement as necessary DVT prophylaxis. Eliquis 5 mg p.o. b.i.d. Disposition: The patient is medically stable for discharge on this day of December 28, 2020. I will discuss with case management/social work END OF DOCTOR JUVENTINO?S PROGRESS NOTE Subjective Date/time seen: 12/28/20 06:51 Objective Data Vital Signs Vital Signs: Vital Signs - 24 hr 12/27/20 08:00 12/27/20 12:00 12/27/20 14:00 Temperature 97.8 F Pulse Rate 54 L 53 L 58 L Respiratory Rate 18 18 Blood Pressure 105/62 Pulse Oximetry 99 100 12/27/20 16:00 12/27/20 20:05 12/27/20 22:00 Temperature 97.7 F Pulse Rate 53 L 78 78 Respiratory Rate 18 18 Blood Pressure 128/72 Pulse Oximetry 100 100 12/28/20 00:00 12/28/20 00:53 12/28/20 04:00 Temperature Pulse Rate 57 L 77 53 L Respiratory Rate Blood Pressure Pulse Oximetry 99 12/28/20 06:00 Temperature 98.6 F Pulse Rate 54 L Respiratory Rate 18 Blood Pressure 122/70 Pulse Oximetry 98 Intake/Output Intake/Output: Intake & Output 12/25/20 12/26/20 12/27/20 12/28/20 23:59 23:59 23:59 23:59 Intake Total 2620 4360 1000 Output Total 200 4100 800 Balance 2420 260 200 Meds/Results Medications: Active Medications Generic Name Dose Route Start Last Admin Trade Name Freq PRN Reason Stop Dose Admin Amiodarone HCl 200 mg 12/26/20 08:00 12/26/20 09:14 Amiodarone Hcl 200 Mg Tablet PO 200 mg DAILY@0800 ZHEN Administration Apixaban 5 mg 12/26/20 09:00 12/27/20 20:22 Apixaban 5 Mg Tablet PO 5 mg Q12HR ZHEN Administration Artificial Tears 1 drop 12/26/20 05:43 Artificial Tears Ophth Soln 15 Ml Bottle EACH EYE QID PRN Dry Eye(S) Ascorbic Acid 500 mg 12/27/20 09:00 12/27/20 08:40 Ascorbic Acid 500 Mg Tablet PO 500 mg DAILY ZHEN Administration Ferrou
[2020-12-28 07:06] LABS: Anion Gap 8 mmol/L (8-16); Blood Urea Nitrogen 34 mg/dL (9-20); Calcium 8.3 mg/dL (8.4-10.2); Carbon Dioxide 31 mmol/L (22-30); Chloride 97 mmol/L (98-107); Estimated CRCL calculation 48 ml/min; Estimated Glomerular Filt Rate 53; Glucose 85 mg/dL (65-110); Potassium 3.5 mmol/L (3.4-5.0); Sodium 136 mmol/L (137-145)
[2020-12-28 08:00] VITALS: PULSE 60
[2020-12-28] MEDS: FERROUS SULFATE 324 MG TABLET PO (08:24)
[2020-12-28] MEDS: FLUDROCORTISONE ACETATE 0.1 MG TABLET PO (08:24)
[2020-12-28] MEDS: ASCORBIC ACID 500 MG TABLET PO (08:24)
[2020-12-28] MEDS: TERBINAFINE HCL 250 MG TABLET PO (08:24)
[2020-12-28] MEDS: predniSONE 10 MG TABLET PO (08:25)
[2020-12-28] MEDS: APIXABAN 5 MG TABLET PO (08:25)
--- NOTE | 2020-12-28 09:28 | PM.PNCARD ---
Progress Note: A&P Assessment and Plan (1) Paroxysmal atrial fibrillation: Code(s): I48.0 - Paroxysmal atrial fibrillation Status: Acute Assessment and Plan: Remains in sinus rhythm. On anticoagulation. Will temporarily hold metoprolol and amiodarone completely. (2) Paroxysmal atrial flutter: Code(s): I48.92 - Unspecified atrial flutter Status: Acute Assessment and Plan: Remains in sinus rhythm (3) Bradycardia: Code(s): R00.1 - Bradycardia, unspecified Status: Acute Assessment and Plan: Holding metoprolol and amiodarone. No significant pauses or bradycardia noted on telemetry overnight. 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 b.i.d. will be started. Renal function much better. KCL 40 mg p.o. x1. Subjective Date/time seen: 12/28/20 09:28 Interval history: 80-year-old admitted for symptomatic bradycardia and CHF Date of service 12/28/2020: Continues to feel much better. Heart rate has improved. Swelling is markedly improved. No chest pain or shortness of breath Review of Systems Review of Systems: All systems reviewed & are unremarkable except as noted in HPI and below Constitutional: Constitutional: Denies fatigue, Denies headache(s) and Reports weakness Eyes: Eyes: Denies blurry vision ENT: Reports Normal hearing present, Denies headache(s) and Denies neck pain Cardiovascular: Cardiovascular: Denies chest pain and Denies dyspnea Respiratory: Respiratory: Denies dyspnea Gastrointestinal: Gastrointestinal: Denies abdominal pain and Reports diarrhea Genitourinary: Genitourinary: Denies dysuria Musculoskeletal: Musculoskeletal: Denies back pain and Denies neck pain Integumentary/Breasts: Skin/Breast: Denies dry skin Neurologic: Reports Normal hearing present, Denies confusion, Denies headache(s) and Reports weakness Psychiatric: Psychiatric: Denies anxiety and Denies confusion Endocrine: Endocrine: Denies fatigue Hematologic/Lymphatic: Hematologic/Lymphatic: Denies easy bleeding Allergic/Immunologic: Allergic/Immunologic: Denies GI upset with certain foods Exam Narrative: Alert oriented. Appears stated age Const: General: comfortable and no acute distress; No confusion Orientation/consciousness: No confusion HENMT: General nose exam: Normal nares present Eyes: Sclera: sclerae normal Neck: Neck: no JVD Chest: Other: Resp: Auscultation: diminished lung sounds Cardio: Rate: regular rate Rhythm: regular rhythm Heart sounds: Murmur heart sound present GI: Auscultation: normal bowel sounds Skin: General skin exam: normal color Neuro: General: No confusion Cranial nerves: Yes Normal hearing present Cognition (Neuro): normal cognition Speech: normal speech Extrem: General: edema (Trace to mild bilateral lower extremity edema) Psych: Mental Status: mental status grossly normal Objective Data Vital Signs Vital Signs: Vital Signs - 24 hr 12/27/20 12:00 12/27/20 14:00 12/27/20 16:00 Temperature 36.6 C Pulse Rate 53 L 58 L 53 L Respiratory Rate 18 Blood Pressure 105/62 Pulse Oximetry 100 12/27/20 20:05 12/27/20 22:00 12/28/20 00:00 Temperature 36.5 C Pulse Rate 78 78 57 L Respiratory Rate 18 18 Blood Pressure 128/72 Pulse Oximetry 100 100 12/28/20 00:53 12/28/20 04:00 12/28/20 06:00 Temperature 37.0 C Pulse Rate 77 53 L 54 L Respiratory Rate 18 Blood Pressure 122/70 Pulse Oximetry 99 98 12/28/20 08:00 Temperature Pulse Rate 60 Respiratory Rate Blood Pressure Pulse Oximetry Intake/Output Intake/Output: Intake &
--- NOTE | 2020-12-28 10:09 | PM.DS ---
DS: Admitting Diagnosis Discharge Date 10:11 a.m. on December 28, 2020 Admitting Diagnosis Acute renal insufficiency, secondary to diarrhea DS: Summary Hospital Course Hospital Course: See discharge summary Time Spent with Patient Time attestation: Total time spent providing and/or coordinating discharge services: START OF DOCTOR [facility] DISCHARGE SUMMARY Date of Admission: December 26, 2020 Date of Discharge: 10:09 a.m. on December 29, 2019 Primary Diagnosis: Acute renal insufficiency, secondary Secondary Diagnosis: To diarrhea diarrhea Query pneumonia Paroxysmal atrial fibrillation, status post cardiac ablation Anxiety Arthritis Degenerative disc disease Depression GERD Glaucoma Parkinson's disease Smoker Query adrenal insufficiency CHF, ejection fraction 35-40% Iron deficiency anemia Hyponatremia, chronic, intermittent Hypokalemia Consultations: Cardiology Disposition: The patient will be advised follow-up with his primary care physician 7-10 days post discharge for post hospitalization evaluation The patient is advised follow-up with cardiology as directed for his history of paroxysmal atrial fibrillation, status post cardiac ablation Discharge Medications: Aspirin 81 mg p.o. daily Lasix 40 mg p.o. daily K-Dur 20 mEq p.o. daily Eliquis 5 mg p.o. b.i.d. Fludrocortisone 0.1 mg p.o. daily Lorazepam 2 mg p.o. q.8 hours p.r.n. anxiety Melatonin 10 mg p.o. q.h.s. p.r.n. insomnia Prilosec 20 mg p.o. q.h.s. Prednisone 10 mg p.o. daily Terbinafine 250 mg p.o. daily Vitamin-C 500 mg p.o. daily Ferrous sulfate 325 mg p.o. b.i.d. END OF DOCTOR JUVENTINO?S DISCHARGE SUMMARY DS: Data Data Completed and Pending Labs on day of discharge: Labs from last 24 hours 12/28/20 12/27/20 06:10 17:03 Sodium 136 L 135 L Potassium 3.5 3.8 Chloride 97 L 96 L Carbon Dioxide 31 H 32 H Anion Gap 8 7 L BUN 34 H 42 H Creatinine 1.30 1.40 H Estim Creat Clear Calc 48 45 Estimated GFR 53 L 49 L Glucose 85 100 Calcium 8.3 L 7.9 L Discharge Plan Discharge Consulting providers: Leslye Haines Discharging Clinician: Dr. Dailey Patient Disposition: Home, Self-Care Activity: as tolerated Diet: low sodium Discharge Instructions: The patient will be advised follow-up with his primary care physician 7-10 days post discharge for post hospitalization evaluation The patient is advised to follow-up with cardiology as directed for his history of paroxysmal atrial fibrillation, status post cardiac ablation Patient Instructions: Antibiotic Form Stand Alone Forms: General Discharge Information Follow-up/Referrals: Kimberly Dailey DO [Physician] - Discharge Medications: New ascorbic acid (vitamin C) [Vitamin C] 500 mg Tablet 500 mg PO DAILY Qty: 30 RF: 0 ferrous sulfate 325 mg (65 mg iron) Tablet 324 mg PO BIDWM Qty: 60 RF: 0 furosemide [Lasix] 40 mg tablet 40 mg PO DAILY Qty: 30 RF: 0 Continued Eliquis 5 mg Tablet 5 mg PO BID Qty: 60 RF: 1 aspirin [Children's Aspirin] 81 mg Tablet,Chewable 81 mg PO DAILY@0800 Qty: 30 RF: 1 omeprazole 20 mg capsule,delayed release(DR/EC) 20 mg PO HS RF: 0 terbinafine HCl 250 mg tablet 250 mg PO DAILY RF: 0 fludrocortisone 0.1 mg tablet 0.1 mg PO DAILY RF: 0 melatonin 10 mg Tablet 10 mg PO HS PRN (Reason: Insomnia) RF: 0 Artificial Tears(ao-syiv-plaq) 1-0.2-0.2 % Drops 1 drp EACH EYE QID PRN (Reason: Dry Eye(S)) Qty: 10 RF: 0 prednisone 10 mg tablet 10 mg PO DAILY RF: 0 potassium chloride 20 mEq tablet,ER particles/crystals 20 meq PO DAILY RF: 0 lorazepam 2 mg tablet 2 mg PO Q8H PRN (Reason: Sedation) RF: 0 Discontinued amiodarone [Pacerone] 200 mg Tablet 400 mg PO DAILY Qty: 60 RF: 0 metoprolol succinate 50 mg Tablet Extended Release 24 Hr 50 mg PO QAM Qty: 30 RF:
[2020-12-28] MEDS: FUROSEMIDE 40 MG TABLET PO (10:11)
[2020-12-28] MEDS: POTASSIUM CHLORIDE 20 MEQ TABLET 40 MEQ PO (10:11)
== END 2020-12-28 12:35 | disposition home health service (06) ==
LOC: ANHED 22:29 → ANH3MEDSUR 12-26 03:13
PROVIDERS: Nurse Practitioner; Admitting Provider Internal Medicine; Emergency Provider Emergency Medicine; PCP Family Medicine Adolescent Medicine; Visit Provider Internal Medicine
DX: N17.9 Acute kidney failure, unspecified (principal); R19.7 Diarrhea, unspecified; R53.1 Weakness; I50.23 Acute on chronic systolic (congestive) heart failure; N18.30 Chronic kidney disease, stage 3 unspecified; I48.91 Unspecified atrial fibrillation; R29.6 Repeated falls; R00.1 Bradycardia, unspecified; F41.8 Other specified anxiety disorders; Z87.891 Personal history of nicotine dependence; Z79.01 Long term (current) use of anticoagulants
CPT/HCPCS: 36415; 70450; 71045; 80048; 80053; 81003; 82274; 82728; 83540; 83550; 83605; 83690; 84484; 85014; 85018; 85025; 85610; 85730; 87045; 87177; 87209; 87269; 87272; 87324; 87427; 87493; 93005; 96360; 96361; 96365; 96366; 96375; 96376; 97110; 97116; 97162; 97166; 97530; 97535; 99285; A9270; G0378; J1940; J7030; J7512; P9047

== ENCOUNTER 2020-12-29 09:13 | Emergency (ER) | payer OTHER, SELFPAY ==
[2020-12-29] VITALS (8 sets, daily range): BP systolic 112–141; BP diastolic 63–100; PULSE 57–121; RESP 12–26; TEMP 36.6; O2SAT 91–100
--- NOTE | 2020-12-29 09:15 | ECG_ITS ---
Measurements Intervals [place] Rate: 112 P: [place]: 0 QRS: -13 QRSD: 109 T: 81 QT: 354 QTc: 484 Interpretive Statements ATRIAL FIBRILLATION WITH RAPID VENTRICULAR RESPONSE BORDERLINE ST-T WAVE ABNORMALITY- ANTEROLAT/HIGH LAT LEADS BASELINE WANDER- II, III, AVL, AVF, V1-V6 ABNORMAL ECG Electronically Signed On 12-29-2020 13:54:44 CDT by Josue Colvin D.O.
[2020-12-29 09:32] LABS: Basophils Percent Auto 0.1 % (0.2-1.2); Eosinophils Absolute Auto 0.2 K/mm3 (0-0.3); Eosinophils Percent Auto 1.9 % (0-4.4); Immature Granulocyte Absolute 0.02 K/mm3 (0.00-0.031); Immature Granulocyte Percent A 0.2 % (0-0.5); Lymphocytes Absolute Auto 0.88 K/mm3 (0.9-3.2); Lymphocytes Percent Auto 10.9 % (18.3-44.2); Mean Corpuscular HGB Conc 32.3 g/dl (32-36); Mean Corpuscular Hemoglobin 28.2 pg (26-34); Mean Corpuscular Volume 87.6 fl (80-100); Monocytes Absolute Auto 0.5 K/mm3 (0.1-0.6); Monocytes Percent Auto 6.6 % (2.6-8.5); Neutrophils Absolute Auto 6.5 K/mm3 (1.3-6.7); Neutrophils Percent Auto 80.3 % (45.5-73.1); Platelet Count Result 234 k/mm3 (150-375); Red Blood Count 3.54 M/mm3 (4.6-6.20); Red Cell Distribution Width 19.9 % (11.5-14.5)
[2020-12-29 09:40] LABS: Anion Gap 7 mmol/L (8-16); Blood Urea Nitrogen 28 mg/dL (9-20); Calcium 8.8 mg/dL (8.4-10.2); Carbon Dioxide 36 mmol/L (22-30); Chloride 97 mmol/L (98-107); Estimated CRCL calculation 52 ml/min; Estimated Glomerular Filt Rate 58; Glucose 95 mg/dL (65-110); Potassium 3.4 mmol/L (3.4-5.0); Sodium 140 mmol/L (137-145)
[2020-12-29 09:41] LABS: INR 1.2; Prothrombin Time 14.8 Seconds (11.1-14.7)
[2020-12-29 09:42] LABS: Partial Thromboplastin Time 37.9 SECONDS (22.3-36.8)
[2020-12-29 09:53] LABS: NT Pro B Type Natriuretic Pept 31600 pg/mL (5-100); Troponin I 0.019 ng/mL (0.000-0.034)
--- NOTE | 2020-12-29 11:59 | ECG_ITS ---
Measurements Intervals [place] Rate: 57 P: [place]: 0 QRS: -9 QRSD: 106 T: 75 QT: 385 QTc: 376 Interpretive Statements SINUS BRADYCARDIA WITH FIRST DEGREE AV BLOCK BORDERLINE ST-T WAVE ABNORMALITY- ANTEROLAT/HIGH LAT LEADS ABNORMAL ECG Electronically Signed On 12-29-2020 13:57:24 CDT by Josue Colvin D.O.
--- NOTE | 2020-12-29 12:06 | PC.NURSE ---
Pt prepared for cardioversion and EDP at bedside. Consent signed and patient placed on monitor with capnography. Pt was given 50mg propofol by Dr. Mccoy and cardioverted at 200J once sedated at 1155 with no change in rhythm. Pad placement changed to front and back position and pt cardioverted again at 200J with conversion to sinus rhythm. EKG obtained per EDP order. Pt tolerated procedure well and resting comfortably at this time with no complaints.
--- NOTE | 2020-12-29 12:34 | ED.ARRPALP ---
HPI - Arrhythmia/Palpitations General Chief Complaint: Arrhythmia/Palpitations Stated Complaint: rapid heart rate Time Seen by Provider: 12/29/20 09:28 Source: patient Mode of arrival: EMS Limitations: no limitations History of Present Illness HPI narrative: 80-year-old male Here for rapid heart rate which he noticed beginning last night He actually just went home a couple of days ago after being hospitalized for slow heart rate and dizziness He has a known history of atrial fibrillation and per chart notes it is difficult to manage due to issues with uptitrating his amiodarone or his rate controllers Patient states he has been cardioverted several times most recently about 2-1/2 weeks ago He has had discussions with his rn labor delivery about possibly needing a pacemaker Apart from the fast and irregular heart rate he does not feel too poorly He is not having chest pain or shortness of breath He has noticed that his pedal edema has increased over the past 24 hours Has been properly taking his anticoagulation Related Data Home Medications Medication Instructions Recorded Confirmed omeprazole 20 mg PO HS 06/08/19 12/26/20 fludrocortisone 0.1 mg PO DAILY 12/11/20 12/26/20 melatonin 10 mg PO HS PRN 12/11/20 12/26/20 terbinafine HCl 250 mg PO DAILY 12/11/20 12/26/20 lorazepam 2 mg PO Q8H PRN 12/26/20 12/26/20 potassium chloride 20 meq PO DAILY 12/26/20 12/26/20 prednisone 10 mg PO DAILY 12/26/20 12/26/20 amiodarone 200 mg PO DAILY 12/29/20 Allergies Allergy/AdvReac Type Severity Reaction Status Date / Time celecoxib Allergy Mild Hives Verified 12/29/20 09:18 valdecoxib Allergy Mild Hives Verified 12/29/20 09:18 Barbiturates Allergy Unknown Hives Verified 12/29/20 09:18 Review of Systems Review of Systems: All systems reviewed & are unremarkable except as noted in HPI and below Constitutional: Constitutional: Reports no additional constitutional complaints, Denies chills, Denies fatigue, Denies fever(s), Denies headache(s) and Reports weakness Eyes: Eyes: Reports no additional eye complaints and Denies change in vision ENT: Denies headache(s) and Denies sore throat Cardiovascular: Cardiovascular: Denies chest pain, Reports rapid heart rate, Denies dyspnea and Reports slow heart rate Respiratory: Respiratory: Denies cough and Denies dyspnea Gastrointestinal: Gastrointestinal: Denies abdominal pain, Denies diarrhea and Denies vomiting Genitourinary: Genitourinary: Denies dysuria and Denies urinary frequency Musculoskeletal: Musculoskeletal: Denies deformity, Denies arthralgias, Denies joint swelling and Denies numbness Integumentary/Breasts: Skin/Breast: Denies rash and Denies wounds Neurologic: Denies headache(s), Denies focal weakness and Denies numbness Psychiatric: Psychiatric: Reports no additional psychiatric complaints Endocrine: Endocrine: Reports no additional endocrine complaints Hematologic/Lymphatic: Hematologic/Lymphatic: Reports no additional hematologic/lymphatic complaints Allergic/Immunologic: Allergic/Immunologic: Reports no additional allergic/immunologic complaints PMFSH Past Medical History Medical History A-fib Anxiety Arm fracture Arthritis Cardiomyopathy DDD (degenerative disc disease) Depression Dilation of esophagus x3 Gallbladder disease GERD (gastroesophageal reflux disease) GI bleed Glaucoma Headache Mitral valve prolapse Parkinson disease Paroxysmal atrial fibrillation Paroxysmal atrial flutter Previous known suicide attempt 07/03/09 Rectal polyp Silverio-Checo syndrome Ulcer Surgical History Surgical History H/O cardiac radiofrequency ablation History of esophagogastroduodenoscopy (EGD) History of rectal polypectomy Hx of appendectomy Hx of cholecystectomy Hx of fusion of cervical spine x2 Status post laparoscopic Austen fundoplication Fami
[2020-12-29] MEDS: POTASSIUM CHLORIDE 20 MEQ PACKET (FOR LIQUID) 40 MEQ PO (14:01)
[2020-12-29] MEDS: BUMETANIDE INJ 1 MG/4 ML VIAL 2 MG IV PUSH (14:03)
== END 2020-12-29 14:40 | disposition home or self-care (01) ==
PROVIDERS: Emergency Provider Emergency Medicine; PCP Family Medicine Adolescent Medicine
DX: I48.0 Paroxysmal atrial fibrillation (principal); I42.9 Cardiomyopathy, unspecified; I34.1 Nonrheumatic mitral (valve) prolapse; I48.92 Unspecified atrial flutter; G20 Parkinson's disease; K21.9 Gastro-esophageal reflux disease without esophagitis; H40.9 Unspecified glaucoma; Z79.01 Long term (current) use of anticoagulants; Z87.891 Personal history of nicotine dependence; M19.90 Unspecified osteoarthritis, unspecified site; L51.1 Stevens-Johnson syndrome; Z87.19 Personal history of other diseases of the digestive system; Z98.1 Arthrodesis status
CPT/HCPCS: 36415; 80048; 83880; 84484; 85025; 85610; 85730; 92960; 93005; 96374; 99285; A9270; J2704; J7030

== ENCOUNTER 2021-01-01 18:01 | Inpatient (IN) | payer OTHER, SELFPAY ==
--- NOTE | ~2021-01-01 | XR_ITS ---
XR chest 2V 01/05/2021 12:08 Indication: CHF Procedure: 2 view chest Comparison: Comparison to multiple prior studies sequentially, with oldest reviewed study dated 12/10. Findings: Cardiomegaly. Small pleural effusions. No focal pneumonia, edema, pneumothorax. There is ch ronic apical pleural thickening/scarring. Impression: 1: Small pleural effusions. 2: Cardiomegaly. Reviewed, dictated and finalized at location A. Impression: 1: Small pleural effusions. 2: Cardiomegaly.
--- NOTE | ~2021-01-01 | CT_ITS ---
EXAMINATION: CTA chest PE protocol DATE: 01/02/2021 15:30 INDICATION: Tachycardia, elevated d-dimer TECHNIQUE: Computed tomography angiography (CTA) of the chest was performed with 100 mL Omnipaque-350 intravenous contrast timed to evaluate the pulmonary arteries. Coronal maximum intensity projection 3D-reconstructions were created by the technologist. Automated exposure control and iterative reconst ruction technique were employed. Exam dose: 433.11 mGy-cm total exam DLP. COMPARISON: 01/01/2021 2 view chest FINDINGS: There is diagnostic contrast enhancement of the pulmonary arteries and no evidence of pulmo nary embolism. Mild thoracic aortic aneurysm, the ascending aorta measuring up to 4.1 cm diameter, the thoracic aort ic arch and descending thoracic aorta measuring up to 3.1 cm diameter. Cardiomegaly. No pericardial effusion. No hilar or mediastinal mass lesion or lymphadenopathy. There is bilateral lower lobe dependent atelectasis, right greater than left. There are mild bilateral pleural effusions, left greater than right. Prominent degenerative disc disease at the included C6-7 and C7-T1 interspaces. Degenerative changes of the thoracic spine. Moderate anterior wedge compression fracture deformity of T12. Status post cholecystectomy IMPRESSION: No evidence of pulmonary embolism Mild thoracic aortic aneurysm Cardiomegaly, mild bilateral pleural effusions, right greater than left Bilateral lower lobe dependent atelectasis, right greater than left Reviewed, dictated and finalized at Location A. Reviewed, dictated and finalized at location B.
--- NOTE | ~2021-01-01 | US_ITS ---
EXAMINATION: US venous doppler LE EXAM DATE: 01/02/2021 10:35 INDICATION: Bilateral leg swelling. TECHNIQUE: Multiple grayscale, color flow and Doppler images of the lower extremity deep venous syste ms bilaterally were obtained and reviewed. There is no prior study for comparison. FINDINGS: Right side: The right common femoral, femoral and profunda veins demonstrate normal color flow, respi ratory variation, augmentation and compressibility. Compressibility, color flow confirmed within the right popliteal, posterior tibial, peroneal, and greater saphenous veins. Left side: The left common femoral, femoral and profunda veins demonstrate normal color flow, respira tory variation, augmentation and compressibility. Compressibility, color flow confirmed within the l eft popliteal, posterior tibial, peroneal, and greater saphenous veins. IMPRESSION: No lower extremity deep venous thrombosis bilaterally. Reviewed, dictated and finalized at location A.
--- NOTE | ~2021-01-01 | XR_ITS ---
EXAMINATION: XR chest 2V DATE: 01/01/2021 18:51 INDICATION: Irregular heartbeat. TECHNIQUE: Frontal and lateral views of the chest were obtained. COMPARISON: Chest single view 12/25/2020, chest CT 04/05/2020 FINDINGS: There is mild atelectasis at the lung bases. No significant pleural effusion. No pneumothor ax. The heart size is normal. There is mild chronic anterior wedging of a lower thoracic vertebral akila dy. IMPRESSION: 1. Mild atelectasis at the lung bases. Reviewed, dictated and finalized at location A.
--- NOTE | ~2021-01-01 | US_ITS ---
EXAMINATION: US renal BI DATE: 01/07/2021 15:05 INDICATION: Acute renal insufficiency TECHNIQUE: Multiple ultrasound grayscale images of the kidneys were obtained. COMPARISON: 12/12/2020 FINDINGS: The right kidney measures 9.3 x 4.4 x 6.2 cm. The left kidney measures 9.7 x 4.7 x 5.2 cm. The kidney s demonstrate normal echogenicity. There is no hydronephrosis in either kidney. No stones identified . The bladder appears normal but is partially decompressed which limits evaluation. Small amount of p erihepatic ascites. IMPRESSION: 1. Normal kidneys without hydronephrosis. 2. Small amount of perihepatic ascites. Reviewed, dictated and finalized at location A.
--- NOTE | ~2021-01-01 | XR_ITS ---
XR chest 1V portable 01/06/2021 12:58 Indication: Shortness of breath Procedure: AP portable chest Comparison: Comparison to multiple prior studies sequentially, with oldest reviewed study dated 05/2020. Findings: Moderate cardiomegaly. No focal air space disease, pulmonary edema, pleural effusion or marysol pected pneumothorax. No acute osseous abnormality. Impression: 1: No acute cardiopulmonary disease. 2: Cardiomegaly. Reviewed, dictated and finalized at location A. Impression: 1: No acute cardiopulmonary disease. 2: Cardiomegaly.
--- NOTE | 2021-01-01 18:04 | ECG_ITS ---
Measurements Intervals [place] Rate: 120 P: [place]: 0 QRS: -3 QRSD: 94 T: 91 QT: 330 QTc: 467 Interpretive Statements ATRIAL FIBRILLATION WITH RAPID VENTRICULAR RESPONSE VENTRICULAR PREMATURE COMPLEX DELAYED PRECORDIAL R/S TRANSITION NONSPECIFIC ST & T-WAVE ABNORMALITY- HIGH LATERAL LEADS ABNORMAL ECG Electronically Signed On 01-01-2021 20:07:36 CDT by Josue Colvin D.O.
[2021-01-01 18:09] VITALS: BP 118/68; PULSE 124; RESP 20; TEMP 36.4; O2SAT 99
[2021-01-01 18:55] LABS: Basophils Percent Auto 0.3 % (0.2-1.2); Eosinophils Percent Auto 0.4 % (0-4.4); Hematocrit 30.2 % (42.0-52.0); Hemoglobin 9.5 g/dL (14.0-18.0); Immature Granulocyte Absolute 0.04 K/mm3 (0.00-0.031); Immature Granulocyte Percent A 0.5 % (0-0.5); Lymphocytes Absolute Auto 0.47 K/mm3 (0.9-3.2); Lymphocytes Percent Auto 6.2 % (18.3-44.2); Mean Corpuscular HGB Conc 31.5 g/dl (32-36); Mean Corpuscular Hemoglobin 28.9 pg (26-34); Mean Corpuscular Volume 91.8 fl (80-100); Mean Platelet Volume 10.3 fl (7.4-10.4); Monocytes Absolute Auto 0.3 K/mm3 (0.1-0.6); Monocytes Percent Auto 3.9 % (2.6-8.5); Neutrophils Absolute Auto 6.8 K/mm3 (1.3-6.7); Neutrophils Percent Auto 88.7 % (45.5-73.1); Platelet Count Result 184 k/mm3 (150-375); Red Blood Count 3.29 M/mm3 (4.6-6.20); Red Cell Distribution Width 20.4 % (11.5-14.5); White Blood Count 7.6 K/mm3 (4.5-10.0)
[2021-01-01 19:03] LABS: INR 1.2; Prothrombin Time 15.1 Seconds (11.1-14.7)
[2021-01-01 19:04] LABS: Partial Thromboplastin Time 38.1 SECONDS (22.3-36.8)
[2021-01-01 19:10] LABS: Anion Gap 7 mmol/L (8-16); Blood Urea Nitrogen 24 mg/dL (9-20); Calcium 8.5 mg/dL (8.4-10.2); Carbon Dioxide 34 mmol/L (22-30); Chloride 102 mmol/L (98-107); Estimated CRCL calculation 68 ml/min; Estimated Glomerular Filt Rate > 60; Glucose 175 mg/dL (65-110); Potassium 3.3 mmol/L (3.4-5.0); Sodium 143 mmol/L (137-145)
[2021-01-01 19:19] LABS: Troponin I 0.026 ng/mL (0.000-0.034)
[2021-01-01 19:41] VITALS: BP 145/95; PULSE 132; RESP 29; TEMP 36.8; O2SAT 97
--- NOTE | 2021-01-01 20:42 | ED.GENADULT ---
HPI - General Adult General Chief complaint: Arrhythmia/Palpitations Stated complaint: irregular heart beat Time Seen by Provider: 01/01/21 20:17 Source: patient and RN notes reviewed History of Present Illness HPI narrative: Patient is a 80 y/o male complaining of heart palpitation since yesterday. He describes his palpitation as a fast heart rate. He also has shortness of breath and leg swelling. He denies any chest pain. He states that he has history of A fib and heart failure. He is on blood thinner for A fib and had cardioversion in recently. Related Data Home Medications Medication Instructions Recorded Confirmed omeprazole 20 mg PO HS 06/08/19 12/26/20 fludrocortisone 0.1 mg PO DAILY 12/11/20 12/26/20 melatonin 10 mg PO HS PRN 12/11/20 12/26/20 terbinafine HCl 250 mg PO DAILY 12/11/20 12/26/20 lorazepam 2 mg PO Q8H PRN 12/26/20 12/26/20 potassium chloride 20 meq PO DAILY 12/26/20 12/26/20 prednisone 10 mg PO DAILY 12/26/20 12/26/20 amiodarone 200 mg PO DAILY 12/29/20 Allergies Allergy/AdvReac Type Severity Reaction Status Date / Time celecoxib Allergy Mild Hives Verified 01/01/21 20:15 valdecoxib Allergy Mild Hives Verified 01/01/21 20:15 Barbiturates Allergy Unknown Hives Verified 01/01/21 20:15 Review of Systems Constitutional: Constitutional: Denies chills, Denies fever(s), Denies headache(s) and Denies weakness Eyes: Eyes: Denies blurry vision ENT: Denies headache(s) and Denies neck pain Cardiovascular: Cardiovascular: Denies chest pain, Reports rapid heart rate, Reports leg edema and Reports dyspnea Respiratory: Respiratory: Denies cough and Reports dyspnea Gastrointestinal: Gastrointestinal: Denies abdominal pain, Denies diarrhea, Denies nausea and Denies vomiting Genitourinary: Genitourinary: Denies hematuria and Denies dysuria Musculoskeletal: Musculoskeletal: Denies back pain and Denies neck pain Neurologic: Denies headache(s) and Denies weakness PMF Past Medical History Medical History A-fib Anxiety Arm fracture Arthritis Cardiomyopathy DDD (degenerative disc disease) Depression Dilation of esophagus x3 Gallbladder disease GERD (gastroesophageal reflux disease) GI bleed Glaucoma Headache Mitral valve prolapse Parkinson disease Paroxysmal atrial fibrillation Paroxysmal atrial flutter Previous known suicide attempt 07/03/09 Rectal polyp Silverio-Checo syndrome Ulcer Surgical History Surgical History H/O cardiac radiofrequency ablation History of esophagogastroduodenoscopy (EGD) History of rectal polypectomy Hx of appendectomy Hx of cholecystectomy Hx of fusion of cervical spine x2 Status post laparoscopic Austen fundoplication Family History Family History Father Colon cancer Mother Mental disorder Sibling Mental disorder Social History Social History Social History: the patient lives with his , and in the past with his sister. The nephew was living with them but is now on alcohol rehab. The patient desires to have his is the durable power deputy attorney general for healthcare. The patient desires to be a full code. The patient has 3 children. Denies any alcohol or illicit drug use. The patient used to work for the [employer] but is now retired. Patient smoked briefly for approximately 5 years. At least a half pack a cigarettes a day. He quit smoking in 1971. Smoking packs per day: 0.5 Smoking cigarettes per day: 10.0 Years smoked: 5 Smoking pack-years: 2.50 Smoking status: Former smoker Second hand tobacco smoke exposure: No Alcohol intake: never Substance use: never Substance use type: unknown Gender identity (if verbalized by the patient): Male Spiritual care concerns: No Agree to blood products: Yes Exam Co
[2021-01-01 21:22] VITALS: BP 128/71; PULSE 107; RESP 16; O2SAT 95
[2021-01-01] MEDS: FUROSEMIDE INJ 40 MG/4 ML VIAL IV PUSH (21:24)
[2021-01-01 21:46] LABS: NT Pro B Type Natriuretic Pept > 35000 pg/mL (5-100)
[2021-01-01 21:49] LABS: Troponin I 0.027 ng/mL (0.000-0.034)
--- NOTE | 2021-01-01 22:27 | PM.IMHP ---
H&P: HPI History of Present Illness Date/Time: 01/01/21 22:28 Chief Complaint: Shortness of breath Narrative: This is a 80-year-old male with past medical history significant for combined systolic and diastolic heart failure ejection fraction estimated at 35-40% on echocardiogram performed in May of 2020, Parkinson's disease, paroxysmal atrial fibrillation, paroxysmal atrial flutter, glaucoma, narrative joint disease, depression generalized anxiety disorder, status post cardioversion in July of 2020 and recently in late November. Patient comes in today due to worsening shortness of breath which is worse with exertion, worsening bilateral lower extremity edema, palpitations, denies chest pain, PND ,orthopnea, lightheadedness, dizziness, syncope or near-syncope, no cough no sputum production, no fevers, no rigors, no chills, no nausea no vomiting no diarrhea no abdominal pain. Preliminary workup was significant for brain natriuretic peptide of 35,000, a chest x-ray was clear. EKG showed atrial fibrillation with rapid ventricular response patient has been admitted to telemetry unit. Review of Systems Review of Systems: Shortness of breath at exertion, worsening bilateral lower extremity edema, palpitations. Constitutional: Constitutional: Denies chills, Denies fatigue, Denies fever(s), Denies lethargy, Denies malaise, Denies night sweats, Denies weakness and Reports weight gain Eyes: Eyes: Denies change in vision ENT: Denies dysphagia, Denies vertigo, Denies dizziness, Denies nasal congestion, Denies nasal discharge and Denies nasal obstruction Cardiovascular: Cardiovascular: Reports rapid heart rate, Reports pedal edema, Denies irregular heart rhythm, Reports leg edema, Denies lightheadedness, Denies radiating jaw, neck or arm pain, Reports palpitations, Reports dyspnea on exertion, Denies orthopnea and Denies paroxysmal nocturnal dyspnea Respiratory: Respiratory: Denies cough Gastrointestinal: Gastrointestinal: Denies abdominal pain, Denies dyspepsia, Denies heartburn, Denies diarrhea, Denies nausea and Denies vomiting Genitourinary: Genitourinary: Reports no additional male genitourinary complaints Musculoskeletal: Musculoskeletal: Reports no additional musculoskeletal complaints Integumentary/Breasts: Skin/Breast: Reports system reviewed and no additional complaints, except as docu Neurologic: Reports system reviewed and no additional complaints, except as documented Psychiatric: Psychiatric: Reports no additional psychiatric complaints Endocrine: Endocrine: Reports no additional endocrine complaints Hematologic/Lymphatic: Hematologic/Lymphatic: Reports no additional hematologic/lymphatic complaints Allergic/Immunologic: Allergic/Immunologic: Reports no additional allergic/immunologic complaints [facility] Past Medical History Medical History (Updated 01/02/21 @ 00:26 by Chel Santana MD) A-fib Anxiety Arm fracture Arthritis Cardiomyopathy DDD (degenerative disc disease) Depression Dilation of esophagus x3 Gallbladder disease GERD (gastroesophageal reflux disease) GI bleed Glaucoma Headache Mitral valve prolapse Parkinson disease Paroxysmal atrial fibrillation Paroxysmal atrial flutter Previous known suicide attempt 07/03/09 Rectal polyp Silverio-Checo syndrome Ulcer Surgical History Surgical History H/O cardiac radiofrequency ablation History of esophagogastroduodenoscopy (EGD) History of rectal polypectomy Hx of appendectomy Hx of cholecystectomy Hx of fusion of cervical spine x2 Status post laparoscopic Austen fundoplication Family History Family History Father Colon cancer Mother Mental disorder Sibling Mental disorder Social History Social History Social History: the patient lives with his , and in the past with his sister. The nep
[2021-01-01 22:58] LABS: D Dimer 1.56 ug/mL (<0.48)
[2021-01-01] MEDS: POTASSIUM CHLORIDE 20 MEQ TABLET PO (23:13)
[2021-01-02] VITALS (16 sets, daily range): BP systolic 114–134; BP diastolic 74–91; PULSE 98–141; RESP 18–20; TEMP 36–37.4; O2SAT 96–100; BMI 25.5
--- NOTE | 2021-01-02 00:20 | ADMGEN ---
This patient, Rico Nelson Sr., was admitted to IMU Room 232-01 at 0005 on 01/02/2021. Patient/family oriented to hospital policies and general routines including ID bracelet, bed and alarms, visiting hours, pain management, procedures, bathroom and other care routines, personal items, smoking policy, room service/diet, and visiting hours. Information on how to activate the Rapid Response Team has been discussed. Patient/Family are encouraged to report perceived risks to care and to ask questions if they do not understand what they are told or what they should do.
[2021-01-02 01:17] LABS: Troponin I 0.027 ng/mL (0.000-0.034)
--- NOTE | 2021-01-02 09:14 | PM.CNCAR ---
Assessment and Plan Additional Plan This is a 80-year-old man with many recurrences of atrial fib/atrial flutter that are summarized above. He enters the hospital yet with another episode of symptomatic recurrence of this. During last hospitalization my partner, Dr Calero mention the possibility of seeing his microsoft exchange architect again to consider having his AV node ablated in implanting a pacemaker device since medical therapy and ablated therapy if his arrhythmias has thus far not been successful. I suppose at this time I would tend to agree with that assessment. Obviously we do not have those services available here at [facility]. During this hospital stay he needs to obviously be diuresed and I will place him back on some amiodarone as it may provide better rate control he is on no rate-controlling medication at all as it was stopped during his most recent hospitalization making recurrent arrhythmias not at all surprising. Hopefully he can be stabilized with these measures and we need to ensure that he has an appointment for short interval follow-up with his microsoft exchange architect at [place] to consider more aggressive either rhythm or rate control such as AV node ablation and pacing since he has had a series of hospitalizations that are primarily related to poor rate/rhythm control. Will start his amiodarone back at a loading dose of 400 mg q.8 hours and IV Lasix is already ordered by the hospitalist. I notice that he is also on fludrocortisone which I will discontinue since he is obviously volume overload Rico Galarza MD [facility] History of Present Illness History of Present Illness Consult date/time: 01/02/21 09:14 Reason For Visit: CHF, Paroxysmal AFib Narrative: This is a 80-year-old man who is well known to our practice who has been admitted here frequently recently with some problematic recurrent atrial arrhythmias and volume overload. The patient is a known history of atrial fibrillation as well as atrial flutter and was stable for a number of years and followed in my practice after an ablation procedure that was done in the remote past. In the last couple of years the patient has been hospitalized here several times with decompensated heart failure as well as recurrent symptomatic atrial fibrillation and atrial flutter with palpitations. He has been treated with amiodarone off and on and as recently as last month in the office was in sinus rhythm. Since then he has been admitted to the hospital a couple of times when he was here recently he was in sinus rhythm but was bradycardic and both his amiodarone and metoprolol were discontinued/placed on hold. He is known to have moderate left ventricular systolic dysfunction with echocardiogram earlier this year with an estimated ejection fraction of 35-40%. Despite the antiarrhythmic treatment he was having problems with recurrent atrial flutter I believe in August of this year he was seen by our electrophysiology colleagues at [place] and underwent an atrial flutter ablation. Following that he was taken off of amiodarone and was maintaining sinus rhythm. We recommended medication primarily geared toward treating LV systolic dysfunction at that time with beta-blockers Entresto and diuretics. The patient has for social reasons and somewhat psychiatric reasons been noncompliant with medical treatment. He states that he came to the hospital last evening because for several days he was noticing increasing lower extremity edema and the sense of tachycardia and palpitations. He visited the emergency room at [place] last weekend it looks like with an episode of palpitations was found to be back in atrial fib and was cardioverted and discharged from the emergency department. He was not on any antiarrhythmic therapy at this time. He had a recurrence of symptoms of palpitations and came back last night and was subsequently admitted to the IMU. He is comfortable watching television when I entered the room he is
[2021-01-02] MEDS: AMIODARONE HCL 200 MG TABLET 400 MG PO ×2 (10:05→17:53)
[2021-01-02] MEDS: predniSONE 10 MG TABLET PO (10:05)
[2021-01-02] MEDS: POTASSIUM CHLORIDE 20 MEQ TABLET.ER PO (10:05)
[2021-01-02] MEDS: APIXABAN 5 MG TABLET PO ×2 (10:05→17:53)
[2021-01-02] MEDS: FUROSEMIDE INJ 40 MG/4 ML VIAL IV PUSH (10:06)
[2021-01-02 10:41] LABS: Alanine Aminotransferase 37 U/L (4-50); Albumin Level 4.2 g/dL (3.5-5.1); Alkaline Phosphatase 77 U/L (38-126); Anion Gap 5 mmol/L (8-16); Aspartate Amino Transferase 39 U/L (17-59); Bilirubin,Total 2.4 mg/dL (0.2-1.3); Blood Urea Nitrogen 25 mg/dL (9-20); Calcium 8.4 mg/dL (8.4-10.2); Carbon Dioxide 36 mmol/L (22-30); Chloride 100 mmol/L (98-107); Estimated CRCL calculation 62 ml/min; Estimated Glomerular Filt Rate > 60; Glucose 167 mg/dL (65-110); Potassium 3.6 mmol/L (3.4-5.0); Sodium 141 mmol/L (137-145)
--- NOTE | 2021-01-02 11:09 | PM.IMPN ---
Progress Note: A&P Assessment and Plan (1) Acute on chronic combined systolic (congestive) and diastolic (congestive) heart failure: Code(s): I50.43 - Acute on chronic combined systolic (congestive) and diastolic (congestive) heart failure Status: Acute Assessment and Plan: Likely due to AFib with RVR and lasix noncompliance -no chest pain, no evidence of ACS -BNP elevated -echo May 2019 shows an EF of 35-40% -continue Lasix 40 mg daily. IV push, may consider increasing this to b.i.d. -monitor input and output -echo ordered (2) Atrial fibrillation with RVR: Code(s): I48.91 - Unspecified atrial fibrillation Status: Acute Assessment and Plan: Currently on oral amiodarone with a heart rate of 127 -he was recently discharged from this hospital and his amiodarone and metoprolol were discontinued due to bradycardia according to the notes -he has a history of AFib with cardioversions in the past -cardiology following, appreciate their recommendations (3) Elevated brain natriuretic peptide (BNP) level: Code(s): R79.89 - Other specified abnormal findings of blood chemistry Status: Acute Assessment and Plan: As above (4) GERD (gastroesophageal reflux disease): Qualifiers: Esophagitis presence: esophagitis presence not specified Qualified Code(s): K21.9 - Gastro-esophageal reflux disease without esophagitis Code(s): K21.9 - Gastro-esophageal reflux disease without esophagitis Status: Chronic Assessment and Plan: Continue Protonix (5) Parkinson disease: Code(s): G20 - Parkinson's disease Status: Acute Assessment and Plan: Noted in the EMR, On no meds -no evidence of symptoms currently at bedside (6) History of suicidal ideation: Code(s): Z86.59 - Personal history of other mental and behavioral disorders Status: Acute Assessment and Plan: Patient was reportedly suicidal in the past and was hospitalized for this. During this time, his had COVID and did end up passing away. I spoke with him today extensively about this knee has no suicidal ideations and has been doing better Time Spent With Patient Time with patient: 25 - 35 minutes Subjective Date/time seen: 01/02/21 11:09 Interval history: Pt is a 80-year-old male here for AFib with RVR and CHF. Patient was seen today and states he feels okay. He notices that his heart is racing but does not have any chest pain, jaw pain or arm pain. He has no shortness of breath, fevers, chills, nausea, vomiting or abdominal pain. He says his swelling in his lower extremities has been worse the last few months. He has not been taking his medications including his Eliquis because he just did not go and pick them up. He has never had a history of blood clots and is on the Eliquis due to AFib. Review of Systems Review of Systems: All systems reviewed & are unremarkable except as noted in HPI and below Exam Narrative: General: Well developed well nourished patient in NAD HEENT: normocephalic Neck: supple Neuro: Alert and oriented x4 CV: Irregularly irregular. Telemetry shows AFib up to 150 but currently at 1:31 a.m.. Resp: Crackles at the bases, bilaterally. No wheezing or rhonchi. No conversational dyspnea Abd: Soft, non distended. No pain to palpation. Positive bowel sounds Extremities: Lower extremity edema 2+ up to the knee. Multiple small wounds that do not look acutely infected. Objective Data Vital Signs Vital Signs: Vital Signs - 24 hr 01/01/21 18:09 01/01/21 19:41 01/01/21 21:22 Temperature 97.6 F 98.2 F Pulse Rate 124 H 132 H 107 H Respiratory Rate 20 29 H 16 Blood Pressure 118/68 145/95 H 128/71 Pulse Oximetry 99 97 95 01/02/21 00:00 01/02/21 00:11 01/02/21 00:45 Temperature 97.2 F L Pulse Rate 98 132 H 122 H Respiratory Rate 20 Blood Pressure 130/87 Pulse Oximetry 96 01/02/21
--- NOTE | 2021-01-02 14:25 | PCCARD ---
Echo cancelled due to heart rate. Per Dr. Galarza, later today or tomorrow after his heart rate is more controlled. Gilles
[2021-01-02 16:40] LABS: Add Urine Microscopic? YES; Appearance Urine Clear (Clear); Bilirubin Urine Negative (Negative); Blood Urine Negative (Negative); Color Urine Yellow (Yellow); Glucose Urine UA Negative (Negative); Ketones Urine Negative (Negative); Leukocyte Esterase Ur Negative LEU/UL (Negative); Nitrate Urine Negative (Negative); Protein Urine Negative (Negative)
[2021-01-02] MEDS: LORazepam (*CRX) 1 MG TABLET 2 MG PO (17:52)
[2021-01-02] MEDS: FERROUS SULFATE 324 MG TABLET PO (17:53)
[2021-01-02] MEDS: PANTOPRAZOLE 40 MG TABLET PO (20:48)
[2021-01-03] VITALS (19 sets, daily range): BP systolic 107–130; BP diastolic 69–93; PULSE 95–149; RESP 20; TEMP 36.1–37.2; O2SAT 97–100
[2021-01-03] MEDS: AMIODARONE HCL 200 MG TABLET 400 MG PO ×3 (01:06→16:57)
[2021-01-03] MEDS: LORazepam (*CRX) 1 MG TABLET 2 MG PO ×2 (01:09→22:10)
[2021-01-03] MEDS: MELATONIN 5 MG TABLET 10 MG PO ×2 (01:10→22:09)
[2021-01-03 05:49] LABS: Hematocrit 28.6 % (42.0-52.0); Mean Corpuscular HGB Conc 31.5 g/dl (32-36); Mean Corpuscular Hemoglobin 28.1 pg (26-34); Mean Corpuscular Volume 89.4 fl (80-100); Mean Platelet Volume 10.6 fl (7.4-10.4); Platelet Count Result 187 k/mm3 (150-375); Red Cell Distribution Width 20.3 % (11.5-14.5); White Blood Count 7.2 K/mm3 (4.5-10.0)
[2021-01-03 06:05] LABS: Anion Gap 2 mmol/L (8-16); Blood Urea Nitrogen 26 mg/dL (9-20); Calcium 8.1 mg/dL (8.4-10.2); Carbon Dioxide 37 mmol/L (22-30); Chloride 96 mmol/L (98-107); Estimated CRCL calculation 62 ml/min; Estimated Glomerular Filt Rate > 60; Glucose 91 mg/dL (65-110); Magnesium 2.9 mg/dL (1.6-2.3); Potassium 3.7 mmol/L (3.4-5.0); Sodium 135 mmol/L (137-145)
[2021-01-03] MEDS: ASPIRIN 81 MG CHEWABLE TABLET PO (09:13)
[2021-01-03] MEDS: FERROUS SULFATE 324 MG TABLET PO ×2 (09:13→16:57)
[2021-01-03] MEDS: POTASSIUM CHLORIDE 20 MEQ TABLET.ER PO ×2 (09:13→16:57)
[2021-01-03] MEDS: FUROSEMIDE INJ 40 MG/4 ML VIAL IV PUSH ×2 (09:13→16:57)
[2021-01-03] MEDS: predniSONE 10 MG TABLET PO (09:13)
[2021-01-03] MEDS: APIXABAN 5 MG TABLET PO ×2 (09:13→16:57)
[2021-01-03] MEDS: METOPROLOL TARTRATE 25 MG TABLET PO ×2 (12:49→22:09)
--- NOTE | 2021-01-03 12:52 | PM.PNCARD ---
Progress Note: A&P Assessment and Plan (1) Atrial flutter with rapid ventricular response: Code(s): I48.92 - Unspecified atrial flutter Status: Acute Assessment and Plan: persistent despite history of atrial flutter ablation and repeat cardioversions. Patient previously intolerant to amiodarone and beta-blockers due to symptomatic bradycardia post cardioversion. However, patient has recurrence of tachyarrhythmia with atrial flutter with RVR resulting in decompensated heart failure. Amiodarone has been restarted yet he remains tachycardic. Very complicated clinical situation. - Continue Amiodarone load 400 mg po TID - Add Metoprolol tartrate 25 mg p.o. q.12 hours, dose this a.m.. -Continue Eliquis 5mg BID - If we are able to stabilize him from a heart perspective with reasonable heart rate control, the patient's first preference is to follow up with Electrophysiology as an outpatient as soon as possible after discharge for discussions with regarding AV naif ablation and biventricular [employer] pacemaker implantation. Patient is in agreement with this plan of care. - Also discussed the possibility he may require inpatient transfer to [place], however, he did not agree to this strategy at present. However, I informed the patient that should he be discharged and require readmission for tachyarrhythmia that he present to [place] or other high-level tertiary care center which has the capability providing advanced electrophysiology procedures such as ablation and biventricular device implantation as these services are not available at [facility]. Reminded him that we are limited in scope of therapy we are recommending at this institution as we do not have electrophysiology services at [facility]. He verbalized understanding. (2) Acute on chronic combined systolic (congestive) and diastolic (congestive) heart failure: Code(s): I50.43 - Acute on chronic combined systolic (congestive) and diastolic (congestive) heart failure Status: Acute Assessment and Plan: continue IV diuresis but increase Lasix to 40mg IV BID and KCl 20MEQ BID. Follow BMP and electrolytes closely. Patient clinically improving. Monitor input and output, daily weight, renal function electrolytes very closely. Renal function improved from admission, potassium marginal at 3.7, magnesium 2.9. (3) Cardiomyopathy: Code(s): I42.9 - Cardiomyopathy, unspecified Status: Acute Assessment and Plan: Moderate LV dysfunction EF 35-40% continue supportive medical therapy as tolerated. (4) Tachycardia-bradycardia syndrome: Code(s): I49.5 - Sick sinus syndrome Status: Acute Assessment and Plan: As above, patient in need of electrophysiology evaluation for recommended AV naif ablation and biventricular [employer] pacemaker implantation. (5) Acute on chronic renal failure: Code(s): N17.9 - Acute kidney failure, unspecified; N18.9 - Chronic kidney disease, unspecified Status: Acute Assessment and Plan: Improving. Continue to monitor closely. (6) Paroxysmal atrial fibrillation: Code(s): I48.0 - Paroxysmal atrial fibrillation Status: Acute Assessment and Plan: Stable at present. Anticoagulation. (7) Anemia: Code(s): D64.9 - Anemia, unspecified Status: Acute Assessment and Plan: Follow H&H closely. No evidence of active bleeding. Subjective Date/time seen: date of service:01/03/21 12:52 Follow-up for persistent atrial flutter with rapid ventricular response, CHF patient states he is feeling better. Denies chest pain, palpitations or significant shortness of breath. He feels his edema is improving. He remains tachycardic on amiodarone heart rate 120s to 150s. Review of Systems Review of Systems: All systems reviewed & are unremarkable except as noted in HPI and below Constitutional: Constitutional: Reports as per HPI and Reports lethargy
--- NOTE | 2021-01-03 16:21 | PM.IMPN ---
Progress Note: A&P Assessment and Plan (1) Acute on chronic combined systolic (congestive) and diastolic (congestive) heart failure: Code(s): I50.43 - Acute on chronic combined systolic (congestive) and diastolic (congestive) heart failure Status: Acute Assessment and Plan: Likely due to AFib with RVR and lasix noncompliance -no chest pain, no evidence of ACS -BNP elevated -echo May 2019 shows an EF of 35-40% -He had 2470 out yesterday and 1750 so far today. Okay to d/c rosado and continue strict I&Os (pt able to urinate in urinal) -continue Lasix, pt appears euvolemic today. Consider transitioning to oral soon -monitor input and output (2) Atrial fibrillation with RVR: Code(s): I48.91 - Unspecified atrial fibrillation Status: Acute Assessment and Plan: Currently on oral amiodarone with a heart rate of 135. Metoprolol added 01/03/21 -he was recently discharged from this hospital and his amiodarone and metoprolol were discontinued due to bradycardia according to the notes -he has a history of AFib with cardioversions in the past -cardiology following, appreciate their recommendations (3) Elevated brain natriuretic peptide (BNP) level: Code(s): R79.89 - Other specified abnormal findings of blood chemistry Status: Acute Assessment and Plan: As above (4) GERD (gastroesophageal reflux disease): Qualifiers: Esophagitis presence: esophagitis presence not specified Qualified Code(s): K21.9 - Gastro-esophageal reflux disease without esophagitis Code(s): K21.9 - Gastro-esophageal reflux disease without esophagitis Status: Chronic Assessment and Plan: Continue Protonix (5) Parkinson disease: Code(s): G20 - Parkinson's disease Status: Acute Assessment and Plan: Noted in the EMR, On no meds -no evidence of symptoms currently at bedside (6) History of suicidal ideation: Code(s): Z86.59 - Personal history of other mental and behavioral disorders Status: Acute Assessment and Plan: Patient was reportedly suicidal in the past and was hospitalized for this. During this time, his had COVID and did end up passing away. I spoke with him today extensively about this knee has no suicidal ideations and has been doing better (7) Aneurysm: Code(s): I72.9 - Aneurysm of unspecified site Status: Acute Assessment and Plan: Mild thoracic aortic aneurysm noted on CT -Follow up with serial imaging with pcp Additional Plan UA reviewed, not suspicious of UTI Subjective Date/time seen: 01/03/21 16:21 Interval history: Pt is a 80-year-old male here for AFib with RVR and CHF. Patient was seen today and states he feels okay and has no complaints. He denies chest pain, jaw pain or arm pain. He has no shortness of breath, fevers, chills, nausea, vomiting or abdominal pain. He says his swelling in his lower extremities and palpitations have resolved. Exam Narrative: General: Well developed well nourished patient in NAD HEENT: normocephalic Neck: supple Neuro: Alert and oriented x4 CV: Irregularly irregular. Telemetry shows AFib at 135 Resp: CTA. No wheezing or rhonchi. No conversational dyspnea Abd: Soft, non distended. No pain to palpation. Positive bowel sounds Extremities: Lower extremity edema with no edema. Medial aspect of the right ankle with slight erythema but no warmth. No signs of infection. Multiple small wounds that do not look acutely infected. Objective Data Vital Signs Vital Signs: Vital Signs - 24 hr 01/02/21 17:53 01/02/21 18:00 01/02/21 20:00 Temperature 98.6 F Pulse Rate 126 H 126 H 113 H Respiratory Rate 20 Blood Pressure 114/74 Pulse Oximetry 98 01/02/21 22:00 01/03/21 00:00 01/03/21 01:06 Temperature 98.9 F Pulse Rate 114 H 120 H 140 H Respiratory Rate 20 Blood Pressure 116/87 Pulse Oximetry 98
[2021-01-03] MEDS: PANTOPRAZOLE 40 MG TABLET PO (20:51)
[2021-01-04] VITALS (20 sets, daily range): BP systolic 104–138; BP diastolic 76–91; PULSE 82–132; RESP 16–22; TEMP 36.1–36.5; O2SAT 96–100
[2021-01-04] MEDS: AMIODARONE HCL 200 MG TABLET 400 MG PO ×3 (00:53→17:01)
[2021-01-04 06:39] LABS: Hemoglobin 10.2 g/dL (14.0-18.0)
[2021-01-04 06:48] LABS: Anion Gap 7 mmol/L (8-16); Blood Urea Nitrogen 31 mg/dL (9-20); Calcium 8.5 mg/dL (8.4-10.2); Carbon Dioxide 34 mmol/L (22-30); Chloride 94 mmol/L (98-107); Estimated CRCL calculation 56 ml/min; Estimated Glomerular Filt Rate > 60; Glucose 114 mg/dL (65-110); Potassium 3.9 mmol/L (3.4-5.0); Sodium 135 mmol/L (137-145)
[2021-01-04] MEDS: FUROSEMIDE INJ 40 MG/4 ML VIAL IV PUSH (08:22)
[2021-01-04] MEDS: predniSONE 10 MG TABLET PO (08:22)
[2021-01-04] MEDS: METOPROLOL TARTRATE 25 MG TABLET PO ×2 (08:22→20:53)
[2021-01-04] MEDS: POTASSIUM CHLORIDE 20 MEQ TABLET.ER PO ×2 (08:23→17:01)
[2021-01-04] MEDS: APIXABAN 5 MG TABLET PO ×2 (08:23→17:01)
[2021-01-04] MEDS: FERROUS SULFATE 324 MG TABLET PO ×2 (08:23→17:01)
[2021-01-04] MEDS: ASPIRIN 81 MG CHEWABLE TABLET PO (08:26)
--- NOTE | 2021-01-04 10:51 | ECG_ITS ---
Measurements Intervals [place] Rate: 128 P: NM: 0 QRS: 34 QRSD: 106 T: 83 QT: 355 QTc: 520 Interpretive Statements ATRIAL FLUTTER/TACHYCARDIA WITH RAPID VENTRICULAR RESPONSE LOW QRS VOLTAGE IN LIMB LEADS BORDERLINE T WAVE ABNORMALITY- HIGH LATERAL LEADS ABNORMAL ECG Electronically Signed On 01-04-2021 11:48:13 CDT by Josue Colvin D.O.
--- NOTE | 2021-01-04 10:52 | PM.IMPN ---
Progress Note: A&P Assessment and Plan (1) Acute on chronic combined systolic (congestive) and diastolic (congestive) heart failure: Code(s): I50.43 - Acute on chronic combined systolic (congestive) and diastolic (congestive) heart failure Status: Acute Assessment and Plan: Improving. Likely due to AFib with RVR and lasix noncompliance -no chest pain, no evidence of ACS -BNP elevated -echo May 2019 shows an EF of 35-40%. Plan for repeat echo once heart rate has improved per Cardiology - he has been in negative fluid balance for the last 3 days and is diuresing well -continue Lasix, pt appears euvolemic today. Will transition to oral -monitor input and output (2) Atrial fibrillation with RVR: Code(s): I48.91 - Unspecified atrial fibrillation Status: Acute Assessment and Plan: Currently on oral amiodarone with a heart rate of 130. It does look like sinus on tele so I will obtain an ekg - Continue Metoprolol (added 01/03/21) -he was recently discharged from this hospital and his amiodarone and metoprolol were discontinued due to bradycardia according to the notes. Tachybrady syndrome? May benefit from pacemaker -he has a history of AFib with cardioversions in the past -cardiology following, appreciate their recommendations (3) Elevated brain natriuretic peptide (BNP) level: Code(s): R79.89 - Other specified abnormal findings of blood chemistry Status: Acute Assessment and Plan: As above (4) GERD (gastroesophageal reflux disease): Qualifiers: Esophagitis presence: esophagitis presence not specified Qualified Code(s): K21.9 - Gastro-esophageal reflux disease without esophagitis Code(s): K21.9 - Gastro-esophageal reflux disease without esophagitis Status: Chronic Assessment and Plan: Continue Protonix (5) Parkinson disease: Code(s): G20 - Parkinson's disease Status: Acute Assessment and Plan: Noted in the EMR, On no meds -no evidence of symptoms currently at bedside (6) History of suicidal ideation: Code(s): Z86.59 - Personal history of other mental and behavioral disorders Status: Acute Assessment and Plan: Patient was reportedly suicidal in the past and was hospitalized for this. During this time, his had COVID and did end up passing away. I spoke with him today extensively about this knee has no suicidal ideations and has been doing better (7) Aneurysm: Code(s): I72.9 - Aneurysm of unspecified site Status: Acute Assessment and Plan: Mild thoracic aortic aneurysm noted on CT -Follow up with serial imaging with pcp Additional Plan UA reviewed, not suspicious of UTI Subjective Date/time seen: 01/04/21 10:52 Interval history: Pt is a 80-year-old male here for AFib with RVR and CHF. patient states he is feeling okay and thinks his right ankle is a little more swollen today than it was yesterday. He is urinating pretty frequently due to the Lasix therapy. He denies chest pain, jaw pain or arm pain. He has no shortness of breath, fevers, chills, nausea, vomiting or abdominal pain. He no longer has palpitations in his chest but says he can feel his heart rate in his neck . Exam Narrative: General: Well developed well nourished patient in NAD HEENT: normocephalic Neck: supple Neuro: Alert and oriented x4 CV: tachycardic on exam which appeared regular. Telemetry showing what looks like sinus tachycardia Resp: CTA. No wheezing or rhonchi. No conversational dyspnea Abd: Soft, non distended. No pain to palpation. Positive bowel sounds Extremities: Medial aspect of the right ankle with slight erythema but no warmth With trace edema. No signs of infection. Multiple small wounds that do not look acutely infected. left leg with no edema. Objective Data Vital Signs Vital Signs: Vital Signs - 24 hr 01/03/21 12:00 01/03/21
--- NOTE | 2021-01-04 13:55 | PM.PNCARD ---
Progress Note: A&P Additional Plan 80-year-old man with: Recurrent problematic atrial arrhythmias now in atrial flutter with RVR. I was hoping that amiodarone loading dose would of course restore sinus rhythm in the last 48 hours that has not yet occurred. On the positive side his volume overload is much better. For now I would continue his amiodarone and anticoagulation. I would probably shift him back to oral furosemide since he is no longer significantly volume overloaded. I plan to contact his technology recruiter by telephone today to notify them of the situation so that more aggressive ablate of treatment can be arranged in a relatively expeditious fashion following discharge from [place]. Rico Galarza MD [facility] Subjective Date/time seen: Date of service: 01/04/21 13:55 Interval history: This is a 80-year-old man with: Resistant, recurrent atrial arrhythmias now again with recurrent atrial flutter with RVR resulting in CHF decompensation. Patient is back on a loading dose of oral amiodarone and is systemically anticoagulated with apixaban. He also has left ventricular systolic dysfunction which is a chronic issue. Patient feels better today he is less short of breath. Despite having heart rate of about 120 is not with the symptomatic with his atrial flutter otherwise. Patient is asking for a dose of Metamucil today because of constipation Exam Const: General: comfortable and no acute distress Other: Tall white male no apparent distress HENMT: Mouth: Yes moist mucous membranes Eyes: Sclera: sclerae normal Pupils: Equal, round and reactive pupils present Neck: Neck: supple and no JVD Thyroid: thyroid normal Resp: Effort & Inspection: normal respiratory effort Other: Slight dullness at the bases otherwise no rales or wheezing Cardio: Rate: tachycardic GI: GI Palp: Yes Soft to palpation Auscultation: normal bowel sounds Skin: General skin exam: normal color Neuro: Cognition (Neuro): normal cognition Extrem: Other: Lower extremity edema is largely resolved at this time Objective Data Vital Signs Vital Signs: Vital Signs - 24 hr 01/03/21 14:00 01/03/21 16:00 01/03/21 16:57 Temperature 36.3 C L Pulse Rate 109 H 134 H 123 H Respiratory Rate 20 Blood Pressure 120/88 Pulse Oximetry 97 01/03/21 18:00 01/03/21 19:16 01/03/21 20:00 Temperature 37.2 C Pulse Rate 133 H 95 134 H Respiratory Rate 20 Blood Pressure 107/69 Pulse Oximetry 97 01/03/21 20:12 01/03/21 22:00 01/03/21 22:09 Temperature Pulse Rate 134 H 115 H Respiratory Rate Blood Pressure Pulse Oximetry 97 01/04/21 00:00 01/04/21 00:53 01/04/21 02:00 Temperature 36.2 C L Pulse Rate 132 H 132 H 130 H Respiratory Rate 16 Blood Pressure 116/76 Pulse Oximetry 96 01/04/21 04:00 01/04/21 06:00 01/04/21 08:00 Temperature 36.1 C L 36.2 C L Pulse Rate 131 H 131 H 129 H Respiratory Rate 16 22 H Blood Pressure 104/91 H 114/76 Pulse Oximetry 98 98 01/04/21 08:22 01/04/21 10:00 01/04/21 12:00 Temperature 36.2 C L Pulse Rate 130 H 130 H 82 Respiratory Rate 18 Blood Pressure 116/82 Pulse Oximetry 96 Intake/Output Intake/Output: Intake & Output 01/01/21 01/02/21 01/03/21 01/04/21 23:59 23:59 23:59 23:59 Intake Total 1080 1260 490 Output Total 823 3306 6316 1125 [facility] -[phone] Meds/Results Medications: Active Medications Generic Name Dose Route Start Last Admin Trade Name Freq PRN Reason Stop Dose Admin Amiodarone HCl 400 mg 01/02/21 10:00 01/04/21 00:53 Amiodarone Hcl 200 Mg Tablet PO 400 mg Q8H ZHEN Administration Apixaban 5 mg 01/02/21 09:00 01/04/21 08:23 Apixaban 5 Mg Tablet PO 5 mg BID ZHEN Administration Artificial Tears 1 drop 01/02/21 08:51 Artificial Tears Ophth Soln 15 Ml Bottle EACH EYE QID PRN Dry Eye(S) Aspirin 81 mg 01/03/21 08:00 01/04/21 08:26 Aspirin 81 Mg Chewable Tablet
[2021-01-04] MEDS: MELATONIN 5 MG TABLET 10 MG PO (20:53)
[2021-01-04] MEDS: PANTOPRAZOLE 40 MG TABLET PO (20:53)
[2021-01-04] MEDS: LORazepam (*CRX) 1 MG TABLET 2 MG PO (20:54)
[2021-01-04] MEDS: polyethylene glycoL 3350 17 GM POWD.PACK PO (21:02)
[2021-01-05] VITALS (18 sets, daily range): BP systolic 101–124; BP diastolic 73–83; PULSE 112–127; RESP 16–24; TEMP 36.2–37; O2SAT 94–100
[2021-01-05] MEDS: AMIODARONE HCL 200 MG TABLET 400 MG PO ×3 (01:06→17:24)
[2021-01-05] MEDS: ONDANSETRON INJ 4 MG/2 ML VIAL IV PUSH (03:55)
[2021-01-05 05:49] LABS: Anion Gap 7 mmol/L (8-16); Blood Urea Nitrogen 41 mg/dL (9-20); Calcium 8.5 mg/dL (8.4-10.2); Carbon Dioxide 32 mmol/L (22-30); Chloride 96 mmol/L (98-107); Estimated CRCL calculation 48 ml/min; Estimated Glomerular Filt Rate 53; Glucose 85 mg/dL (65-110); Potassium 4.1 mmol/L (3.4-5.0); Sodium 135 mmol/L (137-145)
[2021-01-05] MEDS: METOPROLOL TARTRATE 25 MG TABLET PO ×2 (09:02→21:12)
[2021-01-05] MEDS: POTASSIUM CHLORIDE 20 MEQ TABLET.ER PO ×2 (09:02→17:24)
[2021-01-05] MEDS: APIXABAN 5 MG TABLET PO ×2 (09:02→17:24)
[2021-01-05] MEDS: FUROSEMIDE 40 MG TABLET PO (09:02)
[2021-01-05] MEDS: predniSONE 10 MG TABLET PO (09:03)
[2021-01-05] MEDS: FERROUS SULFATE 324 MG TABLET PO ×2 (09:03→17:24)
[2021-01-05] MEDS: ASPIRIN 81 MG CHEWABLE TABLET PO (09:05)
--- NOTE | 2021-01-05 10:22 | PM.IMPN ---
Progress Note: A&P Assessment and Plan (1) Acute on chronic combined systolic (congestive) and diastolic (congestive) heart failure: Code(s): I50.43 - Acute on chronic combined systolic (congestive) and diastolic (congestive) heart failure Status: Acute Assessment and Plan: Improving. Likely due to AFib with RVR and lasix noncompliance -no chest pain, no evidence of ACS -BNP elevated -echo May 2019 shows an EF of 35-40%. Plan for repeat echo once heart rate has improved per Cardiology -patient has diuresed well and will continue with oral Lasix -will repeat CXR since pt slightly more SOB today but suspect this is due to laying flat. (2) Atrial fibrillation with RVR: Code(s): I48.91 - Unspecified atrial fibrillation Status: Acute Assessment and Plan: Currently on oral amiodarone and metoprolol with a heart rate of 122 -He was recently discharged from this hospital and his amiodarone and metoprolol were discontinued due to bradycardia according to the notes. Tachybrady syndrome? May benefit from pacemaker -Dr. Bolden has spoken with Dr. Valadez about plan of care. Dr. Terrazas will see him close after discharge where he will be evaluated for AV node ablation and pacemaker. -he has a history of AFib with cardioversions in the past -cardiology following, appreciate their recommendations (3) Elevated brain natriuretic peptide (BNP) level: Code(s): R79.89 - Other specified abnormal findings of blood chemistry Status: Acute Assessment and Plan: As above (4) GERD (gastroesophageal reflux disease): Qualifiers: Esophagitis presence: esophagitis presence not specified Qualified Code(s): K21.9 - Gastro-esophageal reflux disease without esophagitis Code(s): K21.9 - Gastro-esophageal reflux disease without esophagitis Status: Chronic Assessment and Plan: Continue Protonix (5) Parkinson disease: Code(s): G20 - Parkinson's disease Status: Acute Assessment and Plan: Noted in the EMR, On no meds -no evidence of symptoms currently at bedside (6) History of suicidal ideation: Code(s): Z86.59 - Personal history of other mental and behavioral disorders Status: Acute Assessment and Plan: Patient was reportedly suicidal in the past and was hospitalized for this. During this time, his had COVID and did end up passing away. He has no suicidal ideations and has been doing better (7) Aneurysm: Code(s): I72.9 - Aneurysm of unspecified site Status: Acute Assessment and Plan: Mild thoracic aortic aneurysm noted on CT -Follow up with serial imaging with pcp Subjective Date/time seen: 01/05/21 10:22 Interval history: Pt is a 80-year-old male here for AFib with RVR and CHF. Patient states that he is feeling better. He feels short of breath when he sleeps with his legs up while on his back. He says this helps the swelling but makes his shortness of breath worse. He is not having any cough, shortness of breath at rest, or shortness of breath when walking to the bathroom. He thinks he is constipated and that is making his shortness of breath worse as well. He is only had 2 very small bowel movements and says it is because we are not giving him very much fiber. He has no chest pain or heart palpitations. Exam Narrative: General: Well developed well nourished patient in NAD HEENT: normocephalic Neck: supple Neuro: Alert and oriented x4 CV: tachycardic on exam which appeared regular. Telemetry heart rate 0f 122 Resp: CTA. No wheezing or rhonchi. No conversational dyspnea Abd: Soft, non distended. No pain to palpation. Positive bowel sounds Extremities: Medial aspect of the right ankle with slight erythema but no warmth or edema. No signs of infection. Multiple small wounds that do not look acutely infected. left leg with no edema. Objective Data Yue
--- NOTE | 2021-01-05 11:12 | PM.PNCARD ---
Progress Note: A&P Additional Plan 80-year-old man with: Chronic atrial fib/flutter very difficult time providing rate and rhythm control in recent months with multiple admissions to the hospital with decompensated congestive heart failure. He appears to be relatively compensated now and not really volume overloaded. I believe we have arrived at the situation where AV node ablation and pacemaker implantation is the best long-term management strategy since we have not been able to find a medical regimen that is successful for him. For the time being I would continue him on oral amiodarone with the intention of discontinuing this after AV node ablation. I did speak with his interior mechanic at [place] yesterday with will be planning on arranging for a relatively soon appointment for AV node ablation/modification and pacemaker implantation. Since he is hemodynamically stable and has been cardioverted multiple times in recent months I do not believe I am going to recommend another attempt at cardioversion here prior to discharge. I will reduce his amiodarone to 400 mg q.12 hours today and look towards discharge tomorrow if he is stable. Rico Galarza MD [facility] Subjective Date/time seen: Date of service: 01/05/21 11:12 Interval history: This is a 80-year-old man with: Resistant, recurrent atrial arrhythmias now again with recurrent atrial flutter with RVR resulting in CHF decompensation. Patient is back on a loading dose of oral amiodarone and is systemically anticoagulated with apixaban. He also has left ventricular systolic dysfunction which is a chronic issue. Date of service 01/05/2021: Patient is comfortable the last couple of days really no shortness of breath or cardiac instability. Despite persistent atrial flutter with heart rate of about 110-120. Discussion with the patient today about the long-term management of this. I did have a detailed discussion with his interior mechanic at [place] who agrees with me that it is probably time to consider ablating the AV node, implanting a pacemaker device and eliminating the need to use medication to provide rate control in this gentleman since that appears to be failing. His only complaint today is no fiber in his diet and has not had a bowel movement in a while Exam Const: General: comfortable and no acute distress; No confusion Orientation/consciousness: patient oriented x3 and No confusion Other: Tall white male no apparent distress HENMT: Mouth: Yes moist mucous membranes Eyes: Sclera: sclerae normal Pupils: Equal, round and reactive pupils present Neck: Neck: supple and no JVD Thyroid: thyroid normal Resp: Effort & Inspection: normal respiratory effort Auscultation: diminished lung sounds Other: Slight dullness at the bases otherwise no rales or wheezing Cardio: Jugular venous distension: no JVD Rate: tachycardic Rhythm: abnormal rhythm irregularly irregular GI: Auscultation: normal bowel sounds Skin: General skin exam: normal color Neuro: General: patient oriented x3, moves all extremities and No confusion Cranial nerves: Yes Equal, round and reactive pupils present Cognition (Neuro): normal cognition and abnormal cognition Extrem: Other: Lower extremity edema is largely resolved at this time Objective Data Vital Signs Vital Signs: Vital Signs - 24 hr 01/04/21 12:00 01/04/21 14:00 01/04/21 14:29 Temperature 36.2 C L Pulse Rate 129 H 128 H 128 H Respiratory Rate 18 Blood Pressure 116/82 Pulse Oximetry 96 01/04/21 16:00 01/04/21 17:01 01/04/21 18:00 Temperature 36.4 C L Pulse Rate 128 H 129 H 128 H Respiratory Rate 20 Blood Pressure 130/87 Pulse Oximetry 99 01/04/21 18:57 01/04/21 19:40 01/04/21 20:00 Temperature 36.5 C Pulse Rate 126 H 128 H Respiratory Rate 20 Blood Pressure 138/82 Pulse Oximetry 100 98 01/04/21 20:53 01/04/21 21:14 01/04/21 22:00 Temperature Pulse Rate 116 H 124 H 125 H Respirat
[2021-01-05] MEDS: polyethylene glycoL 3350 17 GM POWD.PACK PO (11:47)
[2021-01-05] MEDS: BISACODYL 5 MG TABLET EC PO (11:47)
[2021-01-05] MEDS: LORazepam (*CRX) 1 MG TABLET 2 MG PO ×2 (15:20→22:54)
[2021-01-05] MEDS: ARTIFICIAL TEARS OPHTH SOLN 15 ML BOTTLE 1 DROP EACH EYE ×2 (15:22→21:13)
[2021-01-05] MEDS: PANTOPRAZOLE 40 MG TABLET PO (21:12)
[2021-01-05] MEDS: MELATONIN 5 MG TABLET 10 MG PO (21:16)
[2021-01-06] VITALS (21 sets, daily range): BP systolic 107–133; BP diastolic 71–88; PULSE 80–124; RESP 16–26; TEMP 35.8–37.1; O2SAT 91–100
[2021-01-06] MEDS: AMIODARONE HCL 200 MG TABLET 400 MG PO ×3 (01:52→18:00)
[2021-01-06] MEDS: ARTIFICIAL TEARS OPHTH SOLN 15 ML BOTTLE 1 DROP EACH EYE ×2 (01:53→08:03)
[2021-01-06 05:11] LABS: Anion Gap 11 mmol/L (8-16); Blood Urea Nitrogen 51 mg/dL (9-20); Calcium 8.8 mg/dL (8.4-10.2); Carbon Dioxide 30 mmol/L (22-30); Chloride 98 mmol/L (98-107); Estimated CRCL calculation 42 ml/min; Estimated Glomerular Filt Rate 45; Glucose 112 mg/dL (65-110); Potassium 4.6 mmol/L (3.4-5.0); Sodium 139 mmol/L (137-145)
[2021-01-06] MEDS: POTASSIUM CHLORIDE 20 MEQ TABLET.ER PO (08:02)
[2021-01-06] MEDS: METOPROLOL TARTRATE 25 MG TABLET PO ×2 (08:02→20:04)
[2021-01-06] MEDS: ASPIRIN 81 MG CHEWABLE TABLET PO (08:02)
[2021-01-06] MEDS: FERROUS SULFATE 324 MG TABLET PO ×2 (08:02→18:00)
[2021-01-06] MEDS: predniSONE 10 MG TABLET PO (08:03)
[2021-01-06] MEDS: APIXABAN 5 MG TABLET PO (08:03)
[2021-01-06] MEDS: polyethylene glycoL 3350 17 GM POWD.PACK PO (08:03)
[2021-01-06] MEDS: BISACODYL 5 MG TABLET EC PO (08:03)
--- NOTE | 2021-01-06 11:37 | PM.PNCARD ---
Progress Note: A&P Additional Plan 80-year-old man with: Problematic recurrent atrial fib and flutter resulting in decompensated congestive heart failure. He has failed what we can do for him at [facility] including long-term treatment with amiodarone and multiple cardioversions that this past year. He is clinically stable in the sense that he is no longer volume overloaded and his heart rate is no longer excessively fast. I would recommend discharging him on his current regimen with the plans that are in place now for him to see his smasher hand at [place] relatively soon after this discharge where AV node ablation and pacemaker implantation will be planned/considered. He is stable enough for he does not have to be transferred to [place] as an inpatient for this. He understands these are services that are not available here at [facility] where we do not have an electrophysiology lab. Rico Galarza MD [facility] Subjective Date/time seen: Date of service: 01/06/21 11:37 Interval history: This is a 80-year-old man with: Resistant, recurrent atrial arrhythmias now again with recurrent atrial flutter with RVR resulting in CHF decompensation. Patient is back on a loading dose of oral amiodarone and is systemically anticoagulated with apixaban. He also has left ventricular systolic dysfunction which is a chronic issue. Date of service 01/05/2021: Patient is comfortable the last couple of days really no shortness of breath or cardiac instability. Despite persistent atrial flutter with heart rate of about 110-120. Discussion with the patient today about the long-term management of this. I did have a detailed discussion with his smasher hand at [place] who agrees with me that it is probably time to consider ablating the AV node, implanting a pacemaker device and eliminating the need to use medication to provide rate control in this gentleman since that appears to be failing. His only complaint today is no fiber in his diet and has not had a bowel movement in a while Date of service 01/06/2021: No cardiovascular symptoms resting comfortably. Patient is still in atrial flutter but heart rate is about 115, much more reasonable. Plans noted for discharge today are okay with me. Reminded patient that we will be arranging for him to see his smasher hand at [place] at relatively short interval to consider AV node ablation and pacemaker implantation as rhythm control has been unsuccessful Exam Const: General: comfortable and no acute distress; No confusion Orientation/consciousness: patient oriented x3 and No confusion Other: Tall white male no apparent distress HENMT: Mouth: Yes moist mucous membranes Eyes: Sclera: sclerae normal Pupils: Equal, round and reactive pupils present Neck: Neck: supple and no JVD Thyroid: thyroid normal Resp: Effort & Inspection: normal respiratory effort Auscultation: diminished lung sounds Other: Slight dullness at the bases otherwise no rales or wheezing Cardio: Jugular venous distension: no JVD Rate: tachycardic Rhythm: abnormal rhythm irregularly irregular GI: Auscultation: normal bowel sounds Skin: General skin exam: normal color Neuro: General: patient oriented x3, moves all extremities and No confusion Cranial nerves: Yes Equal, round and reactive pupils present Cognition (Neuro): normal cognition and abnormal cognition Extrem: Other: Lower extremity edema is largely resolved at this time Objective Data Vital Signs Vital Signs: Vital Signs - 24 hr 01/05/21 12:00 01/05/21 14:00 01/05/21 16:00 Temperature 37.0 C 36.5 C Pulse Rate 122 H 122 H 121 H Respiratory Rate 24 H 24 H Blood Pressure 101/73 109/82 Pulse Oximetry 97 100 01/05/21 17:24 01/05/21 18:00 01/05/21 20:00 Temperature 36.6 C Pulse Rate 122 H 122 H 118 H Respiratory Rate 22 H Blood Pressure 118/83 Pulse Oximetry 94 01/05/21 21:12 01/05/21 22:00 01/06/21 00:00 Tempera
--- NOTE | 2021-01-06 12:28 | PM.DS ---
DS: Summary Hospital Course Hospital Course: DOS 01/06/21 DUTCH should resolve with discontinuing fluid restriction. oral Lasix will be held today and he can resume this tomorrow. Follow-up with primary care physician Time Spent with Patient Time attestation: Total time spent providing and/or coordinating discharge services: DS: Data Data Completed and Pending Labs on day of discharge: Labs from last 24 hours 01/06/21 04:38 Sodium 139 Potassium 4.6 Chloride 98 Carbon Dioxide 30 Anion Gap 11 BUN 51 H D Creatinine 1.50 H Estim Creat Clear Calc 42 Estimated GFR 45 L Glucose 112 H Calcium 8.8 Discharge Plan Discharge Attending physician on discharge: Marcus Begum Consulting providers: Vj John Discharging Clinician: Maite David Patient Disposition: Home Health Service Activity: as tolerated Diet: heart healthy Discharge Instructions: -Please note your medications have changed. continue [id number] MiraLax or Dulcolax to help facilitate a bowel movement. -Follow up with Dr. Valadez at [facility]. Their number is [phone]. Call their office to make an appointment. It is important that you do this soon. -weigh yourself daily, if you gain more than 5 lb in 1 week or start to notice worsening swelling in your lower extremities, call your primary care physician to see if your medications need to be temporarily adjusted to prevent future hospitalizations. -You are on a blood thinner . This will make you bleed easier. If you have a wound or scrape yourself, you will need to hold pressure for a longer period of time. If you fall or hit your head, you will need to seek medical attention right away. Stop and call your doctor if you start to have dark tary stools as this can indicate internal bleeding -If you have any thoughts of harming yourself please call 911 - worrisome signs and symptoms come back to emergency room for: chest pain, passing out, progressive significant weakness, worsening shortness of breath, fevers 100.4 or greater, or any other worrisome symptom - follow-up with your primary care physician in 1-2 weeks about this stay. You have a mild thoracic aortic aneurysm that needs to be monitored with routine images. They can help you with this. Per Care Coordination: Patient to have [facility] for PT/OT eval and treat, and half-way. They can be reached at [phone] and will contact you to schedule their first visit. Patient Instructions: Antibiotic Form, Heart Failure (DC), A-fib (Atrial Fibrillation) (DC) Stand Alone Forms: General Discharge Information Follow-up/Referrals: Omari Pearce MD [Primary Care Provider] - 1 Week Discharge Medications: New metoprolol tartrate 25 mg Tablet 25 mg PO Q12HR Qty: 60 RF: 0 amiodarone [Pacerone] 200 mg Tablet 400 mg PO BID Qty: 120 RF: 0 Continued Eliquis 5 mg Tablet 5 mg PO BID Qty: 60 RF: 1 aspirin [Children's Aspirin] 81 mg Tablet,Chewable 81 mg PO DAILY@0800 Qty: 30 RF: 1 omeprazole 20 mg capsule,delayed release(DR/EC) 20 mg PO HS RF: 0 terbinafine HCl 250 mg tablet 250 mg PO DAILY RF: 0 fludrocortisone 0.1 mg tablet 0.1 mg PO DAILY RF: 0 melatonin 10 mg Tablet 10 mg PO HS PRN (Reason: Insomnia) RF: 0 Artificial Tears([id number]) 1-0.2-0.2 % Drops 1 drp EACH EYE QID PRN (Reason: Dry Eye(S)) Qty: 10 RF: 0 prednisone 10 mg tablet 10 mg PO DAILY RF: 0 potassium chloride 20 mEq tablet,ER particles/crystals 20 meq PO DAILY RF: 0 lorazepam 2 mg tablet 2 mg PO Q8H PRN (Reason: Anxiety) RF: 0 ascorbic acid (vitamin C) [Vitamin C] 500 mg Tablet 500 mg PO DAILY Qty: 30 RF: 0 furosemide [Lasix] 40 mg tablet 40 mg PO DAILY Qty: 30 RF: 0 ferrous sulfate 325 mg (65 mg iron) tablet 325 mg PO BIDWM RF: 0 Date of admission: 01/03/21 10:20 Primary Care Provider: Omari Pearce
[2021-01-06] MEDS: LORazepam (*CRX) 1 MG TABLET 2 MG PO (12:44)
--- NOTE | 2021-01-06 15:40 | PM.IMPN ---
Progress Note: A&P Assessment and Plan (1) Atrial fibrillation with RVR: Code(s): I48.91 - Unspecified atrial fibrillation Status: Acute Assessment and Plan: Currently on oral amiodarone and metoprolol with a heart rate of 118 -He was recently discharged from this hospital and his amiodarone and metoprolol were discontinued due to bradycardia according to the notes. Tachybrady syndrome? - Patient continues to feel short of breath and does not feel comfortable discharging and there are no further interventions that can be done here [facility]. I called [facility] and spoke with Dr. Osman with EP who will accept him in transfer. She recommended stopping the Eliquis and starting Lovenox and obtaining a PCR COVID test (for their bed placement). -he has a history of AFib with cardioversions in the past -cardiology following, appreciate their recommendations (2) Acute on chronic combined systolic (congestive) and diastolic (congestive) heart failure: Code(s): I50.43 - Acute on chronic combined systolic (congestive) and diastolic (congestive) heart failure Status: Acute Assessment and Plan: Improving. Likely due to AFib with RVR and lasix noncompliance -no chest pain, no evidence of ACS -BNP elevated -echo May 2019 shows an EF of 35-40%. Plan for repeat echo once heart rate has improved per Cardiology -patient has diuresed well and will continue with oral Lasix - chest x-ray again today no acute cardiopulmonary disease (3) Elevated brain natriuretic peptide (BNP) level: Code(s): R79.89 - Other specified abnormal findings of blood chemistry Status: Acute Assessment and Plan: As above (4) GERD (gastroesophageal reflux disease): Qualifiers: Esophagitis presence: esophagitis presence not specified Qualified Code(s): K21.9 - Gastro-esophageal reflux disease without esophagitis Code(s): K21.9 - Gastro-esophageal reflux disease without esophagitis Status: Chronic Assessment and Plan: Continue Protonix (5) Parkinson disease: Code(s): G20 - Parkinson's disease Status: Acute Assessment and Plan: Noted in the EMR, On no meds -no evidence of symptoms currently at bedside (6) History of suicidal ideation: Code(s): Z86.59 - Personal history of other mental and behavioral disorders Status: Acute Assessment and Plan: Patient was reportedly suicidal in the past and was hospitalized for this. During this time, his had COVID and did end up passing away. He has no suicidal ideations and has been doing better (7) Aneurysm: Code(s): I72.9 - Aneurysm of unspecified site Status: Acute Assessment and Plan: Mild thoracic aortic aneurysm noted on CT -Follow up with serial imaging with pcp Additional Plan UA reviewed, not suspicious of UTI sob today could be due to aflutter and possibly anxiety. CXR WNL and bladder scan WNL as well. PE r/u on admission and pt has been on eliquis. Will monitor. Pt did improve with ativan. Subjective Date/time seen: 01/06/21 15:40 Interval history: Pt is a 80-year-old male here for AFib with RVR and CHF. Patient was seen today and states that he does not think he can discharge. He says he continues to feel short of breath and that is what brought him in and he does not feel comfortable leaving. He said if he goes home he will come back to the emergency room. He says he feels worse lying flat but also feels short of breath just sitting there. He has no chest pain at this time. He says he has not had much bowel movements but has been passing gas and producing small bowel movements. He thinks he is a bit constipated. Exam Narrative: General: Well developed well nourished patient in NAD HEENT: normocephalic Neck: supple Neuro: Alert and oriented x4 CV: tachycardic on exam which appeared regular. Telemetry heart rate
[2021-01-06 15:51] LABS: SARS-CoV-2 RNA PCR Negative
[2021-01-06] MEDS: ENOXAPARIN 100 MG/ML SYRINGE 90 MG SUB-Q (20:04)
[2021-01-06] MEDS: PANTOPRAZOLE 40 MG TABLET PO (20:05)
[2021-01-06] MEDS: MELATONIN 5 MG TABLET 10 MG PO (20:06)
[2021-01-07] VITALS (18 sets, daily range): BP systolic 80–108; BP diastolic 42–78; PULSE 45–111; RESP 12–22; TEMP 36.1–37.1; O2SAT 91–99
--- NOTE | 2021-01-07 | ECHO_ITS ---
Patient Info Name: Rico Nelson Age: 80 years : 1940 Gender: Male Ht: 74 in Wt: 198 lbs BSA: 2.17 m2 HR: 82 bpm BP: 107 / 78 mmHg Heart Rhythm: Atrial Flutter Exam Date: 01/07/2021 2:36 PM Exam Location: [facility] Patient Status: Inpatient Admit Date: 01/03/2021 Staff Ordering Physician: Maite David PA-C Vehicle Safety Inspector: Carter Jade RDCS, RT Attending Provider: Maite David PA-C Referring Physician: Frankie BRANCH; Exam Type: CA echo doppler color flow Study Info Indications I45.9 - Conduction disorder, unspecified Complete two-dimensional, color flow and Doppler transthoracic echocardiogram is performed. Strain analysis performed. Summary 1. Complete two-dimensional, color flow and Doppler transthoracic echocardiogram is performed. 2. Left ventricular chamber dimension is mildly enlarged. 3. Left ventricular systolic function is severely reduced, estimated at 25-30%. 4. Severe biatrial dilation. 5. Mild aortic and mitral valve regurgitation. 6. Atrial fibrillation. Left Ventricle Left ventricular chamber dimension is mildly enlarged. Left ventricular systolic function is severely reduced, estimated at 25-30%. The left ventricular diastolic function is indeterminate. Right Ventricle Right ventricular chamber dimension is mildly enlarged. Left Atria Left atrial chamber dimension is severely enlarged. Right Atria Right atrial chamber dimension is severely enlarged. Aortic Valve The aortic valve is normal. There is mild aortic valve regurgitation. Pulmonic Valve The pulmonic valve is not well visualized. Mitral Valve The mitral valve has normal leaflets. There is mild mitral valve regurgitation. The mitral valve annulus is mildly calcified. Tricuspid Valve The tricuspid valve leaflets are normal. There is mild tricuspid valve regurgitation. Pericardium/Pleural The pericardium appears normal. Aorta The aortic root size at the sinus of Valsalva is normal. Left Ventricular Outflow Tract Name Value Normal LVOT 2D LVOT Diameter 2.1 cm LVOT Doppler LVOT Peak Gradient 2 mmHg LVOT Mean Gradient 1 mmHg LVOT VTI 11 cm LVOT VTI/AV VTI Ratio 0.7 LVOT Stroke Volume 40 ml LVOT CO 3.2 l/min LVOT CI 1.5 l/min/m2 Mitral Valve Name Value Normal MV Doppler MV Peak Gradient 1 mmHg MV Mean Gradient 0 mmHg MV Decel [place] 613 cm/s2 MV PHT 41 ms MV Area (PHT) 5.4 cm2 4.0-5.0 MV Area (Cont Eq VTI) 4.8 cm2
[2021-01-07] MEDS: AMIODARONE HCL 200 MG TABLET 400 MG PO ×3 (02:10→17:03)
[2021-01-07 06:45] LABS: Hemoglobin 11.5 g/dL (14.0-18.0); Mean Corpuscular HGB Conc 31.9 g/dl (32-36); Mean Corpuscular Hemoglobin 29.6 pg (26-34); Mean Corpuscular Volume 92.5 fl (80-100); Mean Platelet Volume 11.8 fl (7.4-10.4); Platelet Count Result 274 k/mm3 (150-375); Red Blood Count 3.89 M/mm3 (4.6-6.20); Red Cell Distribution Width 21.1 % (11.5-14.5); White Blood Count 10.3 K/mm3 (4.5-10.0)
[2021-01-07 07:08] LABS: Anion Gap 16 mmol/L (8-16); Blood Urea Nitrogen 66 mg/dL (9-20); Calcium 9.2 mg/dL (8.4-10.2); Carbon Dioxide 25 mmol/L (22-30); Chloride 97 mmol/L (98-107); Estimated CRCL calculation 33 ml/min; Estimated Glomerular Filt Rate 34; Glucose 148 mg/dL (65-110); Potassium 4.9 mmol/L (3.4-5.0); Sodium 138 mmol/L (137-145)
[2021-01-07] MEDS: METOPROLOL TARTRATE 25 MG TABLET PO (09:10)
[2021-01-07] MEDS: polyethylene glycoL 3350 17 GM POWD.PACK PO (09:10)
[2021-01-07] MEDS: FERROUS SULFATE 324 MG TABLET PO ×2 (09:10→17:03)
[2021-01-07] MEDS: ASPIRIN 81 MG CHEWABLE TABLET PO (09:10)
[2021-01-07] MEDS: BISACODYL 5 MG TABLET EC PO (09:10)
[2021-01-07] MEDS: ENOXAPARIN 100 MG/ML SYRINGE 90 MG SUB-Q ×2 (09:10→21:22)
[2021-01-07] MEDS: predniSONE 10 MG TABLET PO (09:11)
[2021-01-07] MEDS: SODIUM CHLORIDE 0.9% IV 250 ML 100 ML IV CONT (09:11)
--- NOTE | 2021-01-07 09:42 | PM.IMPN ---
Progress Note: A&P Assessment and Plan (1) DUTCH (acute kidney injury): Code(s): N17.9 - Acute kidney failure, unspecified Status: Acute Assessment and Plan: Patients creatinine continues to worsen today after being elevated yesterday as well. - he looks dry on exam and has been getting Lasix with a fluid restriction. I will give him 250 cc of fluid over 2-1/2 hours to help rehydrate him but will monitor fluid status closely - continue to hold Lasix - will obtain renal ultrasound. no signs of UTI on exam, UA on admission was normal - if he continues to worsen, may consider Nephrology consult (2) Atrial fibrillation with RVR: Code(s): I48.91 - Unspecified atrial fibrillation Status: Acute Assessment and Plan: Currently on oral amiodarone and metoprolol with a heart rate of 104 -He was recently discharged from this hospital and his amiodarone and metoprolol were discontinued due to bradycardia according to the notes. Tachybrady syndrome? - Patient continues to feel short of breath and does not feel comfortable discharging and there are no further interventions that can be done here [facility]. I called [facility] and spoke with Dr. Osman with EP who will accept him in transfer. She recommended stopping the Eliquis and starting Lovenox and obtaining a PCR COVID test (which is negative) -he has a history of AFib with cardioversions in the past -cardiology following, appreciate their recommendations (3) Acute on chronic combined systolic (congestive) and diastolic (congestive) heart failure: Code(s): I50.43 - Acute on chronic combined systolic (congestive) and diastolic (congestive) heart failure Status: Acute Assessment and Plan: patient now looks dehydrated on exam. See above. Monitor fluid status closely -no chest pain, no evidence of ACS -BNP elevated -echo May 2019 shows an EF of 35-40%. Plan for repeat echo once heart rate has improved per Cardiology. will order -patient has diuresed well and will continue to hold oral Lasix - chest x-ray 01/06 with no acute cardiopulmonary disease (4) Elevated brain natriuretic peptide (BNP) level: Code(s): R79.89 - Other specified abnormal findings of blood chemistry Status: Acute Assessment and Plan: As above (5) GERD (gastroesophageal reflux disease): Qualifiers: Esophagitis presence: esophagitis presence not specified Qualified Code(s): K21.9 - Gastro-esophageal reflux disease without esophagitis Code(s): K21.9 - Gastro-esophageal reflux disease without esophagitis Status: Chronic Assessment and Plan: Continue Protonix (6) Parkinson disease: Code(s): G20 - Parkinson's disease Status: Acute Assessment and Plan: Noted in the EMR, On no meds -no evidence of symptoms currently at bedside (7) History of suicidal ideation: Code(s): Z86.59 - Personal history of other mental and behavioral disorders Status: Acute Assessment and Plan: Patient was reportedly suicidal in the past and was hospitalized for this. During this time, his had COVID and did end up passing away. He has no suicidal ideations and has been doing better (8) Aneurysm: Code(s): I72.9 - Aneurysm of unspecified site Status: Acute Assessment and Plan: Mild thoracic aortic aneurysm noted on CT -Follow up with serial imaging with pcp Additional Plan UA reviewed, not suspicious of UTI Subjective Date/time seen: 01/07/21 09:42 Interval history: Pt is a 80-year-old male here for AFib with RVR and CHF. Patient was seen today and states he had some shortness of breath over night but is doing better today. He is not having any shortness of breath, chest pain or arm pain at this time. He has had a small bowel movement but thinks he is constipated and would like some more fiber. He also feels dehydrated. We disc
[2021-01-07] MEDS: LORazepam (*CRX) 1 MG TABLET 2 MG PO (11:38)
--- NOTE | 2021-01-07 13:28 | PM.PNCARD ---
Progress Note: A&P Assessment and Plan (1) Atrial flutter with rapid ventricular response: Code(s): I48.92 - Unspecified atrial flutter Status: Acute Assessment and Plan: persistent despite history of atrial flutter ablation and repeat cardioversions. Patient previously intolerant to amiodarone and beta-blockers due to symptomatic bradycardia post cardioversion. However, patient has recurrence of tachyarrhythmia with atrial flutter with RVR resulting in decompensated heart failure. Amiodarone has been restarted yet he remains tachycardic. Very complicated clinical situation. - Continue Amiodarone load 400 mg po TID - Add Metoprolol tartrate 25 mg p.o. q.12 hours, dose this a.m.. - Eliquis has been discontinued, on lovenox now in anticipation of proccedure at [facility] - He is on the wait list to be transferred to [facility] to be seen by the EP team there. (2) Acute on chronic combined systolic (congestive) and diastolic (congestive) heart failure: Code(s): I50.43 - Acute on chronic combined systolic (congestive) and diastolic (congestive) heart failure Status: Acute Assessment and Plan: Furosemide on hold now due to DUTCH. Monitor fluid status closely. (3) Cardiomyopathy: Code(s): I42.9 - Cardiomyopathy, unspecified Status: Acute Assessment and Plan: Moderate LV dysfunction EF 35-40% continue supportive medical therapy as tolerated. (4) Tachycardia-bradycardia syndrome: Code(s): I49.5 - Sick sinus syndrome Status: Acute Assessment and Plan: As above, patient in need of electrophysiology evaluation for recommended AV naif ablation and biventricular [employer] pacemaker implantation. (5) Acute on chronic renal failure: Code(s): N17.9 - Acute kidney failure, unspecified; N18.9 - Chronic kidney disease, unspecified Status: Acute Assessment and Plan: Improving. Continue to monitor closely. (6) Paroxysmal atrial fibrillation: Code(s): I48.0 - Paroxysmal atrial fibrillation Status: Acute Assessment and Plan: Stable at present. Anticoagulation. (7) Anemia: Code(s): D64.9 - Anemia, unspecified Status: Acute Assessment and Plan: Follow H&H closely. No evidence of active bleeding. Subjective Date/time seen: 01/07/21 13:28 Interval history: This is a 80-year-old man with: Resistant, recurrent atrial arrhythmias now again with recurrent atrial flutter with RVR resulting in CHF decompensation. Patient is back on a loading dose of oral amiodarone and is systemically anticoagulated with apixaban. He also has left ventricular systolic dysfunction which is a chronic issue. Date of service 01/05/2021: Patient is comfortable the last couple of days really no shortness of breath or cardiac instability. Despite persistent atrial flutter with heart rate of about 110-120. Discussion with the patient today about the long-term management of this. I did have a detailed discussion with his country singer at [place] who agrees with me that it is probably time to consider ablating the AV node, implanting a pacemaker device and eliminating the need to use medication to provide rate control in this gentleman since that appears to be failing. His only complaint today is no fiber in his diet and has not had a bowel movement in a while Date of service 01/06/2021: No cardiovascular symptoms resting comfortably. Patient is still in atrial flutter but heart rate is about 115, much more reasonable. Plans noted for discharge today are okay with me. Reminded patient that we will be arranging for him to see his country singer at [place] at relatively short interval to consider AV node ablation and pacemaker implantation as rhythm control has been unsuccessful Date of service 01/07/2021: Remains in atrial flutter rate is currently in the 80's. He's feeling well today and does not have any complaints but is concerned about his breath
[2021-01-07] MEDS: PANTOPRAZOLE 40 MG TABLET PO (21:22)
[2021-01-08] VITALS (8 sets, daily range): BP systolic 70–90; BP diastolic 14–60; PULSE 44–94; RESP 20–24; TEMP 35.6–36.4; O2SAT 86–98
--- NOTE | 2021-01-08 01:53 | ECG_ITS ---
Measurements Intervals [place] Rate: 57 P: 40 MN: 304 QRS: 143 QRSD: 125 T: 51 QT: 543 QTc: 533 Interpretive Statements SINUS BRADYCARDIA WITH FIRST DEGREE AV BLOCK RIGHT AXIS DEVIATION INTRAVENTRICULAR CONDUCTION DELAY DELAYED PRECORDIAL R/S TRANSITION PROLONGED QT INTERVAL ABNORMAL ECG Electronically Signed On 01-08-2021 6:08:07 CDT by Josue Colvin D.O.
[2021-01-08 03:05] LABS: Glucose Point of Care < 20 mg/dl (65-105)
[2021-01-08 03:05] LABS: Glucose Point of Care < 20 mg/dl (65-105)
[2021-01-08] MEDS: DEXTROSE 50% 25 GM/50 ML SYRINGE (03:12)
[2021-01-08 03:16] LABS: Basophils Percent Auto 0.2 % (0.2-1.2); Hematocrit 37.5 % (42.0-52.0); Immature Granulocyte Absolute 0.18 K/mm3 (0.00-0.031); Immature Granulocyte Percent A 1.1 % (0-0.5); Lymphocytes Absolute Auto 0.27 K/mm3 (0.9-3.2); Lymphocytes Percent Auto 1.6 % (18.3-44.2); Mean Corpuscular HGB Conc 29.3 g/dl (32-36); Mean Corpuscular Hemoglobin 29.6 pg (26-34); Mean Corpuscular Volume 100.8 fl (80-100); Mean Platelet Volume 12.2 fl (7.4-10.4); Monocytes Absolute Auto 1.3 K/mm3 (0.1-0.6); Monocytes Percent Auto 7.3 % (2.6-8.5); Neutrophils Absolute Auto 15.4 K/mm3 (1.3-6.7); Neutrophils Percent Auto 89.8 % (45.5-73.1); Nucleated Red Blood Cells Perc 0.2 % (0.0-0.2); Platelet Count Result 150 k/mm3 (150-375); Red Blood Count 3.72 M/mm3 (4.6-6.20); Red Cell Distribution Width 21.2 % (11.5-14.5); White Blood Count 17.1 K/mm3 (4.5-10.0)
--- NOTE | 2021-01-08 03:18 | PC.NURSE ---
patient is unresponsive, diaphoretic. glucose checked and was to low to read. [address] estes informed and ordered glucogon 1 u sq x1.
[2021-01-08] MEDS: GLUCAGON FOR INJ 1 MG VIAL IM (03:34)
--- NOTE | 2021-01-08 03:36 | PC.NURSE ---
patient is now responsive and stating that he feels terrible all over. waiting for labs to come back and to recheck glucose.
[2021-01-08 03:47] LABS: Blood Urea Nitrogen 71 mg/dL (9-20); Calcium 9.1 mg/dL (8.4-10.2); Carbon Dioxide < 5 mmol/L (22-30); Chloride 97 mmol/L (98-107); Estimated CRCL calculation 19 ml/min; Estimated Glomerular Filt Rate 18; Glucose < 20 mg/dL (65-110); Sodium 140 mmol/L (137-145)
[2021-01-08] MEDS: ALBUTEROL SULFATE NEB 2.5 MG/0.5 ML INH INHALATION (04:03)
[2021-01-08 04:07] LABS: Glucose Point of Care 44 mg/dl (65-105)
[2021-01-08 04:07] LABS: Glucose Point of Care 35 mg/dl (65-105)
[2021-01-08] MEDS: DEXTROSE 5%/0.9% SOD CHL 1,000 ML 100 ML IV CONT (04:12)
[2021-01-08 04:13] LABS: Anisocytosis 1+ (NORMAL); Platelet Estimate Adequate (Adequate)
[2021-01-08 04:14] LABS: Crenated RBC 1+ (NORMAL)
[2021-01-08] MEDS: SODIUM CHLORIDE 0.9% IV 500 ML IV CONT (04:18)
[2021-01-08] MEDS: DEXTROSE 10% 1,000 ML 100 ML IV CONT (04:21)
--- NOTE | 2021-01-08 04:23 | PC.NURSE ---
patient was given 1 amp d-50 and glucogon. lab called critical blood sugar of 20. dr estes aware and orders given. rechecked blood sugar and it was 44, second check and it was 35. changed d5 iv at 100 to d10 at 100.
[2021-01-08] MEDS: HYDROCORTISONE SODIUM SUCCINATE 100 MG/2 ML VIAL IV PUSH (04:42)
--- NOTE | 2021-01-08 05:03 | PC.NURSE ---
patient is becoming restless but is denying pain at this time.
[2021-01-08 05:15] LABS: Glucose Point of Care 76 mg/dl (65-105)
[2021-01-08 05:37] LABS: Glucose Point of Care 58 mg/dl (65-105)
[2021-01-08 05:54] LABS: Glucose Point of Care 113 mg/dl (65-105)
--- NOTE | 2021-01-08 06:20 | P.PNCROSS_ITS ---
Event Note Event Note Event Note: Rapid response was called after after patient was unresponsive cold, clammy and in respiratory distress, heart rate was 43-40 sinus bradycardia, patient with agonal breathing being assisted with bag-valve, glucose check was 23, patient received 2 amps of D50 IV push, blood pressure initially was 80/45. Patient still being assisted with bag-valve attempts to reach family members, instead we reached his past who stated that Mr. brown would not want to be resuscitated however no official documents of power of insurance defense attorney so we proceeded to call Carlos his niece who in turn wanted to discuss it with family and would call us back as soon as possible in the meantime patient continue to be assisted in his breathing he had a good strong femoral pulses throughout his heart ray was steady in the 40s at sinus bradycardia a recheck blood pressure was 99/55 at this point patient have wide open fluids running. We got a call back to stop all resuscitative effort and making comfortable I which point we stop bag-valve and put in on oxygen by non-rebreather comfort care measures ongoing.
[2021-01-08] MEDS: MORPHINE SULFATE (*CRX) 4 MG/ML INJ (06:21)
--- NOTE | 2021-01-08 06:25 | PC.NURSE ---
rapid response called on patient at 0532. patient was communicating and was becoming more abtundant. barely answering any question. respirations became labored/guppy breathing. rechecked blood glucose and blood pressure. glucose was 76, blood pressure was 89/46, patient was pale/[place] in color, diaphoretic, eyes glassy. decision to call rapid as patient was getting worse by the minute. rechecked blood glucose again and it was 35. patient respiratory status was supported by ambu bag. 2 amps d 50 given and d10 increased to 300/hr. unable to get pulse ox because hands cold. heart rate in the low 40's. patients personal care aid was called and he stated that the patient didn't want extrordinary measures taken. he was not the poa. so contacted the son with no answer, messages were full. contacted the niece. who called his brother to get code status. they said that he didn't want extra measures taken. to make patient comfortable. dominique supervisor cook house also spoke to niece to verify code status.
[2021-01-08] MEDS: MORPHINE SULFATE INJ (*CRX) 50 MG in SODIUM CHLORIDE 0.9% IV 95 ML IV CONT (08:05)
--- NOTE | 2021-01-08 08:31 | PCOTNOTE ---
Pt. 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
--- NOTE | 2021-01-08 08:34 | PM.IMPN ---
Progress Note: A&P Assessment and Plan (1) Comfort measures only status: Code(s): Z51.5 - Encounter for palliative care Status: Acute Assessment and Plan: Pt decompensated overnight and was unresponsive found to have electrolyte abnormalities, hypoglycemia, and DUTCH -he is now alert and oriented and states that he does not want any further intervention. He understands that if he does not correct his electrolyte imbalances or his kidney function worsens he will pass away. He says that his heart is weak and he just lost his last year and that he does not want anymore treatment at this time. He seems to be at peace with this decision. The galvanizing pot runner called the family and they are on board. He has been started on morphine and Ativan for comfort and appears to be comfortable. (2) DUTCH (acute kidney injury): Code(s): N17.9 - Acute kidney failure, unspecified Status: Acute Assessment and Plan: Patients creatinine continues to worsen today after being elevated the last few days. He received some fluids yesterday and last Lasix dose was 10 -continue oral hydration. Patient does not want any IV fluids -renal ultrasound with no acute abnormalities (3) Atrial fibrillation with RVR: Code(s): I48.91 - Unspecified atrial fibrillation Status: Acute Assessment and Plan: Patient has declined further intervention for this and would like to go comfort care. Will cancel [facility] transfer (4) Acute on chronic combined systolic (congestive) and diastolic (congestive) heart failure: Code(s): I50.43 - Acute on chronic combined systolic (congestive) and diastolic (congestive) heart failure Status: Acute Assessment and Plan: EF worsening on recent echo. Continue comfort care (5) Elevated brain natriuretic peptide (BNP) level: Code(s): R79.89 - Other specified abnormal findings of blood chemistry Status: Acute Assessment and Plan: As above (6) GERD (gastroesophageal reflux disease): Qualifiers: Esophagitis presence: esophagitis presence not specified Qualified Code(s): K21.9 - Gastro-esophageal reflux disease without esophagitis Code(s): K21.9 - Gastro-esophageal reflux disease without esophagitis Status: Chronic Assessment and Plan: No acute symptoms (7) Parkinson disease: Code(s): G20 - Parkinson's disease Status: Acute Assessment and Plan: Noted in the EMR, On no meds -no evidence of symptoms currently at bedside (8) History of suicidal ideation: Code(s): Z86.59 - Personal history of other mental and behavioral disorders Status: Acute Assessment and Plan: Patient was reportedly suicidal in the past and was hospitalized for this. During this time, his had COVID and did end up passing away. He has no suicidal ideations but does not want to prolong his life if he is passing away. Continue comfort care and DNR status. He appears to be psychologically appropriate. (9) Aneurysm: Code(s): I72.9 - Aneurysm of unspecified site Status: Acute Assessment and Plan: Comfort care (10) Hypoglycemia: Code(s): E16.2 - Hypoglycemia, unspecified Status: Acute Assessment and Plan: Unclear etiology at this time. Patient was found to have a critically low glucose through the night. No reports of insulin given. He had been on florinef in the past. IV solucortef was given overnight. Consider Addisons crisis. Additional Plan I called Carlos Arnett [phone] and left her a message to return my call to discuss plan of care. Subjective Date/time seen: 01/08/21 08:34 Interval history: Pt is a 80-year-old male here for AFib with RVR and CHF. Patient was seen today and plan of care discussed. He was alert and oriented and able to hold a full conversation and was appropriate. He said he underst
--- NOTE | 2021-01-08 13:55 | PC.NURSE ---
This patient, Rico Nelson ., was transferred to [facility] on 01/08/21 at 0926. Personal belongings sent with patient. Report given to Nuvia. Appropriate documentation sent with patient.
--- NOTE | 2021-01-08 18:00 | P.DN_ITS ---
Discharge Summary Date and Time Date of : 01/08/21 Time of : 17:20 Provider Pronounced By: Ngoc Castillo RN Probable Cause of Probable Cause of : kidney failure, heart failure Summary Hospital Course: Date of service 01/08/21 Patient is a 80-year-old male who presented emergency room on 01/01/21 for heart palpitations. He was recently hospitalized due to bradycardia and his amiodarone and metoprolol had been stopped. He came back to emergency room for lower extremity swelling and palpitations. In the past he had failed multiple cardioversions. Vitals in the ER were temperature 36.4? C, pulse 124, respiratory rate 20, blood pressure 118/68, pulse 99 on room air. Initial CBC showed mild anemia at a hemoglobin 9.5 and hematocrit 30.2. BMP showed slight electrolyte abnormalities with a potassium 3.3, CO2 34, BUN 24. BNP greater than 35,000. Troponins negative x3. Patient was admitted to the hospitalist service and Cardiology was consulted. The restarted the amiodarone and metoprolol and the patient continued to be tachycardic. He did have significant lower extremity swelling and Lasix was started and this resolved his swelling. He continued to have tachycardia and Cardiology recommended he be transferred to [facility] for further evaluation and intervention such as a possible AV node ablation with pacemaker insertion. conciliator of 01/07 patient became unresponsive with significant electrolyte abnormalities such as a potassium 6.0 and a low glucose. Likely due to worsening renal failure and possible addisonian crisis. I want to see him bedside and he was alert, oriented and appropriate and states that he does not want any further intervention. He understood that if he does not correct his electrolyte imbalances or his kidney function worsens he will pass away. He says that his heart is weak and he just lost his in the last year and that he does not want anymore treatment at this time. He seems to be at peace with this decision. I spoke with the niece who was on board. The patient states he does not frequently speak to his sons. When asked if there was anyone else I could contact he asked for his broadcast checker to be notified. Patient appears psychologically appropriate during this interaction. He was started on morphine and Ativan for comfort and peacefully at 5:20 p.m. Additional Data Confirmation of as documented by pronouncing clinician: Pupillary Reflex, Palpable Pulses, Response to Stimuli, Heart Tones and Breath Sounds Name of Provider Notified: Dr. Watson Time Provider Notified: 17:40 Provider Requests Autopsy: No Police Surgeon Notified: Yes Date [facility] Notified of : 01/08/21 Time [facility] Notified of : 17:55
--- NOTE | 2021-01-08 19:10 | PC.NURSE ---
Patients son Shashi Nelson and daughter came to see their dad. They stated that Carlos is 18years old and Nomi Arnett nephew was being investigated by department of aging.Belongings sent with Shashi Nelson son.
--- NOTE | 2021-01-08 19:29 | PC.NURSE ---
Patient's belongings (wallet with cards/marlow, watches, keys, clothes) sent with son, Shashi Nelson, on 01/08/21 @ 2136. Shashi's # is [phone].
--- NOTE | 2021-01-08 20:02 | PC.NURSE ---
Many phone calls made to Chris (lucerne farmer) and Shashi (son) to determine home. Chris stated he did assist with Rico's who recently passed, but did not want to make any legal decisions for the family. Chris stated that he would like Shashi to be primary contact about this decision and that he does not mind being listed as the secondary contact. I called Shashi to relay this information to him. Shashi stated that he would like to be primary contact and that he will call tomorrow, 01/09/21, with a decision on home. This was relayed to the house painting instructor.
== END 2021-01-08 17:20 | disposition expired | DRG 292 ==
LOC: ANHED 23:24 → ANHIMU 01-02 01:46 → ANH3MEDSUR 01-10 10:25 → ANHIMU 01-10 10:25
PROVIDERS: Physician Assistant; Admitting Provider Internal Medicine; Emergency Provider Emergency Medicine; PCP Family Medicine Adolescent Medicine; Visit Provider Family Medicine
DX: I50.43 Acute on chronic combined systolic (congestive) and diastolic (congestive) heart failure (principal); N17.9 Acute kidney failure, unspecified; I48.20 Chronic atrial fibrillation, unspecified; I48.92 Unspecified atrial flutter; I42.9 Cardiomyopathy, unspecified; Z91.14 Patient's other noncompliance with medication regimen; Z20.822 Contact with and (suspected) exposure to COVID-19; I48.91 Unspecified atrial fibrillation; K21.9 Gastro-esophageal reflux disease without esophagitis; G20 Parkinson's disease; E16.2 Hypoglycemia, unspecified; M19.90 Unspecified osteoarthritis, unspecified site; F32.A Depression, unspecified; H40.9 Unspecified glaucoma; N18.9 Chronic kidney disease, unspecified; D64.9 Anemia, unspecified; I71.2 Thoracic aortic aneurysm, without rupture; I49.5 Sick sinus syndrome; F41.1 Generalized anxiety disorder; Z90.49 Acquired absence of other specified parts of digestive tract; Z98.1 Arthrodesis status; Z87.891 Personal history of nicotine dependence; Z86.59 Personal history of other mental and behavioral disorders
CPT/HCPCS: 36415; 71045; 71046; 71275; 76775; 80048; 80076; 81001; 82948; 83735; 83880; 84443; 84484; 85014; 85018; 85025; 85027; 85380; 85610; 85730; 87086; 93005; 93306; 93970; 94640; 96374; 96376; 97110; 97116; 97161; 97165; 97535; 99285; A9270; C9803; G0378; J1610; J1650; J1720; J1940; J2270; J2405; J7040; J7042; J7050; J7512; Q9967; U0003; U0005